=== PATIENT | female | born 1970 | race Caucasian/White ===

== ENCOUNTER 2016-03-18 08:31 | Emergency (ER) | payer BC ==
[~2016-03-18] VITALS: Wt 64.5 kg
[~2016-03-18 08:31] MED LIST: FURO40TA4 PO; HYDR-3671 PO; HYDR-842 PO; INSU200I4 SQ; LORA0.5T PO; LOSA50TA2 PO; METO-448 PO; METO10TA96 PO; NIFE60TA11 PO; NOVO3I SC; ONDA4TAB14 PO; SVL400T PO; TOBR5DRO14 BOTH EYES
[2016-03-18] MEDS ORDERED: HYDROmorphONE 1 MG/ML SYG IV STA (08:49)
[2016-03-18] MEDS ORDERED: ONDANSETRON 4 MG INJ IV STA (08:49)
[2016-03-18] MEDS ORDERED: morphine 4 MG/ML VIAL IV STA (09:20)
[2016-03-18 09:22] LABS: BASOPHILS % 0.4 % (0.0-2.0); EOSINOPHILS # 0.1 10^3/ul (0.0-0.5); EOSINOPHILS % 1.5 % (0.0-7.0); HEMATOCRIT 36.2 % (37.0-47.0); HEMOGLOBIN 12.4 g/dl (12.0-16.0); LYMPHOCYTES # 1.2 10^3/ul (0.8-2.9); LYMPHOCYTES % 27.5 % (15.0-51.0); MEAN CORPUSCULAR HEMOGLOBIN 28.7 pg (29.0-33.0); MEAN CORPUSCULAR HGB CONC 34.3 g/dl (32.0-37.0); MEAN CORPUSCULAR VOLUME 83.6 fl (82.0-101.0); MEAN PLATELET VOLUME 6.8 fl (7.4-10.4); MONOCYTE # 0.4 10^3/ul (0.3-0.9); MONOCYTES % 8.2 % (0.0-11.0); NEUTROPHIL # 2.8 10^3/ul (1.6-7.5); NEUTROPHILS % 62.4 % (39.0-77.0); PLATELET COUNT 205 10^3/UL (140-440); RED BLOOD COUNT 4.33 10^6/ul (4.20-5.40); RED CELL DISTRIBUTION WIDTH 16.8 % (11.5-14.5); UNCORRECTED WBC 4.5 10^3/ul (4.8-10.8); WHITE BLOOD COUNT 4.5 10^3/ul (4.8-10.8)
[2016-03-18 09:28] LABS: ALBUMIN 3.9 g/dl (3.3-4.9); CHLORIDE 99 mmol/L (97-110); POTASSIUM 4.1 mmol/L (3.5-5.1); SODIUM 140 mmol/L (135-144)
[2016-03-18 09:30] LABS: ANION GAP 18 (8-16); ASPARTATE AMINO TRANSFERASE 26 IU/L (15-46); BILIRUBIN,INDIRECT 0.2 mg/dl (0-1.1); BILIRUBIN,TOTAL 0.2 mg/dl (0.2-1.3); CARBON DIOXIDE 27 mmol/L (21-31); CREATININE 2.44 mg/dl (0.44-1.00)
[2016-03-18 09:31] LABS: ALANINE AMINOTRANSFERASE 21 IU/L (13-69); ALBUMIN/GLOBULIN RATIO 0.92; ALKALINE PHOSPHATASE 142 IU/L (42-121); BLOOD UREA NITROGEN 29 mg/dl (7-20); CALCIUM 9.6 mg/dl (8.4-10.2); GLUCOSE 266 mg/dl (70-220); TOTAL PROTEIN 8.1 g/dl (6.1-8.1)
[2016-03-18 09:32] LABS: CONDITION 1; LH ANALYZER COMMENTS 1
[2016-03-18] MEDS ORDERED: OXYC-279 PO (09:41)
[2016-03-18] MEDS ORDERED: POLY17PO6 PO (09:41)
[2016-03-18 09:43] LABS: TROPONIN-I < 0.012 ng/ml (0.00-0.12)
--- NOTE | 2016-03-18 09:51 | ERD ---
ER Documentation Chief Complaint Date/Time DATE: 03/18/16 TIME: 09:48 Chief Complaint back pain, bodyaches, n/v. on dialysis. HPI 45-year-old woman complains of back pain similar to previous episodes. She has a history of chronic pain syndrome and usually requires morphine for pain control. She does have a history of end-stage kidney disease on hemodialysis dependent MWF, last dialysis was yesterday. Patient denies fevers or chills, no dysuria, no chest pain or shortness of breath. ROS All systems reviewed and are negative except as per history of present illness. Medications Home Meds Active Scripts Oxycodone HCl/Acetaminophen (Percocet 5-325 mg Tablet) 1 Each Tablet, 1 EACH PO TID for PAIN, #9 TAB Prov:PAUL CLARK MD 03/18/16 Polyethylene Glycol* (Miralax*) 17 Gm Powd.pack, 2 TSP PO DAILY for CONSTIPATION , #1 BOTTLE Prov:PAUL CLARK MD 03/18/16 Hydralazine Hcl* (Hydralazine Hcl*) 25 Mg Tab, 25 MG PO Q8 for 30 Days, TAB Prov:YAA KIRK MD 01/29/16 Losartan Potassium* (Cozaar*) 50 Mg Tablet, 50 MG PO DAILY for 30 Days, TAB Prov:YAA KIRK MD 01/29/16 Hydroxyzine Hcl* (Atarax*) 25 Mg Tab, 25 MG PO Q6H Y for ITCHING, #40 TAB Prov:YAA KIRK MD 01/29/16 Lorazepam* (Lorazepam*) 0.5 Mg Tablet, 0.5 MG PO Q6 Y for anxiety, nausea/ vomiting, #40 TAB Prov:YAA KIRK MD 01/29/16 Metoclopramide Hcl* (Metoclopramide Hcl*) 10 Mg Tablet, 10 MG PO Q6H Y for NAUSEA AND OR VOMITING, #60 TAB Prov:YAA KIRK MD 01/29/16 Ondansetron (Ondansetron Odt) 4 Mg Tab.rapdis, 4 MG PO Q6H Y for NAUSEA AND/OR VOMITING, #30 TAB Prov:ANTHONY CASTILLO MD 01/01/16 Nifedipine (Nifedical Xl) 60 Mg Tab.er.24, 60 MG PO DAILY for 30 Days, TAB Prov:BUDDY BALLESTEROSNELL 12/29/15 Sevelamer HCl (Renagel) 400 Mg Tab, 400 MG PO WITH MEALS for 30 Days, TAB Prov:REGALEJANDRORBUDDYVERONICA 12/29/15 Furosemide* (Furosemide*) 40 Mg Tablet, 40 MG PO BID DIURETICS for 30 Days, TAB Prov:CED DON NP 12/10/15 Reported Medications Insulin Degludec (Tresiba Flextouch U-200) 200 Unit/1 Ml Insuln.pen, 4 UNIT SQ QHS 01/01/16 Insulin Aspart* (Novolog Insulin Pen*) 100 Unit/Ml Soln, 2 UNIT SC WITH MEALS, EA 01/01/16 Tobramycin-Dexamethasone (Tobramycin-Dexamethasone Ophth) 0.3%-0.1% - 5 Ml Drops.susp, 1 DROP BOTH EYES Q4, #1 EA 01/01/16 Metoprolol Tartrate* (Lopressor*) 25 Mg Tab, 25 MG PO BID, #60 TAB 01/01/16 Allergies Allergies: Coded Allergies: acetaminophen (Verified Allergy, Severe, UNABLE TO BREATH, 01/01/16) hydrocodone (Verified Allergy, Severe, UNABLE TO BREATH, 01/01/16) Penicillins (Verified Allergy, Unknown, 01/01/16) egg yolk (Verified Allergy, Unknown, 01/01/16) hydromorphone (Verified Allergy, Unknown, 12/25/15) ibuprofen (Verified Allergy, Unknown, 01/19/16) tramadol (Verified Allergy, Unknown, 12/25/15) PMhx/Soc Chronic pain syndrome, end-stage kidney disease hemodialysis dependent MWF, right pleural effusion, hypertension, diabetes mellitus, diastolic congestive heart failure History of Surgery: Yes (RIGHT ANKLE SURG) Anesthesia Reaction: No Hx Neurological Disorder: No Hx Respiratory Disorders: No Hx Cardiac Disorders: Yes (CAD, HTN) Hx Psychiatric Problems: No Hx Miscellaneous Medical Probl: Yes (DMII, CKD-on dialysis permacath R Subclavian) Hx Alcohol Use: No Hx Substance Use: No Hx Tobacco Use: No Smoking Status: Never smoker FmHx Family History: No diabetes Physical Exam Vitals Vital Signs Date Time Temp Pulse Resp B/P Pulse Ox O2 Delivery O2 Flow Rate FiO2 03/18/16 10:27 98.9 75 18 189/95 100 Room Air 03/18/16 08:35 98.4 84 20 219/93 98 Physical Exam GENERAL: Well-developed, well-nourished, well-hydrated, in no apparent distress , looks nontoxic in appearance HEENT: Moist mucous membranes, pink conjunctiva, no cervical spine tenderness or step-off deformities, no goiter, no jaundice or icterus, extraocular movements intact without pain. No submandibular induration, and no pharyngeal erythema NEURO: Alert and oriented 3, cranial nerves II through XII intact bilaterally, pupils equal round reactive to light, no focal deficits or facial asymmetry, sensation intact distally Strength 5/5 in upper and lower extremities bilaterally CARDIAC: Regular rate and rhythm, no murmurs rubs or gallops LUNGS: Clear bilaterally no wheezing crackles or stridor ABDOMEN: Soft nontender, no guarding, no rigidity, no rebound, no psoas sign no obturator sign. Normoactive bowel sounds SKIN: Warm and dry to touch, no abrasions, contusions, or hematomas, no lacerations, no ecchymosis, no target lesions, and without ulcers EXTREMITIES: No clubbing cyanosis or edema, calves are bilaterally symmetrical, no Homans sign, no popliteal cord sign. Distal pulses equal and bilateral PSYCH: Normal affect without agitation or irritability Result Diagram: 03/18/1690703/18/1608 Results 24 hrs Laboratory Tests Test 03/18/16 09:08 Alanine Aminotransferase (ALT/SGPT) 21IU/L Albumin 3.9g/dl Albumin/Globulin Ratio 0.92 Alkaline Phosphatase 142IU/L Anion Gap 18 Aspartate Amino Transf (AST/SGOT) 26IU/L Basophils # 0.010^3/ul Basophils % 0.4% Blood Morphology Comment Blood Urea Nitrogen 29mg/dl Calcium Level 9.6mg/dl Carbon Dioxide Level 27mmol/L Chloride Level 99mmol/L Creatinine 2.44mg/dl Direct Bilirubin 0.00mg/dl Eosinophils # 0.110^3/ul Eosinophils % 1.5% Globulin 4.20g/dl Glucose Level 266mg/dl Hematocrit 36.2% Hemoglobin 12.4g/dl Indirect Bilirubin 0.2mg/dl Lipase 84U/L Lymphocytes # 1.210^3/ul Lymphocytes % 27.5% Mean Corpuscular Hemoglobin 28.7pg Mean Corpuscular Hemoglobin Concent 34.3g/dl Mean Corpuscular Volume 83.6fl Mean Platelet Volume 6.8fl Monocytes # 0.410^3/ul Monocytes % 8.2% Neutrophils # 2.810^3/ul Neutrophils % 62.4% Nucleated Red Blood Cells # 0.010^3/ul Nucleated Red Blood Cells % 0.0/100WBC Platelet Count 25944^3/UL Potassium Level 4.1mmol/L Red Blood Count 4.3310^6/ul Red Cell Distribution Width 16.8% Sodium Level 140mmol/L Total Bilirubin 0.2mg/dl Total Protein 8.1g/dl Troponin I < 0.012ng/ml White Blood Count 4.510^3/ul Current Medications Medications (Trade) Dose Ordered Sig/Jacques Route PRN Reason Start Time Stop Time Status Last Admin Dose Admin Hydromorphone HCl (Dilaudid) 1 mg ONCE STAT IV 03/18/16 08:49 03/18/16 09:21 DC Ondansetron HCl (Zofran Inj) 4 mg ONCE STAT IV 03/18/16 08:49 03/18/16 08:51 DC 03/18/16 09:24 Morphine Sulfate (morphine) 4 mg ONCE STAT IV 03/18/16 09:20 03/18/16 09:22 DC 03/18/16 09:24 Procedures/MDM IV line was established patient was placed on vehicle monitor technician rhythm strip revealed a sinus rhythm at about 80 bpm with upright P and T waves. Patient was afebrile. EKG performed, read by me: 83 bpm, normal sinus rhythm, normal axis, no acute ST segment changes, narrow QRS complex, with good R-wave progression in precordial leads. I administered morphine 4 mg IV and Zofran 4 mg IV with excellent response. CBC and electrolytes were normal, liver function tests were normal, troponin was negative. Differential diagnoses considered, included but not limited to acute coronary syndrome, pulmonary embolism, aortic dissection, abdominal aortic aneurysm, sepsis, stroke, meningitis, encephalitis, pneumonia, appendicitis, cholecystitis , bowel obstruction, pyelonephritis, nephrolithiasis, cystitis, as well as metabolic, hematologic, and electrolyte abnormalities. As well as abscess, cellulitis, fractures, and dislocations. Patient feels much better at this time, and vital signs are normal, symptoms have improved. I did give strict instructions to return to the ED if symptoms continue or worsen, patient will otherwise follow-up with primary care physician. Patient understood instructions and agreed to plan. Departure Diagnosis: Primary Impression: Back pain Back pain location: low back pain Chronicity: acute Back pain laterality: bilateral Sciatica presence: without sciatica Qualified Code: M54.5 - Acute bilateral low back pain without sciatica Additional Impressions: Constipation Constipation type: slow transit constipation Qualified Code: K59.01 - Slow transit constipation End stage kidney disease Condition: Good Patient Instructions: Back Pain (Acute Or Chronic), Constipation (Adult) Referrals: CECILIA PAULINO (PCP) PAUL CLARK MD Mar 18, 2016 09:51
[2016-03-18 10:27] VITALS: BP 189/95; PULSE 75; RESP 18; TEMP 98.9
== END 2016-03-18 10:30 | disposition home or self-care (01) ==
LOC: E/R 08:31
DX: M54.5 Low back pain (principal); K59.01 Slow transit constipation; I12.0 Hypertensive chronic kidney disease with stage 5 chronic kidney disease or end stage renal disease; N18.6 End stage renal disease; E11.9 Type 2 diabetes mellitus without complications; I50.9 Heart failure, unspecified; I25.10 Atherosclerotic heart disease of native coronary artery without angina pectoris; Z99.2 Dependence on renal dialysis; Z79.4 Long term (current) use of insulin
CPT/HCPCS: 36415; 80053; 83690; 84484; 85025; 93005; 96374; 96375; 99284; J2270; J2405; J1170

== ENCOUNTER 2016-03-21 08:48 | Inpatient (IN) | payer BC ==
[~2016-03-21] VITALS: Ht 165.1 cm; Wt 63.5 kg
[~2016-03-21 08:48] MED LIST changes: +OXYC-279 PO; +POLY17PO6 PO
[2016-03-21] MEDS: SOD CHLORIDE 0.9% 1,000 ML IV STA ×2 (09:09→10:07)
[2016-03-21] MEDS ORDERED: FAMOTIDINE 20 MG INJ INJ STA (09:09)
[2016-03-21] MEDS ORDERED: ONDANSETRON 4 MG INJ IV STA ×2 (09:09→10:43)
[2016-03-21 09:37] LABS: BASOPHILS % 0.2 % (0.0-2.0); EOSINOPHILS % 0.4 % (0.0-7.0); HEMATOCRIT 36.6 % (37.0-47.0); HEMOGLOBIN 12.4 g/dl (12.0-16.0); LYMPHOCYTES # 0.8 10^3/ul (0.8-2.9); LYMPHOCYTES % 13.2 % (15.0-51.0); MEAN CORPUSCULAR HEMOGLOBIN 28.7 pg (29.0-33.0); MEAN CORPUSCULAR HGB CONC 33.9 g/dl (32.0-37.0); MEAN CORPUSCULAR VOLUME 84.7 fl (82.0-101.0); MEAN PLATELET VOLUME 7.1 fl (7.4-10.4); MONOCYTE # 0.3 10^3/ul (0.3-0.9); MONOCYTES % 4.3 % (0.0-11.0); NEUTROPHIL # 5.2 10^3/ul (1.6-7.5); NEUTROPHILS % 81.9 % (39.0-77.0); PLATELET COUNT 200 10^3/UL (140-440); RED BLOOD COUNT 4.32 10^6/ul (4.20-5.40); RED CELL DISTRIBUTION WIDTH 16.6 % (11.5-14.5); UNCORRECTED WBC 6.3 10^3/ul (4.8-10.8); WHITE BLOOD COUNT 6.3 10^3/ul (4.8-10.8)
[2016-03-21 09:42] LABS: CONDITION 1; LH ANALYZER COMMENTS 1
[2016-03-21 09:47] LABS: CHLORIDE 95 mmol/L (97-110); SODIUM 135 mmol/L (135-144)
[2016-03-21 09:48] LABS: POTASSIUM 4.8 mmol/L (3.5-5.1)
[2016-03-21 09:49] LABS: INR 0.81; PARTIAL THROMBOPLASTIN TIME 27.2 Sec (25.0-35.0); PROTIME 11.2 Sec (12.2-14.2); PT RATIO 0.9
[2016-03-21 09:50] LABS: ALANINE AMINOTRANSFERASE 21 IU/L (13-69); ALBUMIN/GLOBULIN RATIO 0.93; ALKALINE PHOSPHATASE 140 IU/L (42-121); ANION GAP 18 (8-16); ASPARTATE AMINO TRANSFERASE 25 IU/L (15-46); BILIRUBIN,INDIRECT 0.1 mg/dl (0-1.1); BILIRUBIN,TOTAL 0.1 mg/dl (0.2-1.3); BLOOD UREA NITROGEN 49 mg/dl (7-20); CARBON DIOXIDE 27 mmol/L (21-31); GLUCOSE 318 mg/dl (70-220); TOTAL PROTEIN 8.3 g/dl (6.1-8.1)
[2016-03-21 09:51] LABS: CALCIUM 9.9 mg/dl (8.4-10.2)
[2016-03-21 10:07] LABS: TROPONIN-I < 0.012 ng/ml (0.00-0.12)
--- NOTE | 2016-03-21 10:41 | RADRPT ---
PROCEDURE: CT Abdomen and Pelvis without contrast. CLINICAL INDICATION: Possible upper GI bleed. Abdominal pain with nausea and vomiting TECHNIQUE: Axial imaging was obtained through the abdomen pelvis without contrast administration usi ng a multi-slice CT scanner. Standard CT scan of the abdomen pelvis without contrast protocols were performed. The total exam CTDI equals 7.43 mGy and the total exam DLP equals 445.57 mGy-cm. COMPARISON: CT scan of the pelvis 02/20/2016. FINDINGS: CT abdomen: The patient is status post previous cholecystectomy. No evidence of biliary ductal dilation. There are bilateral nonobstructing renal calculi. No hydronephrosis bilaterally. No evidence of intra r enal masses bilaterally. There is mild circumferential urinary bladder wall thickening and rule out cystitis. Urinary bladder is otherwise unremarkable. There has been interval development of mild ascites extending from the inferior aspects of the liver and spleen involving the mid and lower abdo men and pelvis. There is no localized fluid collections to suggest abscess. Negative for intra-abd ominal free air. The liver spleen pancreas and adrenal glands are normal in size configuration with out focal lesions. There is a small to moderate size hiatal hernia. Gastric wall thickening may re late to lack of optimal distension of gastritis cannot be excluded. The small and large bowel appea r unremarkable. There is no change in the moderate periaortic lymphadenopathy is seen at the level of the renal vascular pedicles and extending caudally along the level of the kidneys. No other evid ence of abdominopelvic lymphadenopathy. The lung bases are unremarkable. There is atherosclerotic vascular disease of the abdominal aorta and its branches but no evidence of aneurysm or periaortic f luid collections. There are no acute osseous findings. IMPRESSION: 1. Mild abdominal and pelvic ascites but no localized fluid collection to suggest abscess. Negativ e for intra-abdominal free air. 2. No change in the bilateral nonobstructing renal calculi and moderate periaortic lymphadenopathy. 3. Small to moderate hiatal hernia. RPTAT:AAJJ Physician Pearl Date Time Electronically viewed and signed by Physician Pearl on 03/21/2016 10:41 BM/
[2016-03-21] MEDS ORDERED: morphine 4 MG/ML VIAL IV STA ×2 (10:53→12:49)
[2016-03-21] MEDS ORDERED: METOCLOPRAMIDE 10 MG INJ IV ONE (11:00)
[2016-03-21] MEDS ORDERED: LABETALOL HCL 20MG INJ IV ONE (11:00)
[2016-03-21] MEDS ORDERED: NEPH PO (13:31)
[2016-03-21 14:00] VITALS: TEMP 98.1
[2016-03-21] MEDS ORDERED: ONDA4TAB11 PO (14:10)
[2016-03-21] MEDS ORDERED: LORAZEPAM 2 MG INJ ONE (14:16)
[2016-03-21] MEDS ORDERED: ONDANSETRON 4 MG INJ IV PRN (15:00)
[2016-03-21] MEDS ORDERED: ACETAMINOPHEN 325 MG TAB PO PRN (15:00)
[2016-03-21] MEDS ORDERED: LORAZEPAM 2 MG INJ IV ONE (15:30)
--- NOTE | 2016-03-21 15:40 | ERA ---
ER Documentation Chief Complaint Date/Time DATE: 03/21/16 TIME: 15:28 Chief Complaint abd pain w n/v since last night, states vomiting blood, brown emesis in bag HPI This 45-year-old female presents with nausea vomiting that began last night. Stated one episode of vomiting had brown vomitus she worries for blood. Denies fevers and chills, denies chest pain. Does have sharp upper abdominal pain epigastric area. She is a Tuesday dialysis patient who had dialysis on Tuesday. Family is at bedside to. She has had constipation now for 10 days with very limited bowel movements. No diarrhea. ROS All systems reviewed and are negative except as per history of present illness. Medications Home Meds Active Scripts Ondansetron (Zofran Odt) 4 Mg Tab.rapdis, 4 MG PO Q6, #10 Prov:ALEXANDRAROSMERY 03/21/16 Oxycodone HCl/Acetaminophen (Percocet 5-325 mg Tablet) 1 Each Tablet, 1 EACH PO TID for PAIN, #9 TAB Prov:PAUL CLARK MD 03/18/16 Polyethylene Glycol* (Miralax*) 17 Gm Powd.pack, 2 TSP PO DAILY for CONSTIPATION , #1 BOTTLE Prov:PAUL CLARK MD 03/18/16 Hydralazine Hcl* (Hydralazine Hcl*) 25 Mg Tab, 25 MG PO Q8 for 30 Days, TAB Prov:YAA KIRK MD 01/29/16 Losartan Potassium* (Cozaar*) 50 Mg Tablet, 50 MG PO DAILY for 30 Days, TAB Prov:YAA KIRK MD 01/29/16 Hydroxyzine Hcl* (Atarax*) 25 Mg Tab, 25 MG PO Q6H Y for ITCHING, #40 TAB Prov:YAA KIRK MD 01/29/16 Lorazepam* (Lorazepam*) 0.5 Mg Tablet, 0.5 MG PO Q6 Y for anxiety, nausea/ vomiting, #40 TAB Prov:YAA KIRK MD 01/29/16 Metoclopramide Hcl* (Metoclopramide Hcl*) 10 Mg Tablet, 10 MG PO Q6H Y for NAUSEA AND OR VOMITING, #60 TAB Prov:YAA KIRK MD 01/29/16 Ondansetron (Ondansetron Odt) 4 Mg Tab.rapdis, 4 MG PO Q6H Y for NAUSEA AND/OR VOMITING, #30 TAB Prov:ANTHONY CASTILLO MD 01/01/16 Nifedipine (Nifedical Xl) 60 Mg Tab.er.24, 60 MG PO DAILY for 30 Days, TAB Prov:VERONICA BALLESTEROS 12/29/15 Sevelamer HCl (Renagel) 400 Mg Tab, 400 MG PO WITH MEALS for 30 Days, TAB Prov:VERONICA BALLESTEROS 12/29/15 Furosemide* (Furosemide*) 40 Mg Tablet, 40 MG PO BID DIURETICS for 30 Days, TAB Prov:CED DON NP 12/10/15 Reported Medications Multivit/Ca Carb/B Cmplx/Fa* (Annie-Laura*) 1 Tab Tab, 1 TAB PO DAILY, TAB 03/21/16 Insulin Degludec (Tresiba Flextouch U-200) 200 Unit/1 Ml Insuln.pen, 4 UNIT SQ QHS 01/01/16 Insulin Aspart* (Novolog Insulin Pen*) 100 Unit/Ml Soln, 2 UNIT SC WITH MEALS, EA 01/01/16 Metoprolol Tartrate* (Lopressor*) 25 Mg Tab, 25 MG PO BID, #60 TAB 01/01/16 Discontinued Reported Medications Tobramycin-Dexamethasone (Tobramycin-Dexamethasone Ophth) 0.3%-0.1% - 5 Ml Drops.susp, 1 DROP BOTH EYES Q4, #1 EA 01/01/16 Allergies Allergies: Coded Allergies: acetaminophen (Verified Allergy, Severe, UNABLE TO BREATH, 01/01/16) hydrocodone (Verified Allergy, Severe, UNABLE TO BREATH, 01/01/16) Penicillins (Verified Allergy, Unknown, 01/01/16) egg yolk (Verified Allergy, Unknown, 01/01/16) hydromorphone (Verified Allergy, Unknown, 12/25/15) ibuprofen (Verified Allergy, Unknown, 01/19/16) tramadol (Verified Allergy, Unknown, 12/25/15) PMhx/Soc History of Surgery: Yes (RIGHT ANKLE SX, RT EYE SX FOR CATARACT & GLAUCOMA, DIALYSIS CATH PLACEMENT) Anesthesia Reaction: No Hx Neurological Disorder: No Hx Respiratory Disorders: No Hx Cardiac Disorders: Yes (HTN) Hx Psychiatric Problems: No Hx Miscellaneous Medical Probl: Yes (DMII, CKD-on dialysis permacath R Subclavian) Hx Alcohol Use: No Hx Substance Use: No Hx Tobacco Use: No Smoking Status: Never smoker Physical Exam Vitals Vital Signs Date Time Temp Pulse Resp B/P Pulse Ox O2 Delivery O2 Flow Rate FiO2 03/21/16 14:00 98.1 86 14 158/87 100 Room Air 03/21/16 12:30 10 167/86 100 Room Air 03/21/16 10:36 9 12 225/103 100 Room Air 03/21/16 08:50 97.9 82 20 179/84 99 Physical Exam Const: [] Mild distress, appears and comfortable Head: Atraumatic Eyes: Normal Conjunctiva ENT: Normal External Ears, Nose and Mouth. Neck: Full range of motion..~ No meningismus. Resp: Clear to auscultation bilaterally Cardio: Regular rate and rhythm, no murmurs Abd: Soft, mild to moderate upper abdominal tenderness and left mid abdominal tenderness without guarding or rebound, non distended. Normal bowel sounds Skin: No petechiae or rashes Back: No midline or flank tenderness Ext: No cyanosis, or edema Neur: Awake and alert and oriented 3, no focal deficits Psych: Normal Mood and Affect Result Diagram: 03/21/16 0930 03/21/16 0930 Results 24 hrs Laboratory Tests Test 03/21/16 09:30 Activated Partial Thromboplast Time 27.2Sec Alanine Aminotransferase (ALT/SGPT) 21IU/L Albumin 4.0g/dl Albumin/Globulin Ratio 0.93 Alkaline Phosphatase 140IU/L Anion Gap 18 Aspartate Amino Transf (AST/SGOT) 25IU/L Basophils # 0.010^3/ul Basophils % 0.2% Blood Morphology Comment Blood Urea Nitrogen 49mg/dl Calcium Level 9.9mg/dl Carbon Dioxide Level 27mmol/L Chloride Level 95mmol/L Creatinine 4.00mg/dl Direct Bilirubin 0.00mg/dl Eosinophils # 0.010^3/ul Eosinophils % 0.4% Globulin 4.30g/dl Glucose Level 318mg/dl Hematocrit 36.6% Hemoglobin 12.4g/dl INR International Normalized Ratio 0.81 Indirect Bilirubin 0.1mg/dl Lymphocytes # 0.810^3/ul Lymphocytes % 13.2% Mean Corpuscular Hemoglobin 28.7pg Mean Corpuscular Hemoglobin Concent 33.9g/dl Mean Corpuscular Volume 84.7fl Mean Platelet Volume 7.1fl Monocytes # 0.310^3/ul Monocytes % 4.3% Neutrophils # 5.210^3/ul Neutrophils % 81.9% Nucleated Red Blood Cells # 0.010^3/ul Nucleated Red Blood Cells % 0.0/100WBC Platelet Count 08973^3/UL Potassium Level 4.8mmol/L Prothrombin Time 11.2Sec Prothrombin Time Ratio 0.9 Red Blood Count 4.3210^6/ul Red Cell Distribution Width 16.6% Sodium Level 135mmol/L Total Bilirubin 0.1mg/dl Total Protein 8.3g/dl Troponin I < 0.012ng/ml White Blood Count 6.310^3/ul Current Medications Medications (Trade) Dose Ordered Sig/Jacques Route PRN Reason Start Time Stop Time Status Last Admin Dose Admin Sodium Chloride (NS) 1,000 ml @ 1,000 mls/hr Q1H STAT IV 03/21/16 09:09 03/21/16 10:08 DC Famotidine (Pepcid Iv) 20 mg ONCE STAT INJ 03/21/16 09:09 03/21/16 09:12 DC 03/21/16 10:07 Ondansetron HCl (Zofran Inj) 4 mg ONCE STAT IV 03/21/16 09:09 03/21/16 09:12 DC 03/21/16 10:06 Labetalol HCl (Labetalol) 20 mg ONCE ONCE IV 03/21/16 11:00 03/21/16 11:01 DC 03/21/16 11:30 Metoclopramide HCl (Reglan) 10 mg ONCE ONCE IV 03/21/16 11:00 03/21/16 11:01 DC 03/21/16 10:49 Ondansetron HCl (Zofran Inj) 4 mg ONCE STAT IV 03/21/16 10:43 03/21/16 10:45 DC 03/21/16 10:49 Morphine Sulfate (morphine) 4 mg ONCE STAT IV 03/21/16 10:53 03/21/16 10:55 DC 03/21/16 11:00 Morphine Sulfate (morphine) 4 mg ONCE STAT IV 03/21/16 12:49 03/21/16 12:54 DC 03/21/16 13:19 Lorazepam (Ativan) 2 mg STK-MED ONCE .ROUTE 03/21/16 14:16 03/21/16 14:17 DC Ondansetron HCl (Zofran Inj) 4 mg BRIDGE ORDER PRN IV NAUSEA AND/OR VOMITING 03/21/16 15:00 03/22/16 14:59 Acetaminophen (Tylenol Tab) 650 mg ER BRIDGE PRN PO MILD PAIN/FEVER 03/21/16 15:00 03/22/16 14:59 Procedures/MDM 35-year-old female with nausea vomiting since last night with epigastric pain and hypertensive emergency. Intractable vomiting in the emergency room. She was given a liter of normal saline as well as Zofran initially. She came to vomit was given 4 more milligrams of Zofran IV and 10 mg of Reglan. Following was temporarily controlled pain was controlled with 4 mg of morphine. She was given labetalol for high blood pressure. This worked very well after which she did not have any malignant hypertension. She stated that she still felt bad and then she did vomit again of bilious blood. Giving one of Ativan which made her more comfortable. I doubt acute coronary syndrome as the patient has a nonischemic EKG and no chest pain or shortness of breath. I doubt acute surgical emergency as patient had no significant abnormalities on CAT scan. No signs of sepsis or acute systemic infection. Normal white blood cell count normal vital signs except for the high blood pressure. Spoke with Dr. Graff is intermittent the patient to medical surgical floor for intractable nausea vomiting. She'll likely need dialysis tomorrow. EKG interpretation: Sinus rhythm rate of 86, normal axis, no ST-T wave changes concerning for acute ischemia, nonspecific T-wave abnormality, QT of 461 athletic monitor interpretation: Normal sinus rhythm without arrhythmia CT abdomen and pelvis interpretation: Mild ascites, no obstruction, no free air , no abnormal fat stranding, no fractures Critical care time 34 minutes: This includes the treatment of a hypertensive emergency no vomiting. Show that she had blood pressure, use of Bactrim as active medication labetalol, multiple visits the patient's bedside to reassess status, chart review, discussion with patient and family. Does not include any billable procedures. Departure Diagnosis: Primary Impression: Intractable nausea and vomiting Additional Impressions: Acute abdominal pain Hypertensive emergency Hyperglycemia Ascites Patient Instructions: Abdominal Pain, Gastritis (Adult) Additional Instructions: Call your primary care doctor TOMORROW for an appointment during the next 1-2 days.See the doctor sooner or return here if your condition worsens before your appointment time. ROSMERY MORRIS DO Mar 21, 2016 15:39
[2016-03-21] MEDS ORDERED: SOD CHLORIDE 0.9% 1,000 ML IV SCH (15:43)
[2016-03-21] MEDS ORDERED: ZOLPIDEM 5 MG TAB PO PRN (16:00)
[2016-03-21] MEDS ORDERED: hydrALAzine 20 MG INJ IV PRN (16:00)
[2016-03-21] MEDS ORDERED: BISACODYL (EC) 5 MG TAB PO PRN (16:00)
[2016-03-21] MEDS ORDERED: NACL 0.9% 3 ML SYG IV SCH (16:00)
[2016-03-21] MEDS ORDERED: METOCLOPRAMIDE 10 MG INJ IV PRN (16:00)
[2016-03-21] MEDS ORDERED: NA PHOSPHATE/BIPHOS 133 ML ENEMA PR PRN (16:00)
[2016-03-21] MEDS ORDERED: MAGNESIUM HYDROXIDE 30ML CUP PO PRN (16:00)
[2016-03-21] MEDS ORDERED: LORAZEPAM 2 MG INJ IV PRN (16:30)
[2016-03-21 17:31] VITALS: Ht 165.1 cm; Wt 63.5 kg
[2016-03-21] MEDS: PANTOPRAZOLE 40 MG INJ IV SCH (18:17)
[2016-03-21] MEDS: METOCLOPRAMIDE 10 MG INJ IV SCH ×2 (18:17→23:30)
[2016-03-21] MEDS ORDERED: GLUCOSE GEL 15 GRAM TUBE PO PRN ×2 (18:30)
[2016-03-21] MEDS ORDERED: DEXTROSE 50% 50 ML SYRINGE IV PRN ×2 (18:30)
[2016-03-21] MEDS ORDERED: GLUCOSE GEL 15 GRAM TUBE BUCCAL PRN (18:30)
[2016-03-21] MEDS ORDERED: GLUCAGON 1 MG INJ IM PRN (18:30)
--- NOTE | 2016-03-21 19:34 | HP ---
DATE OF ADMISSION: 03/21/2016 REASON FOR ADMISSION: Abdominal pain with nausea and vomiting, started on 03/20. CONSULTATIONS: Dr. Milka Neves, Nephrology. HISTORY OF PRESENT ILLNESS: This is a 45-year-old female with multiple comorbidities and history of frequent hospitalizations with past medical history of recurrent right-sided pleural effusion, essential hypertension, end-stage renal disease, recently started on hemodialysis, type 2 diabetes mellitus, anemia of chronic disease and diastolic heart failure, who came to the emergency room complaining of abdominal pain with associated nausea and vomiting that started on the night of 03/21/2016. The patient verbalized that she had multiple episodes of bloody, bilious vomiting with associated sharp abdominal pain. The patient also verbalized that she has not had any bowel movements for the past 10 days. The patient regularly gets hemodialysis, and her last hemodialysis was on 03/19/2016. The patient denied any fevers or chills. She denied any dyspnea, chest pain, or headache. The patient verbalized that she has been compliant with her home medications. In the emergency room, the patient underwent a CT scan of the abdomen and pelvis that showed mild abdominal and pelvic ascites, but no localized fluid collection to suggest any abscesses. The CT was negative for any intraabdominal free air. The CT showed no change in the bilateral nonobstructing renal calculi and moderate periaortic lymphadenopathy as well as small to moderate hiatal hernia. The patient had no leukocytosis. The patient' s blood glucose was also found to be 315. The patient's alkaline phosphatase was 140. In the emergency room, the patient was treated with IV prokinetics and IV fluids with analgesics. PAST MEDICAL HISTORY: Recurrent right pleural effusion, essential hypertension , end-stage renal disease on hemodialysis, diabetes mellitus, anemia of chronic disease, diastolic heart failure. PAST SURGICAL HISTORY: Cholecystectomy, right foot surgery, multiple right thoracentesis. HOME MEDICATIONS: 1. Hydralazine 25 mg p.o. q.8h. 2. Losartan 50 mg p.o. daily. 3. Lopressor 25 mg p.o. b.i.d. 4. Nifedipine 60 mg p.o. daily. 5. Atarax 25 mg p.o. q.6 h. p.r.n. itching. 7. Lorazepam 0.5 mg p.o. q.6 h. p.r.n. anxiety, nausea, vomiting. 8. Percocet 5/325 one tablet p.o. t.i.d. p.r.n. pain. 9. Lasix 40 mg p.o. b.i.d. 10. Renagel 400 mg with meals. 11. Reglan 10 mg p.o. q.6h. p.r.n. nausea and/or vomiting. 12. Zofran 4 mg p.o. q.6 h. p.r.n. nausea, vomiting. 13. MiraLax 2 teaspoons p.o. daily. 14. Insulin NovoLog 2 units subcutaneously with meals. 15. Long acting insulin 4 units subcutaneously at bedtime. 16. Annie-Laura 1 tablet p.o. daily. ALLERGIES: TO PENICILLIN, ACETAMINOPHEN, EEG YOLK, HYDROCODONE, HYDROMORPHONE, IBUPROFEN, AND TRAMADOL. SOCIAL HISTORY: The patient lives at home with her family. Denies any recent history of tobacco, alcohol, or illicit drug use. REVIEW OF SYSTEMS: A 12-point review of systems and remainder review of systems are negative other than what is mentioned in history of present illness. PHYSICAL EXAMINATION: VITAL SIGNS: Temperature 98.1, pulse rate 86, respiratory rate 14, blood pressure 158/87, oxygen saturation 100% on room air. GENERAL: This is a 75-year-old female lying in bed, slightly somnolent , in no apparent distress. HEENT: Head normocephalic and atraumatic. Eyes: Anicteric sclerae. Conjunctivae clear. ENT: Nasal septum is midline. Oral mucosa is dry. NECK: Supple. JVD noticed on 45 degree angles. Right IJ dialysis access. RESPIRATORY: Bilaterally diminished breath sounds. No adventitious breath sounds heard. No use of accessory muscles of respiration. CARDIAC: Regular rate and rhythm. S1, S2 heard. ABDOMEN: Slightly distended. Diffuse tenderness. Bowel sounds hypoactive in all 4 quadrants. GENITOURINARY: Deferred. EXTREMITIES: No cyanosis, no clubbing. Bilateral lower extremity 2+ pitting edema. Peripheral pulses palpable. NEUROLOGIC: The patient is awake, alert and oriented. Cranial nerves are grossly intact. LABORATORY AND DIAGNOSTIC DATA: WBC 6.3, hemoglobin 12.7, hematocrit 36.6, platelet count 200. Sodium 137, potassium 4.8, chloride 97, carbon dioxide 27, anion gap 18, BUN 49, creatinine 4, blood glucose 318, calcium 9.9, AST 27, ALT 21, alkaline phosphatase 140, troponin-I less than 0.012. Total protein 8.3, albumin 4.0. PT 11.2, INR 0.818, PTT 27.2. CT scan of the abdomen and pelvis: Mild abdominal and pelvic ascites, but no localized fluid collection to suggest abscess. Negative for intraabdominal free air. No change in the bilateral nonobstructing renal calculi, and moderate periaortic lymphadenopathy. Small to moderate hiatal hernia. IMPRESSION: This is a 45-year-old female with multiple comorbidities who came to the Emergency Room with chief complaint of abdominal pain with associated nausea and vomiting, who will be admitted here for further treatment and evaluation. ASSESSMENT AND PLAN: 1. Abdominal pain. Etiology unclear. The patient's CT scan of the abdomen and pelvis negative for any acute findings. The patient has prior history of severe diabetic gastroparesis. The patient will be started on prokinetics. The patient will be provided with adequate pain control. 2. Reported hematemesis. The patient's hemoglobin and hematocrit remains stable. The patient will be started on proton pump inhibitors. The patient's persistent nausea and vomiting could be most probably secondary to underlying diabetic gastroparesis. This will be treated with prokinetics. 3. Accelerated hypertension. The patient's home antihypertensives will be resumed. The patient will also be started on p.r.n. antihypertensives for any systolic blood pressure readings greater than 160 mmHg. 4. End-stage renal disease, on hemodialysis. The patient's yield engineer will be informed about the patient's admission. The patient has no evidence of any fluid overload that requires emergent hemodialysis. 5. Type 2 diabetes mellitus. The patient will be started on sliding scale insulin along with basal insulin and premeal insulin. Hemoglobin A1c will be obtained to evaluate the blood glucose control over the past few months. 6. Constipation. This could be most probably secondary to decreased gastric motility from diabetic gastroparesis. The patient will be stated on routine stool softeners and PRN laxatives. She will be maintained on prokinetics. Plan. The patient will be admitted to inpatient medical/surgical floor. The patient will be started on a clear liquid diet, and the diet will be advanced as tolerated. The patient will be started on DVT prophylaxis and gastrointestinal prophylaxis. THE PATIENT WILL REMAIN A FULL CODE. Activities will be as tolerated. The patient's yield engineer was already informed about the patient's admission. The rest of the patient's management will be based on the clinical course, the results of the diagnostic studies, and inputs from consultants. Based on the patient's clinical presentation, she most probably requires at least a 2 midnights' stay for further management and evaluation of her clinical presentation. The case and management of this patient was fully discussed with Dr. Vu. Approximately 50 minutes was spent on the history and physical on this patient. CED VU MD, AM/DARRIAN Conf#: [id number] DID#: [id number] MTDD
[2016-03-21] MEDS: SEVELAMER 400 MG TAB PO SCH (19:44)
[2016-03-21] MEDS: INSULIN ASPART [NOVOLOG] 3 ML PEN SC SCH ×3 (19:47→20:10)
[2016-03-21] MEDS: DOCUSATE SODIUM 100 MG CAP PO SCH (20:07)
[2016-03-21] MEDS: POLYETHYLENE GLYCOL 17 GM PACKET PO SCH (20:08)
[2016-03-21] MEDS: METOPROLOL 25 MG TAB PO SCH (20:08)
[2016-03-21 20:27] VITALS: BP 130/69; RESP 18
[2016-03-21] MEDS ORDERED: INSULIN GLARGINE [LANtus] 3 ML PEN SC SCH (21:00)
[2016-03-21] MEDS ORDERED: FAMOTIDINE 20 MG INJ IV SCH (21:00)
[2016-03-21] MEDS: morphine 2 MG INJ IV PRN (21:54)
[2016-03-21] MEDS: ONDANSETRON 4 MG INJ IV PRN (21:55)
[2016-03-21 22:38] VITALS: BP 121/67; PULSE 68
[2016-03-22] VITALS (8 sets, daily range): BP systolic 83–148; BP diastolic 48–77; PULSE 76–84; RESP 16–20
[2016-03-22 05:11] LABS: HEMATOCRIT 34.2 % (37.0-47.0); HEMOGLOBIN 11.7 g/dl (12.0-16.0); MEAN CORPUSCULAR HEMOGLOBIN 29.2 pg (29.0-33.0); MEAN CORPUSCULAR HGB CONC 34.2 g/dl (32.0-37.0); MEAN CORPUSCULAR VOLUME 85.4 fl (82.0-101.0); MEAN PLATELET VOLUME 7.6 fl (7.4-10.4); PLATELET COUNT 186 10^3/UL (140-440); RED BLOOD COUNT 4.01 10^6/ul (4.20-5.40); RED CELL DISTRIBUTION WIDTH 16.3 % (11.5-14.5); UNCORRECTED WBC 9.9 10^3/ul (4.8-10.8); WHITE BLOOD COUNT 9.9 10^3/ul (4.8-10.8)
[2016-03-22] MEDS: PANTOPRAZOLE 40 MG INJ IV SCH ×2 (05:24→17:09)
[2016-03-22] MEDS: METOCLOPRAMIDE 10 MG INJ IV SCH ×3 (05:24→17:09)
[2016-03-22 05:30] LABS: CONDITION 1; LH ANALYZER COMMENTS 1; SUSPECT 1
[2016-03-22 05:35] LABS: ALBUMIN 3.6 g/dl (3.3-4.9)
[2016-03-22 05:36] LABS: POTASSIUM 4.9 mmol/L (3.5-5.1)
[2016-03-22 05:38] LABS: ALBUMIN/GLOBULIN RATIO 0.94; BILIRUBIN,INDIRECT 0.1 mg/dl (0-1.1); BILIRUBIN,TOTAL 0.1 mg/dl (0.2-1.3); CREATININE 4.73 mg/dl (0.44-1.00); TOTAL PROTEIN 7.4 g/dl (6.1-8.1)
[2016-03-22 05:39] LABS: CALCIUM 9.5 mg/dl (8.4-10.2)
[2016-03-22 07:14] LABS: CHOL/HDL RATIO 3.5 RATIO; MAGNESIUM 2.5 mg/dl (1.7-2.5); PHOSPHORUS 6.6 mg/dl (2.5-4.9)
[2016-03-22 07:27] LABS: TROPONIN-I 0.03 ng/ml (0.00-0.12)
[2016-03-22 07:45] LABS: THYROID STIMULATING HORMONE 2.77 MIU/L (0.465-4.680)
[2016-03-22] MEDS: INSULIN ASPART [NOVOLOG] 3 ML PEN SC SCH ×7 (08:17→20:32)
[2016-03-22] MEDS: morphine 2 MG INJ IV PRN ×3 (08:19→18:58)
[2016-03-22] MEDS: POLYETHYLENE GLYCOL 17 GM PACKET PO SCH ×2 (08:20→20:29)
[2016-03-22] MEDS: DOCUSATE SODIUM 100 MG CAP PO SCH ×2 (08:20→20:28)
[2016-03-22] MEDS: SEVELAMER 400 MG TAB PO SCH ×3 (08:20→16:56)
[2016-03-22] MEDS: MULTIVIT/CA CARB/B CMPLX/FA TAB PO SCH (08:20)
[2016-03-22] MEDS: METOPROLOL 25 MG TAB PO SCH ×2 (09:00→20:28)
[2016-03-22] MEDS: NIFEdipine (XL) 60 MG TAB PO SCH (09:00)
[2016-03-22] MEDS: LOSARTAN 50 MG TAB PO SCH (09:00)
[2016-03-22 09:13] LABS: BASOPHIL # 0.1 10^3/ul (0.0-0.1); EOSINOPHILS # 0.1 10^3/ul (0.0-0.5); LYMPHOCYTES # 2.1 10^3/ul (0.8-2.9); MONOCYTE # 0.3 10^3/ul (0.3-0.9); NEUTROPHIL # 7.3 10^3/ul (1.6-7.5)
[2016-03-22] MEDS ORDERED: ALBUMIN HUMAN 25% 100 ML IV PRN (10:30)
--- NOTE | 2016-03-22 10:40 | CONS ---
Date/Time of Note Date/Time of Note DATE: 03/22/16 TIME: 10:37 Assessment/Plan Assessment/Plan Chief Complaint/Hosp Course - ESRD on hemodialysis - Diabetes - Hx of Nephrotic Syndrome - Anemia - Hypertension - Abdomen pain / Gastroparesis On bedside dialysis Will need Albumin for BP support to achieve a good UF Follow up with H/H Monitor electrolytes THANK YOU Rufina ONEAL Problems: Consultation Date/Type/Reason Admit Date/Time Mar 21, 2016 at 14:46 Date of Consultation: Mar 22, 2016 Type of Consultation: NEPHROLOGY Reason for Consultation ESRD on dialysis Constitutional: improved, no complaints Eyes: no complaints ENT: no complaints Respiratory: no complaints Cardiovascular: no complaints Gastrointestinal: no complaints Genitourinary: no complaints Musculoskeletal: no complaints Skin: no complaints Past Medical History ESRD on dialysis Hx of Nephrotic syndrome DM HTN Anemia Past Surgical History Tunneled catheter placement Past Surgical Hx: cholecystectomy, other Social History Alcohol Use: none Smoking Status: Former smoker Drug Use: none Exam/Review of Systems Vital Signs Vitals Vital Signs Date Time Temp Pulse Resp B/P Pulse Ox O2 Delivery O2 Flow Rate FiO2 03/22/16 07:39 98.4 80 16 148/77 100 03/21/16 16:00 Room Air Intake and Output 03/21/16 03/21/16 03/22/16 15:00 23:00 07:00 Intake Total 842 ml Output Total 1500 ml Balance -658 ml Exam Sleepy ( Just got pain Meds ) Constitutional: alert Psych: no complaints Head: normocephalic Respiratory: crackles/rales Cardiovascular: nl pulses, regular rate and rhythm, systolic murmur Gastrointestinal: soft Results Result Diagram: 03/22/160 03/22/16 0440 Results 24 hrs Laboratory Tests Test 03/21/16 15:45 03/21/16 17:21 03/21/16 19:46 03/22/16 01:45 Lactic Acid Level 1.7 Bedside Glucose 283 H 257 H 193 Test 03/22/16 04:40 03/22/16 07:53 Alanine Aminotransferase (ALT/SGPT) 21 Albumin 3.6 Albumin/Globulin Ratio 0.94 Alkaline Phosphatase 124 H Anion Gap 17 H Aspartate Amino Transf (AST/SGOT) 28 Basophils # 0.1 Basophils % 1.0 Blood Morphology Comment Blood Urea Nitrogen 57 H Calcium Level 9.5 Carbon Dioxide Level 28 Chloride Level 96 L Cholesterol Level 203 H Cholesterol/HDL Ratio 3.5 Creatinine 4.73 H Differential Comment MANUAL DIFF Direct Bilirubin 0.00 Eosinophils # 0.1 Eosinophils % 1.0 Free Thyroxine 1.60 Globulin 3.80 H Glucose Level 229 H HDL Cholesterol 58 Hematocrit 34.2 L Hemoglobin 11.7 L Hemoglobin A1c 7.3 H Indirect Bilirubin 0.1 LDL Cholesterol, Calculated 115 Lymphocytes # 2.1 Lymphocytes % 21.0 Magnesium Level 2.5 Mean Corpuscular Hemoglobin 29.2 Mean Corpuscular Hemoglobin Concent 34.2 Mean Corpuscular Volume 85.4 Mean Platelet Volume 7.6 Monocytes # 0.3 Monocytes % 3.0 Neutrophils # 7.3 Neutrophils % 74.0 Nucleated Red Blood Cells # Nucleated Red Blood Cells % Phosphorus Level 6.6 H Platelet Count 186 Potassium Level 4.9 Red Blood Count 4.01 L Red Cell Distribution Width 16.3 H Sodium Level 136 Thyroid Stimulating Hormone (TSH) 2.770 Total Bilirubin 0.1 L Total Protein 7.4 Triglycerides Level 148 Troponin I 0.030 White Blood Count 9.9 # Bedside Glucose 238 H Medications Medications Current Medications Sodium Chloride (NS) 1,000 ml @ 40 mls/hr Q24H IV Last administered on 18:13; Admin Dose 40 MLS/HR; Start 03/21/16 at 15:43 Ondansetron HCl (Zofran Inj) 4 mg Q6H PRN IV NAUSEA AND/OR VOMITING Last administered on 03/21/16 21:55; Admin Dose 4 MG; Start 03/21/16 at 16:00 Morphine Sulfate (morphine) 2 mg Q4H PRN IV SEVERE PAIN LEVEL 7-10 Last administered on 03/22/16 08:19; Admin Dose 2 MG; Start 03/21/16 at 16:00 Magnesium Hydroxide (Milk Of Mag) 30 ml DAILY PRN PO CONSTIPATION; Start at 16:00 Bisacodyl (Dulcolax) 5 mg DAILY PRN PO CONSTIPATION; Start 03/21/16 at 16:00 Zolpidem Tartrate (Ambien) 5 mg QHS PRN PO SLEEP; Start 03/21/16 at 16:00 Hydralazine HCl (Apresoline) 10 mg Q6H PRN IV SBP greater than 160; Start 03/21 at 16:00 Hydralazine HCl (Apresoline) 25 mg Q8 PO Last administered on 03/22/16 05:27; Admin Dose 25 MG; Start 03/21/16 at 22:00 Losartan Potassium (Cozaar) 50 mg DAILY PO ; Start 03/22/16 at 09:00 Metoprolol Tartrate (Lopressor) 25 mg BID PO Last administered on 03/21/16 20: 08; Admin Dose 25 MG; Start 03/21/16 at 21:00 Multivit/Ca Carb/ B Cmplx/FA/Prenat (Annie-Laura) 1 tab DAILY PO Last administered on 03/22/16 08:20; Admin Dose 1 TAB; Start 03/22/16 at 09:00 Nifedipine (Procardia Xl) 60 mg DAILY PO ; Start 03/22/16 at 09:00 Metoclopramide HCl (Reglan) 10 mg Q6 IV Last administered on 03/22/16 05:24; Admin Dose 10 MG; Start 03/21/16 at 18:00 Polyethylene Glycol (Miralax) 17 gm BID PO Last administered on 03/22/16 08:20 ; Admin Dose 17 GM; Start 03/21/16 at 21:00 Docusate Sodium (Colace) 200 mg BID PO Last administered on 03/22/16 08:20; Admin Dose 200 MG; Start 03/21/16 at 21:00 Sodium Biphosphate/ Sodium Phosphate (Fleet Enema) 133 ml DAILY PRN [place] CONSTIPATION; Start 03/21/16 at 16:00 Insulin Glargine (Lantus) 12 unit HS SC Last administered on 03/21/16 20:09; Admin Dose 12 UNIT; Start 03/21/16 at 21:00 Pantoprazole (Protonix Iv) 40 mg BID@06,18 IV Last administered on 03/22/16 05 :24; Admin Dose 40 MG; Start 03/21/16 at 18:00 Lorazepam (Ativan) 1 mg Q6H PRN IV aNXIETY; Start 03/21/16 at 16:30 Miscellaneous Information 1 ea NOTE XX ; Start 03/21/16 at 18:30 Glucose (Glutose) 15 gm Q15M PRN PO DECREASED GLUCOSE; Start 03/21/16 at 18:30 Glucose (Glutose) 22.5 gm Q15M PRN PO DECREASED GLUCOSE; Start 03/21/16 at 18: 30 Dextrose (D50w Syringe) 25 ml Q15M PRN IV DECREASED GLUCOSE; Start 03/21/16 at 18:30 Dextrose (D50w Syringe) 50 ml Q15M PRN IV DECREASED GLUCOSE; Start 03/21/16 at 18:30 Glucagon (Glucagen) 1 mg Q15M PRN IM DECREASED GLUCOSE; Start 03/21/16 at 18:30 Glucose (Glutose) 15 gm Q15M PRN BUCCAL DECREASED GLUCOSE; Start 03/21/16 at 18 :30 SAVANNA SCHWARTZ MD Mar 22, 2016 10:40
[2016-03-22] MEDS: ONDANSETRON 4 MG INJ IV PRN (10:43)
--- NOTE | 2016-03-22 12:56 | PN ---
Date/Time of Note Date/Time of Note DATE: 03/22/16 TIME: 12:53 Assessment/Plan VTE Prophylaxis VTE Prophylaxis Intervention: LMWH Lines/Catheters IV Catheter Type (from Nrs): PERMACATH Urinary Cath still in place: No Assessment/Plan Chief Complaint/Hosp Course A/P: 1. Abd pain/n/v. Consider recurrent gastroparesis vs gastritis. No evidence of DKA. Stable, check lipase. 2. Chronic diabetes/metabolic syndrome 3. ESRD 4. Chronic nephrotic syndrome 5. Constipation 6. Nephrolithiasis, likely asymptomatic 7. Hiatal hernia likely asymptomatic 8. Hypertension/accelerated hypertension 9. Past tobacco use 10. Anemia, asymptomatic/stable 11. Possible history of CHF diastolic dysfunction 12. Pleural effusion Problems: Subjective 24 Hr Interval Summary Free Text/Dictation Hospitalist coverage: Events noted. Lethargic during dialysis. Blood pressure okay. No hypoglycemia. Exam/Review of Systems Vital Signs Vitals Vital Signs Date Time Temp Pulse Resp B/P Pulse Ox O2 Delivery O2 Flow Rate FiO2 03/22/16 11:25 84 03/22/16 11:25 18 03/22/16 07:39 98.4 148/77 100 03/21/16 16:00 Room Air Intake and Output 03/21/16 03/21/16 03/22/16 14:59 22:59 06:59 Intake Total 842 ml Output Total 1500 ml Balance -658 ml Exam Constitutional: alert, oriented Respiratory: clear to auscultation Cardiovascular: regular rate and rhythm Gastrointestinal: non-tender, soft Extremities: other (no edema) Neurological: ASSEMBLER SANDAL PARTS II-XII intact (nonfocal) Results Result Diagram: 03/22/1643903/22/16 0440 Results 24 hrs Laboratory Tests Test 03/21/16 15:45 03/21/16 17:21 03/21/16 19:46 03/22/16 01:45 Lactic Acid Level 1.7 Bedside Glucose 283 H 257 H 193 Test 03/22/16 04:40 03/22/16 07:53 03/22/16 11:32 Alanine Aminotransferase (ALT/SGPT) 21 Albumin 3.6 Albumin/Globulin Ratio 0.94 Alkaline Phosphatase 124 H Anion Gap 17 H Aspartate Amino Transf (AST/SGOT) 28 Basophils # 0.1 Basophils % 1.0 Blood Morphology Comment Blood Urea Nitrogen 57 H Calcium Level 9.5 Carbon Dioxide Level 28 Chloride Level 96 L Cholesterol Level 203 H Cholesterol/HDL Ratio 3.5 Creatinine 4.73 H Differential Comment MANUAL DIFF Direct Bilirubin 0.00 Eosinophils # 0.1 Eosinophils % 1.0 Free Thyroxine 1.60 Globulin 3.80 H Glucose Level 229 H HDL Cholesterol 58 Hematocrit 34.2 L Hemoglobin 11.7 L Hemoglobin A1c 7.3 H Indirect Bilirubin 0.1 LDL Cholesterol, Calculated 115 Lymphocytes # 2.1 Lymphocytes % 21.0 Magnesium Level 2.5 Mean Corpuscular Hemoglobin 29.2 Mean Corpuscular Hemoglobin Concent 34.2 Mean Corpuscular Volume 85.4 Mean Platelet Volume 7.6 Monocytes # 0.3 Monocytes % 3.0 Neutrophils # 7.3 Neutrophils % 74.0 Nucleated Red Blood Cells # Nucleated Red Blood Cells % Phosphorus Level 6.6 H Platelet Count 186 Potassium Level 4.9 Red Blood Count 4.01 L Red Cell Distribution Width 16.3 H Sodium Level 136 Thyroid Stimulating Hormone (TSH) 2.770 Total Bilirubin 0.1 L Total Protein 7.4 Triglycerides Level 148 Troponin I 0.030 White Blood Count 9.9 # Bedside Glucose 238 H 115 Medications Medications Current Medications Sodium Chloride (NS) 1,000 ml @ 40 mls/hr Q24H IV Last administered on 18:13; Admin Dose 40 MLS/HR; Start 03/21/16 at 15:43 Ondansetron HCl (Zofran Inj) 4 mg Q6H PRN IV NAUSEA AND/OR VOMITING Last administered on 03/22/16 10:43; Admin Dose 4 MG; Start 03/21/16 at 16:00 Morphine Sulfate (morphine) 2 mg Q4H PRN IV SEVERE PAIN LEVEL 7-10 Last administered on 03/22/16 12:15; Admin Dose 2 MG; Start 03/21/16 at 16:00 Magnesium Hydroxide (Milk Of Mag) 30 ml DAILY PRN PO CONSTIPATION; Start at 16:00 Bisacodyl (Dulcolax) 5 mg DAILY PRN PO CONSTIPATION; Start 03/21/16 at 16:00 Zolpidem Tartrate (Ambien) 5 mg QHS PRN PO SLEEP; Start 03/21/16 at 16:00 Hydralazine HCl (Apresoline) 10 mg Q6H PRN IV SBP greater than 160; Start 03/21 at 16:00 Hydralazine HCl (Apresoline) 25 mg Q8 PO Last administered on 03/22/16 05:27; Admin Dose 25 MG; Start 03/21/16 at 22:00 Losartan Potassium (Cozaar) 50 mg DAILY PO ; Start 03/22/16 at 09:00 Metoprolol Tartrate (Lopressor) 25 mg BID PO Last administered on 03/21/16 20: 08; Admin Dose 25 MG; Start 03/21/16 at 21:00 Multivit/Ca Carb/ B Cmplx/FA/Prenat (Annie-Laura) 1 tab DAILY PO Last administered on 03/22/16 08:20; Admin Dose 1 TAB; Start 03/22/16 at 09:00 Nifedipine (Procardia Xl) 60 mg DAILY PO ; Start 03/22/16 at 09:00 Metoclopramide HCl (Reglan) 10 mg Q6 IV Last administered on 03/22/16 12:06; Admin Dose 10 MG; Start 03/21/16 at 18:00 Polyethylene Glycol (Miralax) 17 gm BID PO Last administered on 03/22/16 08:20 ; Admin Dose 17 GM; Start 03/21/16 at 21:00 Docusate Sodium (Colace) 200 mg BID PO Last administered on 03/22/16 08:20; Admin Dose 200 MG; Start 03/21/16 at 21:00 Sodium Biphosphate/ Sodium Phosphate (Fleet Enema) 133 ml DAILY PRN [place] CONSTIPATION; Start 03/21/16 at 16:00 Insulin Glargine (Lantus) 12 unit HS SC Last administered on 03/21/16 20:09; Admin Dose 12 UNIT; Start 03/21/16 at 21:00 Pantoprazole (Protonix Iv) 40 mg BID@06,18 IV Last administered on 03/22/16 05 :24; Admin Dose 40 MG; Start 03/21/16 at 18:00 Lorazepam (Ativan) 1 mg Q6H PRN IV aNXIETY; Start 03/21/16 at 16:30 Miscellaneous Information 1 ea NOTE XX ; Start 03/21/16 at 18:30 Glucose (Glutose) 15 gm Q15M PRN PO DECREASED GLUCOSE; Start 03/21/16 at 18:30 Glucose (Glutose) 22.5 gm Q15M PRN PO DECREASED GLUCOSE; Start 03/21/16 at 18: 30 Dextrose (D50w Syringe) 25 ml Q15M PRN IV DECREASED GLUCOSE; Start 03/21/16 at 18:30 Dextrose (D50w Syringe) 50 ml Q15M PRN IV DECREASED GLUCOSE; Start 03/21/16 at 18:30 Glucagon (Glucagen) 1 mg Q15M PRN IM DECREASED GLUCOSE; Start 03/21/16 at 18:30 Glucose (Glutose) 15 gm Q15M PRN BUCCAL DECREASED GLUCOSE; Start 03/21/16 at 18 :30 ANAIS NORMAN MD Mar 22, 2016 12:56
[2016-03-22] MEDS ORDERED: BISACODYL 10 MG SUPP PR PRN (14:00)
[2016-03-22] MEDS ORDERED: MINERAL OIL 133 ML ENEMA PR PRN (14:00)
[2016-03-22] MEDS: BISACODYL (EC) 5 MG TAB PO SCH (14:45)
[2016-03-22] MEDS: LACTULOSE 30ML CUP PO SCH ×2 (14:46→20:35)
--- NOTE | 2016-03-22 14:58 | RADRPT ---
PROCEDURE: XR Chest. CLINICAL INDICATION: Shortness of breath. TECHNIQUE: Single frontal view. COMPARISON: 01/28/2016. FINDINGS: There is a right internal jugular vein temporary dialysis catheter with the tip in the upper right a trium. The lungs are clear. The heart size is normal. There is a small right pleural effusion, smaller than seen previously. There is no pneumothorax. IMPRESSION: 1. Right IJ temporary dialysis catheter tip in the upper right atrium. 2. Small right pleural effusion, smaller than seen previously. 3. Otherwise normal chest radiograph. RPTAT: QQ .José Miguel Mcclure MD, MD Date Time Electronically viewed and signed by .José Miguel Mcclure MD, MD on 03/22/2016 14:58 .R/
[2016-03-22] MEDS: INSULIN GLARGINE [LANtus] 3 ML PEN SC SCH (20:30)
[2016-03-23] VITALS (12 sets, daily range): BP systolic 96–154; BP diastolic 45–80; PULSE 72–85; RESP 18–19
[2016-03-23] MEDS: METOCLOPRAMIDE 10 MG INJ IV SCH ×2 (00:30→05:39)
[2016-03-23] MEDS: PANTOPRAZOLE 40 MG INJ IV SCH ×2 (05:39→18:33)
[2016-03-23 06:15] LABS: ALBUMIN 3.5 g/dl (3.3-4.9)
[2016-03-23 06:16] LABS: POTASSIUM 4.5 mmol/L (3.5-5.1)
[2016-03-23 06:18] LABS: ALBUMIN/GLOBULIN RATIO 1.02; BILIRUBIN,INDIRECT 0.3 mg/dl (0-1.1); BILIRUBIN,TOTAL 0.3 mg/dl (0.2-1.3); CREATININE 5.1 mg/dl (0.44-1.00); TOTAL PROTEIN 6.9 g/dl (6.1-8.1)
[2016-03-23 06:19] LABS: MAGNESIUM 2.4 mg/dl (1.7-2.5); PHOSPHORUS 6.1 mg/dl (2.5-4.9)
[2016-03-23 07:15] LABS: BASOPHILS % 0.1 % (0.0-2.0); EOSINOPHILS # 0.1 10^3/ul (0.0-0.5); HEMATOCRIT 31.8 % (37.0-47.0); LYMPHOCYTES # 0.8 10^3/ul (0.8-2.9); LYMPHOCYTES % 16.3 % (15.0-51.0); MEAN CORPUSCULAR HEMOGLOBIN 29.6 pg (29.0-33.0); MEAN CORPUSCULAR HGB CONC 34.7 g/dl (32.0-37.0); MEAN CORPUSCULAR VOLUME 85.5 fl (82.0-101.0); MEAN PLATELET VOLUME 7.6 fl (7.4-10.4); MONOCYTE # 0.6 10^3/ul (0.3-0.9); MONOCYTES % 11.2 % (0.0-11.0); NEUTROPHIL # 3.7 10^3/ul (1.6-7.5); NEUTROPHILS % 71.4 % (39.0-77.0); PLATELET COUNT 168 10^3/UL (140-440); RED BLOOD COUNT 3.72 10^6/ul (4.20-5.40); RED CELL DISTRIBUTION WIDTH 16.4 % (11.5-14.5); UNCORRECTED WBC 5.1 10^3/ul (4.8-10.8); WHITE BLOOD COUNT 5.1 10^3/ul (4.8-10.8)
[2016-03-23 07:27] LABS: CONDITION 1; LH ANALYZER COMMENTS 1
[2016-03-23 07:38] LABS: FOLATE > 20.0 ng/ml (2.8-20.0)
[2016-03-23] MEDS: SEVELAMER 400 MG TAB PO SCH ×3 (08:48→18:32)
[2016-03-23] MEDS: INSULIN ASPART [NOVOLOG] 3 ML PEN SC SCH ×7 (08:50→21:00)
[2016-03-23] MEDS: DOCUSATE SODIUM 100 MG CAP PO SCH ×2 (08:51→21:43)
[2016-03-23] MEDS: BISACODYL (EC) 5 MG TAB PO SCH (08:52)
[2016-03-23] MEDS: LACTULOSE 30ML CUP PO SCH ×2 (08:52→21:42)
[2016-03-23] MEDS: POLYETHYLENE GLYCOL 17 GM PACKET PO SCH ×2 (08:52→21:43)
[2016-03-23] MEDS: MULTIVIT/CA CARB/B CMPLX/FA TAB PO SCH (08:52)
[2016-03-23] MEDS: NIFEdipine (XL) 60 MG TAB PO SCH (08:53)
[2016-03-23] MEDS: LOSARTAN 50 MG TAB PO SCH (08:53)
[2016-03-23] MEDS: METOPROLOL 25 MG TAB PO SCH ×2 (08:53→21:45)
--- NOTE | 2016-03-23 11:35 | PN ---
Date/Time of Note Date/Time of Note DATE: 03/23/16 TIME: 11:32 Assessment/Plan VTE Prophylaxis VTE Prophylaxis Intervention: heparin, LMWH Lines/Catheters IV Catheter Type (from Nrs): PERMACATH Urinary Cath still in place: No Assessment/Plan Chief Complaint/Hosp Course A/P: 1. Abd pain/n/v. Consider recurrent gastroparesis vs gastritis. No evidence of DKA. Stable, advance diet, anticipate discharge Wed. 2. Chr diabetes/metabolic syndrome 3. ESRD; continue HD 4. Chronic nephrotic syndrome 5. Constipation 6. Nephrolithiasis, likely asymptomatic 7. Hiatal hernia likely asymptomatic 8. Hypertension/accelerated hypertension 9. Past tobacco use 10. Anemia, asymptomatic/stable 11. Possible history of CHF diastolic dysfunction 12. Pleural effusion 13. Constipation 14. Failure to thrive; needs increased ambulation vs placement/[id number]. Problems: Subjective 24 Hr Interval Summary Free Text/Dictation Hospitalist coverage: No events. Lethargy, abdominal/epigastric discomfort. No active vomiting. Labs ok. Bowel movement? Exam/Review of Systems Vital Signs Vitals Vital Signs Date Time Temp Pulse Resp B/P Pulse Ox O2 Delivery O2 Flow Rate FiO2 03/23/16 07:28 98.4 92 18 133/60 97 03/21/16 16:00 Room Air Intake and Output 03/22/16 03/22/16 03/23/16 15:00 23:00 07:00 Intake Total 400 ml 250 ml 520 ml Output Total 400 ml 800 ml 1300 ml Balance 0 ml -550 ml -780 ml Exam Constitutional: alert Respiratory: clear to auscultation Cardiovascular: regular rate and rhythm Gastrointestinal: non-tender (ND, no r/r/g), soft Results Result Diagram: 03/23/16 0515 03/23/16 0515 Results 24 hrs Laboratory Tests Test 03/22/16 16:48 03/22/16 18:55 03/22/16 20:27 03/23/16 02:13 Bedside Glucose 103 194 178 Urine Test NEGATIVE Test 03/23/16 05:15 03/23/16 08:26 Alanine Aminotransferase (ALT/SGPT) 22 Albumin 3.5 Albumin/Globulin Ratio 1.02 Alkaline Phosphatase 100 Anion Gap 18 H Aspartate Amino Transf (AST/SGOT) 26 Basophils # 0.0 Basophils % 0.1 Blood Morphology Comment Blood Urea Nitrogen 54 H Calcium Level 9.0 Carbon Dioxide Level 28 Chloride Level 97 Creatinine 5.10 H Direct Bilirubin 0.00 Eosinophils # 0.1 Eosinophils % 1.0 Folate > 20.0 H Globulin 3.40 H Glucose Level 184 Hematocrit 31.8 L Hemoglobin 11.0 L Indirect Bilirubin 0.3 Lymphocytes # 0.8 Lymphocytes % 16.3 Magnesium Level 2.4 Mean Corpuscular Hemoglobin 29.6 Mean Corpuscular Hemoglobin Concent 34.7 Mean Corpuscular Volume 85.5 Mean Platelet Volume 7.6 Monocytes # 0.6 Monocytes % 11.2 H Neutrophils # 3.7 Neutrophils % 71.4 Nucleated Red Blood Cells # 0.0 Nucleated Red Blood Cells % 0.0 Phosphorus Level 6.1 H Platelet Count 168 Potassium Level 4.5 Red Blood Count 3.72 L Red Cell Distribution Width 16.4 H Sodium Level 138 Total Bilirubin 0.3 Total Protein 6.9 Vitamin B12 Level 660 White Blood Count 5.1 # Bedside Glucose 211 Medications Medications Current Medications Ondansetron HCl (Zofran Inj) 4 mg Q6H PRN IV NAUSEA AND/OR VOMITING Last administered on 03/22/16 10:43; Admin Dose 4 MG; Start 03/21/16 at 16:00 Morphine Sulfate (morphine) 2 mg Q4H PRN IV SEVERE PAIN LEVEL 7-10 Last administered on 03/22/16 18:58; Admin Dose 2 MG; Start 03/21/16 at 16:00 Hydralazine HCl (Apresoline) 10 mg Q6H PRN IV SBP greater than 160; Start 03/21 at 16:00 Hydralazine HCl (Apresoline) 25 mg Q8 PO Last administered on 03/23/16 05:49; Admin Dose 25 MG; Start 03/21/16 at 22:00 Losartan Potassium (Cozaar) 50 mg DAILY PO Last administered on 03/23/16 08:53 ; Admin Dose 50 MG; Start 03/22/16 at 09:00 Metoprolol Tartrate (Lopressor) 25 mg BID PO Last administered on 03/23/16 08: 53; Admin Dose 25 MG; Start 03/21/16 at 21:00 Multivit/Ca Carb/ B Cmplx/FA/Prenat (Annie-Laura) 1 tab DAILY PO Last administered on 03/23/16 08:52; Admin Dose 1 TAB; Start 03/22/16 at 09:00 Nifedipine (Procardia Xl) 60 mg DAILY PO Last administered on 03/23/16 08:53; Admin Dose 60 MG; Start 03/22/16 at 09:00 Metoclopramide HCl (Reglan) 10 mg Q6 IV Last administered on 03/23/16 05:39; Admin Dose 10 MG; Start 03/21/16 at 18:00 Polyethylene Glycol (Miralax) 17 gm BID PO Last administered on 03/23/16 08:52 ; Admin Dose 17 GM; Start 03/21/16 at 21:00 Docusate Sodium (Colace) 200 mg BID PO Last administered on 03/23/16 08:51; Admin Dose 200 MG; Start 03/21/16 at 21:00 Sodium Biphosphate/ Sodium Phosphate (Fleet Enema) 133 ml DAILY PRN [place] CONSTIPATION Last administered on 03/23/16 06:32; Admin Dose 133 ML; Start at 16:00 Pantoprazole (Protonix Iv) 40 mg BID@06,18 IV Last administered on 03/23/16 05 :39; Admin Dose 40 MG; Start 03/21/16 at 18:00 Lorazepam (Ativan) 1 mg Q6H PRN IV aNXIETY; Start 03/21/16 at 16:30 Miscellaneous Information 1 ea NOTE XX ; Start 03/21/16 at 18:30 Glucose (Glutose) 15 gm Q15M PRN PO DECREASED GLUCOSE; Start 03/21/16 at 18:30 Glucose (Glutose) 22.5 gm Q15M PRN PO DECREASED GLUCOSE; Start 03/21/16 at 18: 30 Dextrose (D50w Syringe) 25 ml Q15M PRN IV DECREASED GLUCOSE; Start 03/21/16 at 18:30 Dextrose (D50w Syringe) 50 ml Q15M PRN IV DECREASED GLUCOSE; Start 03/21/16 at 18:30 Glucagon (Glucagen) 1 mg Q15M PRN IM DECREASED GLUCOSE; Start 03/21/16 at 18:30 Glucose (Glutose) 15 gm Q15M PRN BUCCAL DECREASED GLUCOSE; Start 03/21/16 at 18 :30 Insulin Glargine (Lantus) 15 unit HS SC Last administered on 03/22/16 20:30; Admin Dose 15 UNIT; Start 03/22/16 at 21:00 Lactulose (Enulose) 30 gm BID PO Last administered on 03/23/16 08:52; Admin Dose 30 GM; Start 03/22/16 at 14:00 Bisacodyl (Dulcolax) 10 mg DAILY PO Last administered on 03/23/16 08:52; Admin Dose 10 MG; Start 03/22/16 at 14:00 Bisacodyl (Dulcolax Supp) 10 mg DAILY PRN [place] CONSTIPATION; Start 03/22/16 at 14 :00 Mineral Oil (Fleet Mineral Oil Enema) 133 ml DAILY PRN [place] CONSTIPATION; Start 03/22/16 at 14:00 ANAIS NORMAN MD Mar 23, 2016 11:35
[2016-03-23] MEDS ORDERED: HEPARIN 1000 UNITS/ML 10 ML INJ CATHETER ONE (12:30)
[2016-03-23] MEDS: morphine 2 MG INJ IV PRN (13:08)
[2016-03-23] MEDS: METOCLOPRAMIDE 10 MG TAB PO SCH ×2 (13:26→21:44)
[2016-03-23] MEDS: ONDANSETRON 4 MG INJ IV PRN (15:06)
[2016-03-23] MEDS ORDERED: KETOROLAC 30 MG INJ IV STA (16:00)
--- NOTE | 2016-03-23 16:27 | RADRPT ---
PROCEDURE: XR Abdomen. CLINICAL INDICATION: Abdomen pain. TECHNIQUE: AP supine abdomen x-ray. COMPARISON: Abdomen radiograph dated 11/15/2014. CT scan of the abdomen and pelvis dated 7 FINDINGS: There are multiple dilated loops of gas containing small bowel consistent with small bowel obstructi on, worse than 03/21/2016. Only minimal gas is present in the colon. Surgical clips are present in the right upper quadrant of the abdomen from previous cholecystectomy. There are no abnormal calcifications overlying the urinary tracts. The osseus structures are unremarkable. IMPRESSION: 1. Small bowel obstruction, worse than 03/21/2016. 2. Previous cholecystectomy. 3. Otherwise unremarkable study. RPTAT: QQ .José Miguel Mcclure MD, MD Date Time Electronically viewed and signed by .José Miguel Mcclure MD, MD on 03/23/2016 16:27 .R/
[2016-03-23] MEDS ORDERED: BISACODYL (EC) 5 MG TAB PO ONE ×2 (16:30→22:00)
[2016-03-23] MEDS ORDERED: KETOROLAC 15 MG INJ IV PRN (16:30)
--- NOTE | 2016-03-23 16:40 | CONS ---
Date/Time of Note Date/Time of Note DATE: 03/23/16 TIME: 16:30 Assessment/Plan Assessment/Plan Additional Assessment/Plan Abdominal pain/nausea/vomiting * Stat KUB in process * Order lipase and bilirubin to rule out biliary obstruction * Prep for EGD and colonoscopy. Evaluate for PUD and IBD * Evaluate for SBP, consider ultrasound * Monitor labs * N.p.o. * IVF hydration * Pain management Further recommendations depend on clinical course Patient seen in collaboration with Dr. Lujan Consultation Date/Type/Reason Admit Date/Time Mar 21, 2016 at 14:46 Type of Consultation: Gastroenterology Reason for Consultation Intractable abdominal pain Hx of Present Illness 45-year-old female with complaints of intense abdominal pain, nausea, and nonbloody bilious vomiting for several days. At bedside patient is writhing in pain and unable to provide concise history. She is reporting intense diffuse abdominal pain and several episodes of vomiting today. Patient denies previous EGD or colonoscopy. Patient reports cholecystectomy, end-stage renal disease on hemodialysis, and diabetes. Stat KUB ordered and in process. CT on March 21 notes: 1. Mild abdominal and pelvic ascites but no localized fluid collection to suggest abscess. Negative for intra-abdominal free air. 2. No change in the bilateral nonobstructing renal calculi and moderate periaortic lymphadenopathy. 3. Small to moderate hiatal hernia. Will prep patient for EGD and colonoscopy tomorrow with Dr. Lujan unless otherwise indicated by further imaging and lab test results. Patient advised of risks/benefits/ alternatives of procedure and she is agreeable to proceed. Constitutional: improved, no complaints Eyes: no complaints ENT: no complaints Respiratory: no complaints Cardiovascular: no complaints Gastrointestinal: no complaints Genitourinary: no complaints Musculoskeletal: no complaints Skin: no complaints Psychological: no complaints Past Medical History Medical History: diabetes, renal disease (On hemodialysis) Past Surgical History Past Surgical Hx: cholecystectomy, other Social History Alcohol Use: none Smoking Status: Former smoker Drug Use: none Exam/Review of Systems Vital Signs Vitals Vital Signs Date Time Temp Pulse Resp B/P Pulse Ox O2 Delivery O2 Flow Rate FiO2 03/23/16 13:38 85 126/60 03/23/16 13:27 14 03/23/16 07:28 98.4 97 03/21/16 16:00 Room Air Intake and Output 03/22/16 03/22/1617 15:00 23:00 07:00 Intake Total 400 ml 250 ml 520 ml Output Total 400 ml 800 ml 1300 ml Balance 0 ml -550 ml -780 ml Exam Constitutional: alert, distress, oriented Psych: other (Tearful) Head: atraumatic, normocephalic Eyes: EOMI, nl conjunctiva, nl lids, nl sclera ENMT: nl external ears & nose, nl lips & teeth, nl nasal mucosa & septum Respiratory: normal air movement Cardiovascular: regular rate and rhythm Gastrointestinal: soft, tender (Diffuse tenderness) Neurological: PILLOWCASE SEWER II-XII intact Results Result Diagram: 03/23/16 0515 03/23/16 0515 Results 24 hrs Laboratory Tests Test 03/22/16 16:48 03/22/16 18:55 03/22/16 20:27 03/23/16 02:13 Bedside Glucose 103 194 178 Urine Test NEGATIVE Test 03/23/16 05:15 03/23/16 08:26 03/23/16 13:14 Alanine Aminotransferase (ALT/SGPT) 22 Albumin 3.5 Albumin/Globulin Ratio 1.02 Alkaline Phosphatase 100 Anion Gap 18 H Aspartate Amino Transf (AST/SGOT) 26 Basophils # 0.0 Basophils % 0.1 Blood Morphology Comment Blood Urea Nitrogen 54 H Calcium Level 9.0 Carbon Dioxide Level 28 Chloride Level 97 Creatinine 5.10 H Direct Bilirubin 0.00 Eosinophils # 0.1 Eosinophils % 1.0 Folate > 20.0 H Globulin 3.40 H Glucose Level 184 Hematocrit 31.8 L Hemoglobin 11.0 L Indirect Bilirubin 0.3 Lymphocytes # 0.8 Lymphocytes % 16.3 Magnesium Level 2.4 Mean Corpuscular Hemoglobin 29.6 Mean Corpuscular Hemoglobin Concent 34.7 Mean Corpuscular Volume 85.5 Mean Platelet Volume 7.6 Monocytes # 0.6 Monocytes % 11.2 H Neutrophils # 3.7 Neutrophils % 71.4 Nucleated Red Blood Cells # 0.0 Nucleated Red Blood Cells % 0.0 Phosphorus Level 6.1 H Platelet Count 168 Potassium Level 4.5 Rapid Plasma Reagin NONREACTIVE Red Blood Count 3.72 L Red Cell Distribution Width 16.4 H Sodium Level 138 Total Bilirubin 0.3 Total Protein 6.9 Vitamin B12 Level 660 White Blood Count 5.1 # Bedside Glucose 211 116 Medications Medications Current Medications Ondansetron HCl (Zofran Inj) 4 mg Q6H PRN IV NAUSEA AND/OR VOMITING Last administered on 03/23/16 15:06; Admin Dose 4 MG; Start 03/21/16 at 16:00 Morphine Sulfate (morphine) 2 mg Q4H PRN IV SEVERE PAIN LEVEL 7-10 Last administered on 03/23/16 13:08; Admin Dose 2 MG; Start 03/21/16 at 16:00 Hydralazine HCl (Apresoline) 10 mg Q6H PRN IV SBP greater than 160; Start 03/21 at 16:00 Hydralazine HCl (Apresoline) 25 mg Q8 PO Last administered on 03/23/16 13:37; Admin Dose 25 MG; Start 03/21/16 at 22:00 Losartan Potassium (Cozaar) 50 mg DAILY PO Last administered on 03/23/16 08:53 ; Admin Dose 50 MG; Start 03/22/16 at 09:00 Metoprolol Tartrate (Lopressor) 25 mg BID PO Last administered on 03/23/16 08: 53; Admin Dose 25 MG; Start 03/21/16 at 21:00 Multivit/Ca Carb/ B Cmplx/FA/Prenat (Annie-Laura) 1 tab DAILY PO Last administered on 03/23/16 08:52; Admin Dose 1 TAB; Start 03/22/16 at 09:00 Nifedipine (Procardia Xl) 60 mg DAILY PO Last administered on 03/23/16 08:53; Admin Dose 60 MG; Start 03/22/16 at 09:00 Polyethylene Glycol (Miralax) 17 gm BID PO Last administered on 03/23/16 08:52 ; Admin Dose 17 GM; Start 03/21/16 at 21:00 Docusate Sodium (Colace) 200 mg BID PO Last administered on 03/23/16 08:51; Admin Dose 200 MG; Start 03/21/16 at 21:00 Sodium Biphosphate/ Sodium Phosphate (Fleet Enema) 133 ml DAILY PRN [place] CONSTIPATION Last administered on 03/23/16 06:32; Admin Dose 133 ML; Start at 16:00 Pantoprazole (Protonix Iv) 40 mg BID@,18 IV Last administered on 03/23/16 05 :39; Admin Dose 40 MG; Start 03/21/16 at 18:00; Stop 03/23/16 at 23:00 Lorazepam (Ativan) 1 mg Q6H PRN IV aNXIETY; Start 03/21/16 at 16:30 Miscellaneous Information 1 ea NOTE XX ; Start 03/21/16 at 18:30 Glucose (Glutose) 15 gm Q15M PRN PO DECREASED GLUCOSE; Start 03/21/16 at 18:30 Glucose (Glutose) 22.5 gm Q15M PRN PO DECREASED GLUCOSE; Start 03/21/16 at 18: 30 Dextrose (D50w Syringe) 25 ml Q15M PRN IV DECREASED GLUCOSE; Start 03/21/16 at 18:30 Dextrose (D50w Syringe) 50 ml Q15M PRN IV DECREASED GLUCOSE; Start 03/21/16 at 18:30 Glucagon (Glucagen) 1 mg Q15M PRN IM DECREASED GLUCOSE; Start 03/21/16 at 18:30 Glucose (Glutose) 15 gm Q15M PRN BUCCAL DECREASED GLUCOSE; Start 03/21/16 at 18 :30 Insulin Glargine (Lantus) 15 unit HS SC Last administered on 03/22/16 20:30; Admin Dose 15 UNIT; Start 03/22/16 at 21:00 Lactulose (Enulose) 30 gm BID PO Last administered on 03/23/16 08:52; Admin Dose 30 GM; Start 03/22/16 at 14:00 Bisacodyl (Dulcolax) 10 mg DAILY PO Last administered on 03/23/16 08:52; Admin Dose 10 MG; Start 03/22/16 at 14:00 Bisacodyl (Dulcolax Supp) 10 mg DAILY PRN [place] CONSTIPATION Last administered on 03/23/16 13:25; Admin Dose 10 MG; Start 03/22/16 at 14:00 Mineral Oil (Fleet Mineral Oil Enema) 133 ml DAILY PRN [place] CONSTIPATION; Start 03/22/16 at 14:00 Pantoprazole (Protonix Tab) 40 mg DAILY@06 PO ; Start 03/24/16 at 06:00 Metoclopramide HCl (Reglan) 10 mg TID PO Last administered on 03/23/16 13:26; Admin Dose 10 MG; Start 03/23/16 at 13:00 Enoxaparin Sodium (Lovenox) 30 mg DAILY SC ; Start 03/24/16 at 09:00 Ketorolac Tromethamine (Toradol) 15 mg Q8H PRN IV PAIN; Start 03/23/16 at 16:30 ; Stop 03/26/16 at 16:29 Bisacodyl (Dulcolax) 10 mg ONCE ONCE PO ; Start 03/23/16 at 16:30; Stop at 16:31 Magnesium Citrate (Citroma) 300 ml ONCE ONCE PO ; Start 03/23/16 at 18:00; Stop 03/23/16 at 18:01 Polyethylene Glycol (Miralax) 119 gm ONCE ONCE PO ; Start 03/23/16 at 20:00; Stop 03/23/16 at 20:01 GUY SMITH Mar 23, 2016 16:39
[2016-03-23] MEDS ORDERED: MAGNESIUM CITRATE 300 ML BTL PO ONE (18:00)
[2016-03-23] MEDS ORDERED: POLYETHYLENE GLYCOL 3350 119 GM POWDER PO ONE ×2 (20:00→22:00)
[2016-03-23] MEDS: INSULIN GLARGINE [LANtus] 3 ML PEN SC SCH (21:48)
[2016-03-24] MEDS: PANTOPRAZOLE (EC) 40 MG TAB PO SCH (06:02)
[2016-03-24 06:11] LABS: INR 1.04; PROTIME 13.6 Sec (12.2-14.2); PT RATIO 1.1
[2016-03-24 06:12] LABS: PARTIAL THROMBOPLASTIN TIME 30.3 Sec (25.0-35.0)
[2016-03-24 06:43] LABS: BASOPHILS % 0.2 % (0.0-2.0); EOSINOPHILS # 0.1 10^3/ul (0.0-0.5); EOSINOPHILS % 1.7 % (0.0-7.0); HEMATOCRIT 29.8 % (37.0-47.0); HEMOGLOBIN 10.2 g/dl (12.0-16.0); LYMPHOCYTES # 1.1 10^3/ul (0.8-2.9); LYMPHOCYTES % 20.9 % (15.0-51.0); MEAN CORPUSCULAR HEMOGLOBIN 29.2 pg (29.0-33.0); MEAN CORPUSCULAR HGB CONC 34.2 g/dl (32.0-37.0); MEAN CORPUSCULAR VOLUME 85.5 fl (82.0-101.0); MEAN PLATELET VOLUME 7.5 fl (7.4-10.4); MONOCYTE # 0.6 10^3/ul (0.3-0.9); MONOCYTES % 12.5 % (0.0-11.0); NEUTROPHIL # 3.3 10^3/ul (1.6-7.5); NEUTROPHILS % 64.7 % (39.0-77.0); PLATELET COUNT 180 10^3/UL (140-440); RED BLOOD COUNT 3.49 10^6/ul (4.20-5.40); RED CELL DISTRIBUTION WIDTH 16.3 % (11.5-14.5); UNCORRECTED WBC 5.1 10^3/ul (4.8-10.8); WHITE BLOOD COUNT 5.1 10^3/ul (4.8-10.8)
[2016-03-24 06:44] LABS: CONDITION 1; LH ANALYZER COMMENTS 1
[2016-03-24] MEDS: INSULIN ASPART [NOVOLOG] 3 ML PEN SC SCH ×7 (07:35→20:30)
[2016-03-24] MEDS: SEVELAMER 400 MG TAB PO SCH ×3 (07:35→16:30)
[2016-03-24] MEDS: DOCUSATE SODIUM 100 MG CAP PO SCH ×2 (07:40→20:18)
[2016-03-24] MEDS: MULTIVIT/CA CARB/B CMPLX/FA TAB PO SCH (07:41)
[2016-03-24] MEDS: LACTULOSE 30ML CUP PO SCH ×2 (07:41→20:18)
[2016-03-24] MEDS: ENOXAPARIN 30 MG/0.3 ML SYG SC SCH (07:41)
[2016-03-24] MEDS: NIFEdipine (XL) 60 MG TAB PO SCH (07:41)
[2016-03-24] MEDS: METOCLOPRAMIDE 10 MG TAB PO SCH ×3 (07:41→20:18)
[2016-03-24] MEDS: POLYETHYLENE GLYCOL 17 GM PACKET PO SCH ×2 (07:41→20:18)
[2016-03-24] MEDS: METOPROLOL 25 MG TAB PO SCH ×2 (07:42→20:18)
[2016-03-24] MEDS: BISACODYL (EC) 5 MG TAB PO SCH (07:42)
[2016-03-24] MEDS: LOSARTAN 50 MG TAB PO SCH (07:42)
[2016-03-24 08:24] VITALS: BP 112/58; RESP 18
--- NOTE | 2016-03-24 11:05 | RADRPT ---
PROCEDURE: XR Abdomen. CLINICAL INDICATION: Abdomen pain. Evaluate for small bowel obstruction. TECHNIQUE: AP supine abdomen x-ray. COMPARISON: Abdomen radiograph dated 03/23/2016, 11/15/2014. CT scan of the abdomen and pelvis date d 03/21/2016. FINDINGS: Interval decrease in number of the dilated gas containing small bowel loops concerning for small bow el obstruction compared to prior radiograph 03/23/2016. Small foci of gas is noted in the colon. Surgical clips projects over the right upper abdomen likely consistent with prior cholecystectomy. Bilateral nonobstructing renal calculi are better seen on prior CT. Right paraspinal muscle vascula r calcifications are noted. No acute osseous abnormality is noted. IMPRESSION: 1. Interval decrease in number of the dilated gas containing small bowel loops concerning for small bowel obstruction compared to prior radiograph 03/23/2016. 2. Prior cholecystectomy. 3. Bilateral small nonobstructing renal calculi are better seen on prior CT. RPTAT: UU .Aby Malone MD, Date Time Electronically viewed and signed by .Aby Malone MD, on 03/24/2016 11:05 .N/
[2016-03-24] MEDS: DEXTROSE 5%-0.9% NACL 1,000 ML IV SCH (13:03)
--- NOTE | 2016-03-24 15:39 | PN ---
Date/Time of Note Date/Time of Note DATE: 03/24/16 TIME: 15:36 Assessment/Plan VTE Prophylaxis VTE Prophylaxis Intervention: LMWH Lines/Catheters IV [facility]ter [facility]from [facility] Urinary Cath still in place: No Assessment/Plan Chief Complaint/Hosp Course Assessment and plan 1. Abdominal pain. Patient with abdominal radiograph suggested of SBO. Process Plant Operator is following. We'll get surgical consultation follow. 2. Diabetes type 2. Continue insulin regimen. Will adjust as needed 3. ESRD . Yarn Finisher following. Continue on dialysis per nephrology 4. History of chronic nephrotic syndrome secondary to #2. Continue with nephrology recommendations. 5. Reported hematemesis. H&H went stable. Continue on PPI. Follow-up with computer network engineer recommendations 6. Accelerated hypertension. Continue antihypertensives. We'll adjust as needed 7. Constipation. Patient noted with history of gastroparesis. Now with abdominal radiograph suggestive of SBO. Surgeon to follow. Disposition and plan: npo for now. We'll get surgical consult. Follow-up with gastroenterology recommendations. Discussed plan of care with Dr. Garcia Problems: Subjective 24 Hr Interval Summary Free Text/Dictation Still reports having abdominal pain and difficulty with eating Exam/Review of Systems Vital Signs Vitals Vital Signs Date Time Temp Pulse Resp B/P Pulse Ox O2 Delivery O2 Flow Rate FiO2 03/24/16 08:24 98.6 77 18 112/58 98 03/21/16 16:00 Room Air Intake and Output 03/23/16 03/23/16 03/24/16 15:00 23:00 07:00 Intake Total 500 ml 600 ml Output Total 1500 ml 1400 ml Balance -1000 ml -800 ml Exam General: Minimal distress due to abdominal pain Eyes: pupils equal round, Anicteric sclera Neck: Supple nontender, no JVD Cardiac: S1, S2 auscultated, regular rhythm and rate Pulmonary: No coarse rhonchi or breathing auscultated GI: And abdominal pain noted on palpation of abdomen Extremities: No edema bilateral lower extremities Skin: Clean dry and intact Neurologic: Alert to person place and time and situation Results Result Diagram: 03/24/16 0515 03/23/16 0515 Results 24 hrs Laboratory Tests Test 03/23/16 17:20 03/23/16 21:39 03/24/16 05:15 03/24/16 07:32 Bedside Glucose 174 123 85 Activated Partial Thromboplast Time 30.3 Basophils # 0.0 Basophils % 0.2 Blood Morphology Comment Eosinophils # 0.1 Eosinophils % 1.7 Hematocrit 29.8 L Hemoglobin 10.2 L INR International Normalized Ratio 1.04 Lymphocytes # 1.1 Lymphocytes % 20.9 Mean Corpuscular Hemoglobin 29.2 Mean Corpuscular Hemoglobin Concent 34.2 Mean Corpuscular Volume 85.5 Mean Platelet Volume 7.5 Monocytes # 0.6 Monocytes % 12.5 H Neutrophils # 3.3 Neutrophils % 64.7 Nucleated Red Blood Cells # 0.0 Nucleated Red Blood Cells % 0.0 Platelet Count 180 Prothrombin Time 13.6 # Prothrombin Time Ratio 1.1 Red Blood Count 3.49 L Red Cell Distribution Width 16.3 H Serum HCG, Qualitative NEGATIVE White Blood Count 5.1 Test 03/24/16 11:31 Bedside Glucose 73 Medications Medications Current Medications Ondansetron HCl (Zofran Inj) 4 mg Q6H PRN IV NAUSEA AND/OR VOMITING Last administered on 03/23/16 15:06; Admin Dose 4 MG; Start 03/21/16 at 16:00 Morphine Sulfate (morphine) 2 mg Q4H PRN IV SEVERE PAIN LEVEL 7-10 Last administered on 03/23/16 13:08; Admin Dose 2 MG; Start 03/21/16 at 16:00 Hydralazine HCl (Apresoline) 10 mg Q6H PRN IV SBP greater than 160; Start 03/21 at 16:00 Hydralazine HCl (Apresoline) 25 mg Q8 PO Last administered on 03/24/16 06:02; Admin Dose 25 MG; Start 03/21/16 at 22:00 Losartan Potassium (Cozaar) 50 mg DAILY PO Last administered on 03/23/16 08:53 ; Admin Dose 50 MG; Start 03/22/16 at 09:00 Metoprolol Tartrate (Lopressor) 25 mg BID PO Last administered on 03/23/16 21: 45; Admin Dose 25 MG; Start 03/21/16 at 21:00 Multivit/Ca Carb/ B Cmplx/FA/Prenat (Annie-Laura) 1 tab DAILY PO Last administered on 03/23/16 08:52; Admin Dose 1 TAB; Start 03/22/16 at 09:00 Nifedipine (Procardia Xl) 60 mg DAILY PO Last administered on 03/23/16 08:53; Admin Dose 60 MG; Start 03/22/16 at 09:00 Polyethylene Glycol (Miralax) 17 gm BID PO Last administered on 03/23/16 21:43 ; Admin Dose 17 GM; Start 03/21/16 at 21:00 Docusate Sodium (Colace) 200 mg BID PO Last administered on 03/23/16 21:43; Admin Dose 200 MG; Start 03/21/16 at 21:00 Sodium Biphosphate/ Sodium Phosphate (Fleet Enema) 133 ml DAILY PRN [place] CONSTIPATION Last administered on 03/23/16 06:32; Admin Dose 133 ML; Start at 16:00 Lorazepam (Ativan) 1 mg Q6H PRN IV aNXIETY; Start 03/21/16 at 16:30 Miscellaneous Information 1 ea NOTE XX ; Start 03/21/16 at 18:30 Glucose (Glutose) 15 gm Q15M PRN PO DECREASED GLUCOSE; Start 03/21/16 at 18:30 Glucose (Glutose) 22.5 gm Q15M PRN PO DECREASED GLUCOSE; Start 03/21/16 at 18: 30 Dextrose (D50w Syringe) 25 ml Q15M PRN IV DECREASED GLUCOSE; Start 03/21/16 at 18:30 Dextrose (D50w Syringe) 50 ml Q15M PRN IV DECREASED GLUCOSE; Start 03/21/16 at 18:30 Glucagon (Glucagen) 1 mg Q15M PRN IM DECREASED GLUCOSE; Start 03/21/16 at 18:30 Glucose (Glutose) 15 gm Q15M PRN BUCCAL DECREASED GLUCOSE; Start 03/21/16 at 18 :30 Insulin Glargine (Lantus) 15 unit HS SC Last administered on 03/23/16 21:48; Admin Dose 15 UNIT; Start 03/22/16 at 21:00 Lactulose (Enulose) 30 gm BID PO Last administered on 03/23/16 21:42; Admin Dose 30 GM; Start 03/22/16 at 14:00 Bisacodyl (Dulcolax) 10 mg DAILY PO Last administered on 03/23/16 08:52; Admin Dose 10 MG; Start 03/22/16 at 14:00 Bisacodyl (Dulcolax Supp) 10 mg DAILY PRN [place] CONSTIPATION Last administered on 03/23/16 13:25; Admin Dose 10 MG; Start 03/22/16 at 14:00 Mineral Oil (Fleet Mineral Oil Enema) 133 ml DAILY PRN [place] CONSTIPATION; Start 03/22/16 at 14:00 Pantoprazole (Protonix Tab) 40 mg DAILY@06 PO Last administered on 03/24/16 06 :02; Admin Dose 40 MG; Start 03/24/16 at 06:00 Metoclopramide HCl (Reglan) 10 mg TID PO Last administered on 03/23/16 21:44; Admin Dose 10 MG; Start 03/23/16 at 13:00 Enoxaparin Sodium (Lovenox) 30 mg DAILY SC ; Start 03/24/16 at 09:00 Ketorolac Tromethamine 15 mg 15 mg Q8H PRN IV PAIN; Start 03/23/16 at 16:30; Stop 03/26/16 at 16:29 Dextrose/Sodium Chloride (D5-NS) 1,000 ml @ 40 mls/hr Q24H IV Last administered on 03/24/16 13:03; Admin Dose 40 MLS/HR; Start 03/24/16 at 13:00 VERONICA BALLESTEROS Mar 24, 2016 15:39
[2016-03-24] MEDS ORDERED: DIATR MEGLU/DIATRIZOATE SODIUM 120 ML BTL ONE (17:21)
--- NOTE | 2016-03-24 18:23 | CONS ---
Date/Time of Note Date/Time of Note DATE: 03/24/16 TIME: 18:15 Assessment/Plan Assessment/Plan Additional Assessment/Plan Abdominal pain/nausea/vomiting * SBFT in process * Order lipase and bilirubin to rule out biliary obstruction.Lipase in process. Bilirubin WNL * Postpone EGD and colonoscopy till SBO resolved. Evaluate for PUD and IBD * Consider evaluation for SBP, consider ultrasound * Monitor labs * N.p.o. * IVF hydration * Pain management Further recommendations depend on clinical course Patient seen in collaboration with Dr. Lujan Consultation Date/Type/Reason Admit Date/Time Mar 21, 2016 at 14:46 Initial Consult Date 03/22/16 Type of Consultation: Gastroenterology 24 HR Interval Summary Free Text/Dictation SBFT in process Reports less abdominal pain NPO Exam/Review of Systems Vital Signs Vitals Vital Signs Date Time Temp Pulse Resp B/P Pulse Ox O2 Delivery O2 Flow Rate FiO2 03/24/16 08:24 98.6 77 18 112/58 98 03/21/16 16:00 Room Air Intake and Output 03/23/16 03/23/16 03/24/16 15:00 23:00 07:00 Intake Total 500 ml 600 ml Output Total 1500 ml 1400 ml Balance -1000 ml -800 ml Exam Constitutional: alert, oriented Psych: nl mood/affect Eyes: EOMI, nl conjunctiva, nl lids ENMT: mucosa pink and moist, nl external ears & nose, nl lips & teeth, nl nasal mucosa & septum Respiratory: normal air movement Cardiovascular: regular rate and rhythm Gastrointestinal: other (epigastric), soft Neurological: NIGHT ASSISTANT II-XII intact Results Result Diagram: 03/24/1615 03/23/16 0515 Results 24 hrs Laboratory Tests Test 03/23/16 21:39 03/24/16 05:15 03/24/16 07:32 03/24/16 11:31 Bedside Glucose 123 85 73 Activated Partial Thromboplast Time 30.3 Basophils # 0.0 Basophils % 0.2 Blood Morphology Comment Eosinophils # 0.1 Eosinophils % 1.7 Hematocrit 29.8 L Hemoglobin 10.2 L INR International Normalized Ratio 1.04 Lymphocytes # 1.1 Lymphocytes % 20.9 Mean Corpuscular Hemoglobin 29.2 Mean Corpuscular Hemoglobin Concent 34.2 Mean Corpuscular Volume 85.5 Mean Platelet Volume 7.5 Monocytes # 0.6 Monocytes % 12.5 H Neutrophils # 3.3 Neutrophils % 64.7 Nucleated Red Blood Cells # 0.0 Nucleated Red Blood Cells % 0.0 Platelet Count 180 Prothrombin Time 13.6 # Prothrombin Time Ratio 1.1 Red Blood Count 3.49 L Red Cell Distribution Width 16.3 H Serum HCG, Qualitative NEGATIVE White Blood Count 5.1 Test 03/24/16 16:26 Bedside Glucose 71 Medications Medications Current Medications Ondansetron HCl (Zofran Inj) 4 mg Q6H PRN IV NAUSEA AND/OR VOMITING Last administered on 03/23/16 15:06; Admin Dose 4 MG; Start 03/21/16 at 16:00 Morphine Sulfate (morphine) 2 mg Q4H PRN IV SEVERE PAIN LEVEL 7-10 Last administered on 03/23/16 13:08; Admin Dose 2 MG; Start 03/21/16 at 16:00 Hydralazine HCl (Apresoline) 10 mg Q6H PRN IV SBP greater than 160; Start 03/21 at 16:00 Hydralazine HCl (Apresoline) 25 mg Q8 PO Last administered on 03/24/16 06:02; Admin Dose 25 MG; Start 03/21/16 at 22:00 Losartan Potassium (Cozaar) 50 mg DAILY PO Last administered on 03/23/16 08:53 ; Admin Dose 50 MG; Start 03/22/16 at 09:00 Metoprolol Tartrate (Lopressor) 25 mg BID PO Last administered on 03/23/16 21: 45; Admin Dose 25 MG; Start 03/21/16 at 21:00 Multivit/Ca Carb/ B Cmplx/FA/Prenat (Annie-Laura) 1 tab DAILY PO Last administered on 03/23/16 08:52; Admin Dose 1 TAB; Start 03/22/16 at 09:00 Nifedipine (Procardia Xl) 60 mg DAILY PO Last administered on 03/23/16 08:53; Admin Dose 60 MG; Start 03/22/16 at 09:00 Polyethylene Glycol (Miralax) 17 gm BID PO Last administered on 03/23/16 21:43 ; Admin Dose 17 GM; Start 03/21/16 at 21:00 Docusate Sodium (Colace) 200 mg BID PO Last administered on 03/23/16 21:43; Admin Dose 200 MG; Start 03/21/16 at 21:00 Sodium Biphosphate/ Sodium Phosphate (Fleet Enema) 133 ml DAILY PRN [place] CONSTIPATION Last administered on 03/23/16 06:32; Admin Dose 133 ML; Start at 16:00 Lorazepam (Ativan) 1 mg Q6H PRN IV aNXIETY; Start 03/21/16 at 16:30 Miscellaneous Information 1 ea NOTE XX ; Start 03/21/16 at 18:30 Glucose (Glutose) 15 gm Q15M PRN PO DECREASED GLUCOSE; Start 03/21/16 at 18:30 Glucose (Glutose) 22.5 gm Q15M PRN PO DECREASED GLUCOSE; Start 03/21/16 at 18: 30 Dextrose (D50w Syringe) 25 ml Q15M PRN IV DECREASED GLUCOSE; Start 03/21/16 at 18:30 Dextrose (D50w Syringe) 50 ml Q15M PRN IV DECREASED GLUCOSE; Start 03/21/16 at 18:30 Glucagon (Glucagen) 1 mg Q15M PRN IM DECREASED GLUCOSE; Start 03/21/16 at 18:30 Glucose (Glutose) 15 gm Q15M PRN BUCCAL DECREASED GLUCOSE; Start 03/21/16 at 18 :30 Insulin Glargine (Lantus) 15 unit HS SC Last administered on 03/23/16 21:48; Admin Dose 15 UNIT; Start 03/22/16 at 21:00 Lactulose (Enulose) 30 gm BID PO Last administered on 03/23/16 21:42; Admin Dose 30 GM; Start 03/22/16 at 14:00 Bisacodyl (Dulcolax) 10 mg DAILY PO Last administered on 03/23/16 08:52; Admin Dose 10 MG; Start 03/22/16 at 14:00 Bisacodyl (Dulcolax Supp) 10 mg DAILY PRN [place] CONSTIPATION Last administered on 03/23/16 13:25; Admin Dose 10 MG; Start 03/22/16 at 14:00 Mineral Oil (Fleet Mineral Oil Enema) 133 ml DAILY PRN [place] CONSTIPATION; Start 03/22/16 at 14:00 Pantoprazole (Protonix Tab) 40 mg DAILY@06 PO Last administered on 03/24/16 06 :02; Admin Dose 40 MG; Start 03/24/16 at 06:00 Metoclopramide HCl (Reglan) 10 mg TID PO Last administered on 03/23/16 21:44; Admin Dose 10 MG; Start 03/23/16 at 13:00 Enoxaparin Sodium (Lovenox) 30 mg DAILY SC ; Start 03/24/16 at 09:00 Ketorolac Tromethamine 15 mg 15 mg Q8H PRN IV PAIN; Start 03/23/16 at 16:30; Stop 03/26/16 at 16:29 Dextrose/Sodium Chloride (D5-NS) 1,000 ml @ 40 mls/hr Q24H IV Last administered on 03/24/16 13:03; Admin Dose 40 MLS/HR; Start 03/24/16 at 13:00 GUY SMITH Mar 24, 2016 18:22
[2016-03-24 19:55] VITALS: BP 174/85; RESP 16
--- NOTE | 2016-03-24 19:59 | RADRPT ---
PROCEDURE: Small bowel series CLINICAL INDICATION: Bowel obstruction. TECHNIQUE: Chemical Treatment Plant Technician images of the abdomen were obtained. 240 ml of Gastrografin was ingested by the patient and a small bowel series was performed . Multiple fluoroscopic images were obtained through the abdomen and pelvis. COMPARISON: CT of the abdomen/pelvis from March 21, 2016. FINDINGS: The stomach is in normal position with no evidence of gastric outlet obstruction. There are mildly distended loops of small bowel within the mid abdomen. There is a normal appearance of the mucosa of the small bowel. There is a normal transit time to the colon at approximately 4 hours. The termina l ileum is within normal limits. There are surgical clips within the right upper quadrant suggesting prior cholecystectomy. IMPRESSION: Multiple dilated loops of bowel within the mid abdomen on the ornamental plaster sticker images. The small bowel loops f illed with contrast do not appear dilated and contrast reaches the colon by 4 hours. Findings are suggestive of mild partial small bowel obstruction. RPTAT: PP .Jarad Bernard MD, MD Date Time Electronically viewed and signed by .Jarad Bernard MD, on 03/24/2016 19:59 .F/
--- NOTE | 2016-03-24 20:17 | CONS ---
[facility] INITIAL INPATIENT CONSULTATION NOTE PLACE OF SERVICE: [facility], second floor, [facility] DATE OF CONSULTATION: 03/24/2016 ASSESSMENT AND PLAN: A very pleasant but unfortunate 45-year-old lady with multiple medical issues including hypertension, reported diagnosis of right- sided heart failure issues with renal insufficiency and recent start of hemodialysis, as well as diabetes and anemia of chronic disease, presenting with abdominal pain with nausea and vomiting. Fortunately, I do not see any indication for surgical diagnoses or need for surgical intervention. This is likely a multifactorial presentation with gastroparesis as well as possible interposed renal insufficiency in addition to the possibility of viral gastroenteritis. The patient is clinically stable from a surgical standpoint and does not need any urgent or emergent operative interventions. She can probably benefit from gastroenterology consultation and an upper endoscopy at a minimum to evaluate for ulcer disease and evaluated why the patient had blood in her emesis. Also, continued aggressive medical management is indicated. I explained all this to the patient in detail and answered her questions to the best of my ability. The patient appeared to understand and agreed with the plan. With above assessment I have recommended the followin. Consider gastroenterology consultation for upper endoscopy and other interventions. 2. Aggressive medical management of symptoms. 3. I will continue to follow the patient along with you while she is in house and until there is no further need for surgical care. Thank you again for allowing us to participate in the care of this very pleasant young lady and I am certain her wonderful family. If there are any questions, please feel free to call me at [phone]. TOTAL VISIT TIME: 45 minutes of which more than half was spent in [id number] discussion with the patient as well as coordination of care between multiple physicians and providers. DATE OF ADMISSION: 03/21/2016 HISTORY OF PRESENT ILLNESS: The patient is a very pleasant but unfortunate 45- year-old lady with multiple previous and present comorbidities including essential hypertension, end-stage renal disease, recently started on hemodialysis, type 2 diabetes, anemia of chronic disease and listed diastolic heart failure (the patient was not aware of this diagnosis), admitted to the hospital through the emergency department on 03/20/2016 with abdominal pain and significant nausea and vomiting with associated blood in the emesis. The patient had a CT scan at that time after fairly normal appearing laboratory values that demonstrated nonspecific findings including mild abdominal and pelvic ascites but no localized fluid collection to suggest an abscess. There was no free intraabdominal air and no other major findings. There was a small to moderate hiatal hernia. Over the course of the next 4 days, she had a few other abdominal x-rays, one of which yesterday demonstrated dilated loops of small bowel, possibly indicating a small-bowel obstruction. Interestingly, the KUB from today showed interval decrease in number of dilated loops of bowel. I was kindly asked to consult to evaluate from a surgical standpoint whether there is any need for an operative intervention. I met the patient today. She reported feeling fairly well today. She had a small bout of vomiting earlier, but did not have significant abdominal pain. She does report having flatus and multiple bowel movements. PAST MEDICAL HISTORY: 1. Recurrent right-sided pleural effusion. 2. Essential hypertension. 3. End-stage renal disease. 4. Recently started on hemodialysis. 5. Type 2 diabetes mellitus. 6. Anemia of chronic disease. 7. Diastolic heart failure. PAST SURGICAL HISTORY: 1. Cholecystectomy. 2. Right foot surgery. 3. Multiple right thoracentesis. ALLERGIES: 1. PENICILLIN. 2. ACETAMINOPHEN. 3. EGG YOLK. 4. HYDROCODONE. 5. HYDROMORPHONE. 6. IBUPROFEN. 7. TRAMADOL. MEDICATIONS: A long list of home medications were carefully reviewed and noted in the chart. SOCIAL HISTORY: The patient lives with her family at home. No significant tobacco, alcohol or intravenous drug use. FAMILY HISTORY: No major medical, surgical or oncologic problems reported by the patient or noted in her chart. REVIEW OF SYSTEMS: Other than the above-mentioned, there are no other pertinent positives or pertinent negatives in a complete 14-point review of systems. PHYSICAL EXAMINATION: GENERAL: The patient appears to be a very pleasant young lady of descent, appearing stated age, lying in bed comfortably and in no acute distress. VITAL SIGNS: Afebrile. Her blood pressure is 112/58. Pulse 77, respiratory rate 18, pulse oximetry 98% on room air. BMI 23.3. HEENT: Normocephalic and atraumatic. Extraocular muscles and hearing are grossly intact bilaterally and symmetrically. Sclerae are nonicteric. Oral cavity is clear; oral mucosa appear to be pink and moist. Dentition: fair. NECK: Supple. There is no lymphadenopathy or JVD. There is no submental, submandibular or supraclavicular lymphadenopathy. CHEST: Rises symmetrically with each breath; patient is breathing comfortably. There are no audible wheezes, rales or rhonchi on the gross exam. HEART: Pulse is regular and palpable on the right wrist. Capillary refill is normal. Carotid pulses are palpable bilaterally and symmetrically in the neck. EXTREMITIES: Lower extremities contain no pitting edema around the ankles bilaterally and symmetrically. ABDOMEN: Soft, nontender and nondistended. There are no peritoneal signs or guarding. There is no organomegaly, caput medusae, engorged subcutaneous veins , or evidence of ascites. SKIN: Appears to be pink and feels warm to touch. NEUROLOGIC: Awake, alert, and follows commands appropriately. LABORATORY DATA: White blood cell count 5.1, platelets 180. Electrolytes were fairly normal, but creatinine was 5.1. Liver function and injury parameters were normal. Albumin 3.5. TSH was 2.7 and thought to be normal. Urinalysis was negative for . INR 1.04, RPR was nonreactive. IMAGING: The pertinent findings on the images were reviewed above. Dictated By: ALICIA BRO/DARRIAN Conf#: [id number] DID#: [id number] RODRIGO
[2016-03-24] MEDS: INSULIN GLARGINE [LANtus] 3 ML PEN SC SCH (20:29)
[2016-03-24 21:00] VITALS: BP 154/70
[2016-03-24 22:34] VITALS: BP 142/70
[2016-03-25] VITALS (9 sets, daily range): BP systolic 133–215; BP diastolic 65–100; PULSE 81–89; RESP 19–20
[2016-03-25] MEDS: morphine 2 MG INJ IV PRN ×3 (03:25→18:24)
[2016-03-25] MEDS: ONDANSETRON 4 MG INJ IV PRN (03:25)
[2016-03-25] MEDS: PANTOPRAZOLE (EC) 40 MG TAB PO SCH (04:51)
[2016-03-25 06:03] LABS: BASOPHILS % 0.4 % (0.0-2.0); EOSINOPHILS # 0.1 10^3/ul (0.0-0.5); EOSINOPHILS % 3.1 % (0.0-7.0); HEMATOCRIT 31.5 % (37.0-47.0); HEMOGLOBIN 10.6 g/dl (12.0-16.0); LYMPHOCYTES # 0.8 10^3/ul (0.8-2.9); LYMPHOCYTES % 20.1 % (15.0-51.0); MEAN CORPUSCULAR HEMOGLOBIN 29.2 pg (29.0-33.0); MEAN CORPUSCULAR HGB CONC 33.9 g/dl (32.0-37.0); MEAN CORPUSCULAR VOLUME 86.3 fl (82.0-101.0); MEAN PLATELET VOLUME 7.5 fl (7.4-10.4); MONOCYTE # 0.4 10^3/ul (0.3-0.9); MONOCYTES % 10.1 % (0.0-11.0); NEUTROPHIL # 2.7 10^3/ul (1.6-7.5); NEUTROPHILS % 66.3 % (39.0-77.0); PLATELET COUNT 192 10^3/UL (140-440); RED BLOOD COUNT 3.65 10^6/ul (4.20-5.40); RED CELL DISTRIBUTION WIDTH 15.8 % (11.5-14.5); UNCORRECTED WBC 4.1 10^3/ul (4.8-10.8); WHITE BLOOD COUNT 4.1 10^3/ul (4.8-10.8)
[2016-03-25 06:14] LABS: CONDITION 1; LH ANALYZER COMMENTS 1
[2016-03-25 06:24] LABS: POTASSIUM 3.3 mmol/L (3.5-5.1)
[2016-03-25 06:26] LABS: CREATININE 5.86 mg/dl (0.44-1.00)
[2016-03-25 06:27] LABS: CALCIUM 8.7 mg/dl (8.4-10.2)
[2016-03-25] MEDS: INSULIN ASPART [NOVOLOG] 3 ML PEN SC SCH ×7 (07:35→21:00)
[2016-03-25] MEDS: SEVELAMER 400 MG TAB PO SCH ×3 (07:35→17:26)
[2016-03-25] MEDS: DOCUSATE SODIUM 100 MG CAP PO SCH ×2 (08:19→21:39)
[2016-03-25] MEDS: METOPROLOL 25 MG TAB PO SCH ×2 (08:20→21:44)
[2016-03-25] MEDS: NIFEdipine (XL) 60 MG TAB PO SCH (08:20)
[2016-03-25] MEDS: BISACODYL (EC) 5 MG TAB PO SCH (08:20)
[2016-03-25] MEDS: LOSARTAN 50 MG TAB PO SCH (08:20)
[2016-03-25] MEDS: LACTULOSE 30ML CUP PO SCH ×2 (08:20→21:43)
[2016-03-25] MEDS: POLYETHYLENE GLYCOL 17 GM PACKET PO SCH ×2 (08:21→21:44)
[2016-03-25] MEDS: MULTIVIT/CA CARB/B CMPLX/FA TAB PO SCH (08:21)
[2016-03-25] MEDS: ENOXAPARIN 30 MG/0.3 ML SYG SC SCH (08:21)
[2016-03-25] MEDS: METOCLOPRAMIDE 10 MG TAB PO SCH ×3 (08:21→21:41)
[2016-03-25] MEDS: DEXTROSE 5%-0.9% NACL 1,000 ML IV SCH (12:14)
--- NOTE | 2016-03-25 14:06 | PN ---
Date/Time of Note Date/Time of Note DATE: 03/25/16 TIME: 13:58 Assessment/Plan VTE Prophylaxis VTE Prophylaxis Intervention: LMWH Lines/Catheters IV Catheter Type (from [facility]): Peripheral IV Urinary Cath still in place: No Assessment/Plan Chief Complaint/Hosp Course Assessment and plan 1. Abdominal pain. Patient with abdominal radiograph suggested of SBO. Personal Care Service Provider is following. Patient still able to have bowel movements. Surgeon following. No plan for intervention at this time 2. Diabetes type 2. Continue insulin regimen. Will adjust as needed 3. ESRD . Tank Tender following. Continue on dialysis per nephrology 4. History of chronic nephrotic syndrome secondary to #2. Continue with nephrology recommendations. 5. Reported hematemesis. H&H went stable. Continue on PPI. Follow-up with farmworker machine recommendations 6. Accelerated hypertension. Continue antihypertensives. We'll adjust as needed 7. Constipation. Patient noted with history of gastroparesis. Now with abdominal radiograph suggestive of SBO. Surgeon to follow. Disposition and plan: Advance diet per GI recommendations. Follow-up if need for further EGD. Discharge him medically stable and cleared by consultants Discussed plan of care with Dr. Garcia Problems: Subjective 24 Hr Interval Summary Free Text/Dictation Less reported pain on abdomen at this time Exam/Review of Systems Vital Signs Vitals Vital Signs Date Time Temp Pulse Resp B/P Pulse Ox O2 Delivery O2 Flow Rate FiO2 03/25/16 10:45 82 03/25/16 08:15 97.9 20 215/100 100 03/21/16 16:00 Room Air Intake and Output 03/24/16 03/24/16 03/25/16 15:00 23:00 07:00 Intake Total 500 ml 160 ml 480 ml Output Total 900 ml Balance -400 ml 160 ml 480 ml Exam General: Minimal distress due to abdominal pain Eyes: pupils equal round, Anicteric sclera Neck: Supple nontender, no JVD Cardiac: S1, S2 auscultated, regular rhythm and rate Pulmonary: No coarse rhonchi or breathing auscultated GI: And abdominal pain noted on palpation of abdomen Extremities: No edema bilateral lower extremities Skin: Clean dry and intact Neurologic: Alert to person place and time and situation Results Result Diagram: 03/25/16 0505 03/25/16 0505 Results 24 hrs Laboratory Tests Test 03/24/16 16:26 03/24/16 20:26 03/25/16 05:05 03/25/16 05:38 Bedside Glucose 71 76 93 Anion Gap 21 H Basophils # 0.0 Basophils % 0.4 Blood Morphology Comment Blood Urea Nitrogen 47 H Calcium Level 8.7 Carbon Dioxide Level 27 Chloride Level 102 Creatinine 5.86 H Eosinophils # 0.1 Eosinophils % 3.1 Glucose Level 87 # Hematocrit 31.5 L Hemoglobin 10.6 L Lymphocytes # 0.8 Lymphocytes % 20.1 Mean Corpuscular Hemoglobin 29.2 Mean Corpuscular Hemoglobin Concent 33.9 Mean Corpuscular Volume 86.3 Mean Platelet Volume 7.5 Monocytes # 0.4 Monocytes % 10.1 Neutrophils # 2.7 Neutrophils % 66.3 Nucleated Red Blood Cells # 0.0 Nucleated Red Blood Cells % 0.0 Platelet Count 192 Potassium Level 3.3 L Red Blood Count 3.65 L Red Cell Distribution Width 15.8 H Sodium Level 147 H White Blood Count 4.1 L Test 03/25/16 07:17 03/25/16 11:25 Bedside Glucose 90 142 Medications Medications Current Medications Ondansetron HCl (Zofran Inj) 4 mg Q6H PRN IV NAUSEA AND/OR VOMITING Last administered on 03/25/16 03:25; Admin Dose 4 MG; Start 03/21/16 at 16:00 Morphine Sulfate (morphine) 2 mg Q4H PRN IV SEVERE PAIN LEVEL 7-10 Last administered on 03/25/16 12:13; Admin Dose 2 MG; Start 03/21/16 at 16:00 Hydralazine HCl (Apresoline) 10 mg Q6H PRN IV SBP greater than 160 Last administered on 03/25/16 08:22; Admin Dose 10 MG; Start 03/21/16 at 16:00 Hydralazine HCl (Apresoline) 25 mg Q8 PO Last administered on 03/24/16 06:02; Admin Dose 25 MG; Start 03/21/16 at 22:00 Losartan Potassium (Cozaar) 50 mg DAILY PO Last administered on 03/23/16 08:53 ; Admin Dose 50 MG; Start 03/22/16 at 09:00 Metoprolol Tartrate (Lopressor) 25 mg BID PO Last administered on 03/23/16 21: 45; Admin Dose 25 MG; Start 03/21/16 at 21:00 Multivit/Ca Carb/ B Cmplx/FA/Prenat (Annie-Laura) 1 tab DAILY PO Last administered on 03/23/16 08:52; Admin Dose 1 TAB; Start 03/22/16 at 09:00 Nifedipine (Procardia Xl) 60 mg DAILY PO Last administered on 03/23/16 08:53; Admin Dose 60 MG; Start 03/22/16 at 09:00 Polyethylene Glycol (Miralax) 17 gm BID PO Last administered on 03/23/16 21:43 ; Admin Dose 17 GM; Start 03/21/16 at 21:00 Docusate Sodium (Colace) 200 mg BID PO Last administered on 03/23/16 21:43; Admin Dose 200 MG; Start 03/21/16 at 21:00 Sodium Biphosphate/ Sodium Phosphate (Fleet Enema) 133 ml DAILY PRN [place] CONSTIPATION Last administered on 03/23/16 06:32; Admin Dose 133 ML; Start at 16:00 Lorazepam (Ativan) 1 mg Q6H PRN IV aNXIETY; Start 03/21/16 at 16:30 Miscellaneous Information 1 ea NOTE XX ; Start 03/21/16 at 18:30 Glucose (Glutose) 15 gm Q15M PRN PO DECREASED GLUCOSE; Start 03/21/16 at 18:30 Glucose (Glutose) 22.5 gm Q15M PRN PO DECREASED GLUCOSE; Start 03/21/16 at 18: 30 Dextrose (D50w Syringe) 25 ml Q15M PRN IV DECREASED GLUCOSE; Start 03/21/16 at 18:30 Dextrose (D50w Syringe) 50 ml Q15M PRN IV DECREASED GLUCOSE; Start 03/21/16 at 18:30 Glucagon (Glucagen) 1 mg Q15M PRN IM DECREASED GLUCOSE; Start 03/21/16 at 18:30 Glucose (Glutose) 15 gm Q15M PRN BUCCAL DECREASED GLUCOSE; Start 03/21/16 at 18 :30 Insulin Glargine (Lantus) 15 unit HS SC Last administered on 03/23/16 21:48; Admin Dose 15 UNIT; Start 03/22/16 at 21:00 Lactulose (Enulose) 30 gm BID PO Last administered on 03/23/16 21:42; Admin Dose 30 GM; Start 03/22/16 at 14:00 Bisacodyl (Dulcolax) 10 mg DAILY PO Last administered on 03/23/16 08:52; Admin Dose 10 MG; Start 03/22/16 at 14:00 Bisacodyl (Dulcolax Supp) 10 mg DAILY PRN [place] CONSTIPATION Last administered on 03/23/16 13:25; Admin Dose 10 MG; Start 03/22/16 at 14:00 Mineral Oil (Fleet Mineral Oil Enema) 133 ml DAILY PRN [place] CONSTIPATION; Start 03/22/16 at 14:00 Pantoprazole (Protonix Tab) 40 mg DAILY@06 PO Last administered on 03/24/16 06 :02; Admin Dose 40 MG; Start 03/24/16 at 06:00 Metoclopramide HCl (Reglan) 10 mg TID PO Last administered on 03/23/16 21:44; Admin Dose 10 MG; Start 03/23/16 at 13:00 Enoxaparin Sodium (Lovenox) 30 mg DAILY SC ; Start 03/24/16 at 09:00 Ketorolac Tromethamine 15 mg 15 mg Q8H PRN IV PAIN; Start 03/23/16 at 16:30; Stop 03/26/16 at 16:29 Dextrose/Sodium Chloride (D5-NS) 1,000 ml @ 40 mls/hr Q24H IV Last administered on 03/25/16 12:14; Admin Dose 40 MLS/HR; Start 03/24/16 at 13:00 VERONICA BALLESTEROS Mar 25, 2016 14:05
--- NOTE | 2016-03-25 15:22 | CONS ---
Date/Time of Note Date/Time of Note DATE: 03/25/16 TIME: 15:20 Assessment/Plan Assessment/Plan Additional Assessment/Plan Abdominal pain/nausea/vomiting, improving * KUB * Interval decrease in number of the dilated gas containing small bowel loops concerning for small bowel obstruction compared to prior radiograph 03/23/2016. * Prior cholecystectomy * SBFT 03-24-16 * Multiple dilated loops of bowel within the mid abdomen on the mortgage broker images. The small bowel loops filled with contrast do not appear dilated and contrast reaches the colon by 4 hours. * Findings are suggestive of mild partial small bowel obstruction. * EGD tomorrow with Dr. Lujan * Monitor labs * N.p.o. * IVF hydration * Pain management Further recommendations depend on clinical course Patient seen in collaboration with Dr. Lujan Consultation Date/Type/Reason Admit Date/Time Mar 21, 2016 at 14:46 Initial Consult Date 03/22/16 Type of Consultation: Gastroenterology 24 HR Interval Summary Free Text/Dictation Reports less abdominal pain Denies nausea and vomiting Repeat abdominal x-ray March 24 notes decreased dilated loops of small bowel Okay for full liquids Clears prior to EGD tomorrow with Dr. Lujan Exam/Review of Systems Vital Signs Vitals Vital Signs Date Time Temp Pulse Resp B/P Pulse Ox O2 Delivery O2 Flow Rate FiO2 03/25/16 10:45 82 03/25/16 08:15 97.9 20 215/100 100 03/21/16 16:00 Room Air Intake and Output 03/24/16 03/24/16 03/25/16 15:00 23:00 07:00 Intake Total 500 ml 160 ml 480 ml Output Total 900 ml Balance -400 ml 160 ml 480 ml Exam Constitutional: alert, oriented Psych: nl mood/affect Eyes: EOMI, nl conjunctiva, nl lids ENMT: mucosa pink and moist, nl external ears & nose, nl lips & teeth, nl nasal mucosa & septum Respiratory: normal air movement Cardiovascular: regular rate and rhythm Gastrointestinal: other (epigastric), soft Neurological: GETTERING FILAMENT MACHINE OPERATOR II-XII intact Results Result Diagram: 03/25/16 0505 03/25/16 0505 Results 24 hrs Laboratory Tests Test 03/24/16 16:26 03/24/16 20:26 03/25/16 05:05 03/25/16 05:38 Bedside Glucose 71 76 93 Anion Gap 21 H Basophils # 0.0 Basophils % 0.4 Blood Morphology Comment Blood Urea Nitrogen 47 H Calcium Level 8.7 Carbon Dioxide Level 27 Chloride Level 102 Creatinine 5.86 H Eosinophils # 0.1 Eosinophils % 3.1 Glucose Level 87 # Hematocrit 31.5 L Hemoglobin 10.6 L Lymphocytes # 0.8 Lymphocytes % 20.1 Mean Corpuscular Hemoglobin 29.2 Mean Corpuscular Hemoglobin Concent 33.9 Mean Corpuscular Volume 86.3 Mean Platelet Volume 7.5 Monocytes # 0.4 Monocytes % 10.1 Neutrophils # 2.7 Neutrophils % 66.3 Nucleated Red Blood Cells # 0.0 Nucleated Red Blood Cells % 0.0 Platelet Count 192 Potassium Level 3.3 L Red Blood Count 3.65 L Red Cell Distribution Width 15.8 H Sodium Level 147 H White Blood Count 4.1 L Test 03/25/16 07:17 03/25/16 11:25 Bedside Glucose 90 142 Medications Medications Current Medications Ondansetron HCl (Zofran Inj) 4 mg Q6H PRN IV NAUSEA AND/OR VOMITING Last administered on 03/25/16 03:25; Admin Dose 4 MG; Start 03/21/16 at 16:00 Morphine Sulfate (morphine) 2 mg Q4H PRN IV SEVERE PAIN LEVEL 7-10 Last administered on 03/25/16 12:13; Admin Dose 2 MG; Start 03/21/16 at 16:00 Hydralazine HCl (Apresoline) 10 mg Q6H PRN IV SBP greater than 160 Last administered on 03/25/16 08:22; Admin Dose 10 MG; Start 03/21/16 at 16:00 Hydralazine HCl (Apresoline) 25 mg Q8 PO Last administered on 03/24/16 06:02; Admin Dose 25 MG; Start 03/21/16 at 22:00 Losartan Potassium (Cozaar) 50 mg DAILY PO Last administered on 03/23/16 08:53 ; Admin Dose 50 MG; Start 03/22/16 at 09:00 Metoprolol Tartrate (Lopressor) 25 mg BID PO Last administered on 03/23/16 21: 45; Admin Dose 25 MG; Start 03/21/16 at 21:00 Multivit/Ca Carb/ B Cmplx/FA/Prenat (Annie-Laura) 1 tab DAILY PO Last administered on 03/23/16 08:52; Admin Dose 1 TAB; Start 03/22/16 at 09:00 Nifedipine (Procardia Xl) 60 mg DAILY PO Last administered on 03/23/16 08:53; Admin Dose 60 MG; Start 03/22/16 at 09:00 Polyethylene Glycol (Miralax) 17 gm BID PO Last administered on 03/23/16 21:43 ; Admin Dose 17 GM; Start 03/21/16 at 21:00 Docusate Sodium (Colace) 200 mg BID PO Last administered on 03/23/16 21:43; Admin Dose 200 MG; Start 03/21/16 at 21:00 Sodium Biphosphate/ Sodium Phosphate (Fleet Enema) 133 ml DAILY PRN [place] CONSTIPATION Last administered on 03/23/16 06:32; Admin Dose 133 ML; Start at 16:00 Lorazepam (Ativan) 1 mg Q6H PRN IV aNXIETY; Start 03/21/16 at 16:30 Miscellaneous Information 1 ea NOTE XX ; Start 03/21/16 at 18:30 Glucose (Glutose) 15 gm Q15M PRN PO DECREASED GLUCOSE; Start 03/21/16 at 18:30 Glucose (Glutose) 22.5 gm Q15M PRN PO DECREASED GLUCOSE; Start 03/21/16 at 18: 30 Dextrose (D50w Syringe) 25 ml Q15M PRN IV DECREASED GLUCOSE; Start 03/21/16 at 18:30 Dextrose (D50w Syringe) 50 ml Q15M PRN IV DECREASED GLUCOSE; Start 03/21/16 at 18:30 Glucagon (Glucagen) 1 mg Q15M PRN IM DECREASED GLUCOSE; Start 03/21/16 at 18:30 Glucose (Glutose) 15 gm Q15M PRN BUCCAL DECREASED GLUCOSE; Start 03/21/16 at 18 :30 Insulin Glargine (Lantus) 15 unit HS SC Last administered on 03/23/16 21:48; Admin Dose 15 UNIT; Start 03/22/16 at 21:00 Lactulose (Enulose) 30 gm BID PO Last administered on 03/23/16 21:42; Admin Dose 30 GM; Start 03/22/16 at 14:00 Bisacodyl (Dulcolax) 10 mg DAILY PO Last administered on 03/23/16 08:52; Admin Dose 10 MG; Start 03/22/16 at 14:00 Bisacodyl (Dulcolax Supp) 10 mg DAILY PRN GA CONSTIPATION Last administered on 03/23/16 13:25; Admin Dose 10 MG; Start 03/22/16 at 14:00 Mineral Oil (Fleet Mineral Oil Enema) 133 ml DAILY PRN GA CONSTIPATION; Start 03/22/16 at 14:00 Pantoprazole (Protonix Tab) 40 mg DAILY@06 PO Last administered on 03/24/16 06 :02; Admin Dose 40 MG; Start 03/24/16 at 06:00 Metoclopramide HCl (Reglan) 10 mg TID PO Last administered on 03/23/16 21:44; Admin Dose 10 MG; Start 03/23/16 at 13:00 Enoxaparin Sodium (Lovenox) 30 mg DAILY SC ; Start 03/24/16 at 09:00 Ketorolac Tromethamine 15 mg 15 mg Q8H PRN IV PAIN; Start 03/23/16 at 16:30; Stop 03/26/16 at 16:29 Dextrose/Sodium Chloride (D5-NS) 1,000 ml @ 40 mls/hr Q24H IV Last administered on 03/25/16 12:14; Admin Dose 40 MLS/HR; Start 03/24/16 at 13:00 GUY SMITH Mar 25, 2016 15:22
--- NOTE | 2016-03-25 15:24 | PN ---
Date/Time of Note Date/Time of Note DATE: 03/25/16 TIME: 15:24 Assessment/Plan Lines/Catheters IV Catheter Type (from [facility]): Peripheral IV [place] in Place (from [facility]): No Assessment/Plan Assessment/Plan [facility] In[facility] Progress Note Date of Service: 03/25/2016 Today's Assessment & Plan: Overall stable and doing well. Can likely start on a diet. No indication for acute surgical intervention. With above assessment, I've recommended the following for today: 1. Continue current management 2. Consider starting a liquid diet 3. Consider involvement of gastrology 4. We'll follow patient from periphery. Please call if any questions. Thank you again for your great care of this very pleasant lady and her wonderful family. If there are any questions, please feel free to call me at [phone]. TOTAL VISIT TIME: 20 minutes of which more than half was spent in [id number] discussion with the patient as well as coordination of care between multiple physicians and providers. Disclaimer: Inadvertent spelling and grammatical errors are likely due to EHR/ dictation software use and do not reflect on the quality of delivered patient care. Also, please note that the electronic time recorded on this node does not necessarily reflect the actual time of the visit. Updated Clinical Summary: Very pleasant but unfortunate 45-year-old lady with multiple medical issues including hypertension, reported diagnosis of right-sided heart failure issues with renal insufficiency and recent start of hemodialysis, as well as diabetes and anemia of chronic disease, presenting with abdominal pain with nausea and vomiting.. Past and present comorbidity list: 1. Recurrent right-sided pleural effusion. 2. Essential hypertension. 3. End-stage renal disease. 4. Recently started on hemodialysis. 5. Type 2 diabetes mellitus. 6. Anemia of chronic disease. 7. Diastolic heart failure. 8. Cholecystectomy. 9. Right foot surgery. 10. Multiple right thoracentesis. Subjective: No major events or complaints; no major abd pain and under control with medications; no n/v/d; no sob or cp; + flatus; + BM and normal; + activity; wondering when she can eat. Objective: Vitals: See below I's & O's: See below Exam: GENERAL: On exam, the patient was lying in bed and appeared to be comfortable and in no acute distress. ABDOMEN: Soft, nontender and nondistended. There are no peritoneal signs or guarding. SKIN: Skin appears to be pink and feels warm to touch. NEUROLOGIC: Patient is awake, alert, and follows commands appropriately. Labs: See below Exam/Review of Systems Vital Signs Vitals Vital Signs Date Time Temp Pulse Resp B/P Pulse Ox O2 Delivery O2 Flow Rate FiO2 03/25/16 10:45 82 03/25/16 08:15 97.9 20 215/100 100 03/21/16 16:00 Room Air Intake and Output 03/24/16 03/24/16 03/25/16 15:00 23:00 07:00 Intake Total 500 ml 160 ml 480 ml Output Total 900 ml Balance -400 ml 160 ml 480 ml Results Result Diagram: 03/25/16 0505 03/25/16 0505 ALICIA SPEARS M.D. Mar 25, 2016 15:24
--- NOTE | 2016-03-25 17:06 | RADRPT ---
PROCEDURE: XR Abdomen. CLINICAL INDICATION: Abdomen pain. TECHNIQUE: AP supine abdomen x-ray. COMPARISON: Small bowel follow-through dated 03/24/2016. FINDINGS: There is gas containing mildly dilated loops of small bowel in the upper and mid abdomen. Previousl y noted contrast is largely cleared and is within the colon and rectosigmoid. Surgical clips are present in the right upper quadrant of the abdomen. There are no abnormal calcifications overlying the urinary tracts. The osseus structures are unremarkable. IMPRESSION: 1. Mild a dilated loops of small bowel containing gas in the upper and mid abdomen. 2. No evidence of obstruction. RPTAT: QQ .José Miguel Mcclure MD, MD Date Time Electronically viewed and signed by .José Miguel Mcclure MD, MD on 03/25/2016 17:06 .R/
[2016-03-25] MEDS: INSULIN GLARGINE [LANtus] 3 ML PEN SC SCH (21:33)
[2016-03-26] VITALS (9 sets, daily range): BP systolic 139–218; BP diastolic 65–97; PULSE 70–74; RESP 12–19
[2016-03-26] MEDS: PANTOPRAZOLE (EC) 40 MG TAB PO SCH ×2 (05:51→20:15)
[2016-03-26 06:12] LABS: INR 0.98
[2016-03-26 06:13] LABS: PARTIAL THROMBOPLASTIN TIME 30.7 Sec (25.0-35.0)
[2016-03-26 06:15] LABS: POTASSIUM 3.1 mmol/L (3.5-5.1)
[2016-03-26 06:17] LABS: CREATININE 4.19 mg/dl (0.44-1.00)
[2016-03-26 06:18] LABS: CALCIUM 8.4 mg/dl (8.4-10.2)
[2016-03-26 06:25] LABS: BASOPHILS % 0.5 % (0.0-2.0); EOSINOPHILS # 0.2 10^3/ul (0.0-0.5); EOSINOPHILS % 4.5 % (0.0-7.0); HEMATOCRIT 30.1 % (37.0-47.0); HEMOGLOBIN 10.3 g/dl (12.0-16.0); LYMPHOCYTES # 1.4 10^3/ul (0.8-2.9); LYMPHOCYTES % 29.8 % (15.0-51.0); MEAN CORPUSCULAR HEMOGLOBIN 29.3 pg (29.0-33.0); MEAN CORPUSCULAR HGB CONC 34.2 g/dl (32.0-37.0); MEAN CORPUSCULAR VOLUME 85.7 fl (82.0-101.0); MEAN PLATELET VOLUME 7.2 fl (7.4-10.4); MONOCYTE # 0.6 10^3/ul (0.3-0.9); MONOCYTES % 11.7 % (0.0-11.0); NEUTROPHIL # 2.5 10^3/ul (1.6-7.5); NEUTROPHILS % 53.5 % (39.0-77.0); PLATELET COUNT 201 10^3/UL (140-440); RED BLOOD COUNT 3.51 10^6/ul (4.20-5.40); RED CELL DISTRIBUTION WIDTH 15.7 % (11.5-14.5); UNCORRECTED WBC 4.7 10^3/ul (4.8-10.8); WHITE BLOOD COUNT 4.7 10^3/ul (4.8-10.8)
[2016-03-26 06:50] LABS: CONDITION 1; LH ANALYZER COMMENTS 1
[2016-03-26] MEDS: INSULIN ASPART [NOVOLOG] 3 ML PEN SC SCH ×7 (08:00→20:01)
[2016-03-26] MEDS: SEVELAMER 400 MG TAB PO SCH ×3 (08:18→15:41)
[2016-03-26] MEDS: DOCUSATE SODIUM 100 MG CAP PO SCH ×2 (08:19→20:02)
[2016-03-26] MEDS: METOCLOPRAMIDE 10 MG TAB PO SCH ×3 (08:19→20:18)
[2016-03-26] MEDS: LACTULOSE 30ML CUP PO SCH ×2 (08:19→20:01)
[2016-03-26] MEDS: ENOXAPARIN 30 MG/0.3 ML SYG SC SCH (08:21)
[2016-03-26] MEDS: LOSARTAN 50 MG TAB PO SCH (08:22)
[2016-03-26] MEDS: NIFEdipine (XL) 60 MG TAB PO SCH (08:23)
[2016-03-26] MEDS: POLYETHYLENE GLYCOL 17 GM PACKET PO SCH ×2 (08:23→20:20)
[2016-03-26] MEDS: MULTIVIT/CA CARB/B CMPLX/FA TAB PO SCH (08:23)
[2016-03-26] MEDS: METOPROLOL 25 MG TAB PO SCH ×2 (08:23→20:05)
[2016-03-26] MEDS: BISACODYL (EC) 5 MG TAB PO SCH (08:23)
[2016-03-26] MEDS: morphine 2 MG INJ IV PRN (10:55)
[2016-03-26] MEDS: DEXTROSE 5%-0.9% NACL 1,000 ML IV SCH (13:33)
--- NOTE | 2016-03-26 14:11 | PN ---
Date/Time of Note Date/Time of Note DATE: 03/26/16 TIME: 14:09 Assessment/Plan VTE Prophylaxis VTE Prophylaxis Intervention: LMWH Lines/Catheters IV [facility]from [facility] Peripheral IV Urinary Cath still in place: No Assessment/Plan Chief Complaint/Hosp Course Assessment and plan 1. Abdominal pain. Patient with initial abdominal radiograph suggested of SBO. Research Center Director and surgeon following. repeat kub 03/25/16 showed no obstruction. Will monitor for now. Plan for EGD 2. Diabetes type 2. Continue insulin regimen. Will adjust as needed 3. ESRD . Sonar Subsystem Equipment Operator following. Continue on dialysis per nephrology 4. History of chronic nephrotic syndrome secondary to #2. Continue with nephrology recommendations. 5. Reported hematemesis. H&H went stable. Continue on PPI. Follow-up with golf club facer recommendations 6. Accelerated hypertension. Continue antihypertensives. We'll adjust as needed 7. Constipation. Patient noted with history of gastroparesis. Now with abdominal radiograph suggestive of SBO. Surgeon to follow. Disposition and plan: Plan for EGD. will follow up Discussed plan of care with Dr. Garcia Problems: Subjective 24 Hr Interval Summary Free Text/Dictation no s/s of distress noted at this time. denies abdominal pain Exam/Review of Systems Vital Signs Vitals Vital Signs Date Time Temp Pulse Resp B/P Pulse Ox O2 Delivery O2 Flow Rate FiO2 03/25/16 20:28 97.6 81 19 133/68 99 03/25/16 20:00 Room Air Intake and Output 03/25/16 03/25/16 03/26/16 15:00 23:00 07:00 Intake Total 700 ml 800 ml 980 ml Output Total 2000 ml Balance -1300 ml 800 ml 980 ml Exam General: comfortable. no ss of distress Eyes: pupils equal round, Anicteric sclera Neck: Supple nontender, no JVD Cardiac: S1, S2 auscultated, regular rhythm and rate Pulmonary: No coarse rhonchi or breathing auscultated GI: And abdominal pain noted on palpation of abdomen Extremities: No edema bilateral lower extremities Skin: Clean dry and intact Neurologic: Alert to person place and time and situation Results Result Diagram: 03/26/16 0530 03/26/16 0530 Results 24 hrs Laboratory Tests Test 03/25/16 16:26 03/25/16 21:26 03/26/16 05:30 03/26/16 07:50 Bedside Glucose 238 H 116 120 Activated Partial Thromboplast Time 30.7 Anion Gap 14 # Basophils # 0.0 Basophils % 0.5 Blood Morphology Comment Blood Urea Nitrogen 22 #H Calcium Level 8.4 Carbon Dioxide Level 28 Chloride Level 99 Creatinine 4.19 #H Eosinophils # 0.2 Eosinophils % 4.5 Glucose Level 113 Hematocrit 30.1 L Hemoglobin 10.3 L INR International Normalized Ratio 0.98 Lymphocytes # 1.4 Lymphocytes % 29.8 Mean Corpuscular Hemoglobin 29.3 Mean Corpuscular Hemoglobin Concent 34.2 Mean Corpuscular Volume 85.7 Mean Platelet Volume 7.2 L Monocytes # 0.6 Monocytes % 11.7 H Neutrophils # 2.5 Neutrophils % 53.5 Nucleated Red Blood Cells # 0.0 Nucleated Red Blood Cells % 0.0 Platelet Count 201 Potassium Level 3.1 L Prothrombin Time 13.0 Prothrombin Time Ratio 1.0 Red Blood Count 3.51 L Red Cell Distribution Width 15.7 H Sodium Level 138 White Blood Count 4.7 L Test 03/26/16 11:00 Bedside Glucose 225 H Medications Medications Current Medications Ondansetron HCl (Zofran Inj) 4 mg Q6H PRN IV NAUSEA AND/OR VOMITING Last administered on 03/25/16 03:25; Admin Dose 4 MG; Start 03/21/16 at 16:00 Morphine Sulfate (morphine) 2 mg Q4H PRN IV SEVERE PAIN LEVEL 7-10 Last administered on 03/26/16 10:55; Admin Dose 2 MG; Start 03/21/16 at 16:00 Hydralazine HCl (Apresoline) 10 mg Q6H PRN IV SBP greater than 160 Last administered on 03/25/16 08:22; Admin Dose 10 MG; Start 03/21/16 at 16:00 Hydralazine HCl (Apresoline) 25 mg Q8 PO Last administered on 03/26/16 05:51; Admin Dose 25 MG; Start 03/21/16 at 22:00 Losartan Potassium (Cozaar) 50 mg DAILY PO Last administered on 03/23/16 08:53 ; Admin Dose 50 MG; Start 03/22/16 at 09:00 Metoprolol Tartrate (Lopressor) 25 mg BID PO Last administered on 03/25/16 21: 44; Admin Dose 25 MG; Start 03/21/16 at 21:00 Multivit/Ca Carb/ B Cmplx/FA/Prenat (Annie-Laura) 1 tab DAILY PO Last administered on 03/26/16 08:23; Admin Dose 1 TAB; Start 03/22/16 at 09:00 Nifedipine (Procardia Xl) 60 mg DAILY PO Last administered on 03/23/16 08:53; Admin Dose 60 MG; Start 03/22/16 at 09:00 Polyethylene Glycol (Miralax) 17 gm BID PO Last administered on 03/25/16 21:44 ; Admin Dose 17 GM; Start 03/21/16 at 21:00 Docusate Sodium (Colace) 200 mg BID PO Last administered on 03/26/16 08:19; Admin Dose 200 MG; Start 03/21/16 at 21:00 Sodium Biphosphate/ Sodium Phosphate (Fleet Enema) 133 ml DAILY PRN [place] CONSTIPATION Last administered on 03/23/16 06:32; Admin Dose 133 ML; Start at 16:00 Lorazepam (Ativan) 1 mg Q6H PRN IV aNXIETY; Start 03/21/16 at 16:30 Miscellaneous Information 1 ea NOTE XX ; Start 03/21/16 at 18:30 Glucose (Glutose) 15 gm Q15M PRN PO DECREASED GLUCOSE; Start 03/21/16 at 18:30 Glucose (Glutose) 22.5 gm Q15M PRN PO DECREASED GLUCOSE; Start 03/21/16 at 18: 30 Dextrose (D50w Syringe) 25 ml Q15M PRN IV DECREASED GLUCOSE; Start 03/21/16 at 18:30 Dextrose (D50w Syringe) 50 ml Q15M PRN IV DECREASED GLUCOSE; Start 03/21/16 at 18:30 Glucagon (Glucagen) 1 mg Q15M PRN IM DECREASED GLUCOSE; Start 03/21/16 at 18:30 Glucose (Glutose) 15 gm Q15M PRN BUCCAL DECREASED GLUCOSE; Start 03/21/16 at 18 :30 Insulin Glargine (Lantus) 15 unit HS SC Last administered on 03/25/16 21:33; Admin Dose 15 UNIT; Start 03/22/16 at 21:00 Lactulose (Enulose) 30 gm BID PO Last administered on 03/26/16 08:19; Admin Dose 30 GM; Start 03/22/16 at 14:00 Bisacodyl (Dulcolax) 10 mg DAILY PO Last administered on 03/23/16 08:52; Admin Dose 10 MG; Start 03/22/16 at 14:00 Bisacodyl (Dulcolax Supp) 10 mg DAILY PRN NE CONSTIPATION Last administered on 03/23/16 13:25; Admin Dose 10 MG; Start 03/22/16 at 14:00 Mineral Oil (Fleet Mineral Oil Enema) 133 ml DAILY PRN NE CONSTIPATION; Start 03/22/16 at 14:00 Pantoprazole (Protonix Tab) 40 mg DAILY@06 PO Last administered on 03/26/16 05 :51; Admin Dose 40 MG; Start 03/24/16 at 06:00 Metoclopramide HCl (Reglan) 10 mg TID PO Last administered on 03/26/16 08:19; Admin Dose 10 MG; Start 03/23/16 at 13:00 Enoxaparin Sodium (Lovenox) 30 mg DAILY SC Last administered on 03/26/16 08:21 ; Admin Dose 30 MG; Start 03/24/16 at 09:00 Ketorolac Tromethamine 15 mg 15 mg Q8H PRN IV PAIN; Start 03/23/16 at 16:30; Stop 03/26/16 at 16:29 Dextrose/Sodium Chloride (D5-NS) 1,000 ml @ 40 mls/hr Q24H IV Last administered on 03/26/16 13:33; Admin Dose 40 MLS/HR; Start 03/24/16 at 13:00 VERONICA BALLESTEROS Mar 26, 2016 14:11
[2016-03-26] MEDS ORDERED: PROPOFOL 20 ML ONE (17:22)
[2016-03-26] MEDS ORDERED: FENTAnyl 50 MCG/ML VIAL ONE (17:23)
[2016-03-26] MEDS ORDERED: MIDAZOLAM 1 MG/ML 2 ML INJ ONE (17:23)
--- NOTE | 2016-03-26 18:44 | GILP ---
DATE OF PROCEDURE: 03/26/2016 PROCEDURE: Esophagogastroduodenoscopy with biopsies. BRIEF HISTORY AND INDICATIONS: The patient is being evaluated for persistent abdominal pain. PREMEDICATION: Monitored anesthesia care by anesthesiologist. SURGEON: Angelika Lujan MD. INSTRUMENT USED: Olympus panendoscope. TECHNIQUE: After informed consent, with the patient/relatives understanding the procedure, its indic ations, potential risks and complications, including but not limited to: allergic reaction, bleeding , perforation or infection, and after all pertinent questions were answered to the patient's satisfa ction, the patient/relatives signed witnessed informed consent. Following this, premedication was a dministered slowly IV push under careful cardiovascular and respiratory monitoring with pulse oximet ry, automatic blood pressure and wire drawer. Once the sedative effect was achieved the patient was place in the left lateral decubitus, the panen doscope was introduced and advanced under visual control. Careful examination of the upper gastrointestinal tract, both on insertion as well as withdrawal of the instrument disclosed the following findings: ESOPHAGUS: The distal esophagus shows mild erythema and edema of the mucosa. STOMACH: Upon entrance to the stomach, it was insufflated, the gastric segura distended normally. T here was significant erythema, edema and erosion of the mucosa throughout the stomach. Biopsies wer e obtained to rule out H. pylori infection. PYLORUS: The pylorus appears patent and within normal limits, with no evidence of gastric outlet ob struction. DUODENUM: The duodenal mucosa was carefully examined in the duodenal bulb as well as the second por tion of the duodenum and appears unremarkable with no evidence of duodenitis, ulcer or neoplasm. The instrument was then withdrawn, the patient tolerated the procedure well and was transfer out of the endoscopy suite awake, and in good condition to continue recovery under observation IMPRESSION: 1. Mild distal esophagitis. 2. Severe gastritis with erosions. PLAN: The patient will be treated with PPIs plus Carafate. Further recommendation will depend on t he patient's clinical course. Dictated By: ANGELIKA LUJAN MS/DARRIAN Conf#: [id number] DID#: [id number]
[2016-03-26] MEDS: INSULIN GLARGINE [LANtus] 3 ML PEN SC SCH (20:06)
[2016-03-26] MEDS: POTASSIUM CHLORIDE 250 ML IVPB SCH (20:11)
[2016-03-26] MEDS: SUCRALFATE (100 MG/ML) 10ML CUP PO SCH (20:18)
[2016-03-27] VITALS (9 sets, daily range): BP systolic 95–179; BP diastolic 42–83; PULSE 76–85; RESP 18
[2016-03-27] MEDS: POTASSIUM CHLORIDE 250 ML IVPB SCH (03:06)
[2016-03-27 05:39] LABS: BASOPHILS % 0.4 % (0.0-2.0); EOSINOPHILS # 0.1 10^3/ul (0.0-0.5); EOSINOPHILS % 2.3 % (0.0-7.0); HEMATOCRIT 31.5 % (37.0-47.0); HEMOGLOBIN 10.7 g/dl (12.0-16.0); LYMPHOCYTES # 1.2 10^3/ul (0.8-2.9); LYMPHOCYTES % 22.1 % (15.0-51.0); MEAN CORPUSCULAR HEMOGLOBIN 29.2 pg (29.0-33.0); MEAN CORPUSCULAR HGB CONC 33.9 g/dl (32.0-37.0); MEAN PLATELET VOLUME 7.2 fl (7.4-10.4); MONOCYTE # 0.4 10^3/ul (0.3-0.9); MONOCYTES % 8.2 % (0.0-11.0); NEUTROPHIL # 3.5 10^3/ul (1.6-7.5); PLATELET COUNT 214 10^3/UL (140-440); RED BLOOD COUNT 3.66 10^6/ul (4.20-5.40); RED CELL DISTRIBUTION WIDTH 15.3 % (11.5-14.5); UNCORRECTED WBC 5.3 10^3/ul (4.8-10.8); WHITE BLOOD COUNT 5.3 10^3/ul (4.8-10.8)
[2016-03-27] MEDS: PANTOPRAZOLE (EC) 40 MG TAB PO SCH (06:02)
[2016-03-27 06:10] LABS: CONDITION 1; LH ANALYZER COMMENTS 1
[2016-03-27 06:15] LABS: POTASSIUM 4.2 mmol/L (3.5-5.1)
[2016-03-27 06:17] LABS: CREATININE 4.73 mg/dl (0.44-1.00)
[2016-03-27 06:18] LABS: CALCIUM 8.4 mg/dl (8.4-10.2)
[2016-03-27] MEDS: INSULIN ASPART [NOVOLOG] 3 ML PEN SC SCH ×4 (08:00→11:49)
[2016-03-27] MEDS: ENOXAPARIN 30 MG/0.3 ML SYG SC SCH (08:18)
[2016-03-27] MEDS: LOSARTAN 50 MG TAB PO SCH (08:20)
[2016-03-27] MEDS: SUCRALFATE (100 MG/ML) 10ML CUP PO SCH ×2 (08:20→11:52)
[2016-03-27] MEDS: METOCLOPRAMIDE 10 MG TAB PO SCH ×2 (08:21→11:51)
[2016-03-27] MEDS: DOCUSATE SODIUM 100 MG CAP PO SCH (08:21)
[2016-03-27] MEDS: MULTIVIT/CA CARB/B CMPLX/FA TAB PO SCH (08:21)
[2016-03-27] MEDS: SEVELAMER 400 MG TAB PO SCH ×2 (08:21→11:51)
[2016-03-27] MEDS: BISACODYL (EC) 5 MG TAB PO SCH (08:26)
[2016-03-27] MEDS: NIFEdipine (XL) 60 MG TAB PO SCH ×2 (08:27→12:00)
[2016-03-27] MEDS: POLYETHYLENE GLYCOL 17 GM PACKET PO SCH (08:27)
[2016-03-27] MEDS: METOPROLOL 25 MG TAB PO SCH ×2 (08:27→12:00)
[2016-03-27] MEDS: LACTULOSE 30ML CUP PO SCH (08:27)
--- NOTE | 2016-03-27 10:13 | CONS ---
Date/Time of Note Date/Time of Note DATE: 03/27/16 TIME: 09:57 Assessment/Plan Assessment/Plan Additional Assessment/Plan Abdominal pain/nausea/vomiting, improving * KUB * Interval decrease in number of the dilated gas containing small bowel loops concerning for small bowel obstruction compared to prior radiograph 03/23/2016. * Prior cholecystectomy * SBFT 03-24-16 * Multiple dilated loops of bowel within the mid abdomen on the organizational effectiveness director images. The small bowel loops filled with contrast do not appear dilated and contrast reaches the colon by 4 hours. * Findings are suggestive of mild partial small bowel obstruction. * EGD 03-26-16: * 1. Mild distal esophagitis. * 2. Severe gastritis with erosions. * Continue to treat with PPI and Carafate * Monitor labs * IVF hydration * Pain management Further recommendations depend on clinical course Patient seen in collaboration with Dr. Lujan Consultation Date/Type/Reason Admit Date/Time Mar 21, 2016 at 14:46 Initial Consult Date 03/22/16 Type of Consultation: Gastroenterology 24 HR Interval Summary Free Text/Dictation Tolerating diet Advised patient of endoscopy results Exam/Review of Systems Vital Signs Vitals Vital Signs Date Time Temp Pulse Resp B/P Pulse Ox O2 Delivery O2 Flow Rate FiO2 03/27/16 08:05 97.6 78 18 179/83 97 03/26/16 18:10 Room Air Nasal Cannula 03/26/16 18:03 8.0 Intake and Output 03/26/16 03/26/16 03/27/16 15:00 23:00 07:00 Intake Total 100 ml 620 ml Balance 100 ml 620 ml Exam Constitutional: alert, oriented Psych: nl mood/affect Eyes: EOMI, nl conjunctiva, nl lids ENMT: mucosa pink and moist, nl external ears & nose, nl lips & teeth, nl nasal mucosa & septum Respiratory: normal air movement Cardiovascular: regular rate and rhythm Gastrointestinal: soft Neurological: MILKING WORKER II-XII intact Results Result Diagram: 03/27/163 03/27/16 0443 Results 24 hrs Laboratory Tests Test 03/26/16 11:00 03/26/16 14:58 03/26/16 15:16 03/26/16 15:32 Bedside Glucose 225 H 53 L 190 155 Test 03/26/16 20:00 03/27/16 04:43 03/27/16 07:21 Bedside Glucose 118 107 Anion Gap 15 Basophils # 0.0 Basophils % 0.4 Blood Morphology Comment Blood Urea Nitrogen 26 H Calcium Level 8.4 Carbon Dioxide Level 25 Chloride Level 102 Creatinine 4.73 H Eosinophils # 0.1 Eosinophils % 2.3 Glucose Level 111 Hematocrit 31.5 L Hemoglobin 10.7 L Lymphocytes # 1.2 Lymphocytes % 22.1 Mean Corpuscular Hemoglobin 29.2 Mean Corpuscular Hemoglobin Concent 33.9 Mean Corpuscular Volume 86.0 Mean Platelet Volume 7.2 L Monocytes # 0.4 Monocytes % 8.2 Neutrophils # 3.5 Neutrophils % 67.0 Nucleated Red Blood Cells # 0.0 Nucleated Red Blood Cells % 0.0 Platelet Count 214 Potassium Level 4.2 Red Blood Count 3.66 L Red Cell Distribution Width 15.3 H Sodium Level 138 White Blood Count 5.3 Medications Medications Current Medications Ondansetron HCl (Zofran Inj) 4 mg Q6H PRN IV NAUSEA AND/OR VOMITING Last administered on 03/25/16 03:25; Admin Dose 4 MG; Start 03/21/16 at 16:00 Morphine Sulfate (morphine) 2 mg Q4H PRN IV SEVERE PAIN LEVEL 7-10 Last administered on 03/26/16 10:55; Admin Dose 2 MG; Start 03/21/16 at 16:00 Hydralazine HCl (Apresoline) 10 mg Q6H PRN IV SBP greater than 160 Last administered on 03/25/16 08:22; Admin Dose 10 MG; Start 03/21/16 at 16:00 Hydralazine HCl (Apresoline) 25 mg Q8 PO Last administered on 03/27/16 06:01; Admin Dose 25 MG; Start 03/21/16 at 22:00 Losartan Potassium (Cozaar) 50 mg DAILY PO Last administered on 03/27/16 08:20 ; Admin Dose 50 MG; Start 03/22/16 at 09:00 Metoprolol Tartrate (Lopressor) 25 mg BID PO Last administered on 03/26/16 20: 05; Admin Dose 25 MG; Start 03/21/16 at 21:00 Multivit/Ca Carb/ B Cmplx/FA/Prenat (Annie-Laura) 1 tab DAILY PO Last administered on 03/27/16 08:21; Admin Dose 1 TAB; Start 03/22/16 at 09:00 Nifedipine (Procardia Xl) 60 mg DAILY PO Last administered on 03/23/16 08:53; Admin Dose 60 MG; Start 03/22/16 at 09:00 Polyethylene Glycol (Miralax) 17 gm BID PO Last administered on 03/25/16 21:44 ; Admin Dose 17 GM; Start 03/21/16 at 21:00 Docusate Sodium (Colace) 200 mg BID PO Last administered on 03/27/16 08:21; Admin Dose 200 MG; Start 03/21/16 at 21:00 Sodium Biphosphate/ Sodium Phosphate (Fleet Enema) 133 ml DAILY PRN [place] CONSTIPATION Last administered on 03/23/16 06:32; Admin Dose 133 ML; Start at 16:00 Lorazepam (Ativan) 1 mg Q6H PRN IV aNXIETY; Start 03/21/16 at 16:30 Miscellaneous Information 1 ea NOTE XX ; Start 03/21/16 at 18:30 Glucose (Glutose) 15 gm Q15M PRN PO DECREASED GLUCOSE; Start 03/21/16 at 18:30 Glucose (Glutose) 22.5 gm Q15M PRN PO DECREASED GLUCOSE; Start 03/21/16 at 18: 30 Dextrose (D50w Syringe) 25 ml Q15M PRN IV DECREASED GLUCOSE Last administered on 03/26/16 15:08; Admin Dose 25 ML; Start 03/21/16 at 18:30 Dextrose (D50w Syringe) 50 ml Q15M PRN IV DECREASED GLUCOSE; Start 03/21/16 at 18:30 Glucagon (Glucagen) 1 mg Q15M PRN IM DECREASED GLUCOSE; Start 03/21/16 at 18:30 Glucose (Glutose) 15 gm Q15M PRN BUCCAL DECREASED GLUCOSE; Start 03/21/16 at 18 :30 Insulin Glargine (Lantus) 15 unit HS SC Last administered on 03/26/16 20:06; Admin Dose 15 UNIT; Start 03/22/16 at 21:00 Lactulose (Enulose) 30 gm BID PO Last administered on 03/26/16 20:01; Admin Dose 30 GM; Start 03/22/16 at 14:00 Bisacodyl (Dulcolax) 10 mg DAILY PO Last administered on 03/23/16 08:52; Admin Dose 10 MG; Start 03/22/16 at 14:00 Bisacodyl (Dulcolax Supp) 10 mg DAILY PRN NV CONSTIPATION Last administered on 03/23/16 13:25; Admin Dose 10 MG; Start 03/22/16 at 14:00 Mineral Oil (Fleet Mineral Oil Enema) 133 ml DAILY PRN NV CONSTIPATION; Start 03/22/16 at 14:00 Metoclopramide HCl (Reglan) 10 mg TID PO Last administered on 03/27/16 08:21; Admin Dose 10 MG; Start 03/23/16 at 13:00 Enoxaparin Sodium 30 mg 30 mg DAILY SC Last administered on 03/27/16 08:18; Admin Dose 30 MG; Start 03/24/16 at 09:00 Dextrose/Sodium Chloride (D5-NS) 1,000 ml @ 40 mls/hr Q24H IV Last administered on 03/26/16 13:33; Admin Dose 40 MLS/HR; Start 03/24/16 at 13:00 Pantoprazole (Protonix Tab) 40 mg BID@06,18 PO Last administered on 03/27/16 06:02; Admin Dose 40 MG; Start 03/26/16 at 18:30 Sucralfate (Carafate Susp) 1 gm QID PO Last administered on 03/27/16 08:20; Admin Dose 1 GM; Start 03/26/16 at 21:00 GUY SMITH Mar 27, 2016 10:12
[2016-03-27] MEDS ORDERED: HEPARIN 1000 UNITS/ML 10 ML INJ CATHETER ONE (11:30)
[2016-03-27] MEDS: DEXTROSE 5%-0.9% NACL 1,000 ML IV SCH (11:52)
[2016-03-27] MEDS ORDERED: NOVO3I SC (12:29)
[2016-03-27] MEDS ORDERED: LANT3I SC (12:29)
[2016-03-27] MEDS ORDERED: POLY17PO6 PO (12:29)
[2016-03-27] MEDS ORDERED: METO10TA96 PO (12:29)
[2016-03-27] MEDS ORDERED: PANT40TA4 PO (12:29)
[2016-03-27] MEDS ORDERED: LACT20SO12 PO (12:29)
[2016-03-27] MEDS ORDERED: CARAS PO (12:29)
--- NOTE | 2016-03-27 13:54 | PDOCDIS ---
Discharge Instructions DIAGNOSIS Discharge Diagnosis: 1. Abdominal pain with severe gastritis with erosions 2. ESRD CONDITION Patient Condition: Stable HOME CARE INSTRUCTIONS: Special Diet: carbohydrate controlled ACTIVITY: Activity Restrictions: Slowly Increase Activity Rest between Activity FOLLOW UP/APPOINTMENTS Appointments 1. Follow-up with her primary care provider within a week 2. Follow-up with your dialysis and inferior regular scheduled dialysis VERONICA BALLESTEROS Mar 27, 2016 13:54
== END 2016-03-27 16:33 | disposition home health service (06) | DRG 391 ==
LOC: E/R 08:48 → PP2 14:46
PROVIDERS: ADMIT Family Medicine; ATTEND Family Medicine
PROC: 0DB68ZX Excision of Stomach, Via Natural or Artificial Opening Endoscopic, Diagnostic (ICD-10-PCS; principal; 2016-03-26 19:30)
DX: K20.9 Esophagitis, unspecified (principal); N18.6 End stage renal disease; I50.32 Chronic diastolic (congestive) heart failure; I12.0 Hypertensive chronic kidney disease with stage 5 chronic kidney disease or end stage renal disease; I10 Essential (primary) hypertension; E11.9 Type 2 diabetes mellitus without complications; D64.9 Anemia, unspecified; K29.70 Gastritis, unspecified, without bleeding; Z99.2 Dependence on renal dialysis; K59.00 Constipation, unspecified
CPT/HCPCS: 36415; 71010; 74000; 74010; 74176; 74250; 80048; 80053; 80061; 82247; 82248; 82607; 82746; 82962; 83036; 83605; 83690; 83735; 84100; 84439; 84443; 84484; 84703; 85025; 85610; 85730; 86592; 86850; 86900; 86901; 88305; 88312; 90935; 93005; 96374; 96375; 96376; 97162; C9113; J0360; J1644; J1650; J1815; J1885; J2060; J2250; J2270; J2405; J2765; J3010; J3480; J7030; J7042

== ENCOUNTER 2016-06-21 12:44 | Emergency (ER) | payer BC ==
[~2016-06-21] VITALS: Ht 152.4 cm; Wt 73.0 kg
[~2016-06-21 12:44] MED LIST changes: +CARAS PO; -FURO40TA4 PO; -INSU200I4 SQ; +LACT20SO12 PO; +LANT3I SC; +NEPH PO; +ONDA4TAB11 PO; +PANT40TA4 PO; -TOBR5DRO14 BOTH EYES
[2016-06-21 12:48] VITALS: Ht 152.4 cm; Wt 73.0 kg
[2016-06-21] MEDS ORDERED: SOD CHLORIDE 0.9% 1,000 ML IV STA (15:44)
[2016-06-21 16:26] LABS: ADD SCAN DIFF NO
[2016-06-21] MEDS ORDERED: morphine 4 MG/ML VIAL IV STA (16:27)
[2016-06-21] MEDS ORDERED: ONDANSETRON 4 MG INJ IV STA (16:27)
[2016-06-21 16:31] LABS: ADD UMIC YES; URINE BILIRUBIN (Dip) NEGATIVE (NEGATIVE); URINE BLOOD (Dip) 1+ (NEGATIVE); URINE COLOR LT. YELLOW (YELLOW); URINE GLUCOSE (Dip) >=1000 % (NEGATIVE); URINE KETONES (Dip) NEGATIVE (NEGATIVE); URINE LEUKOCYTE ESTERASE (Dip) NEGATIVE (NEGATIVE); URINE NITRITE (Dip) NEGATIVE (NEGATIVE); URINE TOTAL PROTEIN (Dip) 4+ (NEGATIVE); URINE UROBILINOGEN (Dip) 0.2 E.U./dL (0.1-1.0)
[2016-06-21 16:32] LABS: BASOPHILS % 0.2 % (0.0-2.0); EOSINOPHILS # 0.1 10^3/ul (0.0-0.5); EOSINOPHILS % 1.3 % (0.0-7.0); HEMATOCRIT 34.2 % (37.0-47.0); HEMOGLOBIN 11.4 g/dl (12.0-16.0); LYMPHOCYTES # 1.2 10^3/ul (0.8-2.9); LYMPHOCYTES % 21.6 % (15.0-51.0); MEAN CORPUSCULAR HGB CONC 33.3 g/dl (32.0-37.0); MEAN CORPUSCULAR VOLUME 92.9 fl (82.0-101.0); MEAN PLATELET VOLUME 9.6 fl (7.4-10.4); MONOCYTE # 0.4 10^3/ul (0.3-0.9); MONOCYTES % 6.7 % (0.0-11.0); NEUTROPHIL # 3.7 10^3/ul (1.6-7.5); NEUTROPHILS % 69.8 % (39.0-77.0); PLATELET COUNT 171 10^3/UL (140-415); RED BLOOD COUNT 3.68 10^6/ul (4.20-5.40); RED CELL DISTRIBUTION WIDTH 12.3 % (11.5-14.5); WHITE BLOOD COUNT 5.4 10^3/ul (4.8-10.8)
[2016-06-21 16:41] LABS: POTASSIUM 4.7 mmol/L (3.5-5.1)
[2016-06-21 16:43] LABS: BILIRUBIN,INDIRECT 0.3 mg/dl (0-1.1); BILIRUBIN,TOTAL 0.3 mg/dl (0.2-1.3); CREATININE 3.64 mg/dl (0.44-1.00)
[2016-06-21 16:44] LABS: CALCIUM 9.1 mg/dl (8.4-10.2)
[2016-06-21] MEDS ORDERED: LANT3I SC (16:51)
[2016-06-21] MEDS ORDERED: INSU100I17 SQ (16:52)
[2016-06-21 17:11] LABS: BACTERIA,URINE FEW; TRANSITIONAL EPI CELLS,URINE FEW
[2016-06-21] MEDS ORDERED: CEFTRIAXONE 1 GM/50 ML (PMX) 50 ML IVPB ONE (17:30)
--- NOTE | 2016-06-21 17:34 | ERD ---
ER Documentation Chief Complaint Date/Time DATE: 06/21/16 TIME: 17:32 Chief Complaint RIGHT SHOULDER PAIN(PERMA CATH)RIGHT ARM PAIN, DUE FOR DIALISIS TODAY HPI This is a 45-year-old female presents to the emergency room for evaluation of back pain, and generalized weakness. This patient states that she has had multiple infections in her kidney. She is on dialysis and states that she gets dialysis Tuesday, Tuesday, Tuesday however she did not go to dialysis today because she is having pain in her back. She also has some discomfort over her dialysis catheter site. She denies any drainage from the site. ROS All systems reviewed and are negative except as per history of present illness. Medications Home Meds Active Scripts Lactulose* (Cephulac*) 20 Gm/30 Ml Soln, 30 GM PO BID for 30 Days Prov:VERONICA BALLESTEROS 03/27/16 Oxycodone HCl/Acetaminophen (Percocet 5-325 mg Tablet) 1 Each Tablet, 1 EACH PO TID for PAIN, #9 TAB Prov:PAUL CLARK MD 03/18/16 Polyethylene Glycol* (Miralax*) 17 Gm Powd.pack, 2 TSP PO DAILY for CONSTIPATION , #1 BOTTLE Prov:PAUL CLARK MD 03/18/16 Hydralazine Hcl* (Hydralazine Hcl*) 25 Mg Tab, 25 MG PO Q8 for 30 Days, TAB Prov:YAA KIRK MD 01/29/16 Losartan Potassium* (Cozaar*) 50 Mg Tablet, 50 MG PO DAILY for 30 Days, TAB Prov:YAA KIRK MD 01/29/16 Hydroxyzine Hcl* (Atarax*) 25 Mg Tab, 25 MG PO Q6H Y for ITCHING, #40 TAB Prov:YAA KIRK MD 01/29/16 Reported Medications Insulin Glulisine (Apidra Solostar) 100 Unit/1 Ml Insuln.pen, 4 UNIT SQ BEFORE MEALS, #1 TUB 06/21/16 Insulin Glargine* (Lantus*) 100 Unit/Ml Soln, 10 UNIT SC QHS, #1 VIAL 06/21/16 Metoprolol Tartrate* (Lopressor*) 25 Mg Tab, 25 MG PO BID, #60 TAB 01/01/16 Discontinued Reported Medications Multivit/Ca Carb/B Cmplx/Fa* (Annie-Laura*) 1 Tab Tab, 1 TAB PO DAILY, TAB 03/21/16 Discontinued Scripts Polyethylene Glycol* (Miralax*) 17 Gm Powd.pack, 17 GM PO BID for 30 Days Prov:VERONICA BALLESTEROS 03/27/16 Sucralfate* (Carafate*) 1 Gm/10 Ml Susp, 1 GM PO QID for 30 Days Prov:VERONICA BALLESTEROS 03/27/16 Pantoprazole* (Pantoprazole*) 40 Mg Tablet.dr, 40 MG PO BID@06,18 for 30 Days Prov:VERONICA BALLESTEROS 03/27/16 Metoclopramide Hcl* (Metoclopramide Hcl*) 10 Mg Tablet, 10 MG PO TID for 30 Days , TAB Prov:VERONICA BALLESTEROS 03/27/16 Insulin Aspart* (Novolog Insulin Pen*) 100 Unit/Ml Soln, 4 UNIT SC WITH MEALS for 30 Days Prov:VERONICA BALLESTEROS 03/27/16 Insulin Glargine* (Lantus*) 100 Unit/Ml Soln, 15 UNIT SC HS for 30 Days Prov:VERONICA BALLESTEROS 03/27/16 Ondansetron (Zofran Odt) 4 Mg Tab.rapdis, 4 MG PO Q6, #10 Prov:ROSMERY MORRIS DO 03/21/16 Lorazepam* (Lorazepam*) 0.5 Mg Tablet, 0.5 MG PO Q6 Y for anxiety, nausea/ vomiting, #40 TAB Prov:YAA KIRK MD 01/29/16 Ondansetron (Ondansetron Odt) 4 Mg Tab.rapdis, 4 MG PO Q6H Y for NAUSEA AND/OR VOMITING, #30 TAB Prov:ANTHONY CASTILLO MD 01/01/16 Nifedipine (Nifedical Xl) 60 Mg Tab.er.24, 60 MG PO DAILY for 30 Days, TAB Prov:VERONICA BALLESTEROS 12/29/15 Sevelamer HCl (Renagel) 400 Mg Tab, 400 MG PO WITH MEALS for 30 Days, TAB Prov:VERONICA BALLESTEROS 12/29/15 Allergies Allergies: Coded Allergies: acetaminophen (Verified Allergy, Severe, UNABLE TO BREATH, 06/21/16) hydrocodone (Verified Allergy, Severe, UNABLE TO BREATH, 06/21/16) Penicillins (Verified Allergy, Unknown, 06/21/16) egg yolk (Verified Allergy, Unknown, 06/21/16) hydromorphone (Verified Allergy, Unknown, 06/21/16) ibuprofen (Verified Allergy, Unknown, 06/21/16) tramadol (Verified Allergy, Unknown, 06/21/16) PMhx/Soc History of Surgery: Yes (eyes, R foot, Kidneys, PORT-A-CATH) Anesthesia Reaction: No Hx Neurological Disorder: No Hx Respiratory Disorders: No Hx Cardiac Disorders: Yes ([place], [place] (2016)) Hx Psychiatric Problems: No Hx Miscellaneous Medical Probl: No Hx Alcohol Use: No Hx Substance Use: No Hx Tobacco Use: No (Quit 20 years ago) Smoking Status: Never smoker Physical Exam Vitals Vital Signs Date Time Temp Pulse Resp B/P Pulse Ox O2 Delivery O2 Flow Rate FiO2 06/21/16 12:48 98.1 70 20 226/97 99 Physical Exam Const: No acute distress Head: Atraumatic Eyes: Normal Conjunctiva ENT: Normal External Ears, Nose and Mouth. Neck: Full range of motion..~ No meningismus. Resp: Clear to auscultation bilaterally Cardio: Regular rate and rhythm, no murmurs Abd: Soft, non tender, non distended. Normal bowel sounds Skin: Permacath in right subclavian vein, clean, no drainage, no bleeding no petechiae or rashes Back: Bilateral CVAT Ext: No cyanosis, or edema Neur: Awake and alert Psych: Normal Mood and Affect Result Diagram: 06/21/16 1600 06/21/16 1600 Results 24 hrs Laboratory Tests Test 06/21/16 15:50 06/21/16 16:00 Urine Color LT. YELLOW Urine Clarity CLEAR Urine pH 7.0 Urine Specific [place] 1.015 Urine Ketones NEGATIVE Urine Nitrite NEGATIVE Urine Bilirubin NEGATIVE Urine Urobilinogen 0.2 E.U./dL Urine Leukocyte Esterase NEGATIVE Urine Microscopic RBC 10-25/HPF Urine Microscopic WBC 5-10/HPF Urine Epithelial Cells FEW Urine Transitional Epithelial Cells FEW Urine Bacteria FEW Urine Hemoglobin 1+ Urine Glucose >=1000% Urine Total Protein 4+ White Blood Count 5.410^3/ul Red Blood Count 3.6810^6/ul Hemoglobin 11.4g/dl Hematocrit 34.2% Mean Corpuscular Volume 92.9fl Mean Corpuscular Hemoglobin 31.0pg Mean Corpuscular Hemoglobin Concent 33.3g/dl Red Cell Distribution Width 12.3% Platelet Count 72135^3/UL Mean Platelet Volume 9.6fl Neutrophils % 69.8% Lymphocytes % 21.6% Monocytes % 6.7% Eosinophils % 1.3% Basophils % 0.2% Nucleated Red Blood Cells % 0.0/100WBC Neutrophils # 3.710^3/ul Lymphocytes # 1.210^3/ul Monocytes # 0.410^3/ul Eosinophils # 0.110^3/ul Basophils # 0.010^3/ul Nucleated Red Blood Cells # 0.010^3/ul Sodium Level 136mmol/L Potassium Level 4.7mmol/L Chloride Level 99mmol/L Carbon Dioxide Level 24mmol/L Anion Gap 18 Blood Urea Nitrogen 51mg/dl Creatinine 3.64mg/dl Glucose Level 283mg/dl Calcium Level 9.1mg/dl Total Bilirubin 0.3mg/dl Direct Bilirubin 0.00mg/dl Indirect Bilirubin 0.3mg/dl Aspartate Amino Transf (AST/SGOT) 34IU/L Alanine Aminotransferase (ALT/SGPT) 30IU/L Alkaline Phosphatase 182IU/L Total Protein 8.0g/dl Albumin 4.0g/dl Globulin 4.00g/dl Albumin/Globulin Ratio 1.00 Lipase 107U/L Current Medications Medications (Trade) Dose Ordered Sig/Jacques Route PRN Reason Start Time Stop Time Status Last Admin Dose Admin Sodium Chloride (NS) 1,000 ml @ 1,000 mls/hr Q1H STAT IV 06/21/16 15:44 06/21/16 16:43 DC Morphine Sulfate (morphine) 4 mg ONCE STAT IV 06/21/16 16:27 06/21/16 16:28 DC 06/21/16 16:45 Ondansetron HCl 4 mg 4 mg ONCE STAT IV 06/21/16 16:27 06/21/16 16:28 DC 06/21/16 16:44 Ceftriaxone Sodium (Rocephin) 50 ml @ 100 mls/hr ONCE ONCE IVPB 06/21/16 17:30 06/21/16 17:59 UNV Procedures/MDM This 45 old female presents to the emergency room for evaluation of back pain. She has been admitted multiple times in the past for pyelonephritis. I did obtain lab work and urinalysis. Patient's urine does have some white blood cells. No leukocytosis. The patient does have bilateral CVAT. She was given Rocephin in the emergency room will be discharged home with a prescription for ciprofloxacin. Departure Diagnosis: Primary Impression: Acute cystitis Additional Impressions: Back pain DM (diabetes mellitus), type 1 with renal complications Normocytic anemia Condition: Stable JAVAD SHEPHERD DO Jun 21, 2016 17:34
[2016-06-21] MEDS ORDERED: CIPR500T4 PO (17:35)
[2016-06-21 17:56] VITALS: BP 181/83; PULSE 72; RESP 16; TEMP 99.1
== END 2016-06-21 17:56 | disposition home or self-care (01) ==
LOC: E/R 12:44
DX: N30.00 Acute cystitis without hematuria (principal); M54.9 Dorsalgia, unspecified; E10.9 Type 1 diabetes mellitus without complications; D64.9 Anemia, unspecified; I10 Essential (primary) hypertension; Z79.4 Long term (current) use of insulin; Z87.891 Personal history of nicotine dependence
CPT/HCPCS: 36415; 80053; 81001; 83690; 85025; 93005; 96374; 96375; 99284; J0696; J2270; J2405; J7030; 81003

== ENCOUNTER 2016-06-25 08:12 | Inpatient (IN) | payer BC ==
[~2016-06-25] VITALS: Ht 167.6 cm; Wt 70.6 kg
[2016-06-25] VITALS (18 sets, daily range): BP systolic 112–204; BP diastolic 66–104; PULSE 68–80; RESP 18; Ht 167.6 cm; Wt 70.6 kg
[~2016-06-25 08:12] MED LIST changes: -CARAS PO; +CIPR500T4 PO; +INSU100I17 SQ; -LORA0.5T PO; -METO10TA96 PO; -NEPH PO; -NIFE60TA11 PO; -NOVO3I SC; -ONDA4TAB11 PO; -ONDA4TAB14 PO; -PANT40TA4 PO; -SVL400T PO
[2016-06-25] MEDS ORDERED: NITROGLYCERIN 2% 1 GM OINT PKT TD STA (08:17)
[2016-06-25] MEDS ORDERED: ASPIRIN 81 MG TAB PO STA (08:17)
[2016-06-25] MEDS ORDERED: ONDANSETRON 4 MG INJ IV STA (08:17)
[2016-06-25] MEDS ORDERED: morphine 4 MG/ML VIAL IV STA (08:17)
[2016-06-25] MEDS ORDERED: NITROGLYCERIN (SL) 0.4 MG TAB SL PRN ×2 (08:30→11:30)
--- NOTE | 2016-06-25 08:46 | RADRPT ---
PROCEDURE: XR Chest. CLINICAL INDICATION: shortness of breath TECHNIQUE: Single portable view of the chest was obtained COMPARISON: 03/22/2016 FINDINGS: There is mild cardiomegaly. There is mild pulmonary vascular congestion. There are bilateral perihilar and lower lobe infiltrat es, right greater than left. There is a moderate right pleural effusion.. There is no pneumothorax. There is a right-sided central venous catheter in place. The bones and soft tissues are unremarkable. RPTAT: AA IMPRESSION: Mild cardiomegaly with pulmonary vascular congestion. Moderate right pleural effusion. .Jose Rafael Williamson MD, MD Date Time Electronically viewed and signed by .Jose Rafael Williamson MD, on 06/25/2016 08:45 .S/
[2016-06-25 09:04] LABS: ADD SCAN DIFF NO
[2016-06-25 09:09] LABS: BASOPHILS % 0.2 % (0.0-2.0); EOSINOPHILS % 0.7 % (0.0-7.0); HEMATOCRIT 31.6 % (37.0-47.0); HEMOGLOBIN 10.4 g/dl (12.0-16.0); LYMPHOCYTES # 0.8 10^3/ul (0.8-2.9); LYMPHOCYTES % 19.4 % (15.0-51.0); MEAN CORPUSCULAR HEMOGLOBIN 30.5 pg (29.0-33.0); MEAN CORPUSCULAR HGB CONC 32.9 g/dl (32.0-37.0); MEAN CORPUSCULAR VOLUME 92.7 fl (82.0-101.0); MEAN PLATELET VOLUME 9.9 fl (7.4-10.4); MONOCYTE # 0.3 10^3/ul (0.3-0.9); MONOCYTES % 7.7 % (0.0-11.0); NEUTROPHIL # 3.1 10^3/ul (1.6-7.5); NEUTROPHILS % 71.3 % (39.0-77.0); PLATELET COUNT 130 10^3/UL (140-415); RED BLOOD COUNT 3.41 10^6/ul (4.20-5.40); RED CELL DISTRIBUTION WIDTH 12.4 % (11.5-14.5); WHITE BLOOD COUNT 4.3 10^3/ul (4.8-10.8)
[2016-06-25 09:16] LABS: INR 0.86; PROTIME 11.7 Sec (12.2-14.2); PT RATIO 0.9
[2016-06-25 09:17] LABS: ALBUMIN 3.7 g/dl (3.3-4.9); PARTIAL THROMBOPLASTIN TIME 26.1 Sec (25.0-35.0)
[2016-06-25 09:18] LABS: POTASSIUM 4.9 mmol/L (3.5-5.1)
[2016-06-25 09:20] LABS: BILIRUBIN,INDIRECT 0.3 mg/dl (0-1.1); BILIRUBIN,TOTAL 0.3 mg/dl (0.2-1.3); CREATININE 3.82 mg/dl (0.44-1.00)
[2016-06-25 09:21] LABS: ALBUMIN/GLOBULIN RATIO 1.02; CALCIUM 9.2 mg/dl (8.4-10.2); TOTAL PROTEIN 7.3 g/dl (6.1-8.1)
[2016-06-25 09:32] LABS: TROPONIN-I 0.028 ng/ml (0.00-0.12)
[2016-06-25 10:05] LABS: CK-MB 2.98 ng/ml (0.0-2.4); TROPONIN-I 0.014 ng/ml (0.00-0.12)
--- NOTE | 2016-06-25 10:24 | ERA ---
ER Documentation Chief Complaint Date/Time DATE: 06/25/16 TIME: 10:23 Chief Complaint bilat flank pain and chest wall pain x 0100 HPI Patient is a 45-year-old female with coronary disease, hypertension, diabetes, and dialysis who presents with chest pain and vomiting. The symptoms started at 130 and has been constant since. The patient denies fevers. She has had no treatment as of yet. She was brought in by ambulance. She had dialysis on Tuesday but missed her dialysis on Tuesday and missed her dialysis today. She does not know the name of her primary doctor or her renal doctor. ROS All systems reviewed and are negative except as per history of present illness. Medications Home Meds Active Scripts Ciprofloxacin Hcl* (Ciprofloxacin Hcl*) 500 Mg Tablet, 500 MG PO BID for 10 Days , TAB Prov:JAVAD SHEPHERD DO 06/21/16 Lactulose* (Cephulac*) 20 Gm/30 Ml Soln, 30 GM PO BID for 30 Days Prov:VERONICA BALLESTEROS 03/27/16 Oxycodone HCl/Acetaminophen (Percocet 5-325 mg Tablet) 1 Each Tablet, 1 EACH PO TID for PAIN, #9 TAB Prov:PAUL CLARK MD 03/18/16 Polyethylene Glycol* (Miralax*) 17 Gm Powd.pack, 2 TSP PO DAILY for CONSTIPATION , #1 BOTTLE Prov:PAUL CLARK MD 03/18/16 Hydralazine Hcl* (Hydralazine Hcl*) 25 Mg Tab, 25 MG PO Q8 for 30 Days, TAB Prov:YAA KIRK MD 01/29/16 Losartan Potassium* (Cozaar*) 50 Mg Tablet, 50 MG PO DAILY for 30 Days, TAB Prov:YAA KIRK MD 01/29/16 Hydroxyzine Hcl* (Atarax*) 25 Mg Tab, 25 MG PO Q6H Y for ITCHING, #40 TAB Prov:YAA KIRK MD 01/29/16 Reported Medications Insulin Glulisine (Apidra Solostar) 100 Unit/1 Ml Insuln.pen, 4 UNIT SQ BEFORE MEALS, #1 TUB 06/21/16 Insulin Glargine* (Lantus*) 100 Unit/Ml Soln, 10 UNIT SC QHS, #1 VIAL 06/21/16 Metoprolol Tartrate* (Lopressor*) 25 Mg Tab, 25 MG PO BID, #60 TAB 01/01/16 Discontinued Reported Medications Multivit/Ca Carb/B Cmplx/Fa* (Annie-Laura*) 1 Tab Tab, 1 TAB PO DAILY, TAB 03/21/16 Discontinued Scripts Polyethylene Glycol* (Miralax*) 17 Gm Powd.pack, 17 GM PO BID for 30 Days Prov:VERONICA BALLESTEROS 03/27/16 Sucralfate* (Carafate*) 1 Gm/10 Ml Susp, 1 GM PO QID for 30 Days Prov:VERONICA BALLESTEROS 03/27/16 Pantoprazole* (Pantoprazole*) 40 Mg Tablet.dr, 40 MG PO BID@06,18 for 30 Days Prov:VERONICA BALLESTEROS 03/27/16 Metoclopramide Hcl* (Metoclopramide Hcl*) 10 Mg Tablet, 10 MG PO TID for 30 Days , TAB Prov:VERONICA BALLESTEROS 03/27/16 Insulin Aspart* (Novolog Insulin Pen*) 100 Unit/Ml Soln, 4 UNIT SC WITH MEALS for 30 Days Prov:VERONICA BALLESTEROS 03/27/16 Insulin Glargine* (Lantus*) 100 Unit/Ml Soln, 15 UNIT SC HS for 30 Days Prov:VERONICA BALLESTEROS 03/27/16 Ondansetron (Zofran Odt) 4 Mg Tab.rapdis, 4 MG PO Q6, #10 Prov:ROSMERY MORRIS DO 03/21/16 Lorazepam* (Lorazepam*) 0.5 Mg Tablet, 0.5 MG PO Q6 Y for anxiety, nausea/ vomiting, #40 TAB Prov:YAA KIRK MD 01/29/16 Ondansetron (Ondansetron Odt) 4 Mg Tab.rapdis, 4 MG PO Q6H Y for NAUSEA AND/OR VOMITING, #30 TAB Prov:ANTHONY CASTILLO MD 01/01/16 Nifedipine (Nifedical Xl) 60 Mg Tab.er.24, 60 MG PO DAILY for 30 Days, TAB Prov:VERONICA BALLESTEROS 12/29/15 Sevelamer HCl (Renagel) 400 Mg Tab, 400 MG PO WITH MEALS for 30 Days, TAB Prov:VERONICA BALLESTEROS 12/29/15 Allergies Allergies: Coded Allergies: acetaminophen (Verified Allergy, Severe, UNABLE TO BREATH, 06/25/16) hydrocodone (Verified Allergy, Severe, UNABLE TO BREATH, 06/25/16) Penicillins (Verified Allergy, Unknown, 06/25/16) egg yolk (Verified Allergy, Unknown, 06/25/16) hydromorphone (Verified Allergy, Unknown, 06/25/16) ibuprofen (Verified Allergy, Unknown, 06/25/16) tramadol (Verified Allergy, Unknown, 06/25/16) PMhx/Soc History of Surgery: Yes (eyes, R foot, Kidneys, PORT-A-CATH) Anesthesia Reaction: No Hx Neurological Disorder: No Hx Respiratory Disorders: No Hx Cardiac Disorders: Yes (HTN, [place] (2016)) Hx Psychiatric Problems: No Hx Miscellaneous Medical Probl: No Hx Alcohol Use: No Hx Substance Use: No Hx Tobacco Use: No (Quit 20 years ago) Smoking Status: Never smoker FmHx Family History: No coronary disease Physical Exam Vitals Vital Signs Date Time Temp Pulse Resp B/P Pulse Ox O2 Delivery O2 Flow Rate FiO2 06/25/16 08:45 Nasal Cannula 2 06/25/16 08:27 98.7 90 22 167/120 94 Physical Exam Const: Moderate distress Head: Atraumatic Eyes: Normal Conjunctiva ENT: Normal External Ears, Nose and Mouth. Neck: Full range of motion..~ No meningismus. Resp: Clear to auscultation bilaterally Cardio: Regular rate and rhythm, no murmurs Abd: Soft, non tender, non distended. Normal bowel sounds Skin: No petechiae or rashes Back: No midline or flank tenderness Ext: No cyanosis, or edema Neur: Awake and alert Psych: Normal Mood and Affect Result Diagram: 06/25/16 0850 06/25/16 0850 Results 24 hrs Laboratory Tests Test 06/25/16 08:50 White Blood Count 4.310^3/ul Red Blood Count 3.4110^6/ul Hemoglobin 10.4g/dl Hematocrit 31.6% Mean Corpuscular Volume 92.7fl Mean Corpuscular Hemoglobin 30.5pg Mean Corpuscular Hemoglobin Concent 32.9g/dl Red Cell Distribution Width 12.4% Platelet Count 36360^3/UL Mean Platelet Volume 9.9fl Neutrophils % 71.3% Lymphocytes % 19.4% Monocytes % 7.7% Eosinophils % 0.7% Basophils % 0.2% Nucleated Red Blood Cells % 0.0/100WBC Neutrophils # 3.110^3/ul Lymphocytes # 0.810^3/ul Monocytes # 0.310^3/ul Eosinophils # 0.010^3/ul Basophils # 0.010^3/ul Nucleated Red Blood Cells # 0.010^3/ul Prothrombin Time 11.7Sec Prothrombin Time Ratio 0.9 INR International Normalized Ratio 0.86 Activated Partial Thromboplast Time 26.1Sec Sodium Level 135mmol/L Potassium Level 4.9mmol/L Chloride Level 101mmol/L Carbon Dioxide Level 21mmol/L Anion Gap 18 Blood Urea Nitrogen 49mg/dl Creatinine 3.82mg/dl Glucose Level 313mg/dl Calcium Level 9.2mg/dl Total Bilirubin 0.3mg/dl Direct Bilirubin 0.00mg/dl Indirect Bilirubin 0.3mg/dl Aspartate Amino Transf (AST/SGOT) 27IU/L Alanine Aminotransferase (ALT/SGPT) 21IU/L Alkaline Phosphatase 160IU/L Creatine Kinase 170IU/L Creatine Kinase Index 1.8 Creatinine Kinase MB (Mass) 2.98ng/ml Troponin I 0.014ng/ml Total Protein 7.3g/dl Albumin 3.7g/dl Globulin 3.60g/dl Albumin/Globulin Ratio 1.02 Lipase 125U/L Current Medications Medications (Trade) Dose Ordered Sig/Jacques Route PRN Reason Start Time Stop Time Status Last Admin Dose Admin Aspirin (Aspirin) 162 mg ONCE STAT PO 06/25/16 08:17 06/25/16 08:18 DC 06/25/16 08:46 Nitroglycerin (Nitroglycerin 2% Oint) 1 inch ONCE STAT TD 06/25/16 08:17 06/25/16 08:18 DC 06/25/16 08:47 Nitroglycerin (Nitroglycerin (Sl Tab) 0.4 Mg) 1 tab Q5M UP TO 3 DOSES PRN SL CHEST PAIN 06/25/16 08:30 Morphine Sulfate (morphine) 4 mg ONCE STAT IV 06/25/16 08:17 06/25/16 08:18 DC 06/25/16 08:46 Ondansetron HCl (Zofran Inj) 4 mg ONCE STAT IV 06/25/16 08:17 06/25/16 08:18 DC 06/25/16 08:51 Ondansetron HCl (Zofran Inj) 4 mg ER BRIDGE PRN IV NAUSEA AND/OR VOMITING 06/25/16 10:30 06/26/16 10:29 Procedures/MDM EKG #1 read by me: Rate/Rhythm: Regular rate and rhythm at a rate of 91 Intervals: Normal Impression: No evidence of ischemia or arrhythmia EKG #2 read by me: Rate/Rhythm: Regular rate and rhythm at a rate of 71 Intervals: Normal Impression: No evidence of ischemia or arrhythmia Chest x-ray shows pleural effusion per radiology. Patient is a 45-year-old female with multiple cardiac risk factors who presents with chest pain and vomiting. She has missed dialysis but her potassium is 4.9. The patient will need admission for cardiac workup. Her initial troponin is within normal limits. 2 EKGs did not show ST elevations or depressions. The patient will be admitted to Dr. Vu from the panel team to a telemetry bed. She was given aspirin nitroglycerin. She has anemia but does not require transfusion. Departure Diagnosis: Primary Impression: Chest pain Qualified Code: R07.9 - Chest pain, unspecified type Additional Impression: Vomiting Qualified Code: R11.2 - Non-intractable vomiting with nausea, unspecified vomiting type Condition: ANTHONY Frias MD Jun 25, 2016 10:24
[2016-06-25] MEDS ORDERED: ONDANSETRON 4 MG INJ IV PRN (10:30)
[2016-06-25] MEDS ORDERED: ALBUTEROL/IPRATROPIUM (NEB) 3 ML AMP HHN PRN (11:30)
[2016-06-25] MEDS ORDERED: NACL 0.9% 3 ML SYG IV SCH (11:30)
[2016-06-25] MEDS ORDERED: DOCUSATE SODIUM 100 MG CAP PO PRN (11:30)
[2016-06-25] MEDS ORDERED: HYDROCODONE/APAP (5/325) TAB PO PRN (11:30)
[2016-06-25] MEDS ORDERED: NA PHOSPHATE/BIPHOS 133 ML ENEMA PR PRN (11:30)
[2016-06-25] MEDS ORDERED: hydrOXYzine HCL 25 MG TAB PO PRN (11:30)
[2016-06-25] MEDS ORDERED: ACETAMINOPHEN 325 MG TAB PO PRN (11:30)
[2016-06-25] MEDS ORDERED: MAGNESIUM HYDROXIDE 30ML CUP PO PRN (11:30)
[2016-06-25] MEDS ORDERED: LORAZEPAM 2 MG INJ IV PRN (11:30)
--- NOTE | 2016-06-25 11:53 | HP ---
DATE OF ADMISSION: 06/25/2016 CHIEF COMPLAINT: Chest pain and flank pain. HISTORY OF PRESENT ILLNESS: A 45-year-old female who is a frequent flyer, past medical history of p rior UTIs, history of opiate overdose, prior upper GI bleeding, urethral stone, gastritis, back pain , CHF, cardiomyopathy, kidney stones, hypertension, pyelonephritis, chronic kidney disease stage IV on dialysis, type 2 diabetes, diabetic nephropathy and neuropathy, degenerative joint disease of her ankle and foot, anemia of chronic disease, prior hyperglycemia, who comes in again with complaints of back pain and chest pain symptoms. She developed some mild nausea and vomiting symptoms as well. Apparently, she had been to the ER about 3 days ago, was evaluated and sent home. She had dialysi s 2 days ago, but missed her 2 prior dialysis Tuesday and today as well. When she came in, she was f ound with elevated creatinine levels again, but again she does have chronic kidney disease stage IV and is on dialysis. I have contacted her server cashier is going to come see her later today as well. When the patient came in, she was also found with hypertensive urgency findings. PAST MEDICAL HISTORY: As stated above. ALLERGIES: 1. PENICILLIN. 2. ACETAMINOPHEN. 3. EGG YOLK. 4. HYDROCODONE. 5. HYDROMORPHONE. 6. IBUPROFEN. 7. TRAMADOL. MEDICATIONS AT HOME: Include the followin. Cipro 500 mg b.i.d. 2. Hydralazine 25 mg q.8h. 3. Cozaar 50 mg daily. 4. Lopressor 25 mg b.i.d. 5. Atarax 25 mg q.6h. p.r.n. 6. Percocet 5/325 t.i.d. 7. Lactulose 30 grams b.i.d. 8. MiraLax 2 tablespoons daily. 9. Lantus 10 units at bedtime. 10. Apidra SoloStar insulin 4 units before meals. PAST SURGICAL HISTORY: Multiple right thoracocenteses in the past, right foot surgery in the past, cholecystectomy. SOCIAL HISTORY: Lives at home with family. No history of any smoking, drinking, or IV drug abuse. FAMILY HISTORY: Noncontributory. PHYSICAL EXAMINATION: VITAL SIGNS: Today, temperature max 98.7, pulse 90, respirations 22, blood pressure 167/120, satura ting at 94% on 2 liters nasal cannula. GENERAL: The patient is lying in bed, answering questions appropriately, lethargic but alert. HEENT: Pupils equal, round, react to light. Extraocular muscles intact. NECK: Supple, no thyromegaly. LUNGS: Clear to auscultation bilaterally. CARDIOVASCULAR: S1, S2 heard. No rubs or gallops. ABDOMEN: Soft, nontender, nondistended. Normal bowel sounds. No rebound or guarding. MUSCULOSKELETAL: No lower extremity edema bilaterally. NEUROLOGIC: No focal deficits. LABORATORIES: WBC 4.3, hemoglobin 10.4, hematocrit 31.6, platelets 130. Sodium 135, potassium 4.9, chloride 101, CO2 of 21, BUN 49, creatinine 3.82, glucose 313. IMAGING: Chest x-ray shows mild cardiomegaly with pulmonary vascular congestion, moderate right ple ural effusion. ASSESSMENT AND PLAN: A 45-year-old female with chest pain symptoms along with abdominal pain, nause a and vomiting, who missed dialysis recently. 1. Chest pain. Admit her to telemetry floor, rule out for acute coronary syndrome. Trend her trop onins. Her first 2 have been negative thus far. Continue aspirin, morphine, p.r.n. oxygen and nitr ates as well. She is on beta bety as well. Consider checking TSH, A1c, lipid panel. 2. History of type 2 diabetes. Continue Lantus and short-acting insulin and also sliding scale ins ulin as well. 3. End-stage renal disease on dialysis. Again, we will get a renal consult. She will probably abel efit from inpatient dialysis as well. 4. History of congestive heart failure and cardiomyopathy. Continue current cardiac medications. 5. Hypertensive urgency. Again, hydralazine p.r.n. 6. Anemia of chronic disease. Hemoglobin is stable. Continue to monitor for now. 7. Gastrointestinal prophylaxis, H2 bety. 8. Deep venous thrombosis prophylaxis, Heparin subcutaneous. Dictated By: MARIELY HENDERSON Conf#: [id number] DID#: [id number]
--- NOTE | 2016-06-25 12:07 | CONS ---
Date/Time of Note Date/Time of Note DATE: 06/25/16 TIME: 12:05 Assessment/Plan Assessment/Plan Chief Complaint/Hosp Course - ESRD - CAD/CHF - ANEMIA - DM - Hx of Protinuria - Arthritis PLAN: She missed her Dialysis treatment today Will arrange for HD today Has been in & Out of ER with generalized pain, will monitor Follow up with Labs Check her Phos THANK YOU vBryce MUCH Problems: Consultation Date/Type/Reason Admit Date/Time Date of Consultation: Jun 25, 2016 Type of Consultation: NEPHROLGY Reason for Consultation - ESRD on Hemodialysis Constitutional: poor po Eyes: no complaints ENT: no complaints Respiratory: shortness of breath Cardiovascular: no complaints Gastrointestinal: nausea Genitourinary: no complaints Musculoskeletal: back pain, bone/joint pain, neck pain Skin: no complaints Past Medical History ESRD ANEMIA Hx of Protienuria DM HTN Past Surgical History Tunneled dialysis catheter Past Surgical Hx: cholecystectomy, other Social History Alcohol Use: none Smoking Status: Never smoker Drug Use: none Exam/Review of Systems Vital Signs Vitals Vital Signs Date Time Temp Pulse Resp B/P Pulse Ox O2 Delivery O2 Flow Rate FiO2 06/25/16 08:45 Nasal Cannula 2 06/25/16 08:27 98.7 90 22 167/120 94 Exam Constitutional: alert Psych: no complaints Head: normocephalic Eyes: nl conjunctiva Neck: jvd, supple Respiratory: crackles/rales Cardiovascular: regular rate and rhythm, systolic murmur Results Result Diagram: 06/25/16 0850 06/25/16 0850 Results 24 hrs Laboratory Tests Test 06/25/16 08:50 White Blood Count 4.3 #L Red Blood Count 3.41 L Hemoglobin 10.4 L Hematocrit 31.6 L Mean Corpuscular Volume 92.7 Mean Corpuscular Hemoglobin 30.5 Mean Corpuscular Hemoglobin Concent 32.9 Red Cell Distribution Width 12.4 Platelet Count 130 #L Mean Platelet Volume 9.9 Neutrophils % 71.3 Lymphocytes % 19.4 Monocytes % 7.7 Eosinophils % 0.7 Basophils % 0.2 Nucleated Red Blood Cells % 0.0 Neutrophils # 3.1 Lymphocytes # 0.8 Monocytes # 0.3 Eosinophils # 0.0 Basophils # 0.0 Nucleated Red Blood Cells # 0.0 Prothrombin Time 11.7 L Prothrombin Time Ratio 0.9 INR International Normalized Ratio 0.86 Activated Partial Thromboplast Time 26.1 Sodium Level 135 Potassium Level 4.9 Chloride Level 101 Carbon Dioxide Level 21 Anion Gap 18 H Blood Urea Nitrogen 49 H Creatinine 3.82 H Glucose Level 313 H Calcium Level 9.2 Total Bilirubin 0.3 Direct Bilirubin 0.00 Indirect Bilirubin 0.3 Aspartate Amino Transf (AST/SGOT) 27 Alanine Aminotransferase (ALT/SGPT) 21 Alkaline Phosphatase 160 H Creatine Kinase 170 Creatine Kinase Index 1.8 Creatinine Kinase MB (Mass) 2.98 H Troponin I 0.014 Total Protein 7.3 Albumin 3.7 Globulin 3.60 H Albumin/Globulin Ratio 1.02 Lipase 125 Medications Medications Current Medications Ondansetron HCl (Zofran Inj) 4 mg Q6H PRN IV NAUSEA AND/OR VOMITING; Start at 11:30 Acetaminophen (Tylenol Tab) 650 mg Q6H PRN PO PAIN LEVEL 1-3 OR FEVER; Start at 11:30 Acetaminophen/ Hydrocodone Bitart ([place] (5/325)) 1 tab Q6H PRN PO MODERATE PAIN LEVEL 4-6; Start 06/25/16 at 11:30; Status UNV Morphine Sulfate (morphine) 2 mg Q4H PRN IV SEVERE PAIN LEVEL 7-10; Start 06/25 at 11:30; Status UNV Docusate Sodium (Colace) 100 mg Q12H PRN PO CONSTIPATION; Start 06/25/16 at 11: 30; Status UNV Magnesium Hydroxide (Milk Of Mag) 30 ml DAILY PRN PO CONSTIPATION; Start at 11:30; Status UNV Sodium Biphosphate/ Sodium Phosphate (Fleet Enema) 133 ml DAILY PRN [place] CONSTIPATION; Start 06/25/16 at 11:30 Heparin Sodium (Porcine) (Heparin (5000 Units/0.5 ml)) 5,000 unit Q12 SC ; Start 06/25/16 at 21:00; Status UNV Lorazepam (Ativan) 0.5 mg Q6H PRN IV ANXIETY; Start 06/25/16 at 11:30 Hydralazine HCl (Apresoline) 10 mg Q6H PRN IV ELEVATED BLOOD PRESSURE; Start at 11:30 Nitroglycerin (Nitroglycerin (Sl Tab) 0.4 Mg) 1 tab Q5M PRN SL ANGINA; Start at 11:30 Hydralazine HCl (Apresoline) 25 mg Q8 PO ; Start 06/25/16 at 14:00; Status UNV Hydroxyzine HCl (Atarax) 25 mg Q6H PRN PO ITCHING; Start 06/25/16 at 11:30; Status UNV Insulin Glargine (Lantus) 10 unit QHS SC ; Start 06/25/16 at 21:00; Status UNV Lactulose (Enulose) 30 gm BID PO ; Start 06/25/16 at 21:00 Losartan Potassium (Cozaar) 50 mg DAILY PO ; Start 06/26/16 at 09:00; Status UNV Metoprolol Tartrate (Lopressor) 25 mg BID PO ; Start 06/25/16 at 21:00; Status UNV Aspirin (Halfprin) 162 mg DAILY PO ; Start 06/26/16 at 09:00; Status UNV SAVANNA SCHWARTZ MD Jun 25, 2016 12:07
[2016-06-25] MEDS ORDERED: GLUCOSE GEL 15 GRAM TUBE PO PRN ×2 (13:00)
[2016-06-25] MEDS ORDERED: DEXTROSE 50% 50 ML SYRINGE IV PRN ×2 (13:00)
[2016-06-25] MEDS ORDERED: GLUCAGON 1 MG INJ IM PRN (13:00)
[2016-06-25] MEDS ORDERED: GLUCOSE GEL 15 GRAM TUBE BUCCAL PRN (13:00)
[2016-06-25 14:00] LABS: CK-MB 2.99 ng/ml (0.0-2.4); TROPONIN-I 0.039 ng/ml (0.00-0.12)
[2016-06-25] MEDS: hydrALAzine 20 MG INJ IV PRN (18:18)
[2016-06-25] MEDS: morphine 2 MG INJ IV PRN (18:18)
[2016-06-25] MEDS: INSULIN ASPART [NOVOLOG] 3 ML PEN SC SCH ×3 (18:29→20:19)
[2016-06-25 19:00] LABS: ADD UMIC YES; URINE BILIRUBIN (Dip) NEGATIVE (NEGATIVE); URINE BLOOD (Dip) 1+ (NEGATIVE); URINE COLOR LT. YELLOW (YELLOW); URINE GLUCOSE (Dip) >=1000 % (NEGATIVE); URINE KETONES (Dip) NEGATIVE (NEGATIVE); URINE LEUKOCYTE ESTERASE (Dip) NEGATIVE (NEGATIVE); URINE NITRITE (Dip) NEGATIVE (NEGATIVE); URINE TOTAL PROTEIN (Dip) 4+ (NEGATIVE); URINE UROBILINOGEN (Dip) 0.2 E.U./dL (0.1-1.0)
[2016-06-25 19:17] LABS: BACTERIA,URINE FEW; SQUAMOUS EPITHELIAL CELL,UR FEW
[2016-06-25 20:05] LABS: CK-MB 3.01 ng/ml (0.0-2.4)
[2016-06-25 20:09] LABS: TROPONIN-I 0.039 ng/ml (0.00-0.12)
[2016-06-25] MEDS: INSULIN GLARGINE [LANtus] 3 ML PEN SC SCH (20:19)
[2016-06-25] MEDS: HEPARIN 5,000 UNIT/0.5 ML VIAL SC SCH (20:33)
[2016-06-25] MEDS: LACTULOSE 30ML CUP PO SCH (20:47)
[2016-06-25] MEDS: METOPROLOL 25 MG TAB PO SCH (20:47)
[2016-06-25] MEDS: ONDANSETRON 4 MG INJ IV PRN (22:03)
[2016-06-26] VITALS (15 sets, daily range): BP systolic 110–182; BP diastolic 53–98; PULSE 80–90; RESP 18
[2016-06-26] MEDS: morphine 2 MG INJ IV PRN ×2 (05:57→18:06)
[2016-06-26 07:03] LABS: ADD SCAN DIFF NO
[2016-06-26 07:05] LABS: CK-MB 1.94 ng/ml (0.0-2.4)
[2016-06-26 07:07] LABS: CHOL/HDL RATIO 2.5 RATIO
[2016-06-26 07:08] LABS: TROPONIN-I 0.045 ng/ml (0.00-0.12)
[2016-06-26 07:13] LABS: BASOPHILS % 0.5 % (0.0-2.0); EOSINOPHILS # 0.1 10^3/ul (0.0-0.5); EOSINOPHILS % 1.6 % (0.0-7.0); HEMATOCRIT 31.4 % (37.0-47.0); HEMOGLOBIN 10.1 g/dl (12.0-16.0); LYMPHOCYTES # 1.1 10^3/ul (0.8-2.9); LYMPHOCYTES % 24.5 % (15.0-51.0); MEAN CORPUSCULAR HGB CONC 32.2 g/dl (32.0-37.0); MEAN CORPUSCULAR VOLUME 93.2 fl (82.0-101.0); MONOCYTE # 0.3 10^3/ul (0.3-0.9); MONOCYTES % 7.7 % (0.0-11.0); NEUTROPHIL # 2.9 10^3/ul (1.6-7.5); NEUTROPHILS % 65.5 % (39.0-77.0); PLATELET COUNT 166 10^3/UL (140-415); RED BLOOD COUNT 3.37 10^6/ul (4.20-5.40); RED CELL DISTRIBUTION WIDTH 12.6 % (11.5-14.5); WHITE BLOOD COUNT 4.4 10^3/ul (4.8-10.8)
[2016-06-26 07:30] LABS: CALCIUM 8.8 mg/dl (8.4-10.2); CREATININE 3.01 mg/dl (0.44-1.00); PHOSPHORUS 4.4 mg/dl (2.5-4.9); POTASSIUM 4.5 mmol/L (3.5-5.1)
[2016-06-26 07:39] LABS: THYROID STIMULATING HORMONE 2.75 MIU/L (0.465-4.680)
[2016-06-26] MEDS: ONDANSETRON 4 MG INJ IV PRN ×2 (07:39→20:21)
[2016-06-26] MEDS: INSULIN ASPART [NOVOLOG] 3 ML PEN SC SCH ×7 (07:55→20:34)
[2016-06-26] MEDS: ASPIRIN (EC) 81 MG TAB PO SCH (08:29)
[2016-06-26] MEDS: LACTULOSE 30ML CUP PO SCH ×2 (08:29→20:34)
[2016-06-26] MEDS: METOPROLOL 25 MG TAB PO SCH ×2 (08:30→20:20)
[2016-06-26] MEDS: HEPARIN 5,000 UNIT/0.5 ML VIAL SC SCH ×2 (08:54→20:29)
[2016-06-26] MEDS ORDERED: LOSARTAN 50 MG TAB PO SCH (09:00)
[2016-06-26] MEDS: hydrALAzine 20 MG INJ IV PRN ×2 (12:09→20:21)
--- NOTE | 2016-06-26 12:22 | CONS ---
DATE OF ADMISSION: 06/25/2016 DATE OF CONSULTATION: 06/26/2016 VASCULAR SURGERY CONSULTATION Dear Doctors: Mrs. Malik is a 45-year-old female known to our vascular surgery service for evaluation of fistula creation as she has chronic kidney disease IV to V impending dialysis. At the moment, the patient does have a right chest wall catheter in which she undergoes hemodialysis and she was scheduled for a fistula creation this upcoming week. The patient unfortunately was admitted to the hospital for e valuation of abdominal pain. The patient also had hypertensive urgency in which patient received he modialysis in the emergency room. At the moment, the patient denies shortness of breath, chest pain , nausea, vomiting, fever or chills. She mentions that her abdominal pain has improved. REVIEW OF SYSTEMS: A 12-point review performed and negative except what was mentioned in the HPI. PAST MEDICAL HISTORY: Entails recurrent UTIs, history of opiate overdose, upper GI bleeding, urethr al stones, gastritis, chronic back pain, congestive heart failure unspecified the type, cardiomyopat hy, nephrolithiasis, hypertension, history of pyelonephritis, chronic kidney disease stage IV to V, on dialysis, type 2 diabetes, peripheral neuropathy, diabetic nephropathy, diabetic retinopathy, deg enerative joint disease and anemia of chronic disease. PAST SURGICAL HISTORY: Entails right chest wall catheter placement, multiple thoracenteses, previou s right foot surgery and cholecystectomy. SOCIAL HISTORY: Denies tobacco, alcohol or illicit drug use. FAMILY HISTORY: Positive for hypertension, diabetes. PHYSICAL EXAMINATION: GENERAL: Alert and oriented x3, no apparent distress. HEENT: Normocephalic, atraumatic. Mucosa moist. Vision limited. NECK: Supple. No carotid bruit. PULMONARY: Clear to auscultation bilaterally. No crackles. CARDIOVASCULAR: S1, S2 present. No murmurs. ABDOMEN: Soft, nontender, nondistended. Bowel sounds positive. EXTREMITIES: Lower extremities, palpable femoral pulses, palpable pedal pulses. Motor, sensory int act. Capillary refill 2 to 3 seconds. Upper extremities, palpable brachial pulses. Motor, sensory intact. Capillary refill 2 to 3 second s. ASSESSMENT AND PLAN: Chronic kidney disease stage IV to V, impending end-stage renal disease: It s eems that the patient has been admitted for abdominal pain in which she has been evaluated and impro ving with her symptoms. The patient was scheduled for fistula creation this upcoming week and shilpi ruth had asked if this can be done while she is in the hospital. From my standpoint, once the patient has been cleared from her medical evaluation, we can schedule the patient for fistula creation. We will reevaluate her vein mapping and plan to create a left upper extremity fistula. Optimize vascular status (BP meds, diet, nutrition, exercise, sugar control, antiplatelets). Discussed findings, plan and management with the patient, she understands. Thank you for allowing us to partake in the care of your patient. Please call with questions. Dictated By: YOCASTA PATEL/DARRIAN Conf#: [id number] DID#: [id number]
[2016-06-26] MEDS ORDERED: PANTOPRAZOLE (EC) 40 MG TAB PO ONE (13:00)
[2016-06-26] MEDS ORDERED: NA PHOSPHATE/BIPHOS 133 ML ENEMA PR ONE (13:00)
[2016-06-26] MEDS ORDERED: LACTULOSE 30ML CUP PO ONE (13:00)
--- NOTE | 2016-06-26 13:08 | PN ---
Date/Time of Note Date/Time of Note DATE: 06/26/16 TIME: 13:04 Assessment/Plan VTE Prophylaxis VTE Prophylaxis Intervention: LMWH Lines/Catheters IV [facility] perma-cath Assessment/Plan Problems: (1) Essential hypertension Status: Chronic Comment: Continue her medications but adjust upward on them dosages to get better control. (2) Hypertensive emergency without congestive heart failure Status: Acute Comment: No evidence of any advanced endorgan damage beyond what she had previously pre-existing which was a renal failure. We will get her stabilized that she can have her shunt put in by vascular surgery team during this admission (3) Onychomycosis due to dermatophyte Status: Chronic Comment: Pulse therapy (4) Charcot ankle Status: Chronic Comment: She will be seen by the snowblower mechanic that she knows and is operated on her before Dr. Telles (5) DM (diabetes mellitus), type 1 with renal complications Status: Chronic Comment: Sugar control is adequate. Qualifiers: Chronic kidney disease stage: on chronic dialysis Subjective 24 Hr Interval Summary Constitutional: no complaints Respiratory: no complaints Cardiovascular: no complaints Gastrointestinal: pain Genitourinary: no complaints Neurologic: no complaints Exam/Review of Systems Vital Signs Vitals Vital Signs Date Time Temp Pulse Resp B/P Pulse Ox O2 Delivery O2 Flow Rate FiO2 06/26/16 12:03 83 06/26/16 11:38 98.4 18 175/82 92 06/25/16 18:10 Room Air 06/25/16 08:45 2 Intake and Output 06/25/16 06/25/16 06/26/16 15:00 23:00 07:00 Intake Total 600 ml 120 ml Output Total 3300 ml 250 ml Balance -2700 ml -130 ml Exam Constitutional: alert, oriented Neck: non-tender, supple Respiratory: clear to auscultation, normal air movement Cardiovascular: nl pulses, regular rate and rhythm Gastrointestinal: nl liver, spleen, non-tender, soft Results Result Diagram: 06/26/16 0054 06/26/16 0054 Results 24 hrs Laboratory Tests Test 06/25/16 13:20 06/25/16 18:25 06/25/16 19:15 06/25/16 20:18 Creatine Kinase 122 103 Creatine Kinase Index 2.5 2.9 Creatinine Kinase MB (Mass) 2.99 H 3.01 H Troponin I 0.039 0.039 Free Thyroxine 1.55 Bedside Glucose 187 125 Test 06/26/16 00:54 06/26/16 02:52 06/26/16 05:43 06/26/16 08:33 White Blood Count 4.4 L Red Blood Count 3.37 L Hemoglobin 10.1 L Hematocrit 31.4 L Mean Corpuscular Volume 93.2 Mean Corpuscular Hemoglobin 30.0 Mean Corpuscular Hemoglobin Concent 32.2 Red Cell Distribution Width 12.6 Platelet Count 166 # Mean Platelet Volume 10.0 Neutrophils % 65.5 Lymphocytes % 24.5 Monocytes % 7.7 Eosinophils % 1.6 Basophils % 0.5 Nucleated Red Blood Cells % 0.0 Neutrophils # 2.9 Lymphocytes # 1.1 Monocytes # 0.3 Eosinophils # 0.1 Basophils # 0.0 Nucleated Red Blood Cells # 0.0 Sodium Level 133 L Potassium Level 4.5 Chloride Level 99 Carbon Dioxide Level 29 Anion Gap 10 # Blood Urea Nitrogen 28 #H Creatinine 3.01 H Glucose Level 134 # Calcium Level 8.8 Phosphorus Level 4.4 Magnesium Level 2.0 Bedside Glucose 127 131 Hemoglobin A1c 8.7 H Creatine Kinase 72 Creatine Kinase Index 2.7 Creatinine Kinase MB (Mass) 1.94 Troponin I 0.045 Triglycerides Level 95 Cholesterol Level 207 H LDL Cholesterol, Calculated 107 HDL Cholesterol 81 Cholesterol/HDL Ratio 2.5 Thyroid Stimulating Hormone (TSH) 2.750 Test 06/26/16 11:59 Bedside Glucose 192 Medications Medications Current Medications Ondansetron HCl (Zofran Inj) 4 mg Q6H PRN IV NAUSEA AND/OR VOMITING Last administered on 06/26/16 07:39; Admin Dose 4 MG; Start 06/25/16 at 11:30 Acetaminophen (Tylenol Tab) 650 mg Q6H PRN PO PAIN LEVEL 1-3 OR FEVER; Start at 11:30 Morphine Sulfate (morphine) 2 mg Q4H PRN IV SEVERE PAIN LEVEL 7-10 Last administered on 06/26/16 05:57; Admin Dose 2 MG; Start 06/25/16 at 11:30 Docusate Sodium (Colace) 100 mg Q12H PRN PO CONSTIPATION; Start 06/25/16 at 11: 30 Magnesium Hydroxide (Milk Of Mag) 30 ml DAILY PRN PO CONSTIPATION; Start at 11:30 Sodium Biphosphate/ Sodium Phosphate (Fleet Enema) 133 ml DAILY PRN [place] CONSTIPATION; Start 06/25/16 at 11:30 Heparin Sodium (Porcine) (Heparin (5000 Units/0.5 ml)) 5,000 unit Q12 SC Last administered on 06/26/16 08:54; Admin Dose 5,000 UNIT; Start 06/25/16 at 21:00 Lorazepam (Ativan) 0.5 mg Q6H PRN IV ANXIETY; Start 06/25/16 at 11:30 Hydralazine HCl (Apresoline) 10 mg Q6H PRN IV ELEVATED BLOOD PRESSURE Last administered on 06/26/16 12:09; Admin Dose 10 MG; Start 06/25/16 at 11:30 Nitroglycerin (Nitroglycerin (Sl Tab) 0.4 Mg) 1 tab Q5M PRN SL ANGINA; Start at 11:30 Hydralazine HCl (Apresoline) 25 mg Q8 PO ; Start 06/25/16 at 22:00 Hydroxyzine HCl (Atarax) 25 mg Q6H PRN PO ITCHING; Start 06/25/16 at 11:30 Insulin Glargine (Lantus) 10 unit QHS SC Last administered on 06/25/16 20:19; Admin Dose 10 UNIT; Start 06/25/16 at 21:00 Lactulose (Enulose) 30 gm BID PO Last administered on 06/26/16 08:29; Admin Dose 30 GM; Start 06/25/16 at 21:00 Losartan Potassium (Cozaar) 50 mg DAILY PO Last administered on 06/26/16 08:29 ; Admin Dose 50 MG; Start 06/26/16 at 09:00 Metoprolol Tartrate (Lopressor) 25 mg BID PO Last administered on 06/26/16 08: 30; Admin Dose 25 MG; Start 06/25/16 at 21:00 Aspirin (Halfprin) 162 mg DAILY PO Last administered on 06/26/16 08:29; Admin Dose 162 MG; Start 06/26/16 at 09:00 Miscellaneous Information 1 ea NOTE XX ; Start 06/25/16 at 13:00 Glucose (Glutose) 15 gm Q15M PRN PO DECREASED GLUCOSE; Start 06/25/16 at 13:00 Glucose (Glutose) 22.5 gm Q15M PRN PO DECREASED GLUCOSE; Start 06/25/16 at 13: 00 Dextrose (D50w Syringe) 25 ml Q15M PRN IV DECREASED GLUCOSE; Start 06/25/16 at 13:00 Dextrose (D50w Syringe) 50 ml Q15M PRN IV DECREASED GLUCOSE; Start 06/25/16 at 13:00 Glucagon (Glucagen) 1 mg Q15M PRN IM DECREASED GLUCOSE; Start 06/25/16 at 13:00 Glucose (Glutose) 15 gm Q15M PRN BUCCAL DECREASED GLUCOSE; Start 06/25/16 at 13 :00 ROSMERY AUGUSTIN MD Jun 26, 2016 13:08
[2016-06-26] MEDS: BRIMONIDINE 0.1% 5 ML OPH BOTH EYES SCH ×2 (13:10→20:20)
[2016-06-26] MEDS: TERBINAFINE 250 MG TAB PO SCH ×2 (14:45→20:20)
[2016-06-26] MEDS: LOSARTAN 50 MG TAB PO SCH (20:21)
[2016-06-26] MEDS: INSULIN GLARGINE [LANtus] 3 ML PEN SC SCH (20:32)
[2016-06-27] VITALS (12 sets, daily range): BP systolic 116–162; BP diastolic 57–75; PULSE 64–72; RESP 18
[2016-06-27] MEDS: morphine 2 MG INJ IV PRN ×2 (03:16→15:57)
[2016-06-27] MEDS: PANTOPRAZOLE (EC) 40 MG TAB PO SCH (06:40)
[2016-06-27] MEDS: ONDANSETRON 4 MG INJ IV PRN ×2 (06:40→21:20)
[2016-06-27] MEDS: BRIMONIDINE 0.1% 5 ML OPH BOTH EYES SCH ×3 (06:41→21:18)
[2016-06-27] MEDS: INSULIN ASPART [NOVOLOG] 3 ML PEN SC SCH ×7 (07:55→21:29)
--- NOTE | 2016-06-27 08:55 | RADRPT ---
PROCEDURE: Bilateral upper extremity arterial ultrasound CLINICAL INDICATION: End-stage renal disease, upper extremity pain. TECHNIQUE: Color images with Doppler of the arteries of the left upper extremity were obtained. COMPARISON: None available FINDINGS: Antegrade flow is seen in the visualized arteries of the bilateral upper extremities. Triphasic wave forms are seen throughout. Velocities: Right: Subclavian artery 150 cm/s.. Axillary artery 142 cm/s. Brachial artery 130 cm/s. Left: Subclavian artery 134 cm/s.. Axillary artery 221 cm/s. Brachial artery 143 cm/s. IMPRESSION: Patent bilateral subclavian, axillary and brachial arteries. Elevated velocity in the left axillary artery, possibly indicating stenosis. If further characteriz ation is needed CTA can be considered. RPTAT: AA .Richardson Jarquin MD, Date Time Electronically viewed and signed by .Richardson Jarquin MD, on 06/27/2016 08:54 .P/
[2016-06-27] MEDS: ASPIRIN (EC) 81 MG TAB PO SCH (09:47)
[2016-06-27] MEDS: LACTULOSE 30ML CUP PO SCH ×2 (09:47→21:18)
[2016-06-27] MEDS: LOSARTAN 50 MG TAB PO SCH ×2 (09:48→21:19)
[2016-06-27] MEDS: METOPROLOL 25 MG TAB PO SCH ×2 (09:48→21:19)
[2016-06-27] MEDS: HEPARIN 5,000 UNIT/0.5 ML VIAL SC SCH ×2 (09:52→21:21)
[2016-06-27] MEDS: TERBINAFINE 250 MG TAB PO SCH ×2 (09:53→21:20)
[2016-06-27 11:29] LABS: ADD SCAN DIFF NO
[2016-06-27 11:31] LABS: BASOPHILS % 0.2 % (0.0-2.0); EOSINOPHILS # 0.1 10^3/ul (0.0-0.5); EOSINOPHILS % 1.6 % (0.0-7.0); HEMATOCRIT 31.1 % (37.0-47.0); LYMPHOCYTES # 1.2 10^3/ul (0.8-2.9); LYMPHOCYTES % 27.3 % (15.0-51.0); MEAN CORPUSCULAR HEMOGLOBIN 30.5 pg (29.0-33.0); MEAN CORPUSCULAR HGB CONC 32.2 g/dl (32.0-37.0); MEAN CORPUSCULAR VOLUME 94.8 fl (82.0-101.0); MEAN PLATELET VOLUME 9.8 fl (7.4-10.4); MONOCYTE # 0.4 10^3/ul (0.3-0.9); MONOCYTES % 8.2 % (0.0-11.0); NEUTROPHIL # 2.8 10^3/ul (1.6-7.5); NEUTROPHILS % 62.5 % (39.0-77.0); PLATELET COUNT 185 10^3/UL (140-415); RED BLOOD COUNT 3.28 10^6/ul (4.20-5.40); RED CELL DISTRIBUTION WIDTH 12.5 % (11.5-14.5); WHITE BLOOD COUNT 4.4 10^3/ul (4.8-10.8)
[2016-06-27 11:49] LABS: POTASSIUM 4.1 mmol/L (3.5-5.1)
[2016-06-27 11:52] LABS: CREATININE 4.68 mg/dl (0.44-1.00)
[2016-06-27 11:53] LABS: CALCIUM 8.5 mg/dl (8.4-10.2)
--- NOTE | 2016-06-27 11:58 | RADRPT ---
PROCEDURE: Bilateral upper extremity venous ultrasound CLINICAL INDICATION: swelling TECHNIQUE: Santamaria scale and color Doppler flow images of the veins of bilateral upper extremities we re obtained. COMPARISON: none available FINDINGS: Compressibility is identified in the upper extremity veins. Diameters: Right: Upper cephalic vein: 0.3 cm. Mid cephalic vein: 0.3 cm. Distal cephalic vein: 0.2 cm. Upper forearm cephalic vein: Not visualized. Mid forearm cephalic vein: 0.1 cm. Lower forearm cephalic vein: 0.1 cm. Upper basilic vein: 0.6 cm. Mid basilic vein: 0.5 cm. Lower basilic vein: 0.4 cm. Upper forearm basilic vein: 0.2 cm. Mid forearm basilic vein: 0.1 cm. Lower forearm basilic vein: 0.2 cm. Left: Upper cephalic vein: 0.3 cm. Mid cephalic vein: 0.4 cm. Distal cephalic vein: 0.3 cm. Upper forearm cephalic vein: 0.2 cm. Mid forearm cephalic vein: 0.2 cm. Lower forearm cephalic vein: 0.2 cm. Upper basilic vein: 0.6 cm. Mid basilic vein: 0.4 cm. Lower basilic vein: 0.4 cm. Upper forearm basilic vein: 0.2 cm. Mid forearm basilic vein: 0.2 cm. Lower forearm basilic vein: 0.2 cm. IMPRESSION: Right upper forearm cephalic vein not visualized. Finding may reflect chronic occlusion. The remaining visualized upper extremity veins demonstrate normal compressibility. Diameters as given. RPTAT: AA .Richardson Jarquin MD, Date Time Electronically viewed and signed by .Richardson Jarquin MD, MD on 06/27/2016 11:58 .P/
--- NOTE | 2016-06-27 12:20 | PN ---
Date/Time of Note Date/Time of Note DATE: 06/27/16 TIME: 12:18 Assessment/Plan VTE Prophylaxis VTE Prophylaxis Intervention: other Lines/Catheters IV Catheter Type (from Nrs): permacath Assessment/Plan Problems: (1) End stage renal disease on dialysis due to type 1 diabetes mellitus Status: Chronic Comment: She is stable from this. She is waiting for the dialysis construction. From medical standpoint she is medically cleared to proceed with dialysis construction. Dr. Neves is the treatment plant operator managing dialysis see his notes (2) Charcot ankle Status: Chronic Comment: D.P.M. called on consult (3) Onychomycosis due to dermatophyte Status: Chronic Comment: On appropriate pulse therapy (4) Hypertensive emergency without congestive heart failure Status: Acute Comment: Blood pressure much better controlled using a more standardized regimen (5) DM (diabetes mellitus), type 1 with renal complications Status: Chronic Comment: Adequate control Qualifiers: Chronic kidney disease stage: on chronic dialysis Subjective 24 Hr Interval Summary Free Text/Dictation Patient reports she is feeling much better than yesterday. Constitutional: no complaints Respiratory: no complaints Cardiovascular: no complaints Gastrointestinal: no complaints (Abdominal complaints have resolved) Musculoskeletal: no complaints Neurologic: no complaints Exam/Review of Systems Vital Signs Vitals Vital Signs Date Time Temp Pulse Resp B/P Pulse Ox O2 Delivery O2 Flow Rate FiO2 06/27/16 12:08 67 06/27/16 11:35 98.4 18 117/57 92 06/25/16 18:10 Room Air 06/25/16 08:45 2 Intake and Output 06/26/16 06/26/16 06/27/16 15:00 23:00 07:00 Intake Total 750 ml 250 ml Output Total 250 ml Balance 750 ml 0 ml Exam Constitutional: alert, oriented Neck: non-tender, supple Respiratory: clear to auscultation, normal air movement Cardiovascular: nl pulses, regular rate and rhythm Gastrointestinal: nl liver, spleen, non-tender, soft Results Result Diagram: 06/27/16 1056 06/27/16 1056 Results 24 hrs Laboratory Tests Test 06/26/16 17:39 06/26/16 20:27 06/27/16 08:00 06/27/16 10:56 Bedside Glucose 150 109 74 White Blood Count 4.4 L Red Blood Count 3.28 L Hemoglobin 10.0 L Hematocrit 31.1 L Mean Corpuscular Volume 94.8 Mean Corpuscular Hemoglobin 30.5 Mean Corpuscular Hemoglobin Concent 32.2 Red Cell Distribution Width 12.5 Platelet Count 185 Mean Platelet Volume 9.8 Neutrophils % 62.5 Lymphocytes % 27.3 Monocytes % 8.2 Eosinophils % 1.6 Basophils % 0.2 Nucleated Red Blood Cells % 0.0 Neutrophils # 2.8 Lymphocytes # 1.2 Monocytes # 0.4 Eosinophils # 0.1 Basophils # 0.0 Nucleated Red Blood Cells # 0.0 Sodium Level 133 L Potassium Level 4.1 Chloride Level 91 L Carbon Dioxide Level 31 Anion Gap 15 Blood Urea Nitrogen 39 #H Creatinine 4.68 #H Glucose Level 200 Calcium Level 8.5 Test 06/27/16 12:06 Bedside Glucose 225 H Medications Medications Current Medications Ondansetron HCl (Zofran Inj) 4 mg Q6H PRN IV NAUSEA AND/OR VOMITING Last administered on 06/27/16 06:40; Admin Dose 4 MG; Start 06/25/16 at 11:30 Acetaminophen (Tylenol Tab) 650 mg Q6H PRN PO PAIN LEVEL 1-3 OR FEVER; Start at 11:30 Morphine Sulfate (morphine) 2 mg Q4H PRN IV SEVERE PAIN LEVEL 7-10 Last administered on 06/27/16 03:16; Admin Dose 2 MG; Start 06/25/16 at 11:30 Docusate Sodium (Colace) 100 mg Q12H PRN PO CONSTIPATION; Start 06/25/16 at 11: 30 Magnesium Hydroxide (Milk Of Mag) 30 ml DAILY PRN PO CONSTIPATION; Start at 11:30 Sodium Biphosphate/ Sodium Phosphate (Fleet Enema) 133 ml DAILY PRN [place] CONSTIPATION; Start 06/25/16 at 11:30 Heparin Sodium (Porcine) (Heparin (5000 Units/0.5 ml)) 5,000 unit Q12 SC Last administered on 06/27/16 09:52; Admin Dose 5,000 UNIT; Start 06/25/16 at 21:00 Lorazepam (Ativan) 0.5 mg Q6H PRN IV ANXIETY; Start 06/25/16 at 11:30 Hydralazine HCl (Apresoline) 10 mg Q6H PRN IV ELEVATED BLOOD PRESSURE Last administered on 06/26/16 20:21; Admin Dose 10 MG; Start 06/25/16 at 11:30 Nitroglycerin (Nitroglycerin (Sl Tab) 0.4 Mg) 1 tab Q5M PRN SL ANGINA; Start at 11:30 Hydroxyzine HCl (Atarax) 25 mg Q6H PRN PO ITCHING; Start 06/25/16 at 11:30 Insulin Glargine (Lantus) 10 unit QHS SC Last administered on 06/26/16 20:32; Admin Dose 10 UNIT; Start 06/25/16 at 21:00 Lactulose (Enulose) 30 gm BID PO Last administered on 06/27/16 09:47; Admin Dose 30 GM; Start 06/25/16 at 21:00 Metoprolol Tartrate (Lopressor) 25 mg BID PO Last administered on 06/27/16 09: 48; Admin Dose 25 MG; Start 06/25/16 at 21:00 Aspirin (Halfprin) 162 mg DAILY PO Last administered on 06/27/16 09:47; Admin Dose 162 MG; Start 06/26/16 at 09:00 Miscellaneous Information 1 ea NOTE XX ; Start 06/25/16 at 13:00 Glucose (Glutose) 15 gm Q15M PRN PO DECREASED GLUCOSE; Start 06/25/16 at 13:00 Glucose (Glutose) 22.5 gm Q15M PRN PO DECREASED GLUCOSE; Start 06/25/16 at 13: 00 Dextrose (D50w Syringe) 25 ml Q15M PRN IV DECREASED GLUCOSE; Start 06/25/16 at 13:00 Dextrose (D50w Syringe) 50 ml Q15M PRN IV DECREASED GLUCOSE; Start 06/25/16 at 13:00 Glucagon (Glucagen) 1 mg Q15M PRN IM DECREASED GLUCOSE; Start 06/25/16 at 13:00 Glucose (Glutose) 15 gm Q15M PRN BUCCAL DECREASED GLUCOSE; Start 06/25/16 at 13 :00 Hydralazine HCl (Apresoline) 50 mg Q12 PO Last administered on 06/27/16 09:49 ; Admin Dose 50 MG; Start 06/26/16 at 21:00 Losartan Potassium (Cozaar) 50 mg BID PO Last administered on 06/27/16 09:48; Admin Dose 50 MG; Start 06/26/16 at 21:00 Brimonidine Tartrate (Alphagan P 0.1%) 1 drop Q8 BOTH EYES Last administered on 06/27/16 06:41; Admin Dose 1 DROP; Start 06/26/16 at 14:00 Pantoprazole (Protonix Tab) 40 mg DAILY@06 PO Last administered on 06/27/16 06 :40; Admin Dose 40 MG; Start 06/27/16 at 06:00 Terbinafine HCl (Lamisil) 250 mg BID PO Last administered on 06/27/16 09:53; Admin Dose 250 MG; Start 06/26/16 at 13:30; Stop 07/03/16 at 13:29 ROSMERY AUGUSTIN MD Jun 27, 2016 12:20
--- NOTE | 2016-06-27 15:24 | CONS ---
Date/Time of Note Date/Time of Note DATE: 06/27/16 TIME: 15:22 Assessment/Plan Assessment/Plan Additional Assessment/Plan 1. CAD - no chest apin now, r/o Mi - doubt ischemia 2. Pre-op ok to proceed with surgery - negative stress tet 2015 3. HTN - well maintained now 4. CHF - acute on chronicm, remove fluid with HD 5. DM - con;t o keep euglycemic Consultation Date/Type/Reason Admit Date/Time Jun 25, 2016 at 10:13 Initial Consult Date 06/25/16 Type of Consultation: NEPHROLGY 24 HR Interval Summary Free Text/Dictation NO acute events - BP stable on tele ROS: No fever, no chills, no nausea, no vomiting, no diarrhea/constipation No recent weight changes No chest pain, no PND, no orthopnea No dizziness, blurred vision No thirst, no heat or cold intolerance Exam/Review of Systems Vital Signs Vitals Vital Signs Date Time Temp Pulse Resp B/P Pulse Ox O2 Delivery O2 Flow Rate FiO2 06/27/16 12:08 67 06/27/16 11:35 98.4 18 117/57 92 06/25/16 18:10 Room Air 06/25/16 08:45 2 Intake and Output 06/26/16 06/26/16 06/27/16 15:00 23:00 07:00 Intake Total 750 ml 250 ml Output Total 250 ml Balance 750 ml 0 ml Exam General: WN/WD/NAD, AOx 3 HEENT: Unicetric/atraumatic/EOMI (follow commands) NECK: JVD elevated, no thyromegaly Lymph: no lymphadenopathy HEART: regular with no S3, II/ systolic murmur at apex LUNGS: Coarse sounds ABD: soft, NT, ND, +BS : Intact Neuro: non focal SKIN: chronic changes EXT: trace edema Results Result Diagram: 06/27/16 1056 06/27/16 1056 Results 24 hrs Laboratory Tests Test 06/26/16 17:39 06/26/16 20:27 06/27/16 08:00 06/27/16 10:56 Bedside Glucose 150 109 74 White Blood Count 4.4 L Red Blood Count 3.28 L Hemoglobin 10.0 L Hematocrit 31.1 L Mean Corpuscular Volume 94.8 Mean Corpuscular Hemoglobin 30.5 Mean Corpuscular Hemoglobin Concent 32.2 Red Cell Distribution Width 12.5 Platelet Count 185 Mean Platelet Volume 9.8 Neutrophils % 62.5 Lymphocytes % 27.3 Monocytes % 8.2 Eosinophils % 1.6 Basophils % 0.2 Nucleated Red Blood Cells % 0.0 Neutrophils # 2.8 Lymphocytes # 1.2 Monocytes # 0.4 Eosinophils # 0.1 Basophils # 0.0 Nucleated Red Blood Cells # 0.0 Sodium Level 133 L Potassium Level 4.1 Chloride Level 91 L Carbon Dioxide Level 31 Anion Gap 15 Blood Urea Nitrogen 39 #H Creatinine 4.68 #H Glucose Level 200 Calcium Level 8.5 Test 06/27/16 12:06 Bedside Glucose 225 H Medications Medications Current Medications Ondansetron HCl (Zofran Inj) 4 mg Q6H PRN IV NAUSEA AND/OR VOMITING Last administered on 06/27/16 06:40; Admin Dose 4 MG; Start 06/25/16 at 11:30 Acetaminophen (Tylenol Tab) 650 mg Q6H PRN PO PAIN LEVEL 1-3 OR FEVER; Start at 11:30 Morphine Sulfate (morphine) 2 mg Q4H PRN IV SEVERE PAIN LEVEL 7-10 Last administered on 06/27/16 03:16; Admin Dose 2 MG; Start 06/25/16 at 11:30 Docusate Sodium (Colace) 100 mg Q12H PRN PO CONSTIPATION; Start 06/25/16 at 11: 30 Magnesium Hydroxide (Milk Of Mag) 30 ml DAILY PRN PO CONSTIPATION; Start at 11:30 Sodium Biphosphate/ Sodium Phosphate (Fleet Enema) 133 ml DAILY PRN [place] CONSTIPATION; Start 06/25/16 at 11:30 Heparin Sodium (Porcine) (Heparin (5000 Units/0.5 ml)) 5,000 unit Q12 SC Last administered on 06/27/16 09:52; Admin Dose 5,000 UNIT; Start 06/25/16 at 21:00 Lorazepam (Ativan) 0.5 mg Q6H PRN IV ANXIETY; Start 06/25/16 at 11:30 Hydralazine HCl (Apresoline) 10 mg Q6H PRN IV ELEVATED BLOOD PRESSURE Last administered on 06/26/16 20:21; Admin Dose 10 MG; Start 06/25/16 at 11:30 Nitroglycerin (Nitroglycerin (Sl Tab) 0.4 Mg) 1 tab Q5M PRN SL ANGINA; Start at 11:30 Hydroxyzine HCl (Atarax) 25 mg Q6H PRN PO ITCHING; Start 06/25/16 at 11:30 Lactulose (Enulose) 30 gm BID PO Last administered on 06/27/16 09:47; Admin Dose 30 GM; Start 06/25/16 at 21:00 Metoprolol Tartrate (Lopressor) 25 mg BID PO Last administered on 06/27/16 09: 48; Admin Dose 25 MG; Start 06/25/16 at 21:00 Aspirin (Halfprin) 162 mg DAILY PO Last administered on 06/27/16 09:47; Admin Dose 162 MG; Start 06/26/16 at 09:00 Miscellaneous Information 1 ea NOTE XX ; Start 06/25/16 at 13:00 Glucose (Glutose) 15 gm Q15M PRN PO DECREASED GLUCOSE; Start 06/25/16 at 13:00 Glucose (Glutose) 22.5 gm Q15M PRN PO DECREASED GLUCOSE; Start 06/25/16 at 13: 00 Dextrose (D50w Syringe) 25 ml Q15M PRN IV DECREASED GLUCOSE; Start 06/25/16 at 13:00 Dextrose (D50w Syringe) 50 ml Q15M PRN IV DECREASED GLUCOSE; Start 06/25/16 at 13:00 Glucagon (Glucagen) 1 mg Q15M PRN IM DECREASED GLUCOSE; Start 06/25/16 at 13:00 Glucose (Glutose) 15 gm Q15M PRN BUCCAL DECREASED GLUCOSE; Start 06/25/16 at 13 :00 Hydralazine HCl (Apresoline) 50 mg Q12 PO Last administered on 06/27/16 09:49 ; Admin Dose 50 MG; Start 06/26/16 at 21:00 Losartan Potassium (Cozaar) 50 mg BID PO Last administered on 06/27/16 09:48; Admin Dose 50 MG; Start 06/26/16 at 21:00 Brimonidine Tartrate (Alphagan P 0.1%) 1 drop Q8 BOTH EYES Last administered on 06/27/16 14:04; Admin Dose 1 DROP; Start 06/26/16 at 14:00 Pantoprazole (Protonix Tab) 40 mg DAILY@06 PO Last administered on 06/27/16 06 :40; Admin Dose 40 MG; Start 06/27/16 at 06:00 Terbinafine HCl (Lamisil) 250 mg BID PO Last administered on 06/27/16 09:53; Admin Dose 250 MG; Start 06/26/16 at 13:30; Stop 07/03/16 at 13:29 Insulin Glargine (Lantus) 12 unit QHS SC ; Start 06/27/16 at 21:00 TRISTON PORTILLO MD Jun 27, 2016 15:24
[2016-06-27] MEDS: CEFTRIAXONE 1 GM/50 ML (PMX) 50 ML IVPB SCH (21:18)
[2016-06-27] MEDS: INSULIN GLARGINE [LANtus] 3 ML PEN SC SCH (21:37)
[2016-06-28] VITALS (28 sets, daily range): BP systolic 115–176; BP diastolic 55–89; PULSE 60–69; RESP 11–22
[2016-06-28] MEDS: PANTOPRAZOLE (EC) 40 MG TAB PO SCH (06:19)
[2016-06-28] MEDS: BRIMONIDINE 0.1% 5 ML OPH BOTH EYES SCH ×3 (06:19→21:04)
--- NOTE | 2016-06-28 07:25 | CONS ---
DATE OF ADMISSION: 06/25/2016 DATE OF CONSULTATION: 06/26/2016 TYPE OF CONSULTATION. Cardiology REFERRING PHYSICIAN: Dr. Garcia. REASON FOR EVALUATION: Preoperative assessment. HISTORY OF PRESENT ILLNESS: Ms. Malik is a 45-year-old woman with hypertension, dyslipidemia, his tory of GI bleeding, history of urethral stones, history of type 2 diabetes and diabetic nephropathy , history of degenerative joint disease, who is brought to the hospital now for evaluation of a fist flor creation for chronic kidney disease. I have been asked to see the patient in preoperative asses sment. The patient appears to be fairly hemodynamically stable. There are no signs of chest pain. The patient had a stress test in 07/2015, which was negative. I think it is essentially fairly juana sonable for the patient to proceed with surgery without any further risk stratification. We will co dre to follow the patient preoperative. PAST MEDICAL HISTORY: 1. Hypertension. 2. Dyslipidemia. 3. History of diabetes. 4. History of gastrointestinal bleeding. 5. History of end-stage renal disease, on hemodialysis. 6. Cardiomyopathy. ALLERGIES: NO KNOWN DRUG ALLERGIES. SOCIAL HISTORY: The patient does not smoke, does not drink, does not use any drugs. FAMILY HISTORY: Negative for sudden cardiac or premature coronary artery disease. ALLERGIES: THE PATIENT IS ALLERGIC TO: 1. PENICILLIN. 2. ACETAMINOPHEN. 3. HYDROCODONE. 4. HYDROMORPHONE. 5. IBUPROFEN. 6. TORADOL. MEDICATIONS: 1. Pantoprazole 40 mg. 2. . 3. Losartan . 4. . 5. Aspirin mg once a day. 6. Lactulose. 7. Insulin sliding scale. 8. Metoprolol tartrate 25 mg p.o. b.i.d. REVIEW OF SYSTEMS: CONSTITUTIONAL: No fevers or chills, no recent weight changes. HEENT: No change in vision or hearing. CARDIAC: No chest pain reported now. RESPIRATORY: No shortness of breath. GASTROINTESTINAL: No nausea, vomiting, diarrhea, constipation. GENITOURINARY: No dysuria, hematuria. The patient is on hemodialysis. NEUROLOGIC: No focal neurologic deficits. HEMATOLOGIC: History of chronic anemia. PHYSICAL EXAMINATION: VITAL SIGNS: Temperature is 98.7, heart rate 82, blood pressure 182/81. GENERAL: She is a thin woman in no acute distress, alert and oriented x3, she is somewhat aware of her condition. HEAD: Normocephalic, atraumatic. Eyes anicteric. NECK: Supple. JVD 6 to 7 cm. There is no lymphadenopathy or thyromegaly. HEART: Regular with soft holosystolic murmur at the apex. PMI is minimally nondisplaced. There is no S3. LUNGS: Coarse at bases. ABDOMEN: Distended, bowel sounds are present. There is no hepatosplenomegaly. GENITOURINARY: Grossly intact. EXTREMITIES: Show no clubbing, cyanosis. Trace edema. LABORATORY DATA: White blood cell count 4.4, hemoglobin 10.1, platelets 166. INR is 0.86. Creatin ine is 3.1. ASSESSMENT AND PLAN: 1. Preoperative assessment. The patient is here for preoperative evaluation for fistula creation. She had a negative stress test last year. There is no evidence of hemodynamic instability or ischem ia now. Okay to proceed with surgery without any further risk stratification. 2. Hypertension. Blood pressure is on the high side. We will and the patient will have sarah tional hemodialysis. We will continue to optimize blood pressure medicines in conjunction with robby smith team. 3. Diabetes. Continue diabetic optimization and care. 4. Abnormal electrocardiogram. The patient had some nonspecific ST-T changes with borderline incom plete right bundle branch block pattern. Continue to monitor. 5. Cardiomyopathy. The patient has history of cardiomyopathy. Last stress test had a normal eject ion fraction. I doubt significant cardiac dysfunction at this point. 6. History of gastrointestinal bleeding, no bleeding now. Continue to follow. 7. History of kidney stones. Primary team follows. I would like to thank Dr. Garcia for referring this patient for my evaluation. Dictated By: TRISTON PORTILLO MD ML/NTS Conf#: [id number] DID#: [id number]
[2016-06-28] MEDS: INSULIN ASPART [NOVOLOG] 3 ML PEN SC SCH ×6 (07:55→21:00)
[2016-06-28] MEDS ORDERED: THROMBIN 5000 UNIT VIAL ONE (08:19)
[2016-06-28] MEDS ORDERED: HEPARIN 1000 UNITS/ML 10 ML INJ ONE ×2 (08:19→11:07)
[2016-06-28] MEDS ORDERED: GELATIN SIZE 100 SPONGE ONE (08:19)
[2016-06-28] MEDS ORDERED: LIDOCAINE 1% (STERILE-PAK) 30 ML INJ ONE (08:19)
[2016-06-28] MEDS ORDERED: POLYMYXIN/BACITRACIN 1L IRRIG ONE (08:59)
[2016-06-28] MEDS: LOSARTAN 50 MG TAB PO SCH ×2 (09:00→20:39)
[2016-06-28] MEDS: HEPARIN 5,000 UNIT/0.5 ML VIAL SC SCH ×2 (09:00→21:02)
[2016-06-28] MEDS: TERBINAFINE 250 MG TAB PO SCH ×2 (09:00→20:39)
[2016-06-28] MEDS: LACTULOSE 30ML CUP PO SCH ×2 (09:00→20:58)
[2016-06-28] MEDS: ASPIRIN (EC) 81 MG TAB PO SCH (09:00)
[2016-06-28] MEDS: METOPROLOL 25 MG TAB PO SCH ×2 (09:00→20:39)
[2016-06-28] MEDS ORDERED: MIDAZOLAM 1 MG/ML 2 ML INJ ONE (09:28)
[2016-06-28] MEDS ORDERED: PHENYLephrine (100 MCG/ML) 5ML SYG ONE (09:28)
[2016-06-28] MEDS ORDERED: LIDOCAINE 2% (SDV) 5 ML INJ ONE (09:28)
[2016-06-28] MEDS ORDERED: FENTAnyl 50 MCG/ML VIAL ONE (09:28)
[2016-06-28] MEDS ORDERED: SUCCINYLCHOLINE CHLORIDE 100 MG/5 ML SYG IV ONE (09:28)
[2016-06-28] MEDS ORDERED: PROPOFOL 0 ML ONE (09:28)
[2016-06-28] MEDS ORDERED: DIPHENHYDRAMINE 50 MG INJ IV PRN (09:30)
[2016-06-28] MEDS ORDERED: hydrALAzine 20 MG INJ IV PRN (09:30)
[2016-06-28] MEDS ORDERED: PROCHLORPERAZINE 10 MG INJ IV PRN (09:30)
[2016-06-28] MEDS ORDERED: LABETALOL HCL 20MG INJ IV PRN (09:30)
[2016-06-28] MEDS ORDERED: INSULIN ASPART [NOVOLOG] 3 ML PEN SC ONE (09:30)
[2016-06-28] MEDS ORDERED: FENTAnyl 50 MCG/ML VIAL IV PRN (09:30)
[2016-06-28] MEDS ORDERED: MEPERIDINE 25 MG INJ IV PRN (09:30)
[2016-06-28] MEDS ORDERED: ONDANSETRON 4 MG INJ IV PRN (09:30)
[2016-06-28 09:40] LABS: ADD SCAN DIFF NO
[2016-06-28 09:42] LABS: BASOPHILS % 0.2 % (0.0-2.0); EOSINOPHILS # 0.1 10^3/ul (0.0-0.5); EOSINOPHILS % 1.8 % (0.0-7.0); LYMPHOCYTES % 21.9 % (15.0-51.0); MEAN CORPUSCULAR HEMOGLOBIN 30.6 pg (29.0-33.0); MEAN CORPUSCULAR HGB CONC 32.4 g/dl (32.0-37.0); MEAN CORPUSCULAR VOLUME 94.4 fl (82.0-101.0); MEAN PLATELET VOLUME 9.6 fl (7.4-10.4); MONOCYTE # 0.4 10^3/ul (0.3-0.9); MONOCYTES % 8.5 % (0.0-11.0); NEUTROPHILS % 67.4 % (39.0-77.0); PLATELET COUNT 171 10^3/UL (140-415); RED CELL DISTRIBUTION WIDTH 12.4 % (11.5-14.5); WHITE BLOOD COUNT 4.5 10^3/ul (4.8-10.8)
[2016-06-28 09:55] LABS: POTASSIUM 3.9 mmol/L (3.5-5.1)
--- NOTE | 2016-06-28 09:56 | RADRPT ---
PROCEDURE: Bilateral feet series CLINICAL INDICATION: Pain TECHNIQUE: AP, lateral and oblique images were obtained of both feet. COMPARISON: FINDINGS: There is fixation screw and staple involving the right talus and navicular bones. No evidence of ac molly fractures or dislocations bilaterally. Bony mineralization is within normal limits without foca l bony blastic or lytic lesions. No evidence of erosions. There is atherosclerotic vascular diseas e involving both feet. The soft tissues are otherwise unremarkable. IMPRESSION: 1. Fixation of the right talar navicular bones. 2. No acute fractures dislocations or erosions. RPTAT:AAJJ Physician Pearl Date Time Electronically viewed and signed by Physician Pearl on 06/28/2016 09:56 /
[2016-06-28 09:58] LABS: CREATININE 2.6 mg/dl (0.44-1.00)
[2016-06-28 09:59] LABS: CALCIUM 8.5 mg/dl (8.4-10.2)
[2016-06-28] MEDS ORDERED: LIDOCAINE 1% (MDV) 20 ML INJ ONE (10:05)
[2016-06-28] MEDS ORDERED: ROPIVACAINE 0.5 % 30 ML VIAL ONE (10:05)
--- NOTE | 2016-06-28 10:17 | CONS ---
Date/Time of Note Date/Time of Note DATE: 06/28/16 TIME: 10:15 Assessment/Plan Assessment/Plan Chief Complaint/Hosp Course - ESRD - CAD/CHF/ANGINA - ANEMIA - DM - Hx of PROTEINURIA - ARTHRITIS PLAN: Will continue with her Dialysis as planned D/C MOM D/C Fleet Enema Follow up with Labs Follow up with Hema THANK YOU vBryce ONEAL Problems: Consultation Date/Type/Reason Admit Date/Time Jun 25, 2016 at 10:13 Initial Consult Date 06/25/16 Type of Consultation: NEPHROLOGY Reason for Consultation - ESRD on Hemodialysis 24 HR Interval Summary Constitutional: improved Exam/Review of Systems Vital Signs Vitals Vital Signs Date Time Temp Pulse Resp B/P Pulse Ox O2 Delivery O2 Flow Rate FiO2 06/28/16 08:26 69 18 06/28/16 07:29 98.3 136/61 100 06/25/16 18:10 Room Air 06/25/16 08:45 2 Intake and Output 06/27/16 06/27/16 06/28/16 15:00 23:00 07:00 Intake Total 170 ml Balance 170 ml Exam Constitutional: alert, oriented Psych: no complaints Head: normocephalic Respiratory: crackles/rales Cardiovascular: edema, systolic murmur Gastrointestinal: soft Results Result Diagram: 06/27/16 1056 06/28/16 0920 Results 24 hrs Laboratory Tests Test 06/27/16 10:56 06/27/16 12:06 06/27/16 17:42 06/27/16 21:13 White Blood Count 4.4 L Red Blood Count 3.28 L Hemoglobin 10.0 L Hematocrit 31.1 L Mean Corpuscular Volume 94.8 Mean Corpuscular Hemoglobin 30.5 Mean Corpuscular Hemoglobin Concent 32.2 Red Cell Distribution Width 12.5 Platelet Count 185 Mean Platelet Volume 9.8 Neutrophils % 62.5 Lymphocytes % 27.3 Monocytes % 8.2 Eosinophils % 1.6 Basophils % 0.2 Nucleated Red Blood Cells % 0.0 Neutrophils # 2.8 Lymphocytes # 1.2 Monocytes # 0.4 Eosinophils # 0.1 Basophils # 0.0 Nucleated Red Blood Cells # 0.0 Sodium Level 133 L Potassium Level 4.1 Chloride Level 91 L Carbon Dioxide Level 31 Anion Gap 15 Blood Urea Nitrogen 39 #H Creatinine 4.68 #H Glucose Level 200 Calcium Level 8.5 Bedside Glucose 225 H 127 208 Test 06/28/16 08:23 06/28/16 09:20 Bedside Glucose 138 Sodium Level 141 Potassium Level 3.9 Chloride Level 98 Carbon Dioxide Level 33 H Anion Gap 14 Blood Urea Nitrogen 18 # Creatinine 2.60 #H Glucose Level 143 # Calcium Level 8.5 Serum HCG, Qualitative NEGATIVE Medications Medications Current Medications Ondansetron HCl (Zofran Inj) 4 mg Q6H PRN IV NAUSEA AND/OR VOMITING Last administered on 06/27/16 21:20; Admin Dose 4 MG; Start 06/25/16 at 11:30 Acetaminophen (Tylenol Tab) 650 mg Q6H PRN PO PAIN LEVEL 1-3 OR FEVER; Start at 11:30 Morphine Sulfate (morphine) 2 mg Q4H PRN IV SEVERE PAIN LEVEL 7-10 Last administered on 06/27/16 15:57; Admin Dose 2 MG; Start 06/25/16 at 11:30 Docusate Sodium (Colace) 100 mg Q12H PRN PO CONSTIPATION; Start 06/25/16 at 11: 30 Magnesium Hydroxide (Milk Of Mag) 30 ml DAILY PRN PO CONSTIPATION; Start at 11:30 Sodium Biphosphate/ Sodium Phosphate (Fleet Enema) 133 ml DAILY PRN [place] CONSTIPATION; Start 06/25/16 at 11:30 Heparin Sodium (Porcine) (Heparin (5000 Units/0.5 ml)) 5,000 unit Q12 SC Last administered on 06/27/16 21:21; Admin Dose 5,000 UNIT; Start 06/25/16 at 21:00 Lorazepam (Ativan) 0.5 mg Q6H PRN IV ANXIETY; Start 06/25/16 at 11:30 Hydralazine HCl (Apresoline) 10 mg Q6H PRN IV ELEVATED BLOOD PRESSURE Last administered on 06/26/16 20:21; Admin Dose 10 MG; Start 06/25/16 at 11:30 Nitroglycerin (Nitroglycerin (Sl Tab) 0.4 Mg) 1 tab Q5M PRN SL ANGINA; Start at 11:30 Hydroxyzine HCl (Atarax) 25 mg Q6H PRN PO ITCHING; Start 06/25/16 at 11:30 Lactulose (Enulose) 30 gm BID PO Last administered on 06/27/16 21:18; Admin Dose 30 GM; Start 06/25/16 at 21:00 Metoprolol Tartrate (Lopressor) 25 mg BID PO Last administered on 06/27/16 21: 19; Admin Dose 25 MG; Start 06/25/16 at 21:00 Aspirin (Halfprin) 162 mg DAILY PO Last administered on 06/27/16 09:47; Admin Dose 162 MG; Start 06/26/16 at 09:00 Miscellaneous Information 1 ea NOTE XX ; Start 06/25/16 at 13:00 Glucose (Glutose) 15 gm Q15M PRN PO DECREASED GLUCOSE; Start 06/25/16 at 13:00 Glucose (Glutose) 22.5 gm Q15M PRN PO DECREASED GLUCOSE; Start 06/25/16 at 13: 00 Dextrose (D50w Syringe) 25 ml Q15M PRN IV DECREASED GLUCOSE; Start 06/25/16 at 13:00 Dextrose (D50w Syringe) 50 ml Q15M PRN IV DECREASED GLUCOSE; Start 06/25/16 at 13:00 Glucagon (Glucagen) 1 mg Q15M PRN IM DECREASED GLUCOSE; Start 06/25/16 at 13:00 Glucose (Glutose) 15 gm Q15M PRN BUCCAL DECREASED GLUCOSE; Start 06/25/16 at 13 :00 Hydralazine HCl (Apresoline) 50 mg Q12 PO Last administered on 06/27/16 21:20 ; Admin Dose 50 MG; Start 06/26/16 at 21:00 Losartan Potassium (Cozaar) 50 mg BID PO Last administered on 06/27/16 21:19; Admin Dose 50 MG; Start 06/26/16 at 21:00 Brimonidine Tartrate (Alphagan P 0.1%) 1 drop Q8 BOTH EYES Last administered on 06/28/16 06:19; Admin Dose 1 DROP; Start 06/26/16 at 14:00 Pantoprazole (Protonix Tab) 40 mg DAILY@06 PO Last administered on 06/28/16 06 :19; Admin Dose 40 MG; Start 06/27/16 at 06:00 Terbinafine HCl (Lamisil) 250 mg BID PO Last administered on 06/27/16 21:20; Admin Dose 250 MG; Start 4/22/17 at 13:30; Stop 07/03/16 at 13:29 Insulin Glargine 12 unit 12 unit QHS SC Last administered on 06/27/16 21:37; Admin Dose 12 UNIT; Start 06/27/16 at 21:00 Ceftriaxone Sodium (Rocephin) 50 ml @ 100 mls/hr Q24H IVPB Last administered on 06/27/16 21:18; Admin Dose 100 MLS/HR; Start 06/27/16 at 20:00 SAVANNA SCHWARTZ MD Jun 28, 2016 10:17
--- NOTE | 2016-06-28 10:21 | CONS ---
DATE OF ADMISSION: 06/25/2016 DATE OF CONSULTATION: 06/28/2016 HISTORY: This is a patient with multiple medical problems who is a diabetic and has a Charcot foot deformity bilaterally. The patient has had continual pain, most especially over the right mid foot region over the last year. The area has become progressively more painful. The patient also relates that she is having pain in the mid foot region of the left foot. She has degenerative joint disease of the foot and ankle, onychomycosis from dermatophytes bilaterally and also a Charcot foot deformity that is periodically active as opposed to quiescent. Pulses are +2/4 for dorsalis pedis and posterior tibial bilaterally. Subpapillary venous plexus filling time approximately 7 seconds bilaterally. There did not appear to be any ulcerations anywhere bilaterally on the feet and ankle regions. NEUROLOGIC: The patient has neuropathic changes noted and confirmed with 5.07 monofilament to the metatarsophalangeal joint regions bilaterally. DERMATOLOGIC: There are no signs of clinical infection noted. However, there is friable and dystrophic toenails 1 through 5 and 6 through 10 bilaterally. MUSCULOSKELETAL: The mid foot region demonstrates clinically Charcot foot deformity most especially on the right foot. The left foot has pain to palpation around both the mid foot and the forefoot region. Range of motion is painful most especially on the right side. ASSESSMENT: 1. Charcot foot deformities bilaterally. 2. Degenerative joint disease in the foot and ankle bilaterally. 3. Diabetes mellitus type 1 with renal changes. PLAN: We are ordering radiographs 3 views bilaterally today. We will follow up with this patient on Tuesday. After discharge we will followup with her in the wound care center. Dictated By: SAMINA FLORES/DARRIAN Conf#: [id number] DID#: [id number]
[2016-06-28] MEDS ORDERED: METOPROLOL 5 MG INJ ONE (10:32)
[2016-06-28] MEDS ORDERED: ONDANSETRON 4 MG INJ ONE (11:15)
[2016-06-28] MEDS ORDERED: METOCLOPRAMIDE 10 MG INJ ONE (11:15)
--- NOTE | 2016-06-28 11:21 | PN ---
DATE: 06/28/2016 TIME OF EVALUATION: 9:30 a.m. SUBJECTIVE DATA: Denies any chest pain at this time. The patient is going for surgery for placement of AV fistula. OBJECTIVE DATA: VITAL SIGNS: Temperature 98.3, pulse is 69, respiratory rate 18, blood pressure 136/51, oxygen saturation 100% on room air. GENERAL: This is well-built, well-nourished female lying in bed in no apparent distress. HEENT: Head normocephalic and atraumatic. Eyes: Anicteric sclerae. Conjunctivae clear. ENT: Nasal septum is midline. Oral mucosa is dry. NECK: Supple. No JVD noticed. RESPIRATORY: Bilaterally diminished breath sounds. A few fine rales heard, especially on the right side. CARDIAC: Regular rate and rhythm. S1 and S2 heard. ABDOMEN: Soft, nontender and nondistended. Bowel sounds positive in all 4 quadrants. GENITOURINARY: Deferred. EXTREMITIES: No cyanosis, no clubbing, no edema. Peripheral pulses are palpable. Right foot arthropathy. NEUROLOGIC: The patient is awake, alert and oriented. Cranial nerves are grossly intact. LABORATORY AND DIAGNOSTIC DATA: WBC 4.5, hemoglobin 11.0, hematocrit 34.0, platelet count 171. Sodium 141, potassium 3.9, chloride 90, carbon dioxide 33, anion gap 14, BUN 18, creatinine 2.60, glucose 143, calcium 8.5. ASSESSMENT AND PLAN: 1. Chest pain. Acute coronary syndrome ruled out. Chest pain could be most probably musculoskeletal or pleuritic in origin. Cardiology following. 2. End-stage renal disease on hemodialysis. Hemodialysis as per nephrology. The patient is scheduled to get an AV fistula. 3. Type 1 diabetes mellitus. Continue sliding scale insulin. Hemoglobin A1c 8.7. Blood sugars well controlled. 4. Essential hypertension. Continue on antihypertensives including p.r.n. antihypertensives for any elevated blood pressure readings. 5. Right-sided pleural effusion. The patient has a history of chronic right side pleural effusion. The patient is not in any acute respiratory distress. Hemodialysis as per nephrology. 6. Dyslipidemia. Suboptimal total cholesterol. Advise low cholesterol diet. 7. Diastolic heart failure. Latest 2-D echocardiogram showing diastolic heart failure. No evidence of any congestive heart failure exacerbation. Continue beta blockers and ARBs. 8. Fluid, electrolytes and nutrition. Carbohydrate controlled, low cholesterol diet. 9. DVT prophylaxis. Subcutaneous heparin. 10. Gastrointestinal prophylaxis. Proton pump inhibitors. PLAN: 1. Continue to follow consultants' recommendations. 2. Await AV fistula placement. The case was discussed with Dr. Wong. CED WONG MD, AM/DARRIAN Conf#: [id number] DID#: [id number] MTDD
[2016-06-28] MEDS ORDERED: hydrALAzine 20 MG INJ ONE (11:25)
--- NOTE | 2016-06-28 12:03 | CONS ---
Date/Time of Note Date/Time of Note DATE: 06/28/16 TIME: 11:59 Assessment/Plan Assessment/Plan Chief Complaint/Hosp Course IMP: 1.Pre-op-for AVF creation today. Noderate risk no contraindication by DR mercer note 2.HTN 3.ESRD on HD 4.HL 5.Diastolic dysfunction 6.DM Recc: -Tele -serial ecg's -Continue losartan/asa/BB -Continue abx's and f/u cx data -check post-op ecg today Problems: Consultation Date/Type/Reason Admit Date/Time Jun 25, 2016 at 10:13 Initial Consult Date 06/25/16 Type of Consultation: Cardiology Reason for Consultation Pre-op Referring Provider: YOCASTA CREWS MD Exam/Review of Systems Vital Signs Vitals Vital Signs Date Time Temp Pulse Resp B/P Pulse Ox O2 Delivery O2 Flow Rate FiO2 06/28/16 08:26 69 18 06/28/16 07:29 98.3 136/61 100 06/25/16 18:10 Room Air 06/25/16 08:45 2 Intake and Output 06/27/16 06/27/16 06/28/16 15:00 23:00 07:00 Intake Total 170 ml Balance 170 ml Exam Review of Systems: CONSTITUTIONAL: No fevers, chills. PULMONARY: No sob CARDIOVASCULAR: No chest pain/palpitations GASTROINTESTINAL: No nausea/vomiting. GENITOURINARY: No hematuria/dysuria. MUSCULOSKELETAL: No myagias/arthalgias. PSYCHIATRIC: The patient denies depression. NEUROLOGIC: No weakness Constitutional: alert Psych: no complaints Head: normocephalic ENMT: mucosa pink and moist Neck: jvd (9 cm water), supple Respiratory: diminished breath sounds (at bases/B) Cardiovascular: regular rate and rhythm Gastrointestinal: non-tender, soft Musculoskeletal: muscle tone (normal) Extremities: edema (none) Neurological: other (No focal deficits) Results Result Diagram: 06/28/16 0920 06/28/16 0920 Results 24 hrs Laboratory Tests Test 06/27/16 12:06 06/27/16 17:42 06/27/16 21:13 06/28/16 08:23 Bedside Glucose 225 H 127 208 138 Test 06/28/16 09:20 White Blood Count 4.5 L Red Blood Count 3.60 L Hemoglobin 11.0 L Hematocrit 34.0 L Mean Corpuscular Volume 94.4 Mean Corpuscular Hemoglobin 30.6 Mean Corpuscular Hemoglobin Concent 32.4 Red Cell Distribution Width 12.4 Platelet Count 171 Mean Platelet Volume 9.6 Neutrophils % 67.4 Lymphocytes % 21.9 Monocytes % 8.5 Eosinophils % 1.8 Basophils % 0.2 Nucleated Red Blood Cells % 0.0 Neutrophils # 3.0 Lymphocytes # 1.0 Monocytes # 0.4 Eosinophils # 0.1 Basophils # 0.0 Nucleated Red Blood Cells # 0.0 Sodium Level 141 Potassium Level 3.9 Chloride Level 98 Carbon Dioxide Level 33 H Anion Gap 14 Blood Urea Nitrogen 18 # Creatinine 2.60 #H Glucose Level 143 # Calcium Level 8.5 Serum HCG, Qualitative NEGATIVE Medications Medications Current Medications Ondansetron HCl (Zofran Inj) 4 mg Q6H PRN IV NAUSEA AND/OR VOMITING Last administered on 06/27/16 21:20; Admin Dose 4 MG; Start 06/25/16 at 11:30 Acetaminophen (Tylenol Tab) 650 mg Q6H PRN PO PAIN LEVEL 1-3 OR FEVER; Start at 11:30 Morphine Sulfate (morphine) 2 mg Q4H PRN IV SEVERE PAIN LEVEL 7-10 Last administered on 06/27/16 15:57; Admin Dose 2 MG; Start 06/25/16 at 11:30 Docusate Sodium (Colace) 100 mg Q12H PRN PO CONSTIPATION; Start 06/25/16 at 11: 30 Heparin Sodium (Porcine) (Heparin (5000 Units/0.5 ml)) 5,000 unit Q12 SC Last administered on 06/27/16 21:21; Admin Dose 5,000 UNIT; Start 06/25/16 at 21:00 Lorazepam (Ativan) 0.5 mg Q6H PRN IV ANXIETY; Start 06/25/16 at 11:30 Hydralazine HCl (Apresoline) 10 mg Q6H PRN IV ELEVATED BLOOD PRESSURE Last administered on 06/26/16 20:21; Admin Dose 10 MG; Start 06/25/16 at 11:30 Nitroglycerin (Nitroglycerin (Sl Tab) 0.4 Mg) 1 tab Q5M PRN SL ANGINA; Start at 11:30 Hydroxyzine HCl (Atarax) 25 mg Q6H PRN PO ITCHING; Start 06/25/16 at 11:30 Lactulose (Enulose) 30 gm BID PO Last administered on 06/27/16 21:18; Admin Dose 30 GM; Start 06/25/16 at 21:00 Metoprolol Tartrate (Lopressor) 25 mg BID PO Last administered on 06/27/16 21: 19; Admin Dose 25 MG; Start 06/25/16 at 21:00 Aspirin (Halfprin) 162 mg DAILY PO Last administered on 06/27/16 09:47; Admin Dose 162 MG; Start 06/26/16 at 09:00 Miscellaneous Information 1 ea NOTE XX ; Start 06/25/16 at 13:00 Glucose (Glutose) 15 gm Q15M PRN PO DECREASED GLUCOSE; Start 06/25/16 at 13:00 Glucose (Glutose) 22.5 gm Q15M PRN PO DECREASED GLUCOSE; Start 06/25/16 at 13: 00 Dextrose (D50w Syringe) 25 ml Q15M PRN IV DECREASED GLUCOSE; Start 06/25/16 at 13:00 Dextrose (D50w Syringe) 50 ml Q15M PRN IV DECREASED GLUCOSE; Start 06/25/16 at 13:00 Glucagon (Glucagen) 1 mg Q15M PRN IM DECREASED GLUCOSE; Start 06/25/16 at 13:00 Glucose (Glutose) 15 gm Q15M PRN BUCCAL DECREASED GLUCOSE; Start 06/25/16 at 13 :00 Hydralazine HCl (Apresoline) 50 mg Q12 PO Last administered on 06/27/16 21:20 ; Admin Dose 50 MG; Start 06/26/16 at 21:00 Losartan Potassium (Cozaar) 50 mg BID PO Last administered on 06/27/16 21:19; Admin Dose 50 MG; Start 06/26/16 at 21:00 Brimonidine Tartrate (Alphagan P 0.1%) 1 drop Q8 BOTH EYES Last administered on 06/28/16 06:19; Admin Dose 1 DROP; Start 06/26/16 at 14:00 Pantoprazole (Protonix Tab) 40 mg DAILY@06 PO Last administered on 06/28/16 06 :19; Admin Dose 40 MG; Start 06/27/16 at 06:00 Terbinafine HCl (Lamisil) 250 mg BID PO Last administered on 06/27/16 21:20; Admin Dose 250 MG; Start 06/26/16 at 13:30; Stop 07/03/16 at 13:29 Insulin Glargine 12 unit 12 unit QHS SC Last administered on 06/27/16 21:37; Admin Dose 12 UNIT; Start 06/27/16 at 21:00 Ceftriaxone Sodium (Rocephin) 50 ml @ 100 mls/hr Q24H IVPB Last administered on 06/27/16 21:18; Admin Dose 100 MLS/HR; Start 06/27/16 at 20:00 ROBERT MCNAIR Jun 28, 2016 12:03
--- NOTE | 2016-06-28 15:43 | OPR ---
DATE OF OPERATION: 06/28/2016 SURGEON: Yocasta Crespo MD PREOPERATIVE DIAGNOSIS: Chronic kidney disease stage V, progressed to end-stage renal disease. POSTOPERATIVE DIAGNOSIS: Chronic kidney disease stage V, progressed to end-stage renal disease. PROCEDURE: Creation of a left brachiocephalic arteriovenous fistula. ANESTHESIA: Regional block and local. COMPLICATIONS: None. ESTIMATED BLOOD LOSS: Minimal. TRANSFUSIONS: None. SPECIMEN: None. INDICATIONS AND PROCEDURE: This is a 45-year-old female with diabetes who has had impending end-sta ge renal disease. Risk and benefits of the procedure were discussed with the patient and not limite d to , CA, pneumonia, stroke, infection, thrombosis of fistula, nerve injury, limb loss, revisi on of AV fistula, steal syndrome and she has elected to undergo surgical intervention. DESCRIPTION OF PROCEDURE: The patient was placed in supine position on the operating room table. A vel were placed at 80 degrees. The normal bony prominences were padded. Anesthesia team had placed appropriate IV lines and regional block was performed. Timeout was performed and the appropriate s ite was marked and confirmed. The patient's left upper extremity was prepped and draped in the usua l standard sterile fashion. Preoperative antibiotics were administered prior to skin incision. A 6 cm transverse skin incision was then performed below the antecubital fossa. The cephalic vein was identified and dissected for a segment of nearly 5 cm. Dissection was then carried as distally as p ossible through that incision. The antecubital fossa the antecubital vein was in the junction of wh ere both the cephalic and basilic vein where they joined each other and careful dissection was perfo rmed as to not to compromise the basilic vein for eventual fistula creations in the near future. At tention was then directed towards the brachial artery. The tendinous aponeurosis of the biceps musc le was then incised. Location of the brachial artery was then identified by palpation. The soft ti ssue over the brachial artery was then incised and the brachial artery was then confirmed. The paulino ent was given 2500 units of heparin intravenously. The cephalic vein was then ligated at its most d istal end. Further Yasargil clamps were then placed over the antecubital vein where the cephalic ve in and basilic vein shared common center point. At this point, this area was using an 11 blade and the tail end of the antecubital vein was closed with 6-0 Prolene suture as to preserve the integrity of the basilic vein in its continuity with the lower arm. Once this was performed the ce phalic vein was then gently curved and allowed to lie over the arteriotomy. The end of the vein was then spatulated to match the site of the arteriotomy and dilated appropriately with heparinized oscar ine solution. As the muscle was then performed using a running 6-0 Prolene suture. At the completion of the sutur e line, the brachial artery was forward flushed and then allowed to backbleed. The cephalic vein wa s also allowed to backbleed. That anastomosis was then irrigated with heparinized saline solution. A suture was then tied and the suture line was evaluated for hemostasis, which was adequate. There was evidence of excellent thrill in the cephalic vein, there was a strong palpable pulse in the bra chial artery and a strong radial artery and ulnar arteries at the wrist. There was no evidence of a ny kinks and subcutaneous tissue was then closed with 3-0 Vicryl running suture. Skin was closed wi th skin carlitos. There was evidence of excellent thrill in the cephalic vein after the wound closur e. The patient tolerated procedure well and was taken to the postanesthesia care unit in stable con dition. All instruments, sponges, needles catheters were correct x2. Dictated By: YOCASTA PATEL/DARRIAN Conf#: [id number] DID#: [id number]
[2016-06-28] MEDS: morphine 2 MG INJ IV PRN ×2 (17:44→21:50)
[2016-06-28] MEDS: CEFTRIAXONE 1 GM/50 ML (PMX) 50 ML IVPB SCH (20:40)
[2016-06-28] MEDS: INSULIN GLARGINE [LANtus] 3 ML PEN SC SCH (20:57)
[2016-06-29] VITALS (12 sets, daily range): BP systolic 116–157; BP diastolic 57–84; PULSE 66–73; RESP 18–20
[2016-06-29] MEDS: morphine 2 MG INJ IV PRN ×4 (01:18→21:21)
[2016-06-29] MEDS: PANTOPRAZOLE (EC) 40 MG TAB PO SCH (05:04)
[2016-06-29] MEDS: BRIMONIDINE 0.1% 5 ML OPH BOTH EYES SCH ×3 (05:04→21:42)
[2016-06-29] MEDS: INSULIN ASPART [NOVOLOG] 3 ML PEN SC SCH ×7 (07:55→21:27)
[2016-06-29] MEDS: METOPROLOL 25 MG TAB PO SCH ×2 (08:38→21:33)
[2016-06-29] MEDS: TERBINAFINE 250 MG TAB PO SCH ×2 (08:38→21:32)
[2016-06-29] MEDS: LOSARTAN 50 MG TAB PO SCH ×2 (08:39→21:33)
[2016-06-29] MEDS: HEPARIN 5,000 UNIT/0.5 ML VIAL SC SCH ×2 (08:45→21:30)
[2016-06-29] MEDS: LACTULOSE 30ML CUP PO SCH ×2 (08:48→21:32)
[2016-06-29] MEDS: ASPIRIN (EC) 81 MG TAB PO SCH (08:48)
--- NOTE | 2016-06-29 10:32 | PN ---
Date/Time of Note Date/Time of Note DATE: 06/29/16 TIME: 10:27 Assessment/Plan Lines/Catheters IV [facility] Permacath Assessment/Plan Chief Complaint/Hosp Course -Chronic kidney disease stage IV to V, impending end-stage renal disease: S/P Brachiocephalic Fistula creation -Optimize vascular status (BP meds, diet, nutrition, exercise, sugar control, antiplatelets). -Clear from vascular standpoint. Can remove dressing tomorrow -Discussed findings, plan and management with the patient, she understands. -Thank you for allowing us to partake in the care of your patient. Please call with questions. Problems: Subjective 24 Hr Interval Summary no new vascular events overnight Exam/Review of Systems Vital Signs Vitals Vital Signs Date Time Temp Pulse Resp B/P Pulse Ox O2 Delivery O2 Flow Rate FiO2 06/29/16 08:11 71 06/29/16 07:26 99.2 18 147/67 95 06/28/16 20:00 Nasal Cannula 2.0 Intake and Output 06/28/16 06/28/16 06/29/16 15:00 23:00 07:00 Intake Total 550 ml 120 ml Output Total 1320 ml Balance -770 ml 120 ml Exam Free Text/Dictation GENERAL: Alert and oriented x3, PULMONARY: Clear to auscultation bilaterally. CARDIOVASCULAR: S1, S2 present. ABDOMEN: Soft, nontender, nondistended. Bowel sounds positive. EXTREMITIES: Left Upper extremity: palpable brachial pulses. Motor, sensory intact. Capillary refill 2 to 3 seconds. fistula with bruit and thrill Results Result Diagram: 06/28/16 0920 06/28/16 0920 YOCASTA CREWS MD Jun 29, 2016 10:32
[2016-06-29 10:38] LABS: ADD SCAN DIFF NO
[2016-06-29 10:49] LABS: CALCIUM 8.5 mg/dl (8.4-10.2); CREATININE 3.59 mg/dl (0.44-1.00); POTASSIUM 4.7 mmol/L (3.5-5.1)
[2016-06-29 11:09] LABS: BASOPHILS % 0.2 % (0.0-2.0); EOSINOPHILS # 0.1 10^3/ul (0.0-0.5); EOSINOPHILS % 1.5 % (0.0-7.0); HEMOGLOBIN 9.1 g/dl (12.0-16.0); LYMPHOCYTES % 16.5 % (15.0-51.0); MEAN CORPUSCULAR HEMOGLOBIN 30.4 pg (29.0-33.0); MEAN CORPUSCULAR HGB CONC 31.4 g/dl (32.0-37.0); MEAN PLATELET VOLUME 9.7 fl (7.4-10.4); MONOCYTE # 0.5 10^3/ul (0.3-0.9); NEUTROPHIL # 4.3 10^3/ul (1.6-7.5); NEUTROPHILS % 72.5 % (39.0-77.0); PLATELET COUNT 161 10^3/UL (140-415); RED BLOOD COUNT 2.99 10^6/ul (4.20-5.40); RED CELL DISTRIBUTION WIDTH 12.5 % (11.5-14.5)
--- NOTE | 2016-06-29 12:56 | CONS ---
Date/Time of Note Date/Time of Note DATE: 06/29/16 TIME: 12:54 Assessment/Plan Assessment/Plan Additional Assessment/Plan 1.Pre-op-for AVF creation today. Noderate risk no contraindication by DR mercer note - stable, con't vasc care 2.HTN- well Rx, adjust rx as needed 3.ESRD on HD - stable fluid status - will adjust Rx as needed 4.HL 5.Diastolic dysfunction- acute on chronic, remove fluid with HD 6.DM - con't to keep euvolemic Consultation Date/Type/Reason Admit Date/Time Jun 25, 2016 at 10:13 Initial Consult Date 06/25/16 Type of Consultation: Cardiology Referring Provider: YOCASTA CREWS MD 24 HR Interval Summary Free Text/Dictation No acute change - vascular team follows ROS: No fever, no chills, no nausea, no vomiting, no diarrhea/constipation No recent weight changes No chest pain, no PND, no orthopnea No dizziness, blurred vision No thirst, no heat or cold intolerance Exam/Review of Systems Vital Signs Vitals Vital Signs Date Time Temp Pulse Resp B/P Pulse Ox O2 Delivery O2 Flow Rate FiO2 06/29/16 12:30 67 06/29/16 11:05 98.5 18 116/57 93 06/28/16 20:00 Nasal Cannula 2.0 Intake and Output 06/28/16 06/28/16 06/29/16 15:00 23:00 07:00 Intake Total 550 ml 120 ml Output Total 1320 ml Balance -770 ml 120 ml Exam General: WN/WD/NAD, AOx 3 HEENT: Unicetric/atraumatic/EOMI ( follow commands) NECK: JVD elevated, no thyromegaly Lymph: no lymphadenopathy HEART: regular with no S3, II/ systolic murmur at apex LUNGS: Coarse sounds ABD: soft, NT, ND, +BS : Intact Neuro: non focal SKIN: chronic changes EXT: trace edema Results Result Diagram: 06/29/16 0720 06/29/16 0720 Results 24 hrs Laboratory Tests Test 06/28/16 17:05 06/28/16 20:42 06/29/16 02:23 06/29/16 07:20 Bedside Glucose 200 123 98 White Blood Count 6.0 # Red Blood Count 2.99 L Hemoglobin 9.1 L Hematocrit 29.0 L Mean Corpuscular Volume 97.0 Mean Corpuscular Hemoglobin 30.4 Mean Corpuscular Hemoglobin Concent 31.4 L Red Cell Distribution Width 12.5 Platelet Count 161 Mean Platelet Volume 9.7 Neutrophils % 72.5 Lymphocytes % 16.5 Monocytes % 9.0 Eosinophils % 1.5 Basophils % 0.2 Nucleated Red Blood Cells % 0.0 Neutrophils # 4.3 Lymphocytes # 1.0 Monocytes # 0.5 Eosinophils # 0.1 Basophils # 0.0 Nucleated Red Blood Cells # 0.0 Sodium Level 133 L Potassium Level 4.7 Chloride Level 99 Carbon Dioxide Level 31 Anion Gap 8 Blood Urea Nitrogen 24 H Creatinine 3.59 H Glucose Level 90 # Calcium Level 8.5 Phosphorus Level 5.0 H Magnesium Level 2.0 Test 06/29/16 07:52 06/29/16 12:05 Bedside Glucose 113 159 Medications Medications Current Medications Ondansetron HCl (Zofran Inj) 4 mg Q6H PRN IV NAUSEA AND/OR VOMITING Last administered on 06/27/16 21:20; Admin Dose 4 MG; Start 06/25/16 at 11:30 Acetaminophen (Tylenol Tab) 650 mg Q6H PRN PO PAIN LEVEL 1-3 OR FEVER; Start at 11:30 Morphine Sulfate (morphine) 2 mg Q4H PRN IV SEVERE PAIN LEVEL 7-10 Last administered on 06/29/16 08:59; Admin Dose 2 MG; Start 06/25/16 at 11:30 Docusate Sodium (Colace) 100 mg Q12H PRN PO CONSTIPATION; Start 06/25/16 at 11: 30 Heparin Sodium (Porcine) (Heparin (5000 Units/0.5 ml)) 5,000 unit Q12 SC Last administered on 06/29/16 08:45; Admin Dose 5,000 UNIT; Start 06/25/16 at 21:00 Lorazepam (Ativan) 0.5 mg Q6H PRN IV ANXIETY; Start 06/25/16 at 11:30 Hydralazine HCl (Apresoline) 10 mg Q6H PRN IV ELEVATED BLOOD PRESSURE Last administered on 06/26/16 20:21; Admin Dose 10 MG; Start 06/25/16 at 11:30 Nitroglycerin (Nitroglycerin (Sl Tab) 0.4 Mg) 1 tab Q5M PRN SL ANGINA; Start at 11:30 Hydroxyzine HCl (Atarax) 25 mg Q6H PRN PO ITCHING; Start 06/25/16 at 11:30 Lactulose (Enulose) 30 gm BID PO Last administered on 06/29/16 08:48; Admin Dose 30 GM; Start 06/25/16 at 21:00 Metoprolol Tartrate (Lopressor) 25 mg BID PO Last administered on 06/29/16 08: 38; Admin Dose 25 MG; Start 06/25/16 at 21:00 Aspirin (Halfprin) 162 mg DAILY PO Last administered on 06/29/16 08:48; Admin Dose 162 MG; Start 06/26/16 at 09:00 Miscellaneous Information 1 ea NOTE XX ; Start 06/25/16 at 13:00 Glucose (Glutose) 15 gm Q15M PRN PO DECREASED GLUCOSE; Start 06/25/16 at 13:00 Glucose (Glutose) 22.5 gm Q15M PRN PO DECREASED GLUCOSE; Start 06/25/16 at 13: 00 Dextrose (D50w Syringe) 25 ml Q15M PRN IV DECREASED GLUCOSE; Start 06/25/16 at 13:00 Dextrose (D50w Syringe) 50 ml Q15M PRN IV DECREASED GLUCOSE; Start 06/25/16 at 13:00 Glucagon (Glucagen) 1 mg Q15M PRN IM DECREASED GLUCOSE; Start 06/25/16 at 13:00 Glucose (Glutose) 15 gm Q15M PRN BUCCAL DECREASED GLUCOSE; Start 06/25/16 at 13 :00 Hydralazine HCl (Apresoline) 50 mg Q12 PO Last administered on 06/29/16 08:40 ; Admin Dose 50 MG; Start 06/26/16 at 21:00 Losartan Potassium (Cozaar) 50 mg BID PO Last administered on 06/29/16 08:39; Admin Dose 50 MG; Start 06/26/16 at 21:00 Brimonidine Tartrate (Alphagan P 0.1%) 1 drop Q8 BOTH EYES Last administered on 06/29/16 05:04; Admin Dose 1 DROP; Start 06/26/16 at 14:00 Pantoprazole (Protonix Tab) 40 mg DAILY@06 PO Last administered on 06/29/16 05 :04; Admin Dose 40 MG; Start 06/27/16 at 06:00 Terbinafine HCl (Lamisil) 250 mg BID PO Last administered on 06/29/16 08:38; Admin Dose 250 MG; Start 06/26/16 at 13:30; Stop 07/03/16 at 13:29 Insulin Glargine 12 unit 12 unit QHS SC Last administered on 06/28/16 20:57; Admin Dose 12 UNIT; Start 06/27/16 at 21:00 Ceftriaxone Sodium (Rocephin) 50 ml @ 100 mls/hr Q24H IVPB Last administered on 06/28/16 20:40; Admin Dose 100 MLS/HR; Start 06/27/16 at 20:00 TRISTON MERCER MD Jun 29, 2016 12:56
--- NOTE | 2016-06-29 13:17 | OPPN ---
Date/Time of Note Date/Time of Note DATE: 06/29/16 TIME: 13:14 Anesthesia Follow up Anesthesia Follow up Last documented vital signs Vital Signs Date Time Temp Pulse Resp B/P Pulse Ox O2 Delivery O2 Flow Rate FiO2 06/29/16 12:30 67 06/29/16 11:05 98.5 18 116/57 93 06/28/16 20:00 Nasal Cannula 2.0 Respiratory function: WNL Cardiovascular function: WNL Comments 45 yo F ESRD on HD with R CW permacath POD 1 s/p LUE AVF under L supraclavicular brachial plexus nerve block with MAC. Pt is VSS, A&Ox3, tolerating po, in NAD, sitting up in bed, maintaining SpO2 without supplemental O2, able to move LUE, motor and sensation intact, CR <3, + thrill. No complications from anesthesia. PATRIZIA BERRY MD Jun 29, 2016 13:17
[2016-06-29] MEDS: ONDANSETRON 4 MG INJ IV PRN (16:43)
--- NOTE | 2016-06-29 17:54 | PN ---
Date/Time of Note Date/Time of Note DATE: 06/29/16 TIME: 17:50 Assessment/Plan Lines/Catheters IV Catheter Type (from Nrsg): Permacath Assessment/Plan Chief Complaint/Hosp Course Assessment and plan 1. Chest pain. ACS ruled out. Continue optimization with cardiovascular medications 2. End-stage renal disease. Continue on dialysis per family day care provider from recommendations. Monitor renal panel. Status post AV fistula placement. Continue to monitor 3. Type 1 diabetes. A1c at 8.7. Continue insulin regimen. Adjust as needed 4. Essential hypertension. Antihypertensive medications to be resumed. 5. Right-sided pleural effusion. Patient does have history of chronic right sided pleural effusion. No respiratory distress at this time. Continue on dialysis 6. Dyslipidemia. On the for low-cholesterol diet 7. Diastolic heart failure. Continue optimization with ARB and beta-bety 8. Charcot foot. Podiatry following. Follow up with recommendations for further intervention 9. Deconditioning. Physical therapy to follow. Disposition and plan: Patient reports inability to walk at this time. Awaiting physical therapy evaluation. Podiatry to follow. DC planning Discussed plan of care with Dr. Garcia Problems: Subjective 24 Hr Interval Summary Free Text/Dictation Reports right foot pain and inability to ambulate. Exam/Review of Systems Vital Signs Vitals Vital Signs Date Time Temp Pulse Resp B/P Pulse Ox O2 Delivery O2 Flow Rate FiO2 06/29/16 16:03 67 06/29/16 15:18 97.8 18 122/68 97 06/29/16 08:00 Nasal Cannula 2.0 Intake and Output 06/28/16 06/28/16 06/29/16 15:00 23:00 07:00 Intake Total 550 ml 120 ml Output Total 1320 ml Balance -770 ml 120 ml Exam General: Reports right foot pain and inability to walk. Eyes: Equal round Neck: Supple nontender, no JVD Cardiac: Remains in regular rate Pulmonary: No wheezing rhonchi GI: Soft nontender Extremities: Noted with Charcot foot on the right Skin: CDI Neurologic: AL O 4 Results Result Diagram: 06/29/16 0720 06/29/16 0720 Results 24 hrs Laboratory Tests Test 06/28/16 20:42 06/29/16 02:23 06/29/16 07:20 06/29/16 07:52 Bedside Glucose 123 98 113 White Blood Count 6.0 # Red Blood Count 2.99 L Hemoglobin 9.1 L Hematocrit 29.0 L Mean Corpuscular Volume 97.0 Mean Corpuscular Hemoglobin 30.4 Mean Corpuscular Hemoglobin Concent 31.4 L Red Cell Distribution Width 12.5 Platelet Count 161 Mean Platelet Volume 9.7 Neutrophils % 72.5 Lymphocytes % 16.5 Monocytes % 9.0 Eosinophils % 1.5 Basophils % 0.2 Nucleated Red Blood Cells % 0.0 Neutrophils # 4.3 Lymphocytes # 1.0 Monocytes # 0.5 Eosinophils # 0.1 Basophils # 0.0 Nucleated Red Blood Cells # 0.0 Sodium Level 133 L Potassium Level 4.7 Chloride Level 99 Carbon Dioxide Level 31 Anion Gap 8 Blood Urea Nitrogen 24 H Creatinine 3.59 H Glucose Level 90 # Calcium Level 8.5 Phosphorus Level 5.0 H Magnesium Level 2.0 Test 06/29/16 12:05 06/29/16 17:35 Bedside Glucose 159 196 Medications Medications Current Medications Ondansetron HCl (Zofran Inj) 4 mg Q6H PRN IV NAUSEA AND/OR VOMITING Last administered on 06/29/16 16:43; Admin Dose 4 MG; Start 06/25/16 at 11:30 Acetaminophen (Tylenol Tab) 650 mg Q6H PRN PO PAIN LEVEL 1-3 OR FEVER; Start at 11:30 Morphine Sulfate (morphine) 2 mg Q4H PRN IV SEVERE PAIN LEVEL 7-10 Last administered on 06/29/16 16:42; Admin Dose 2 MG; Start 06/25/16 at 11:30 Docusate Sodium (Colace) 100 mg Q12H PRN PO CONSTIPATION; Start 06/25/16 at 11: 30 Heparin Sodium (Porcine) (Heparin (5000 Units/0.5 ml)) 5,000 unit Q12 SC Last administered on 06/29/16 08:45; Admin Dose 5,000 UNIT; Start 06/25/16 at 21:00 Lorazepam (Ativan) 0.5 mg Q6H PRN IV ANXIETY; Start 06/25/16 at 11:30 Hydralazine HCl (Apresoline) 10 mg Q6H PRN IV ELEVATED BLOOD PRESSURE Last administered on 06/26/16 20:21; Admin Dose 10 MG; Start 06/25/16 at 11:30 Nitroglycerin (Nitroglycerin (Sl Tab) 0.4 Mg) 1 tab Q5M PRN SL ANGINA; Start at 11:30 Hydroxyzine HCl (Atarax) 25 mg Q6H PRN PO ITCHING; Start 06/25/16 at 11:30 Lactulose (Enulose) 30 gm BID PO Last administered on 06/29/16 08:48; Admin Dose 30 GM; Start 06/25/16 at 21:00 Metoprolol Tartrate (Lopressor) 25 mg BID PO Last administered on 06/29/16 08: 38; Admin Dose 25 MG; Start 06/25/16 at 21:00 Aspirin (Halfprin) 162 mg DAILY PO Last administered on 06/29/16 08:48; Admin Dose 162 MG; Start 06/26/16 at 09:00 Miscellaneous Information 1 ea NOTE XX ; Start 06/25/16 at 13:00 Glucose (Glutose) 15 gm Q15M PRN PO DECREASED GLUCOSE; Start 06/25/16 at 13:00 Glucose (Glutose) 22.5 gm Q15M PRN PO DECREASED GLUCOSE; Start 06/25/16 at 13: 00 Dextrose (D50w Syringe) 25 ml Q15M PRN IV DECREASED GLUCOSE; Start 06/25/16 at 13:00 Dextrose (D50w Syringe) 50 ml Q15M PRN IV DECREASED GLUCOSE; Start 06/25/16 at 13:00 Glucagon (Glucagen) 1 mg Q15M PRN IM DECREASED GLUCOSE; Start 06/25/16 at 13:00 Glucose (Glutose) 15 gm Q15M PRN BUCCAL DECREASED GLUCOSE; Start 06/25/16 at 13 :00 Hydralazine HCl (Apresoline) 50 mg Q12 PO Last administered on 06/29/16 08:40 ; Admin Dose 50 MG; Start 06/26/16 at 21:00 Losartan Potassium (Cozaar) 50 mg BID PO Last administered on 06/29/16 08:39; Admin Dose 50 MG; Start 06/26/16 at 21:00 Brimonidine Tartrate (Alphagan P 0.1%) 1 drop Q8 BOTH EYES Last administered on 06/29/16 13:19; Admin Dose 1 DROP; Start 06/26/16 at 14:00 Pantoprazole (Protonix Tab) 40 mg DAILY@06 PO Last administered on 06/29/16 05 :04; Admin Dose 40 MG; Start 06/27/16 at 06:00 Terbinafine HCl (Lamisil) 250 mg BID PO Last administered on 06/29/16 08:38; Admin Dose 250 MG; Start 06/26/16 at 13:30; Stop 07/03/16 at 13:29 Insulin Glargine 12 unit 12 unit QHS SC Last administered on 06/28/16 20:57; Admin Dose 12 UNIT; Start 06/27/16 at 21:00 Ceftriaxone Sodium (Rocephin) 50 ml @ 100 mls/hr Q24H IVPB Last administered on 06/28/16 20:40; Admin Dose 100 MLS/HR; Start 06/27/16 at 20:00 VERONICA BALLESTEROS Jun 29, 2016 17:54
[2016-06-29] MEDS: INSULIN GLARGINE [LANtus] 3 ML PEN SC SCH (21:27)
[2016-06-29] MEDS: CEFTRIAXONE 1 GM/50 ML (PMX) 50 ML IVPB SCH (21:32)
[2016-06-30] VITALS (19 sets, daily range): BP systolic 110–172; BP diastolic 60–77; PULSE 60–74; RESP 16–18
[2016-06-30] MEDS: PANTOPRAZOLE (EC) 40 MG TAB PO SCH (05:52)
[2016-06-30] MEDS: BRIMONIDINE 0.1% 5 ML OPH BOTH EYES SCH ×2 (05:53→14:42)
[2016-06-30] MEDS: INSULIN ASPART [NOVOLOG] 3 ML PEN SC SCH ×6 (07:55→19:09)
[2016-06-30] MEDS: morphine 2 MG INJ IV PRN ×3 (08:08→18:59)
[2016-06-30] MEDS: ASPIRIN (EC) 81 MG TAB PO SCH (08:12)
[2016-06-30] MEDS: TERBINAFINE 250 MG TAB PO SCH (08:12)
[2016-06-30] MEDS: LOSARTAN 50 MG TAB PO SCH (08:12)
[2016-06-30] MEDS: METOPROLOL 25 MG TAB PO SCH (08:14)
[2016-06-30] MEDS: LACTULOSE 30ML CUP PO SCH (08:15)
[2016-06-30] MEDS: HEPARIN 5,000 UNIT/0.5 ML VIAL SC SCH (08:20)
[2016-06-30 10:16] LABS: ADD SCAN DIFF NO
[2016-06-30 10:21] LABS: BASOPHILS % 0.2 % (0.0-2.0); EOSINOPHILS # 0.1 10^3/ul (0.0-0.5); EOSINOPHILS % 1.6 % (0.0-7.0); HEMATOCRIT 26.9 % (37.0-47.0); HEMOGLOBIN 8.3 g/dl (12.0-16.0); LYMPHOCYTES # 1.3 10^3/ul (0.8-2.9); LYMPHOCYTES % 19.6 % (15.0-51.0); MEAN CORPUSCULAR HGB CONC 30.9 g/dl (32.0-37.0); MEAN CORPUSCULAR VOLUME 97.1 fl (82.0-101.0); MEAN PLATELET VOLUME 9.8 fl (7.4-10.4); MONOCYTE # 0.5 10^3/ul (0.3-0.9); MONOCYTES % 8.2 % (0.0-11.0); NEUTROPHIL # 4.5 10^3/ul (1.6-7.5); NEUTROPHILS % 70.2 % (39.0-77.0); PLATELET COUNT 147 10^3/UL (140-415); RED BLOOD COUNT 2.77 10^6/ul (4.20-5.40); RED CELL DISTRIBUTION WIDTH 12.6 % (11.5-14.5); WHITE BLOOD COUNT 6.4 10^3/ul (4.8-10.8)
[2016-06-30 10:56] LABS: POTASSIUM 4.7 mmol/L (3.5-5.1)
[2016-06-30 11:07] LABS: CALCIUM 8.3 mg/dl (8.4-10.2); CREATININE 5.45 mg/dl (0.44-1.00)
[2016-06-30] MEDS ORDERED: BRIM15DR2 BOTH EYES (11:56)
[2016-06-30] MEDS ORDERED: HYDR-3671 PO (11:56)
[2016-06-30] MEDS ORDERED: ASPI-664 PO (11:56)
[2016-06-30] MEDS ORDERED: NOVO3I SC (11:56)
[2016-06-30] MEDS ORDERED: LANT3I SC (11:56)
[2016-06-30] MEDS ORDERED: TERB250T9 PO (11:56)
[2016-06-30] MEDS ORDERED: LOSA50TA2 PO (11:56)
[2016-06-30] MEDS ORDERED: METO-448 PO (11:56)
[2016-06-30] MEDS ORDERED: HYDR-842 PO (11:56)
[2016-06-30] MEDS ORDERED: Lactulose PO (11:56)
--- NOTE | 2016-06-30 14:35 | CONS ---
Date/Time of Note Date/Time of Note DATE: 06/30/16 TIME: 14:32 Assessment/Plan Assessment/Plan Chief Complaint/Hosp Course IMP: 1.Pre-op-Now post-op s/p AVF creation 2.HTN 3.ESRD on HD 4.HL 5.Diastolic dysfunction 6.DM Recc: -Tele -serial ecg's -Continue losartan/asa/BB/hydralazine and follow BP closely -Follow volume status closely -Continue abx's and f/u cx data Problems: Consultation Date/Type/Reason Admit Date/Time Jun 25, 2016 at 10:13 Initial Consult Date 06/25/16 Type of Consultation: Cardiology Reason for Consultation Pre-op Referring Provider: YOCASTA CREWS MD Exam/Review of Systems Vital Signs Vitals Vital Signs Date Time Temp Pulse Resp B/P Pulse Ox O2 Delivery O2 Flow Rate FiO2 06/30/16 12:04 61 06/30/16 11:48 98.0 18 140/60 100 06/30/16 08:15 Nasal Cannula 2.0 Intake and Output 06/29/16 06/29/16 06/30/16 15:00 23:00 07:00 Intake Total 550 ml 250 ml Output Total 350 ml Balance 200 ml 250 ml Exam Review of Systems: CONSTITUTIONAL: No fevers, chills. PULMONARY: No sob CARDIOVASCULAR: No chest pain/palpitations GASTROINTESTINAL: No nausea/vomiting. GENITOURINARY: No hematuria/dysuria. MUSCULOSKELETAL: c/o back pain. PSYCHIATRIC: The patient denies depression. NEUROLOGIC: No weakness Constitutional: alert Psych: no complaints Head: normocephalic ENMT: mucosa pink and moist Neck: jvd, supple Respiratory: diminished breath sounds (at bases/B) Cardiovascular: regular rate and rhythm Gastrointestinal: non-tender, soft Musculoskeletal: muscle tone (normal) Extremities: edema (none) Results Result Diagram: 06/30/16 0952 06/30/16 0952 Results 24 hrs Laboratory Tests Test 06/29/16 17:35 06/29/16 21:23 06/30/16 07:48 06/30/16 09:52 Bedside Glucose 196 228 H 98 White Blood Count 6.4 Red Blood Count 2.77 L Hemoglobin 8.3 L Hematocrit 26.9 L Mean Corpuscular Volume 97.1 Mean Corpuscular Hemoglobin 30.0 Mean Corpuscular Hemoglobin Concent 30.9 L Red Cell Distribution Width 12.6 Platelet Count 147 Mean Platelet Volume 9.8 Neutrophils % 70.2 Lymphocytes % 19.6 Monocytes % 8.2 Eosinophils % 1.6 Basophils % 0.2 Nucleated Red Blood Cells % 0.0 Neutrophils # 4.5 Lymphocytes # 1.3 Monocytes # 0.5 Eosinophils # 0.1 Basophils # 0.0 Nucleated Red Blood Cells # 0.0 Sodium Level 133 L Potassium Level 4.7 Chloride Level 96 L Carbon Dioxide Level 29 Anion Gap 13 Blood Urea Nitrogen 34 H Creatinine 5.45 H Glucose Level 108 Calcium Level 8.3 L Test 06/30/16 12:40 Bedside Glucose 79 Medications Medications Current Medications Ondansetron HCl (Zofran Inj) 4 mg Q6H PRN IV NAUSEA AND/OR VOMITING Last administered on 06/29/16 16:43; Admin Dose 4 MG; Start 06/25/16 at 11:30 Acetaminophen (Tylenol Tab) 650 mg Q6H PRN PO PAIN LEVEL 1-3 OR FEVER; Start at 11:30 Morphine Sulfate (morphine) 2 mg Q4H PRN IV SEVERE PAIN LEVEL 7-10 Last administered on 06/30/16 08:08; Admin Dose 2 MG; Start 06/25/16 at 11:30 Docusate Sodium (Colace) 100 mg Q12H PRN PO CONSTIPATION; Start 06/25/16 at 11: 30 Heparin Sodium (Porcine) (Heparin (5000 Units/0.5 ml)) 5,000 unit Q12 SC Last administered on 06/30/16 08:20; Admin Dose 5,000 UNIT; Start 06/25/16 at 21:00 Lorazepam (Ativan) 0.5 mg Q6H PRN IV ANXIETY; Start 06/25/16 at 11:30 Hydralazine HCl (Apresoline) 10 mg Q6H PRN IV ELEVATED BLOOD PRESSURE Last administered on 06/26/16 20:21; Admin Dose 10 MG; Start 06/25/16 at 11:30 Nitroglycerin (Nitroglycerin (Sl Tab) 0.4 Mg) 1 tab Q5M PRN SL ANGINA; Start at 11:30 Hydroxyzine HCl (Atarax) 25 mg Q6H PRN PO ITCHING; Start 06/25/16 at 11:30 Lactulose (Enulose) 30 gm BID PO Last administered on 06/30/16 08:15; Admin Dose 30 GM; Start 06/25/16 at 21:00 Metoprolol Tartrate (Lopressor) 25 mg BID PO Last administered on 06/30/16 08: 14; Admin Dose 25 MG; Start 06/25/16 at 21:00 Aspirin (Halfprin) 162 mg DAILY PO Last administered on 06/30/16 08:12; Admin Dose 162 MG; Start 06/26/16 at 09:00 Miscellaneous Information 1 ea NOTE XX ; Start 06/25/16 at 13:00 Glucose (Glutose) 15 gm Q15M PRN PO DECREASED GLUCOSE; Start 06/25/16 at 13:00 Glucose (Glutose) 22.5 gm Q15M PRN PO DECREASED GLUCOSE; Start 06/25/16 at 13: 00 Dextrose (D50w Syringe) 25 ml Q15M PRN IV DECREASED GLUCOSE; Start 06/25/16 at 13:00 Dextrose (D50w Syringe) 50 ml Q15M PRN IV DECREASED GLUCOSE; Start 06/25/16 at 13:00 Glucagon (Glucagen) 1 mg Q15M PRN IM DECREASED GLUCOSE; Start 06/25/16 at 13:00 Glucose (Glutose) 15 gm Q15M PRN BUCCAL DECREASED GLUCOSE; Start 06/25/16 at 13 :00 Hydralazine HCl (Apresoline) 50 mg Q12 PO Last administered on 06/30/16 08:13 ; Admin Dose 50 MG; Start 06/26/16 at 21:00 Losartan Potassium (Cozaar) 50 mg BID PO Last administered on 06/30/16 08:12; Admin Dose 50 MG; Start 06/26/16 at 21:00 Brimonidine Tartrate (Alphagan P 0.1%) 1 drop Q8 BOTH EYES Last administered on 06/30/16 05:53; Admin Dose 1 DROP; Start 06/26/16 at 14:00 Pantoprazole (Protonix Tab) 40 mg DAILY@06 PO Last administered on 06/30/16 05 :52; Admin Dose 40 MG; Start 06/27/16 at 06:00 Terbinafine HCl (Lamisil) 250 mg BID PO Last administered on 06/30/16 08:12; Admin Dose 250 MG; Start 06/26/16 at 13:30; Stop 07/03/16 at 13:29 Insulin Glargine 12 unit 12 unit QHS SC Last administered on 06/29/16 21:27; Admin Dose 12 UNIT; Start 06/27/16 at 21:00 Ceftriaxone Sodium (Rocephin) 50 ml @ 100 mls/hr Q24H IVPB Last administered on 06/29/16 21:32; Admin Dose 100 MLS/HR; Start 06/27/16 at 20:00 ROBERT MCNAIR Jun 30, 2016 14:35
--- NOTE | 2016-06-30 17:29 | PDOCDIS ---
Discharge Instructions DIAGNOSIS Discharge Diagnosis: 1. Chest pain 2. ESRD 3. Diabetes 4. Hypertension 5. Right pleural effusion CONDITION Patient Condition: Stable HOME CARE INSTRUCTIONS: Special Diet: RENAL/CARB CONTROLL FOLLOW UP/APPOINTMENTS Appointments 1. Follow-up with her dialysis center for your regular dialysis schedule 2. Follow-up with your sprinkling system installer within a week VERONICA BALLESTEROS Jun 30, 2016 17:29
--- NOTE | 2016-06-30 19:23 | CONS ---
Date/Time of Note Date/Time of Note DATE: 06/30/16 TIME: 19:22 Assessment/Plan Assessment/Plan Chief Complaint/Hosp Course - ESRD - CAD/CHF/ANGINA - ANEMIA - DM - Hx of PROTEINURIA - ARTHRITIS PLAN: Will continue with her Dialysis as planned Bedside dialysis today THANK YOU vBryce ONEAL Problems: Consultation Date/Type/Reason Admit Date/Time Jun 25, 2016 at 10:13 Initial Consult Date 06/25/16 Type of Consultation: NEPHROLOGY Reason for Consultation - ESRD on dialysis Referring Provider: YOCASTA CREWS MD 24 HR Interval Summary Constitutional: improved, no complaints Exam/Review of Systems Vital Signs Vitals Vital Signs Date Time Temp Pulse Resp B/P Pulse Ox O2 Delivery O2 Flow Rate FiO2 06/30/16 18:15 62 15 06/30/16 16:08 98.2 149/76 99 06/30/16 08:15 Nasal Cannula 2.0 Intake and Output 06/29/16 06/29/16 06/30/16 15:00 23:00 07:00 Intake Total 550 ml 250 ml Output Total 350 ml Balance 200 ml 250 ml Exam Constitutional: alert, oriented Respiratory: crackles/rales Cardiovascular: regular rate and rhythm, systolic murmur Gastrointestinal: soft Results Result Diagram: 06/30/16 0952 06/30/16 0952 Results 24 hrs Laboratory Tests Test 06/29/16 21:23 06/30/16 07:48 06/30/16 09:52 06/30/16 12:40 Bedside Glucose 228 H 98 79 White Blood Count 6.4 Red Blood Count 2.77 L Hemoglobin 8.3 L Hematocrit 26.9 L Mean Corpuscular Volume 97.1 Mean Corpuscular Hemoglobin 30.0 Mean Corpuscular Hemoglobin Concent 30.9 L Red Cell Distribution Width 12.6 Platelet Count 147 Mean Platelet Volume 9.8 Neutrophils % 70.2 Lymphocytes % 19.6 Monocytes % 8.2 Eosinophils % 1.6 Basophils % 0.2 Nucleated Red Blood Cells % 0.0 Neutrophils # 4.5 Lymphocytes # 1.3 Monocytes # 0.5 Eosinophils # 0.1 Basophils # 0.0 Nucleated Red Blood Cells # 0.0 Sodium Level 133 L Potassium Level 4.7 Chloride Level 96 L Carbon Dioxide Level 29 Anion Gap 13 Blood Urea Nitrogen 34 H Creatinine 5.45 H Glucose Level 108 Calcium Level 8.3 L Medications Medications Current Medications Ondansetron HCl (Zofran Inj) 4 mg Q6H PRN IV NAUSEA AND/OR VOMITING Last administered on 06/29/16 16:43; Admin Dose 4 MG; Start 06/25/16 at 11:30 Acetaminophen (Tylenol Tab) 650 mg Q6H PRN PO PAIN LEVEL 1-3 OR FEVER; Start at 11:30 Morphine Sulfate (morphine) 2 mg Q4H PRN IV SEVERE PAIN LEVEL 7-10 Last administered on 06/30/16 18:59; Admin Dose 2 MG; Start 06/25/16 at 11:30 Docusate Sodium (Colace) 100 mg Q12H PRN PO CONSTIPATION; Start 06/25/16 at 11: 30 Heparin Sodium (Porcine) (Heparin (5000 Units/0.5 ml)) 5,000 unit Q12 SC Last administered on 06/30/16 08:20; Admin Dose 5,000 UNIT; Start 06/25/16 at 21:00 Lorazepam (Ativan) 0.5 mg Q6H PRN IV ANXIETY; Start 06/25/16 at 11:30 Hydralazine HCl (Apresoline) 10 mg Q6H PRN IV ELEVATED BLOOD PRESSURE Last administered on 06/26/16 20:21; Admin Dose 10 MG; Start 06/25/16 at 11:30 Nitroglycerin (Nitroglycerin (Sl Tab) 0.4 Mg) 1 tab Q5M PRN SL ANGINA; Start at 11:30 Hydroxyzine HCl (Atarax) 25 mg Q6H PRN PO ITCHING; Start 06/25/16 at 11:30 Lactulose (Enulose) 30 gm BID PO Last administered on 06/30/16 08:15; Admin Dose 30 GM; Start 06/25/16 at 21:00 Metoprolol Tartrate (Lopressor) 25 mg BID PO Last administered on 06/30/16 08: 14; Admin Dose 25 MG; Start 06/25/16 at 21:00 Aspirin (Halfprin) 162 mg DAILY PO Last administered on 06/30/16 08:12; Admin Dose 162 MG; Start 06/26/16 at 09:00 Miscellaneous Information 1 ea NOTE XX ; Start 06/25/16 at 13:00 Glucose (Glutose) 15 gm Q15M PRN PO DECREASED GLUCOSE; Start 06/25/16 at 13:00 Glucose (Glutose) 22.5 gm Q15M PRN PO DECREASED GLUCOSE; Start 06/25/16 at 13: 00 Dextrose (D50w Syringe) 25 ml Q15M PRN IV DECREASED GLUCOSE; Start 06/25/16 at 13:00 Dextrose (D50w Syringe) 50 ml Q15M PRN IV DECREASED GLUCOSE; Start 06/25/16 at 13:00 Glucagon (Glucagen) 1 mg Q15M PRN IM DECREASED GLUCOSE; Start 06/25/16 at 13:00 Glucose (Glutose) 15 gm Q15M PRN BUCCAL DECREASED GLUCOSE; Start 06/25/16 at 13 :00 Hydralazine HCl (Apresoline) 50 mg Q12 PO Last administered on 06/30/16 08:13 ; Admin Dose 50 MG; Start 06/26/16 at 21:00 Losartan Potassium (Cozaar) 50 mg BID PO Last administered on 06/30/16 08:12; Admin Dose 50 MG; Start 06/26/16 at 21:00 Brimonidine Tartrate (Alphagan P 0.1%) 1 drop Q8 BOTH EYES Last administered on 06/30/16 14:42; Admin Dose 1 DROP; Start 06/26/16 at 14:00 Pantoprazole (Protonix Tab) 40 mg DAILY@06 PO Last administered on 06/30/16 05 :52; Admin Dose 40 MG; Start 06/27/16 at 06:00 Terbinafine HCl (Lamisil) 250 mg BID PO Last administered on 06/30/16 08:12; Admin Dose 250 MG; Start 06/26/16 at 13:30; Stop 07/03/16 at 13:29 Insulin Glargine 12 unit 12 unit QHS SC Last administered on 06/29/16 21:27; Admin Dose 12 UNIT; Start 06/27/16 at 21:00 Ceftriaxone Sodium (Rocephin) 50 ml @ 100 mls/hr Q24H IVPB Last administered on 06/29/16 21:32; Admin Dose 100 MLS/HR; Start 06/27/16 at 20:00 SAVANNA SCHWARTZ MD Jun 30, 2016 19:22
== END 2016-06-30 20:55 | disposition home or self-care (01) | DRG 264 ==
LOC: E/R 08:12 → TEL 10:13
PROVIDERS: ADMIT Family Medicine; ATTEND Family Medicine
PROC: 5A1D60Z (ICD-10-PCS; 2016-06-25)
PROC: 031809F Bypass Left Brachial Artery to Lower Arm Vein with Autologous Venous Tissue, Open Approach (ICD-10-PCS; principal; 2016-06-28 12:30)
DX: I13.2 Hypertensive heart and chronic kidney disease with heart failure and with stage 5 chronic kidney disease, or end stage renal disease (principal); N18.6 End stage renal disease; E11.22 Type 2 diabetes mellitus with diabetic chronic kidney disease; I50.33 Acute on chronic diastolic (congestive) heart failure; I16.0 Hypertensive urgency; I25.2 Old myocardial infarction; R07.9 Chest pain, unspecified; D63.8 Anemia in other chronic diseases classified elsewhere; Z99.2 Dependence on renal dialysis; E11.40 Type 2 diabetes mellitus with diabetic neuropathy, unspecified; Z79.4 Long term (current) use of insulin; E11.319 Type 2 diabetes mellitus with unspecified diabetic retinopathy without macular edema; E11.610 Type 2 diabetes mellitus with diabetic neuropathic arthropathy
CPT/HCPCS: 36415; 71010; 80048; 80053; 80061; 81001; 81003; 82550; 82553; 82962; 83036; 83690; 83735; 84100; 84439; 84443; 84484; 84703; 85025; 85610; 85730; 87086; 90935; 93005; 93923; 93970; 96374; 96375; J0330; J0360; J0696; J1644; J1815; J2060; J2250; J2270; J2370; J2405; J2765; J2795; J3010

== ENCOUNTER 2016-07-06 21:15 | Inpatient (IN) | payer BC ==
[~2016-07-06] VITALS: Ht 162.6 cm; Wt 74.0 kg
[~2016-07-06 21:15] MED LIST changes: +ASPI-664 PO; +BRIM15DR2 BOTH EYES; -CIPR500T4 PO; -INSU100I17 SQ; -LACT20SO12 PO; +Lactulose PO; +NOVO3I SC; +TERB250T9 PO
[2016-07-06] MEDS ORDERED: morphine 4 MG/ML VIAL IV STA (22:52)
[2016-07-06] MEDS ORDERED: ONDANSETRON 4 MG INJ IV STA (22:52)
[2016-07-06 23:15] LABS: ADD SCAN DIFF NO
[2016-07-06 23:16] LABS: BASOPHILS % 0.1 % (0.0-2.0); EOSINOPHILS # 0.1 10^3/ul (0.0-0.5); HEMATOCRIT 29.4 % (37.0-47.0); HEMOGLOBIN 9.9 g/dl (12.0-16.0); LYMPHOCYTES # 1.7 10^3/ul (0.8-2.9); LYMPHOCYTES % 24.1 % (15.0-51.0); MEAN CORPUSCULAR HEMOGLOBIN 30.9 pg (29.0-33.0); MEAN CORPUSCULAR HGB CONC 33.7 g/dl (32.0-37.0); MEAN CORPUSCULAR VOLUME 91.9 fl (82.0-101.0); MEAN PLATELET VOLUME 9.1 fl (7.4-10.4); MONOCYTE # 0.6 10^3/ul (0.3-0.9); MONOCYTES % 8.1 % (0.0-11.0); NEUTROPHIL # 4.5 10^3/ul (1.6-7.5); NEUTROPHILS % 65.3 % (39.0-77.0); PLATELET COUNT 210 10^3/UL (140-415); RED CELL DISTRIBUTION WIDTH 12.4 % (11.5-14.5); WHITE BLOOD COUNT 6.9 10^3/ul (4.8-10.8)
[2016-07-06] MEDS ORDERED: NOVO3I SC (23:31)
[2016-07-06 23:32] LABS: INR 0.83; PROTIME 11.4 Sec (12.2-14.2); PT RATIO 0.9
[2016-07-06] MEDS ORDERED: FER325 PO (23:32)
[2016-07-06 23:37] LABS: ALANINE AMINOTRANSFERASE 15 IU/L (13-69); ALBUMIN 3.9 g/dl (3.3-4.9); ALBUMIN/GLOBULIN RATIO 1.02; ALKALINE PHOSPHATASE 144 IU/L (42-121); ANION GAP 12 (8-16); ASPARTATE AMINO TRANSFERASE 28 IU/L (15-46); BILIRUBIN,INDIRECT 0.1 mg/dl (0-1.1); BILIRUBIN,TOTAL 0.1 mg/dl (0.2-1.3); BLOOD UREA NITROGEN 34 mg/dl (7-20); CALCIUM 9.1 mg/dl (8.4-10.2); CARBON DIOXIDE 27 mmol/L (21-31); CHLORIDE 95 mmol/L (97-110); CREATININE 3.49 mg/dl (0.44-1.00); GLUCOSE 237 mg/dl (70-220); POTASSIUM 4.6 mmol/L (3.5-5.1); SODIUM 129 mmol/L (135-144); TOTAL PROTEIN 7.7 g/dl (6.1-8.1)
[2016-07-06 23:49] LABS: B-TYPE NATRIURETIC PEPTIDE 10100 PG/ML (0-125)
[2016-07-06 23:51] LABS: TROPONIN-I < 0.012 ng/ml (0.00-0.12)
[2016-07-07] VITALS (16 sets, daily range): BP systolic 104–153; BP diastolic 54–74; PULSE 61–76; RESP 12–18; TEMP 96.3; Ht 162.6 cm; Wt 74.0 kg
--- NOTE | 2016-07-07 00:45 | RADRPT ---
PROCEDURE: XR Chest. CLINICAL INDICATION: Chest pain TECHNIQUE: Single AP portable chest COMPARISON: 03/22/2016 Chest x-ray FINDINGS: The cardiomediastinal silhouette is within normal limits of size. Right dialysis catheter in stable position. Atherosclerotic calcification of the aorta. The lungs are clear without pleural effusio n or focal consolidation. No pneumothorax. The osseous structures and soft tissues are unremarkable. IMPRESSION: 1. No evidence for active cardiopulmonary disease. RPTAT:AAJJ Jaiden Conklin Physician Date Time Electronically viewed and signed by Physician Austin on 07/07/2016 00:45 MICKY/
[2016-07-07] MEDS ORDERED: PANTOPRAZOLE IV 80 MG in SOD CHLORIDE 0.9% 100 ML IVPB STA (00:50)
[2016-07-07] MEDS ORDERED: PANTOPRAZOLE IV 80 MG in SOD CHLORIDE 0.9% 100 ML IV STA (00:50)
--- NOTE | 2016-07-07 00:53 | ERA ---
ER Documentation Chief Complaint Date/Time DATE: 07/07/16 TIME: 00:52 Chief Complaint abd pain,shortness of breath, back pain, hx esrd- dialysis pt HPI This is a 46-year-old female with abdominal pain shortness of breath patient states he vomited blood 2-3 times a day. No fevers no chills. No other current complaints. No other current issues. ROS All systems reviewed and are negative except as per history of present illness. Medications Home Meds Active Scripts Losartan Potassium* (Cozaar*) 50 Mg Tablet, 50 MG PO BID for 30 Days, TAB Prov:VERONICA BALLESTEROS 06/30/16 [Lactulose] 20 GM/30 ML SOLN No Conflict Check, 30 GM PO BID for 30 Days Prov:VERONICA BALLESTEROS 06/30/16 Insulin Glargine* (Lantus*) 100 Unit/Ml Soln, 12 UNIT SC QHS for 30 Days Prov:VERONICA BALLESTEROS 06/30/16 Hydralazine Hcl* (Hydralazine Hcl*) 25 Mg Tab, 50 MG PO Q12 for 30 Days, TAB Prov:VEROINCA BALLESTEROS 06/30/16 Terbinafine Hcl* (Terbinafine Hcl*) 250 Mg Tablet, 250 MG PO BID for 30 Days, TAB Prov:VERONICA BALLESTEROS 06/30/16 Brimonidine Tartrate* (Alphagan P*) 0.1%-15 Ml Opht Drops, 1 DROP BOTH EYES Q8, #1 BOTTLE Prov:VERONICA BALLESTEROS 06/30/16 Aspirin* (Aspirin* EC) 81 Mg Tablet.dr, 162 MG PO DAILY for 30 Days Prov:VERONICA BALLESTEROS 06/30/16 Metoprolol Tartrate* (Lopressor*) 25 Mg Tab, 25 MG PO BID, #60 TAB Prov:VERONICA BALLESTEROS 06/30/16 Oxycodone HCl/Acetaminophen (Percocet 5-325 mg Tablet) 1 Each Tablet, 1 EACH PO TID for PAIN, #9 TAB Prov:PAUL CLARK MD 03/18/16 Polyethylene Glycol* (Miralax*) 17 Gm Powd.pack, 2 TSP PO DAILY for CONSTIPATION , #1 BOTTLE Prov:PAUL CLARK MD 03/18/16 Reported Medications Ferrous Sulfate* (Ferrous Sulfate*) 325 Mg Tabec, 325 MG PO DAILY, TAB 07/06/16 Insulin Aspart* (Novolog Insulin Pen*) 100 Unit/Ml Soln, 12 UNIT SC WITH BREAKFAST for 30 Days, EA 07/06/16 Discontinued Reported Medications Insulin Glulisine (Apidra Solostar) 100 Unit/1 Ml Insuln.pen, 4 UNIT SQ BEFORE MEALS, #1 TUB 06/21/16 Insulin Glargine* (Lantus*) 100 Unit/Ml Soln, 10 UNIT SC QHS, #1 VIAL 06/21/16 Discontinued Scripts Insulin Aspart* (Novolog Insulin Pen*) 100 Unit/Ml Soln, 6 UNIT SC BEFORE MEALS for 30 Days Prov:VERONICA BALLESTEROS 06/30/16 Hydroxyzine Hcl* (Atarax*) 25 Mg Tab, 25 MG PO Q6H Y for ITCHING, #30 TAB Prov:VERONICA BALLESTEROS 06/30/16 Ciprofloxacin Hcl* (Ciprofloxacin Hcl*) 500 Mg Tablet, 500 MG PO BID for 10 Days , TAB Prov:JAVAD SHEPHERD DO 06/21/16 Lactulose* (Cephulac*) 20 Gm/30 Ml Soln, 30 GM PO BID for 30 Days Prov:VERONICA BALLESTEROS 03/27/16 Hydralazine Hcl* (Hydralazine Hcl*) 25 Mg Tab, 25 MG PO Q8 for 30 Days, TAB Prov:YAA KIRK MD 01/29/16 Losartan Potassium* (Cozaar*) 50 Mg Tablet, 50 MG PO DAILY for 30 Days, TAB Prov:YAA KIRK MD 01/29/16 Hydroxyzine Hcl* (Atarax*) 25 Mg Tab, 25 MG PO Q6H Y for ITCHING, #40 TAB Prov:YAA KIRK MD 01/29/16 Allergies Allergies: Coded Allergies: acetaminophen (Verified Allergy, Severe, UNABLE TO BREATH, 07/06/16) hydrocodone (Verified Allergy, Severe, UNABLE TO BREATH, 07/06/16) Penicillins (Verified Allergy, Unknown, 07/06/16) egg yolk (Verified Allergy, Unknown, 07/06/16) hydromorphone (Verified Allergy, Unknown, 07/06/16) ibuprofen (Verified Allergy, Unknown, 07/06/16) tramadol (Verified Allergy, Unknown, 07/06/16) PMhx/Soc History of Surgery: Yes (PERMACATH PLACEMENT, RIGHT FOOT, L AV FISTULA) Anesthesia Reaction: No Hx Neurological Disorder: No Hx Respiratory Disorders: No Hx Cardiac Disorders: Yes (HTN) Hx Psychiatric Problems: No Hx Miscellaneous Medical Probl: Yes (ESRD, DM, DIALYSIS) Hx Alcohol Use: No Hx Substance Use: No Hx Tobacco Use: No Smoking Status: Never smoker Physical Exam Vitals Vital Signs Date Time Temp Pulse Resp B/P Pulse Ox O2 Delivery O2 Flow Rate FiO2 07/06/16 22:55 98.5 78 20 182/90 98 Room Air 07/06/16 21:18 98.5 74 20 167/92 98 Physical Exam Const: [] Head: Atraumatic Eyes: Normal Conjunctiva ENT: Normal External Ears, Nose and Mouth. Neck: Full range of motion..~ No meningismus. Resp: Clear to auscultation bilaterally Cardio: Regular rate and rhythm, no murmurs Abd: Soft, non tender, non distended. Normal bowel sounds Skin: No petechiae or rashes Back: No midline or flank tenderness Ext: No cyanosis, or edema Neur: Awake and alert Psych: Normal Mood and Affect Result Diagram: 07/06/16 2300 07/06/16 2300 Results 24 hrs Laboratory Tests Test 07/06/16 21:26 07/06/16 23:00 Bedside Glucose 233mg/dL White Blood Count 6.910^3/ul Red Blood Count 3.2010^6/ul Hemoglobin 9.9g/dl Hematocrit 29.4% Mean Corpuscular Volume 91.9fl Mean Corpuscular Hemoglobin 30.9pg Mean Corpuscular Hemoglobin Concent 33.7g/dl Red Cell Distribution Width 12.4% Platelet Count 08990^3/UL Mean Platelet Volume 9.1fl Neutrophils % 65.3% Lymphocytes % 24.1% Monocytes % 8.1% Eosinophils % 2.0% Basophils % 0.1% Nucleated Red Blood Cells % 0.0/100WBC Neutrophils # 4.510^3/ul Lymphocytes # 1.710^3/ul Monocytes # 0.610^3/ul Eosinophils # 0.110^3/ul Basophils # 0.010^3/ul Nucleated Red Blood Cells # 0.010^3/ul Prothrombin Time 11.4Sec Prothrombin Time Ratio 0.9 INR International Normalized Ratio 0.83 Activated Partial Thromboplast Time 27.0Sec Sodium Level 129mmol/L Potassium Level 4.6mmol/L Chloride Level 95mmol/L Carbon Dioxide Level 27mmol/L Anion Gap 12 Blood Urea Nitrogen 34mg/dl Creatinine 3.49mg/dl Glucose Level 237mg/dl Calcium Level 9.1mg/dl Total Bilirubin 0.1mg/dl Direct Bilirubin 0.00mg/dl Indirect Bilirubin 0.1mg/dl Aspartate Amino Transf (AST/SGOT) 28IU/L Alanine Aminotransferase (ALT/SGPT) 15IU/L Alkaline Phosphatase 144IU/L Troponin I < 0.012ng/ml B-Type Natriuretic Peptide 58190CR/ML Total Protein 7.7g/dl Albumin 3.9g/dl Globulin 3.80g/dl Albumin/Globulin Ratio 1.02 Current Medications Medications (Trade) Dose Ordered Sig/Jacques Route PRN Reason Start Time Stop Time Status Last Admin Dose Admin Morphine Sulfate (morphine) 4 mg ONCE STAT IV 07/06/16 22:52 07/06/16 22:53 DC 07/06/16 23:00 Ondansetron HCl 4 mg 4 mg ONCE STAT IV 07/06/16 22:52 07/06/16 22:53 DC 07/06/16 23:00 Pantoprazole 80 mg/Sodium Chloride 100 ml @ 400 mls/hr ONCE STAT IVPB 07/07/16 00:50 07/07/16 01:04 Pantoprazole/ Sodium Chloride (Protonix Iv/NS) 100 ml @ 10 mls/hr ONCE STAT IV 07/07/16 00:50 07/07/16 10:49 Procedures/MDM EKG: Rate/Rhythm: Normal Sinus Rhythm QRS, ST, T-waves: No changes consistent w/ acute ischemia Impression: No evidence of ischemia or arrhythmia Chest X-ray 1V Interpreted by me: Soft Tissue: No acute abnormalities Bones: No acute abnormalities Mediastinum/Cardiac Silhouette/Lungs: [No acute abnormalities] Medical decision-makin-year-old female comes possible upper GI bleed. At this point clinically stable. Patient admitted to hospitalist. Departure Diagnosis: Primary Impression: Upper GI bleed Condition: Serious YAA AUSTIN July 07, 2016 00:53
[2016-07-07] MEDS ORDERED: morphine 4 MG/ML VIAL IV STA (04:37)
[2016-07-07 07:45] LABS: HEMATOCRIT 26.4 % (37.0-47.0); HEMOGLOBIN 8.7 g/dl (12.0-16.0)
[2016-07-07] MEDS ORDERED: DEXTROSE 50% 50 ML SYRINGE IV PRN ×2 (08:30)
[2016-07-07] MEDS ORDERED: GLUCAGON 1 MG INJ IM PRN (08:30)
[2016-07-07] MEDS ORDERED: NACL 0.9% 3 ML SYG IV SCH (08:30)
[2016-07-07] MEDS ORDERED: ONDANSETRON 4 MG INJ IV PRN (08:30)
[2016-07-07] MEDS ORDERED: GLUCOSE GEL 15 GRAM TUBE BUCCAL PRN (08:30)
[2016-07-07] MEDS ORDERED: GLUCOSE GEL 15 GRAM TUBE PO PRN ×2 (08:30)
--- NOTE | 2016-07-07 08:52 | HP ---
Date/Time of Note Date/Time of Note DATE: 07/07/16 TIME: 08:18 Assessment/Plan VTE Prophylaxis VTE Prophylaxis Intervention: SCD's Lines/Catheters IV [facility]ter Type (from [facility]): Peripheral IV Central line still needed: No Urinary Cath still in place: No Assessment/Plan Chief Complaint/Hosp Course This is a 46-year-old female being admitted to telemetry for: #1 upper GI bleed: Peptic ulcer disease versus other GI etiology. Patient n.p.o. Protonix drip. Serial serial H/H every 6 hours. Type and screen. Goal is to keep hemoglobin above 7. Patient was consented for blood and she is agreeable to receiving a blood transfusion if necessary. GI consulted. #2 ESRD: Consult nephrology for dialysis management, electrolyte adjustments. #3 Anemia : Secondary to #1 as well as anemia of chronic disease ,continue to monitor H&H every 6 hours, PRBC transfusion as necessary, consult GI, hold all oral iron for now. #4 Cardiopathy: BNP of 10,000 however patient right now appears to be compensated, chest x-ray appears normal. Continue to follow. Fluid management through dialysis. #5 hypertension, will hold oral hypertensives right now as patient is n.p.o. secondary to GI bleed. Will start as needed hydralazine 10 mg IV every 6 and titrate dose as needed. #6 diabetes mellitus: Continue home dose of Lantus, insulin sliding scale for patient being n.p.o. #7 eye disease: Glaucoma versus other etiology: Patient does not know exact etiology of her eye disease. We will continue ophthalmic brimonidine #8 DVT and GI prophylaxis: SCas chemical anticoagulation is contraindicated right now secondary to GI bleed, Protonix drip. Problems: HPI/ROS Admit Date/Time Admit Date/Time 07/07/2016 Hx of Present Illness This is a 46-year-old female who is a frequent flyer, past medical history of prior UTIs, history of opiate overdose, prior upper GI bleeding, urethral stone , gastritis, back pain, CHF, cardiomyopathy, kidney stones, hypertension, pyelonephritis, chronic kidney disease stage IV on dialysis, type 2 diabetes, diabetic nephropathy and neuropathy, degenerative joint disease of her ankle and foot, anemia of chronic disease, prior hyperglycemia, who comes in to the ER complaining of vomiting blood started last night. Patient states that she had approximately 4 bloody bouts of vomitus. She states that she also had abdominal pain starting in the epigastric area and going up. She does have a previous history of gastritis and an upper GI bleed. ALLERGIES: 1. PENICILLIN. 2. ACETAMINOPHEN. 3. EGG YOLK. 4. HYDROCODONE. 5. HYDROMORPHONE. 6. IBUPROFEN. 7. TRAMADOL. ROS Const: fatigue Eyes : No pain discharge or redness or change in visual acuity ENT: No pain, sore throat, congestion, congestion, dysphagia or discharge Respiratory: No shortness of breath, cough, sputum, wheezing, or pleuritic pain Cardiovascular: No chest pain, palpitation, PND, or edema GI : Abdominal pain, bloody vomitus Genitourinary: No dysuria, hematuria, flank pain , discharge or CVA tenderness Musculoskeletal: No joint pain, back pain, neck pain, restricted range of motion in neck or joints Skin: No rash, bruising or hives Neuro: No headache, dizziness, syncope, seizure, focal weakness Endocrine: No polyuria, polydipsia, temperature intolerance Psych: No hallucination, depression, anxiety or suicidal ideation PMH/Family/Social Past Medical History As stated in the HPI Past Surgical History Multiple right thoracocenteses in the past, right foot surgery in the past, cholecystectomy Past Surgical Hx: cholecystectomy, other Family History Significant Family History: no pertinent family hx Social History Lives [place] at home with family. No history of any smoking, drinking, or IV drug abuse Alcohol Use: none Smoking Status: Never smoker Drug Use: none Exam/Review of Systems Vital Signs Vitals Vital Signs Date Time Temp Pulse Resp B/P Pulse Ox O2 Delivery O2 Flow Rate FiO2 07/07/16 06:30 98.6 63 16 138/71 95 Room Air Intake and Output 07/06/16 07/06/16 07/07/16 15:00 23:00 07:00 Intake Total 100 ml Balance 100 ml Exam Exam PHYSICAL EXAMINATION: GENERAL: The patient is lying in bed in mild distress, vomiting blood in the vomit bag HEENT: Pupils equal, round, react to light. Extraocular muscles intact. NECK: Supple, no thyromegaly. LUNGS: Clear to auscultation bilaterally. CARDIOVASCULAR: S1, S2 heard. No rubs or gallops. ABDOMEN: Soft, tenderness to palpation at the epigastric region. MUSCULOSKELETAL: Trace lower extremity edema bilaterally. NEUROLOGIC: No focal deficits. Labs Result Diagram: 07/07/16 0619 07/06/16 2300 Medications Medications Current Medications Ondansetron HCl (Zofran Inj) 4 mg Q6H PRN IV NAUSEA AND/OR VOMITING; Start 07/07 at 08:30 Morphine Sulfate (morphine) 2 mg Q4H PRN IV PAIN LEVEL 7-10; Start 07/07/16 at 08:30 SIM LIMON July 07, 2016 08:29
[2016-07-07] MEDS: INSULIN ASPART [NOVOLOG] 3 ML PEN SC SCH ×5 (09:00→22:52)
[2016-07-07] MEDS: hydrALAzine 20 MG INJ IV SCH ×3 (10:44→17:30)
--- NOTE | 2016-07-07 11:06 | CONS ---
Date/Time of Note Date/Time of Note DATE: 07/07/16 TIME: 11:02 Assessment/Plan Assessment/Plan Chief Complaint/Hosp Course - ESRD on dialysis - CAD/CHF - DM - Hx of Proteinuria / nephrotic range - Chronic Anemia - Acute GI bleed PLAN: She is on HD MWF Will schedule dialysis for today Monitor electrolytes Hyponatremia secondary to volume overload & will be corrected with HD EPOGEN for anemia GI work up PPI THANK YOU Problems: Consultation Date/Type/Reason Admit Date/Time 07/07/2016 Date of Consultation: July 07, 2016 Type of Consultation: NEPHROLOGY Reason for Consultation ESRD on hemodialysis ENT: no complaints Respiratory: no complaints Skin: no complaints Past Medical History Medical History: congestive heart failure, coronary artery disease, diabetes, GERD, renal disease Past Surgical History Past Surgical Hx: cholecystectomy, other Family History Significant Family History: no pertinent family hx Social History Alcohol Use: none Smoking Status: Never smoker Drug Use: none Exam/Review of Systems Vital Signs Vitals Vital Signs Date Time Temp Pulse Resp B/P Pulse Ox O2 Delivery O2 Flow Rate FiO2 07/07/16 09:40 96.3 69 17 170/79 100 Room Air Intake and Output 07/06/16 07/06/16 07/07/16 15:00 23:00 07:00 Intake Total 100 ml Balance 100 ml Exam Constitutional: alert, oriented Respiratory: crackles/rales Cardiovascular: edema, regular rate and rhythm, systolic murmur Gastrointestinal: soft Results Result Diagram: 07/07/16 0619 07/06/16 2300 Results 24 hrs Laboratory Tests Test 07/06/16 21:26 07/06/16 23:00 07/07/16 06:19 07/07/16 09:52 Bedside Glucose 233 H 174 White Blood Count 6.9 Red Blood Count 3.20 L Hemoglobin 9.9 L 8.7 L Hematocrit 29.4 L 26.4 L Mean Corpuscular Volume 91.9 Mean Corpuscular Hemoglobin 30.9 Mean Corpuscular Hemoglobin Concent 33.7 Red Cell Distribution Width 12.4 Platelet Count 210 # Mean Platelet Volume 9.1 Neutrophils % 65.3 Lymphocytes % 24.1 Monocytes % 8.1 Eosinophils % 2.0 Basophils % 0.1 Nucleated Red Blood Cells % 0.0 Neutrophils # 4.5 Lymphocytes # 1.7 Monocytes # 0.6 Eosinophils # 0.1 Basophils # 0.0 Nucleated Red Blood Cells # 0.0 Prothrombin Time 11.4 L Prothrombin Time Ratio 0.9 INR International Normalized Ratio 0.83 Activated Partial Thromboplast Time 27.0 Sodium Level 129 L Potassium Level 4.6 Chloride Level 95 L Carbon Dioxide Level 27 Anion Gap 12 Blood Urea Nitrogen 34 H Creatinine 3.49 H Glucose Level 237 H Calcium Level 9.1 Total Bilirubin 0.1 L Direct Bilirubin 0.00 Indirect Bilirubin 0.1 Aspartate Amino Transf (AST/SGOT) 28 Alanine Aminotransferase (ALT/SGPT) 15 Alkaline Phosphatase 144 H Troponin I < 0.012 B-Type Natriuretic Peptide 06248 H Total Protein 7.7 Albumin 3.9 Globulin 3.80 H Albumin/Globulin Ratio 1.02 Medications Medications Current Medications Ondansetron HCl (Zofran Inj) 4 mg Q6H PRN IV NAUSEA AND/OR VOMITING; Start 07/07 at 08:30 Morphine Sulfate (morphine) 2 mg Q4H PRN IV PAIN LEVEL 7-10; Start 07/07/16 at 08:30 Brimonidine Tartrate (Alphagan P 0.1%) 1 drop Q8 BOTH EYES ; Start 07/07/16 at 14 :00 Insulin Glargine (Lantus) 12 unit QHS SC ; Start 07/07/16 at 21:00 Hydralazine HCl (Apresoline) 10 mg Q6 IV Last administered on 07/07/16t 10:44; Admin Dose 10 MG; Start 07/07/16 at 08:30 Insulin Aspart (Novolog Insulin Pen) NOVOLOG *MILD* ALGORI... Q4 SC ; Start 07/07 at 09:00 Miscellaneous Information 1 ea NOTE XX ; Start 07/07/16 at 08:30 Glucose (Glutose) 15 gm Q15M PRN PO DECREASED GLUCOSE; Start 07/07/16 at 08:30 Glucose (Glutose) 22.5 gm Q15M PRN PO DECREASED GLUCOSE; Start 07/07/16 at 08:30 Dextrose (D50w Syringe) 25 ml Q15M PRN IV DECREASED GLUCOSE; Start 07/07/16 at 08:30 Dextrose (D50w Syringe) 50 ml Q15M PRN IV DECREASED GLUCOSE; Start 07/07/16 at 08:30 Glucagon (Glucagen) 1 mg Q15M PRN IM DECREASED GLUCOSE; Start 07/07/16 at 08:30 Glucose (Glutose) 15 gm Q15M PRN BUCCAL DECREASED GLUCOSE; Start 07/07/16 at 08: 30 SAVANNA SCHWARTZ MD July 07, 2016 11:06
[2016-07-07] MEDS: PANTOPRAZOLE IV 80 MG in SOD CHLORIDE 0.9% 100 ML IV SCH ×3 (13:30→22:30)
--- NOTE | 2016-07-07 14:10 | CONS ---
Date/Time of Note Date/Time of Note DATE: 07/07/16 TIME: 13:51 Assessment/Plan Assessment/Plan Additional Assessment/Plan Assessment * Hematemesis * Anemia * Acute /chronic * ESRD on dialysis MWF management per nephrology * S/P AV fistula creation left arm * Diabetes mellitus * Hypertension * Plan * EGD risks and benefit explained to patient agrred with planned procedure * NPO * continue present management * monitor Hand H q 6 and transfuse 1 unit of PRBC if hgb less than 7.5,2 units of PRBC if hgb less than 7 * PPI Consultation Date/Type/Reason Admit Date/Time 07/07/2016 Date of Consultation: July 07, 2016 Type of Consultation: Gastroenterology Reason for Consultation Hematemesis Referring Provider: SIM LIMON Hx of Present Illness 46 year old female with past medical history of chronic kidney disease stage V on dialysis MWF,diabetes mellitus,.degenerative joint disease,anemia chronic disease,CAD,hypertension coming to emergency room with chief complaint of hematemesis.Condition stared 1 day prior to consult as hematemesis 1/4 glass per bout mixed with vomitus,with associated vague abdominal pain mild.Denies any fever,body malaise ,nor melena or hematochezia.Patient has been taking NSAIDs. Initial hemoglobin is 9.9 now 8.7,hyponatremia NA 129,BNP 416092..Presently ,no episode of hematemesis but patient feels weak Constitutional: improved, no complaints Eyes: no complaints ENT: no complaints Respiratory: no complaints Cardiovascular: no complaints Gastrointestinal: blood, flatus, nausea, pain, vomiting, No constipation Genitourinary: no complaints Musculoskeletal: no complaints Skin: no complaints Neurologic: no complaints Endocrine: no complaints Lymphatic: no complaints Psychological: nl mood/affect, no complaints Immunologic: no complaints Past Medical History Medical History: congestive heart failure, coronary artery disease, diabetes, GERD, renal disease Past Surgical History Past Surgical Hx: cholecystectomy, other (av fistula left arm/moo cathether lright subclavian) Family History Significant Family History: no pertinent family hx Social History Alcohol Use: none Smoking Status: Never smoker Drug Use: none Exam/Review of Systems Vital Signs Vitals Vital Signs Date Time Temp Pulse Resp B/P Pulse Ox O2 Delivery O2 Flow Rate FiO2 07/07/16 13:26 98.2 71 18 143/65 99 07/07/16 12:11 Room Air Intake and Output 07/06/16 07/06/16 07/07/16 15:00 23:00 07:00 Intake Total 100 ml Balance 100 ml Exam Constitutional: alert, oriented, well developed Psych: nl mood/affect, no complaints Head: atraumatic, normocephalic Eyes: PERRL, nl conjunctiva, nl sclera Neck: non-tender, supple Respiratory: clear to auscultation, normal air movement Cardiovascular: nl pulses, other (av fistula left arm/moo catheter right subclavian), regular rate and rhythm Gastrointestinal: bowel sounds, nl liver, spleen, non-tender, soft, No rebound or guarding Musculoskeletal: nl extremities to inspection, nl gait and stance Extremities: normal pulses Neurological: TENTER FEEDER II-XII intact, nl mental status, nl speech, nl strength Skin: nl turgor, No rash or lesions Lymph: nl lymph nodes Results Result Diagram: 07/07/16 0619 07/06/16 2300 Results 24 hrs Laboratory Tests Test 07/06/16 21:26 07/06/16 23:00 07/07/16 06:19 07/07/16 09:52 Bedside Glucose 233 H 174 White Blood Count 6.9 Red Blood Count 3.20 L Hemoglobin 9.9 L 8.7 L Hematocrit 29.4 L 26.4 L Mean Corpuscular Volume 91.9 Mean Corpuscular Hemoglobin 30.9 Mean Corpuscular Hemoglobin Concent 33.7 Red Cell Distribution Width 12.4 Platelet Count 210 # Mean Platelet Volume 9.1 Neutrophils % 65.3 Lymphocytes % 24.1 Monocytes % 8.1 Eosinophils % 2.0 Basophils % 0.1 Nucleated Red Blood Cells % 0.0 Neutrophils # 4.5 Lymphocytes # 1.7 Monocytes # 0.6 Eosinophils # 0.1 Basophils # 0.0 Nucleated Red Blood Cells # 0.0 Prothrombin Time 11.4 L Prothrombin Time Ratio 0.9 INR International Normalized Ratio 0.83 Activated Partial Thromboplast Time 27.0 Sodium Level 129 L Potassium Level 4.6 Chloride Level 95 L Carbon Dioxide Level 27 Anion Gap 12 Blood Urea Nitrogen 34 H Creatinine 3.49 H Glucose Level 237 H Calcium Level 9.1 Total Bilirubin 0.1 L Direct Bilirubin 0.00 Indirect Bilirubin 0.1 Aspartate Amino Transf (AST/SGOT) 28 Alanine Aminotransferase (ALT/SGPT) 15 Alkaline Phosphatase 144 H Troponin I < 0.012 B-Type Natriuretic Peptide 56571 H Total Protein 7.7 Albumin 3.9 Globulin 3.80 H Albumin/Globulin Ratio 1.02 Test 07/07/16 12:51 Bedside Glucose 185 Medications Medications Current Medications Ondansetron HCl (Zofran Inj) 4 mg Q6H PRN IV NAUSEA AND/OR VOMITING; Start 07/07 at 08:30 Morphine Sulfate (morphine) 2 mg Q4H PRN IV PAIN LEVEL 7-10; Start 07/07/16 at 08:30 Brimonidine Tartrate (Alphagan P 0.1%) 1 drop Q8 BOTH EYES ; Start 07/07/16 at 14 :00 Insulin Glargine (Lantus) 12 unit QHS SC ; Start 07/07/16 at 21:00 Hydralazine HCl (Apresoline) 10 mg Q6 IV Last administered on 07/07/16t 10:44; Admin Dose 10 MG; Start 07/07/16 at 08:30 Insulin Aspart (Novolog Insulin Pen) NOVOLOG *MILD* ALGORI... Q4 SC ; Start 07/07 at 09:00 Miscellaneous Information 1 ea NOTE XX ; Start 07/07/16 at 08:30 Glucose (Glutose) 15 gm Q15M PRN PO DECREASED GLUCOSE; Start 07/07/16 at 08:30 Glucose (Glutose) 22.5 gm Q15M PRN PO DECREASED GLUCOSE; Start 07/07/16 at 08:30 Dextrose (D50w Syringe) 25 ml Q15M PRN IV DECREASED GLUCOSE; Start 07/07/16 at 08:30 Dextrose (D50w Syringe) 50 ml Q15M PRN IV DECREASED GLUCOSE; Start 07/07/16 at 08:30 Glucagon (Glucagen) 1 mg Q15M PRN IM DECREASED GLUCOSE; Start 07/07/16 at 08:30 Glucose (Glutose) 15 gm Q15M PRN BUCCAL DECREASED GLUCOSE; Start 07/07/16 at 08: 30 Ferrous Sulfate (Ferrous Sulfate (Ec)) 325 mg DAILY PO ; Start 07/08/16 at 09:00 Hydralazine HCl (Apresoline) 50 mg Q12 PO ; Start 07/07/16 at 21:00 Losartan Potassium (Cozaar) 50 mg BID PO ; Start 07/07/16 at 21:00 Metoprolol Tartrate 25 mg 25 mg BID PO ; Start 07/07/16 at 21:00 Pantoprazole/ Sodium Chloride (Protonix Iv/NS) 100 ml @ 10 mls/hr Q10H IV ; Start 07/07/16 at 12:30 ANGELIKA BASS MD July 07, 2016 14:01
[2016-07-07 14:47] LABS: HEMATOCRIT 29.9 % (37.0-47.0)
[2016-07-07] MEDS: BRIMONIDINE 0.1% 5 ML OPH BOTH EYES SCH ×2 (15:34→22:48)
[2016-07-07] MEDS ORDERED: PROPOFOL 40 ML ONE (17:46)
[2016-07-07] MEDS ORDERED: LIDOCAINE 2% (SDV) 5 ML INJ ONE (17:46)
[2016-07-07] MEDS: METOCLOPRAMIDE 10 MG INJ IV SCH (18:46)
[2016-07-07] MEDS: SUCRALFATE (100 MG/ML) 10ML CUP PO SCH ×2 (18:46→22:48)
[2016-07-07] MEDS: morphine 2 MG INJ IV PRN (18:49)
[2016-07-07 18:52] LABS: HEMATOCRIT 30.5 % (37.0-47.0); HEMOGLOBIN 10.1 g/dl (12.0-16.0)
[2016-07-07] MEDS ORDERED: INSULIN ASPART [NOVOLOG] 3 ML PEN SC SCH (22:30)
[2016-07-07] MEDS: LOSARTAN 50 MG TAB PO SCH (22:50)
[2016-07-07] MEDS: METOPROLOL 25 MG TAB PO SCH (22:50)
[2016-07-07] MEDS: INSULIN GLARGINE [LANtus] 3 ML PEN SC SCH (22:55)
[2016-07-08 01:16] LABS: HEMATOCRIT 27.1 % (37.0-47.0); HEMOGLOBIN 8.6 g/dl (12.0-16.0)
[2016-07-08] MEDS: ACCU-CHEK XX SCH (02:00)
[2016-07-08] MEDS: METOCLOPRAMIDE 10 MG INJ IV SCH ×4 (02:02→16:38)
[2016-07-08] MEDS: PANTOPRAZOLE IV 80 MG in SOD CHLORIDE 0.9% 100 ML IV SCH ×3 (02:09→18:03)
[2016-07-08] MEDS: BRIMONIDINE 0.1% 5 ML OPH BOTH EYES SCH ×3 (06:15→20:32)
[2016-07-08] MEDS: hydrALAzine 20 MG INJ IV SCH ×4 (06:16→16:38)
[2016-07-08 07:00] LABS: ADD SCAN DIFF NO
[2016-07-08 07:07] LABS: BASOPHILS % 0.2 % (0.0-2.0); EOSINOPHILS # 0.1 10^3/ul (0.0-0.5); EOSINOPHILS % 2.8 % (0.0-7.0); HEMATOCRIT 28.8 % (37.0-47.0); HEMOGLOBIN 9.4 g/dl (12.0-16.0); MEAN CORPUSCULAR HEMOGLOBIN 30.5 pg (29.0-33.0); MEAN CORPUSCULAR HGB CONC 32.6 g/dl (32.0-37.0); MEAN CORPUSCULAR VOLUME 93.5 fl (82.0-101.0); MEAN PLATELET VOLUME 9.3 fl (7.4-10.4); MONOCYTE # 0.4 10^3/ul (0.3-0.9); MONOCYTES % 8.5 % (0.0-11.0); NEUTROPHIL # 2.7 10^3/ul (1.6-7.5); PLATELET COUNT 195 10^3/UL (140-415); RED BLOOD COUNT 3.08 10^6/ul (4.20-5.40); RED CELL DISTRIBUTION WIDTH 12.8 % (11.5-14.5); WHITE BLOOD COUNT 4.3 10^3/ul (4.8-10.8)
[2016-07-08 07:34] LABS: CHOL/HDL RATIO 2.4 RATIO; PHOSPHORUS 3.9 mg/dl (2.5-4.9)
[2016-07-08 07:36] LABS: CALCIUM 8.5 mg/dl (8.4-10.2); CREATININE 2.94 mg/dl (0.44-1.00)
[2016-07-08 07:37] VITALS: BP 107/52; RESP 16
[2016-07-08] MEDS: METOPROLOL 25 MG TAB PO SCH ×2 (07:56→20:32)
[2016-07-08] MEDS: SUCRALFATE (100 MG/ML) 10ML CUP PO SCH ×4 (07:56→20:31)
[2016-07-08] MEDS: LOSARTAN 50 MG TAB PO SCH ×2 (07:56→20:31)
[2016-07-08] MEDS: FERROUS SULFATE (EC) 325 MG TAB PO SCH (08:05)
[2016-07-08] MEDS: INSULIN ASPART [NOVOLOG] 3 ML PEN SC SCH ×3 (12:27→20:36)
[2016-07-08] MEDS: morphine 2 MG INJ IV PRN ×2 (16:38→22:19)
--- NOTE | 2016-07-08 16:58 | PN ---
Date/Time of Note Date/Time of Note DATE: 07/08/16 TIME: 16:51 Assessment/Plan VTE Prophylaxis VTE Prophylaxis Intervention: SCD's Lines/Catheters [facility] Peripheral IV Urinary Cath still in place: No Assessment/Plan Assessment/Plan ssessment * Hematemesis resolved * Anemia improved * EGD Erosive esophagitis Bile reflux gastritis * ESRD on dialysis MWF management per nephrology * S/P AV fistula creation left arm * Diabetes mellitus * Hypertension * Plan * * resume diet * continue present management * PPI Subjective 24 Hr Interval Summary Free Text/Dictation * course reviewed with RN * patient seen and examined * EGD 07/07/2016 * Erosive esophagitis * Bile reflux gastritis * Biopsy * Gastric body and antrum, biopsies: Gastric antral and gastric body type mucosa with no significant histopathological features. No H. pylori organisms are identified. Exam/Review of Systems Vital Signs Vitals Vital Signs Date Time Temp Pulse Resp B/P Pulse Ox O2 Delivery O2 Flow Rate FiO2 07/08/16 07:37 98.5 65 16 107/52 95 07/07/16 18:23 Room Air 07/07/16 18:14 2.0 Intake and Output 07/07/16 07/07/16 07/08/16 15:00 23:00 07:00 Intake Total 500 ml 130 ml Output Total 2500 ml Balance -2000 ml 130 ml Exam Constitutional: alert, oriented Head: normocephalic Neck: non-tender, supple Respiratory: clear to auscultation, normal air movement Cardiovascular: nl pulses, regular rate and rhythm Gastrointestinal: non-tender, soft Musculoskeletal: nl gait and stance Results Result Diagram: 07/08/16 0600 07/08/16 0600 Results 24 hrs Laboratory Tests Test 07/07/16 18:40 07/07/16 18:42 07/07/16 21:45 07/07/16 22:36 Hemoglobin 10.1 L Hematocrit 30.5 L Bedside Glucose 180 199 199 Test 07/08/16 00:48 07/08/16 01:59 07/08/16 06:00 07/08/16 07:55 Hemoglobin 8.6 L 9.4 L Hematocrit 27.1 L 28.8 L Bedside Glucose 144 134 White Blood Count 4.3 #L Red Blood Count 3.08 L Mean Corpuscular Volume 93.5 Mean Corpuscular Hemoglobin 30.5 Mean Corpuscular Hemoglobin Concent 32.6 Red Cell Distribution Width 12.8 Platelet Count 195 Mean Platelet Volume 9.3 Neutrophils % 64.0 Lymphocytes % 24.0 Monocytes % 8.5 Eosinophils % 2.8 Basophils % 0.2 Nucleated Red Blood Cells % 0.0 Neutrophils # 2.7 Lymphocytes # 1.0 Monocytes # 0.4 Eosinophils # 0.1 Basophils # 0.0 Nucleated Red Blood Cells # 0.0 Sodium Level 133 L Potassium Level 4.0 Chloride Level 101 Carbon Dioxide Level 29 Anion Gap 7 L Blood Urea Nitrogen 21 #H Creatinine 2.94 H Glucose Level 125 # Hemoglobin A1c 7.7 H Calcium Level 8.5 Phosphorus Level 3.9 Magnesium Level 2.0 Triglycerides Level 169 H Cholesterol Level 162 LDL Cholesterol, Calculated 61 HDL Cholesterol 67 Cholesterol/HDL Ratio 2.4 Test 07/08/16 12:09 07/08/16 16:37 Bedside Glucose 221 H 156 Medications Medications Current Medications Ondansetron HCl (Zofran Inj) 4 mg Q6H PRN IV NAUSEA AND/OR VOMITING; Start 07/07 at 08:30 Morphine Sulfate (morphine) 2 mg Q4H PRN IV PAIN LEVEL 7-10 Last administered on 07/07/16 18:49; Admin Dose 2 MG; Start 07/07/16 at 08:30 Brimonidine Tartrate (Alphagan P 0.1%) 1 drop Q8 BOTH EYES Last administered on 07/08/16 06:15; Admin Dose 1 DROP; Start 07/07/16 at 14:00 Insulin Glargine (Lantus) 12 unit QHS SC Last administered on 07/07/16 22:55; Admin Dose 12 UNIT; Start 07/07/16 at 21:00 Hydralazine HCl (Apresoline) 10 mg Q6 IV Last administered on 07/08/16 12:22; Admin Dose 10 MG; Start 07/07/16 at 08:30 Miscellaneous Information 1 ea NOTE XX ; Start 07/07/16 at 08:30 Glucose (Glutose) 15 gm Q15M PRN PO DECREASED GLUCOSE; Start 07/07/16 at 08:30 Glucose (Glutose) 22.5 gm Q15M PRN PO DECREASED GLUCOSE; Start 07/07/16 at 08:30 Dextrose (D50w Syringe) 25 ml Q15M PRN IV DECREASED GLUCOSE; Start 07/07/16 at 08:30 Dextrose (D50w Syringe) 50 ml Q15M PRN IV DECREASED GLUCOSE; Start 07/07/16 at 08:30 Glucagon (Glucagen) 1 mg Q15M PRN IM DECREASED GLUCOSE; Start 07/07/16 at 08:30 Glucose (Glutose) 15 gm Q15M PRN BUCCAL DECREASED GLUCOSE; Start 07/07/16 at 08: 30 Ferrous Sulfate (Ferrous Sulfate (Ec)) 325 mg DAILY PO Last administered on 07/08 08:05; Admin Dose 325 MG; Start 07/08/16 at 09:00 Hydralazine HCl (Apresoline) 50 mg Q12 PO Last administered on 07/07/16 22:49; Admin Dose 50 MG; Start 07/07/16 at 21:00 Losartan Potassium (Cozaar) 50 mg BID PO Last administered on 07/07/16 22:50; Admin Dose 50 MG; Start 07/07/16 at 21:00 Metoprolol Tartrate 25 mg 25 mg BID PO Last administered on 07/07/16 22:50; Admin Dose 25 MG; Start 07/07/16 at 21:00 Pantoprazole/ Sodium Chloride (Protonix Iv/NS) 100 ml @ 10 mls/hr Q10H IV Last administered on 07/08/16 14:51; Admin Dose 10 MLS/HR; Start 07/07/16 at 12: 30 Metoclopramide HCl (Reglan) 10 mg Q6 IV Last administered on 07/08/16 12:21; Admin Dose 10 MG; Start 07/07/16 at 18:30 Sucralfate (Carafate Susp) 1 gm QID PO Last administered on 07/08/16 12:22; Admin Dose 1 GM; Start 07/07/16 at 18:30 Diagnostic Test (Pha) (Accu-Chek) 1 ea 02 XX ; Start 07/08/16 at 02:00 ANGELIKA BASS MD July 08, 2016 16:58
--- NOTE | 2016-07-08 18:11 | PN ---
Date/Time of Note Date/Time of Note DATE: 07/08/16 TIME: 18:09 Assessment/Plan VTE Prophylaxis VTE Prophylaxis Intervention: SCD's Lines/Catheters IV Catheter Type (from [facility]): Peripheral IV Urinary Cath still in place: No Assessment/Plan Assessment/Plan #1 upper GI bleed:- S/p GI consutl, plan for EGD, IV protonix #2 ESRD on HD #3 Severe anemia due to GI bleeding #4 Hyponaremia and fluid overload #5 hypertension, will hold oral hypertensives right now as patient is n.p.o. secondary to GI bleed. Will start as needed hydralazine 10 mg IV every 6 and titrate dose as needed. #6 diabetes mellitus: Continue home dose of Lantus, insulin sliding scale for patient being n.p.o. #7 eye disease: Glaucoma versus other etiology: Patient does not know exact etiology of her eye disease. We will continue ophthalmic brimonidine #8 DVT and GI prophylaxis: SCas chemical anticoagulation is contraindicated right now secondary to GI bleed, Protonix drip. EGD today by GI HD as per Nephrology, pt regular schedule for HD is MWF Subjective 24 Hr Interval Summary Free Text/Dictation plan for EGD by GI, HD as per nephrology Exam/Review of Systems Vital Signs Vitals Vital Signs Date Time Temp Pulse Resp B/P Pulse Ox O2 Delivery O2 Flow Rate FiO2 07/08/16 07:37 98.5 65 16 107/52 95 07/07/16 18:23 Room Air 07/07/16 18:14 2.0 Intake and Output 07/07/16 07/07/16 07/08/16 15:00 23:00 07:00 Intake Total 500 ml 130 ml Output Total 2500 ml Balance -2000 ml 130 ml Results Result Diagram: 07/08/16 0600 07/08/16 0600 Results 24 hrs Laboratory Tests Test 07/07/16 18:40 07/07/16 18:42 07/07/16 21:45 07/07/16 22:36 Hemoglobin 10.1 L Hematocrit 30.5 L Bedside Glucose 180 199 199 Test 07/08/16 00:48 07/08/16 01:59 07/08/16 06:00 07/08/16 07:55 Hemoglobin 8.6 L 9.4 L Hematocrit 27.1 L 28.8 L Bedside Glucose 144 134 White Blood Count 4.3 #L Red Blood Count 3.08 L Mean Corpuscular Volume 93.5 Mean Corpuscular Hemoglobin 30.5 Mean Corpuscular Hemoglobin Concent 32.6 Red Cell Distribution Width 12.8 Platelet Count 195 Mean Platelet Volume 9.3 Neutrophils % 64.0 Lymphocytes % 24.0 Monocytes % 8.5 Eosinophils % 2.8 Basophils % 0.2 Nucleated Red Blood Cells % 0.0 Neutrophils # 2.7 Lymphocytes # 1.0 Monocytes # 0.4 Eosinophils # 0.1 Basophils # 0.0 Nucleated Red Blood Cells # 0.0 Sodium Level 133 L Potassium Level 4.0 Chloride Level 101 Carbon Dioxide Level 29 Anion Gap 7 L Blood Urea Nitrogen 21 #H Creatinine 2.94 H Glucose Level 125 # Hemoglobin A1c 7.7 H Calcium Level 8.5 Phosphorus Level 3.9 Magnesium Level 2.0 Triglycerides Level 169 H Cholesterol Level 162 LDL Cholesterol, Calculated 61 HDL Cholesterol 67 Cholesterol/HDL Ratio 2.4 Test 07/08/16 12:09 07/08/16 16:37 07/08/16 16:58 Bedside Glucose 221 H 156 159 Medications Medications Current Medications Ondansetron HCl (Zofran Inj) 4 mg Q6H PRN IV NAUSEA AND/OR VOMITING; Start 07/07 at 08:30 Morphine Sulfate (morphine) 2 mg Q4H PRN IV PAIN LEVEL 7-10 Last administered on 07/08/16 16:38; Admin Dose 2 MG; Start 07/07/16 at 08:30 Brimonidine Tartrate (Alphagan P 0.1%) 1 drop Q8 BOTH EYES Last administered on 07/08/16 06:15; Admin Dose 1 DROP; Start 07/07/16 at 14:00 Insulin Glargine (Lantus) 12 unit QHS SC Last administered on 07/07/16 22:55; Admin Dose 12 UNIT; Start 07/07/16 at 21:00 Hydralazine HCl (Apresoline) 10 mg Q6 IV Last administered on 07/08/16 16:38; Admin Dose 10 MG; Start 07/07/16 at 08:30 Miscellaneous Information 1 ea NOTE XX ; Start 07/07/16 at 08:30 Glucose (Glutose) 15 gm Q15M PRN PO DECREASED GLUCOSE; Start 07/07/16 at 08:30 Glucose (Glutose) 22.5 gm Q15M PRN PO DECREASED GLUCOSE; Start 07/07/16 at 08:30 Dextrose (D50w Syringe) 25 ml Q15M PRN IV DECREASED GLUCOSE; Start 07/07/16 at 08:30 Dextrose (D50w Syringe) 50 ml Q15M PRN IV DECREASED GLUCOSE; Start 07/07/16 at 08:30 Glucagon (Glucagen) 1 mg Q15M PRN IM DECREASED GLUCOSE; Start 07/07/16 at 08:30 Glucose (Glutose) 15 gm Q15M PRN BUCCAL DECREASED GLUCOSE; Start 07/07/16 at 08: 30 Ferrous Sulfate (Ferrous Sulfate (Ec)) 325 mg DAILY PO Last administered on 07/08 08:05; Admin Dose 325 MG; Start 07/08/16 at 09:00 Hydralazine HCl (Apresoline) 50 mg Q12 PO Last administered on 07/07/16 22:49; Admin Dose 50 MG; Start 07/07/16 at 21:00 Losartan Potassium (Cozaar) 50 mg BID PO Last administered on 07/07/16 22:50; Admin Dose 50 MG; Start 07/07/16 at 21:00 Metoprolol Tartrate 25 mg 25 mg BID PO Last administered on 07/07/16 22:50; Admin Dose 25 MG; Start 07/07/16 at 21:00 Pantoprazole/ Sodium Chloride (Protonix Iv/NS) 100 ml @ 10 mls/hr Q10H IV Last administered on 07/08/16 14:51; Admin Dose 10 MLS/HR; Start 07/07/16 at 12: 30 Metoclopramide HCl (Reglan) 10 mg Q6 IV Last administered on 07/08/16 16:38; Admin Dose 10 MG; Start 07/07/16 at 18:30 Sucralfate (Carafate Susp) 1 gm QID PO Last administered on 07/08/16 16:38; Admin Dose 1 GM; Start 07/07/16 at 18:30 Diagnostic Test (Pha) (Accu-Chek) 1 ea 02 XX ; Start 07/08/16 at 02:00 HIMANSHU NORWOOD MD July 08, 2016 18:11
[2016-07-08 20:01] VITALS: BP 177/81; RESP 18
[2016-07-08] MEDS: INSULIN GLARGINE [LANtus] 3 ML PEN SC SCH (20:35)
[2016-07-09] VITALS (13 sets, daily range): BP systolic 117–146; BP diastolic 53–71; PULSE 8–78; RESP 16–18
[2016-07-09] MEDS: PANTOPRAZOLE IV 80 MG in SOD CHLORIDE 0.9% 100 ML IV SCH ×2 (00:44→17:26)
[2016-07-09] MEDS: METOCLOPRAMIDE 10 MG INJ IV SCH ×4 (00:45→18:18)
[2016-07-09] MEDS: hydrALAzine 20 MG INJ IV SCH ×4 (00:45→18:20)
[2016-07-09] MEDS: ACCU-CHEK XX SCH (02:00)
[2016-07-09] MEDS: BRIMONIDINE 0.1% 5 ML OPH BOTH EYES SCH ×3 (06:05→21:12)
[2016-07-09 06:23] LABS: ADD SCAN DIFF NO
[2016-07-09 06:34] LABS: BASOPHILS % 0.2 % (0.0-2.0); EOSINOPHILS # 0.1 10^3/ul (0.0-0.5); EOSINOPHILS % 2.9 % (0.0-7.0); HEMATOCRIT 27.4 % (37.0-47.0); HEMOGLOBIN 8.8 g/dl (12.0-16.0); LYMPHOCYTES # 1.5 10^3/ul (0.8-2.9); LYMPHOCYTES % 30.8 % (15.0-51.0); MEAN CORPUSCULAR HEMOGLOBIN 30.2 pg (29.0-33.0); MEAN CORPUSCULAR HGB CONC 32.1 g/dl (32.0-37.0); MEAN CORPUSCULAR VOLUME 94.2 fl (82.0-101.0); MEAN PLATELET VOLUME 9.4 fl (7.4-10.4); MONOCYTE # 0.5 10^3/ul (0.3-0.9); MONOCYTES % 10.1 % (0.0-11.0); NEUTROPHIL # 2.7 10^3/ul (1.6-7.5); NEUTROPHILS % 55.8 % (39.0-77.0); PLATELET COUNT 175 10^3/UL (140-415); RED BLOOD COUNT 2.91 10^6/ul (4.20-5.40); WHITE BLOOD COUNT 4.8 10^3/ul (4.8-10.8)
[2016-07-09 07:19] LABS: INR 0.96; PROTIME 12.8 Sec (12.2-14.2)
[2016-07-09 07:45] LABS: CALCIUM 8.4 mg/dl (8.4-10.2); CREATININE 4.3 mg/dl (0.44-1.00)
[2016-07-09] MEDS: INSULIN ASPART [NOVOLOG] 3 ML PEN SC SCH ×4 (08:15→20:30)
[2016-07-09] MEDS: LOSARTAN 50 MG TAB PO SCH ×2 (08:17→20:28)
[2016-07-09] MEDS: METOPROLOL 25 MG TAB PO SCH ×2 (08:17→20:27)
[2016-07-09] MEDS: FERROUS SULFATE (EC) 325 MG TAB PO SCH (08:38)
[2016-07-09] MEDS: SUCRALFATE (100 MG/ML) 10ML CUP PO SCH ×4 (08:38→20:27)
--- NOTE | 2016-07-09 09:50 | CONS ---
Date/Time of Note Date/Time of Note DATE: 07/09/16 TIME: 09:45 Assessment/Plan Assessment/Plan Additional Assessment/Plan Anemia Likely secondary to hematemesis, improved Status post EGD: 1. Erosive esophagitis 2. Bile reflux gastritis 3. Biopsies: gastric body and antrum, biopsies: Gastric antral and gastric body type mucosa with no significant histopathological features. No H. pylori organisms are identified. ESRD on dialysis MWF management per nephrology * S/P AV fistula creation left arm Diabetes mellitus Hypertension Plan: Advance diet as tolerated Continue PPI twice daily Further recommendations depend on clinical course Patient seen in collaboration with Dr. Lujan Consultation Date/Type/Reason Admit Date/Time July 07, 2016 at 03:51 Initial Consult Date 07/07/16 Type of Consultation: Gastroenterology Referring Provider: SIM LIMON 24 HR Interval Summary Free Text/Dictation Tolerating diet Hemodialysis in process Hemoglobin stable but dropped Patient not in range for transfusion Exam/Review of Systems Vital Signs Vitals Vital Signs Date Time Temp Pulse Resp B/P Pulse Ox O2 Delivery O2 Flow Rate FiO2 07/09/16 07:40 98.8 69 18 135/56 97 07/07/16 18:23 Room Air 07/07/16 18:14 2.0 Intake and Output 07/08/16 07/08/16 07/09/16 15:00 23:00 07:00 Intake Total 70 ml 1100 ml 610 ml Balance 70 ml 1100 ml 610 ml Exam Constitutional: alert, oriented, well developed Psych: nl mood/affect Head: normocephalic Eyes: EOMI, nl conjunctiva, nl lids ENMT: nl external ears & nose, nl lips & teeth, nl nasal mucosa & septum Respiratory: clear to auscultation, normal air movement Cardiovascular: regular rate and rhythm Gastrointestinal: soft, soft tender Musculoskeletal: nl extremities to inspection Neurological: INTERIOR DECORATOR PAINTING II-XII intact Results Result Diagram: 07/09/16 0504 07/09/16 0504 Results 24 hrs Laboratory Tests Test 07/08/16 12:09 07/08/16 16:37 07/08/16 16:58 07/08/16 20:29 Bedside Glucose 221 H 156 159 190 Test 07/09/16 01:59 07/09/16 05:04 07/09/16 08:12 Bedside Glucose 154 111 White Blood Count 4.8 Red Blood Count 2.91 L Hemoglobin 8.8 L Hematocrit 27.4 L Mean Corpuscular Volume 94.2 Mean Corpuscular Hemoglobin 30.2 Mean Corpuscular Hemoglobin Concent 32.1 Red Cell Distribution Width 13.0 Platelet Count 175 Mean Platelet Volume 9.4 Neutrophils % 55.8 Lymphocytes % 30.8 Monocytes % 10.1 Eosinophils % 2.9 Basophils % 0.2 Nucleated Red Blood Cells % 0.0 Neutrophils # 2.7 Lymphocytes # 1.5 Monocytes # 0.5 Eosinophils # 0.1 Basophils # 0.0 Nucleated Red Blood Cells # 0.0 Prothrombin Time 12.8 Prothrombin Time Ratio 1.0 INR International Normalized Ratio 0.96 Activated Partial Thromboplast Time 28.0 Sodium Level 132 L Potassium Level 4.0 Chloride Level 101 Carbon Dioxide Level 27 Anion Gap 8 Blood Urea Nitrogen 29 H Creatinine 4.30 #H Glucose Level 121 Calcium Level 8.4 Medications Medications Current Medications Ondansetron HCl (Zofran Inj) 4 mg Q6H PRN IV NAUSEA AND/OR VOMITING; Start 07/07 at 08:30 Morphine Sulfate (morphine) 2 mg Q4H PRN IV PAIN LEVEL 7-10 Last administered on 07/08/16 22:19; Admin Dose 2 MG; Start 07/07/16 at 08:30 Brimonidine Tartrate (Alphagan P 0.1%) 1 drop Q8 BOTH EYES Last administered on 07/09/16 06:05; Admin Dose 1 DROP; Start 07/07/16 at 14:00 Insulin Glargine (Lantus) 12 unit QHS SC Last administered on 07/08/16 20:35; Admin Dose 12 UNIT; Start 07/07/16 at 21:00 Hydralazine HCl (Apresoline) 10 mg Q6 IV Last administered on 07/09/16 06:05; Admin Dose 10 MG; Start 07/07/16 at 08:30 Miscellaneous Information 1 ea NOTE XX ; Start 07/07/16 at 08:30 Glucose (Glutose) 15 gm Q15M PRN PO DECREASED GLUCOSE; Start 07/07/16 at 08:30 Glucose (Glutose) 22.5 gm Q15M PRN PO DECREASED GLUCOSE; Start 07/07/16 at 08:30 Dextrose (D50w Syringe) 25 ml Q15M PRN IV DECREASED GLUCOSE; Start 07/07/16 at 08:30 Dextrose (D50w Syringe) 50 ml Q15M PRN IV DECREASED GLUCOSE; Start 07/07/16 at 08:30 Glucagon (Glucagen) 1 mg Q15M PRN IM DECREASED GLUCOSE; Start 07/07/16 at 08:30 Glucose (Glutose) 15 gm Q15M PRN BUCCAL DECREASED GLUCOSE; Start 07/07/16 at 08: 30 Ferrous Sulfate (Ferrous Sulfate (Ec)) 325 mg DAILY PO Last administered on 07/09 08:38; Admin Dose 325 MG; Start 07/08/16 at 09:00 Hydralazine HCl (Apresoline) 50 mg Q12 PO Last administered on 07/08/16 20:31; Admin Dose 50 MG; Start 07/07/16 at 21:00 Losartan Potassium (Cozaar) 50 mg BID PO Last administered on 07/08/16 20:31; Admin Dose 50 MG; Start 07/07/16 at 21:00 Metoprolol Tartrate 25 mg 25 mg BID PO Last administered on 07/08/16 20:32; Admin Dose 25 MG; Start 07/07/16 at 21:00 Pantoprazole/ Sodium Chloride (Protonix Iv/NS) 100 ml @ 10 mls/hr Q10H IV Last administered on 07/09/16 00:44; Admin Dose 10 MLS/HR; Start 07/07/16 at 12: 30 Metoclopramide HCl (Reglan) 10 mg Q6 IV Last administered on 07/09/16 06:05; Admin Dose 10 MG; Start 07/07/16 at 18:30 Sucralfate (Carafate Susp) 1 gm QID PO Last administered on 07/09/16 08:38; Admin Dose 1 GM; Start 07/07/16 at 18:30 Diagnostic Test (Pha) (Accu-Chek) 1 ea 02 XX ; Start 07/08/16 at 02:00 GUY SMITH July 09, 2016 09:49
[2016-07-09] MEDS ORDERED: HEPARIN 1000 UNITS/ML 10 ML INJ CATHETER ONE ×2 (11:30→12:00)
[2016-07-09] MEDS: morphine 2 MG INJ IV PRN ×2 (12:24→21:13)
[2016-07-09] MEDS ORDERED: LORAZEPAM 2 MG INJ IV PRN ×2 (12:30→18:00)
--- NOTE | 2016-07-09 14:45 | CONS ---
Date/Time of Note Date/Time of Note DATE: 07/09/16 TIME: 14:43 Assessment/Plan Assessment/Plan Chief Complaint/Hosp Course - ESRD on dialysis - CAD/CHF - DM - Hx of Proteinuria / nephrotic range - Chronic Anemia - Acute GI bleed PLAN: She is on HD MWF Will schedule dialysis for today Had some chills on HD, will follow up with culture results Monitor electrolytes EPOGEN for anemia GI work up PPI Problems: Consultation Date/Type/Reason Admit Date/Time July 07, 2016 at 03:51 Initial Consult Date 07/07/16 Type of Consultation: NEPHROLOGY Reason for Consultation ESRD Referring Provider: SIM LIMON 24 HR Interval Summary Constitutional: improved, no complaints Exam/Review of Systems Vital Signs Vitals Vital Signs Date Time Temp Pulse Resp B/P Pulse Ox O2 Delivery O2 Flow Rate FiO2 07/09/16 12:00 78 07/09/16 12:00 20 07/09/16 07:40 98.8 135/56 97 07/07/16 18:23 Room Air 07/07/16 18:14 2.0 Intake and Output 07/08/16 07/08/16 07/09/16 15:00 23:00 07:00 Intake Total 70 ml 1100 ml 610 ml Balance 70 ml 1100 ml 610 ml Exam Constitutional: alert, oriented Respiratory: crackles/rales Cardiovascular: regular rate and rhythm, systolic murmur Gastrointestinal: soft Results Result Diagram: 07/09/16 0504 07/09/16 0504 Results 24 hrs Laboratory Tests Test 07/08/16 16:37 07/08/16 16:58 07/08/16 20:29 07/09/16 01:59 Bedside Glucose 156 159 190 154 Test 07/09/16 05:04 07/09/16 08:12 07/09/16 12:14 07/09/16 13:06 White Blood Count 4.8 Red Blood Count 2.91 L Hemoglobin 8.8 L Hematocrit 27.4 L Mean Corpuscular Volume 94.2 Mean Corpuscular Hemoglobin 30.2 Mean Corpuscular Hemoglobin Concent 32.1 Red Cell Distribution Width 13.0 Platelet Count 175 Mean Platelet Volume 9.4 Neutrophils % 55.8 Lymphocytes % 30.8 Monocytes % 10.1 Eosinophils % 2.9 Basophils % 0.2 Nucleated Red Blood Cells % 0.0 Neutrophils # 2.7 Lymphocytes # 1.5 Monocytes # 0.5 Eosinophils # 0.1 Basophils # 0.0 Nucleated Red Blood Cells # 0.0 Prothrombin Time 12.8 Prothrombin Time Ratio 1.0 INR International Normalized Ratio 0.96 Activated Partial Thromboplast Time 28.0 Sodium Level 132 L Potassium Level 4.0 Chloride Level 101 Carbon Dioxide Level 27 Anion Gap 8 Blood Urea Nitrogen 29 H Creatinine 4.30 #H Glucose Level 121 Calcium Level 8.4 Bedside Glucose 111 245 H 251 H Medications Medications Current Medications Ondansetron HCl (Zofran Inj) 4 mg Q6H PRN IV NAUSEA AND/OR VOMITING; Start 07/07 at 08:30 Morphine Sulfate (morphine) 2 mg Q4H PRN IV PAIN LEVEL 7-10 Last administered on 07/09/16 12:24; Admin Dose 2 MG; Start 07/07/16 at 08:30 Brimonidine Tartrate (Alphagan P 0.1%) 1 drop Q8 BOTH EYES Last administered on 07/09/16 06:05; Admin Dose 1 DROP; Start 07/07/16 at 14:00 Insulin Glargine (Lantus) 12 unit QHS SC Last administered on 07/08/16 20:35; Admin Dose 12 UNIT; Start 07/07/16 at 21:00 Hydralazine HCl (Apresoline) 10 mg Q6 IV Last administered on 07/09/16 06:05; Admin Dose 10 MG; Start 07/07/16 at 08:30 Miscellaneous Information 1 ea NOTE XX ; Start 07/07/16 at 08:30 Glucose (Glutose) 15 gm Q15M PRN PO DECREASED GLUCOSE; Start 07/07/16 at 08:30 Glucose (Glutose) 22.5 gm Q15M PRN PO DECREASED GLUCOSE; Start 07/07/16 at 08:30 Dextrose (D50w Syringe) 25 ml Q15M PRN IV DECREASED GLUCOSE; Start 07/07/16 at 08:30 Dextrose (D50w Syringe) 50 ml Q15M PRN IV DECREASED GLUCOSE; Start 07/07/16 at 08:30 Glucagon (Glucagen) 1 mg Q15M PRN IM DECREASED GLUCOSE; Start 07/07/16 at 08:30 Glucose (Glutose) 15 gm Q15M PRN BUCCAL DECREASED GLUCOSE; Start 07/07/16 at 08: 30 Ferrous Sulfate (Ferrous Sulfate (Ec)) 325 mg DAILY PO Last administered on 07/09 08:38; Admin Dose 325 MG; Start 07/08/16 at 09:00 Hydralazine HCl (Apresoline) 50 mg Q12 PO Last administered on 07/08/16 20:31; Admin Dose 50 MG; Start 07/07/16 at 21:00 Losartan Potassium (Cozaar) 50 mg BID PO Last administered on 07/08/16 20:31; Admin Dose 50 MG; Start 07/07/16 at 21:00 Metoprolol Tartrate 25 mg 25 mg BID PO Last administered on 07/08/16 20:32; Admin Dose 25 MG; Start 07/07/16 at 21:00 Pantoprazole/ Sodium Chloride (Protonix Iv/NS) 100 ml @ 10 mls/hr Q10H IV Last administered on 07/09/16 00:44; Admin Dose 10 MLS/HR; Start 07/07/16 at 12: 30 Metoclopramide HCl (Reglan) 10 mg Q6 IV Last administered on 07/09/16 06:05; Admin Dose 10 MG; Start 07/07/16 at 18:30 Sucralfate (Carafate Susp) 1 gm QID PO Last administered on 07/09/16 08:38; Admin Dose 1 GM; Start 07/07/16 at 18:30 Diagnostic Test (Pha) (Accu-Chek) 1 ea 02 XX ; Start 07/08/16 at 02:00 Lorazepam (Ativan) 1 mg Q4H PRN IV seizures ; Start 07/09/16 at 12:30 SAVANNA SCHWARTZ MD July 09, 2016 14:45
--- NOTE | 2016-07-09 16:22 | GILP ---
DATE OF PROCEDURE: 07/07/2016 NAME OF PROCEDURE: Esophagogastroduodenoscopy with biopsies. SURGEON: Angelika Lujan MD. PREMEDICATION: Monitored anesthesia care by anesthesiologist. INSTRUMENT USED: Olympus panendoscope. TECHNIQUE: After informed consent, with the patient/relatives understanding the procedure, its indic ations, potential risks and complications, including but not limited to: allergic reaction, bleeding , perforation or infection, and after all pertinent questions were answered to the patients satisfac tion, the patient/relatives signed witnessed informed consent. Following this, premedication was administered slowly IV push under careful cardiovascular and respi ratory monitoring with pulse oximetry, automatic blood pressure and handle lathe operator. Once the sedative effect was achieved the patient was place in the left lateral decubitus, the panen doscope was introduced and advanced under visual control. Careful examination of the upper gastrointestinal tract, both on insertion as well as withdrawal of the instrument disclosed the following findings: ESOPHAGUS: The distal esophagus showed significant erythema and edema and superficial erosion of the mucosa. STOMACH: Upon entrance to the stomach air was insufflated, the gastric segura distended normally. The re was erythema and edema of the mucosa of a moderate degree. A significant amount of bile was also encountered in the stomach and stains to segura. Biopsies were obtained to rule out H. pylori infec tion. PYLORUS: The pylorus appears patent and within normal limits, with no evidence of gastric outlet obs truction. DUODENUM: The duodenal mucosa was carefully examined in the duodenal bulb as well as the second port ion of the duodenum and appears unremarkable with no evidence of duodenitis, ulcer or neoplasm. The instrument was then withdrawn, the patient tolerated the procedure well and was transfer out of the endoscopy suite awake, and in good condition to continue recovery under observation IMPRESSION: 1. Erosive esophagitis. 2. Bile reflux gastritis. Rule out Helicobacter pylori infection. Biopsies obtained. RECOMMENDATIONS: The patient will be treated with PPIs and Carafate, and further recommendations wi ll depend on the clinical course as well as review of biopsies. Dictated By: ANGELIKA LUJAN MS/DARRIAN Conf#: [id number] DID#: [id number] CC: ANGELIKA LUJAN;*EndCC*
--- NOTE | 2016-07-09 17:42 | PN ---
Date/Time of Note Date/Time of Note DATE: 07/09/16 TIME: 17:37 Assessment/Plan VTE Prophylaxis VTE Prophylaxis Intervention: SCD's Lines/Catheters IV C[facility]ter Type (from [facility] Peripheral IV Urinary Cath still in place: No Assessment/Plan Assessment/Plan #1 upper GI bleed:- on protonix gtt, s/p EGD showed Esophagitis and Bile reflux gastritis- Hb 8.8 today #2 ESRD on HD #3 Severe anemia due to GI bleeding #4 Hyponaremia and fluid overload #5 hypertension, resume oral BP meds, IV hydralazine prn #6 diabetes mellitus: Continue home dose of Lantus, insulin sliding scale for patient being n.p.o. #7 eye disease: Glaucoma versus other etiology: Patient does not know exact etiology of her eye disease. We will continue ophthalmic brimonidine #8 DVT and GI prophylaxis: SCas chemical anticoagulation is contraindicated right now secondary to GI bleed, Protonix drip. after HD pt had a episode of Seizure like activity- it is unclear about whether it was a seizure or something else - will transfer to telemetry floor, IV ativan prn< CT head w/o contrast HD as per Nephrology, pt regular schedule for HD is MWF Subjective 24 Hr Interval Summary Free Text/Dictation S/p EGD which showed Erosive esophagitis and Bile reflux gastritis.Hb still low , S/p HD today - after HD pt had a episode of Seizure like activity- it is unclear about whether it was a seizure or something else Exam/Review of Systems Vital Signs Vitals Vital Signs Date Time Temp Pulse Resp B/P Pulse Ox O2 Delivery O2 Flow Rate FiO2 07/09/16 16:04 97.6 89 18 143/67 99 07/09/16 14:30 Nasal Cannula 2.0 Intake and Output 07/08/16 07/08/16 07/09/16 15:00 23:00 07:00 Intake Total 70 ml 1100 ml 610 ml Balance 70 ml 1100 ml 610 ml Results Result Diagram: 07/09/16 0504 07/09/16 0504 Results 24 hrs Laboratory Tests Test 07/08/16 20:29 07/09/16 01:59 07/09/16 05:04 07/09/16 08:12 Bedside Glucose 190 154 111 White Blood Count 4.8 Red Blood Count 2.91 L Hemoglobin 8.8 L Hematocrit 27.4 L Mean Corpuscular Volume 94.2 Mean Corpuscular Hemoglobin 30.2 Mean Corpuscular Hemoglobin Concent 32.1 Red Cell Distribution Width 13.0 Platelet Count 175 Mean Platelet Volume 9.4 Neutrophils % 55.8 Lymphocytes % 30.8 Monocytes % 10.1 Eosinophils % 2.9 Basophils % 0.2 Nucleated Red Blood Cells % 0.0 Neutrophils # 2.7 Lymphocytes # 1.5 Monocytes # 0.5 Eosinophils # 0.1 Basophils # 0.0 Nucleated Red Blood Cells # 0.0 Prothrombin Time 12.8 Prothrombin Time Ratio 1.0 INR International Normalized Ratio 0.96 Activated Partial Thromboplast Time 28.0 Sodium Level 132 L Potassium Level 4.0 Chloride Level 101 Carbon Dioxide Level 27 Anion Gap 8 Blood Urea Nitrogen 29 H Creatinine 4.30 #H Glucose Level 121 Calcium Level 8.4 Test 07/09/16 12:14 07/09/16 13:06 Bedside Glucose 245 H 251 H Medications Medications Current Medications Ondansetron HCl (Zofran Inj) 4 mg Q6H PRN IV NAUSEA AND/OR VOMITING; Start 07/07 at 08:30 Morphine Sulfate (morphine) 2 mg Q4H PRN IV PAIN LEVEL 7-10 Last administered on 07/09/16 12:24; Admin Dose 2 MG; Start 07/07/16 at 08:30 Brimonidine Tartrate (Alphagan P 0.1%) 1 drop Q8 BOTH EYES Last administered on 07/09/16 17:26; Admin Dose 1 DROP; Start 07/07/16 at 14:00 Insulin Glargine (Lantus) 12 unit QHS SC Last administered on 07/08/16 20:35; Admin Dose 12 UNIT; Start 07/07/16 at 21:00 Hydralazine HCl (Apresoline) 10 mg Q6 IV Last administered on 07/09/16 06:05; Admin Dose 10 MG; Start 07/07/16 at 08:30 Miscellaneous Information 1 ea NOTE XX ; Start 07/07/16 at 08:30 Glucose (Glutose) 15 gm Q15M PRN PO DECREASED GLUCOSE; Start 07/07/16 at 08:30 Glucose (Glutose) 22.5 gm Q15M PRN PO DECREASED GLUCOSE; Start 07/07/16 at 08:30 Dextrose (D50w Syringe) 25 ml Q15M PRN IV DECREASED GLUCOSE; Start 07/07/16 at 08:30 Dextrose (D50w Syringe) 50 ml Q15M PRN IV DECREASED GLUCOSE; Start 07/07/16 at 08:30 Glucagon (Glucagen) 1 mg Q15M PRN IM DECREASED GLUCOSE; Start 07/07/16 at 08:30 Glucose (Glutose) 15 gm Q15M PRN BUCCAL DECREASED GLUCOSE; Start 07/07/16 at 08: 30 Ferrous Sulfate (Ferrous Sulfate (Ec)) 325 mg DAILY PO Last administered on 07/09 08:38; Admin Dose 325 MG; Start 07/08/16 at 09:00 Hydralazine HCl (Apresoline) 50 mg Q12 PO Last administered on 07/08/16 20:31; Admin Dose 50 MG; Start 07/07/16 at 21:00 Losartan Potassium (Cozaar) 50 mg BID PO Last administered on 07/08/16 20:31; Admin Dose 50 MG; Start 07/07/16 at 21:00 Metoprolol Tartrate 25 mg 25 mg BID PO Last administered on 07/08/16 20:32; Admin Dose 25 MG; Start 07/07/16 at 21:00 Pantoprazole/ Sodium Chloride (Protonix Iv/NS) 100 ml @ 10 mls/hr Q10H IV Last administered on 07/09/16 17:26; Admin Dose 10 MLS/HR; Start 07/07/16 at 12: 30 Metoclopramide HCl (Reglan) 10 mg Q6 IV Last administered on 07/09/16 06:05; Admin Dose 10 MG; Start 07/07/16 at 18:30 Sucralfate (Carafate Susp) 1 gm QID PO Last administered on 07/09/16 17:33; Admin Dose 1 GM; Start 07/07/16 at 18:30 Diagnostic Test (Pha) (Accu-Chek) 1 ea 02 XX ; Start 07/08/16 at 02:00 Lorazepam (Ativan) 1 mg Q4H PRN IV seizures ; Start 07/09/16 at 12:30 HIMANSHU NORWOOD MD July 09, 2016 17:41
[2016-07-09] MEDS: PANTOPRAZOLE 40 MG INJ IV SCH (18:18)
--- NOTE | 2016-07-09 18:58 | RADRPT ---
PROCEDURE: CT Brain without contrast. CLINICAL INDICATION: Seizures after hemodialysis.. TECHNIQUE: A CT of the brain was performed on a multislice detector CT scanner utilizing axial sec tions from the skull base through the vertex without contrast. Images were reviewed on a [facility] PACS workstation. Exam CTDlvol = 44 mGy and DLP = 720 mGy-cm. One of the following 3 dose red uction techniques were used: Automated exposure control; adjustment of the mA and/or kV according to patient size; or use of iterative reconstruction technique. COMPARISON: 10/13/2015 FINDINGS: There is moderate generalized central and peripheral atrophy. There is no midline shift. There is a mild degree of supratentorial periventricular and subcortical white matter hypodensities. There i s no definite acute stroke. There is no mass lesion. There is no intracranial hemorrhage or abnorm al extra-axial fluid collection. Visualized paranasal sinuses are clear. IMPRESSION: 1. No acute intracranial abnormality. 2. Generalized atrophy. 3. Nonspecific white matter changes most commonly seen with microvascular ischemic disease. RPTAT: HMVK .Ronald Reyes MD, Date Time Electronically viewed and signed by .Ronald Reyes MD, on 07/09/2016 18:58 .K/
[2016-07-09] MEDS: INSULIN GLARGINE [LANtus] 3 ML PEN SC SCH (20:29)
[2016-07-10] VITALS (12 sets, daily range): BP systolic 123–153; BP diastolic 59–67; PULSE 63–72; RESP 16–20
[2016-07-10] MEDS: METOCLOPRAMIDE 10 MG INJ IV SCH ×4 (00:06→17:48)
[2016-07-10] MEDS: ACCU-CHEK XX SCH (02:00)
[2016-07-10] MEDS: hydrALAzine 20 MG INJ IV SCH ×4 (05:28→17:49)
[2016-07-10] MEDS: PANTOPRAZOLE 40 MG INJ IV SCH ×2 (05:28→17:48)
[2016-07-10] MEDS: BRIMONIDINE 0.1% 5 ML OPH BOTH EYES SCH ×3 (05:29→22:11)
[2016-07-10 08:03] LABS: POTASSIUM 3.6 mmol/L (3.5-5.1)
[2016-07-10 08:05] LABS: CREATININE 3.55 mg/dl (0.44-1.00)
[2016-07-10 08:06] LABS: CALCIUM 8.4 mg/dl (8.4-10.2)
[2016-07-10] MEDS: INSULIN ASPART [NOVOLOG] 3 ML PEN SC SCH ×4 (08:08→21:17)
[2016-07-10] MEDS: LOSARTAN 50 MG TAB PO SCH ×2 (08:31→21:15)
[2016-07-10] MEDS: SUCRALFATE (100 MG/ML) 10ML CUP PO SCH ×4 (08:31→21:14)
[2016-07-10] MEDS: METOPROLOL 25 MG TAB PO SCH ×2 (08:32→21:15)
[2016-07-10] MEDS: FERROUS SULFATE (EC) 325 MG TAB PO SCH (08:32)
--- NOTE | 2016-07-10 10:34 | CONS ---
Date/Time of Note Date/Time of Note DATE: 07/10/16 TIME: 10:32 Assessment/Plan Assessment/Plan Additional Assessment/Plan Anemia * Likely secondary to hematemesis, improved * Status post EGD: 1. Erosive esophagitis 2. Bile reflux gastritis 3. Biopsies : gastric body and antrum, biopsies: Gastric antral and gastric body type mucosa with no significant histopathological features. No H. pylori organisms are identified. ESRD on dialysis MWF management per nephrology * S/P AV fistula creation left arm Diabetes mellitus Hypertension Plan: Advance diet as tolerated Continue PPI twice daily Further recommendations depend on clinical course Patient seen in collaboration with Dr. Lujan Consultation Date/Type/Reason Admit Date/Time July 07, 2016 at 03:51 Initial Consult Date 07/07/16 Type of Consultation: Gastroenterology Referring Provider: SIM LIMON 24 HR Interval Summary Free Text/Dictation Patient tolerating diet Denies abdominal pain, nausea, vomiting Patient stable from GI standpoint Exam/Review of Systems Vital Signs Vitals Vital Signs Date Time Temp Pulse Resp B/P Pulse Ox O2 Delivery O2 Flow Rate FiO2 07/10/16 08:23 72 07/10/16 07:33 98.0 20 153/67 96 07/09/16 20:00 Nasal Cannula 2.0 Intake and Output 07/09/16 07/09/16 07/10/16 15:00 23:00 07:00 Intake Total 860 ml 700 ml 300 ml Output Total 2500 ml Balance -1640 ml 700 ml 300 ml Exam Constitutional: alert, oriented, well developed Psych: nl mood/affect Head: normocephalic Eyes: EOMI, nl conjunctiva, nl lids ENMT: nl external ears & nose, nl lips & teeth, nl nasal mucosa & septum Respiratory: clear to auscultation, normal air movement Cardiovascular: regular rate and rhythm Gastrointestinal: soft, soft tender Musculoskeletal: nl extremities to inspection Neurological: HEAVY TRUCK DRIVER II-XII intact Results Result Diagram: 07/09/16 0504 07/10/16 0620 Results 24 hrs Laboratory Tests Test 07/09/16 12:14 07/09/16 13:06 07/09/16 17:34 07/09/16 20:21 Bedside Glucose 245 H 251 H 163 166 Test 07/10/16 03:19 07/10/16 06:20 07/10/16 08:07 Bedside Glucose 194 162 Sodium Level 136 Potassium Level 3.6 Chloride Level 98 Carbon Dioxide Level 28 Anion Gap 14 Blood Urea Nitrogen 20 Creatinine 3.55 H Glucose Level 159 Calcium Level 8.4 Medications Medications Current Medications Ondansetron HCl (Zofran Inj) 4 mg Q6H PRN IV NAUSEA AND/OR VOMITING; Start 07/07 at 08:30 Morphine Sulfate (morphine) 2 mg Q4H PRN IV PAIN LEVEL 7-10 Last administered on 07/09/16 21:13; Admin Dose 2 MG; Start 07/07/16 at 08:30 Brimonidine Tartrate (Alphagan P 0.1%) 1 drop Q8 BOTH EYES Last administered on 07/10/16 05:29; Admin Dose 1 DROP; Start 07/07/16 at 14:00 Insulin Glargine (Lantus) 12 unit QHS SC Last administered on 07/09/16 20:29; Admin Dose 12 UNIT; Start 07/07/16 at 21:00 Hydralazine HCl (Apresoline) 10 mg Q6 IV Last administered on 07/10/16 05:28; Admin Dose 10 MG; Start 07/07/16 at 08:30 Miscellaneous Information 1 ea NOTE XX ; Start 07/07/16 at 08:30 Glucose (Glutose) 15 gm Q15M PRN PO DECREASED GLUCOSE; Start 07/07/16 at 08:30 Glucose (Glutose) 22.5 gm Q15M PRN PO DECREASED GLUCOSE; Start 07/07/16 at 08:30 Dextrose (D50w Syringe) 25 ml Q15M PRN IV DECREASED GLUCOSE; Start 07/07/16 at 08:30 Dextrose (D50w Syringe) 50 ml Q15M PRN IV DECREASED GLUCOSE; Start 07/07/16 at 08:30 Glucagon (Glucagen) 1 mg Q15M PRN IM DECREASED GLUCOSE; Start 07/07/16 at 08:30 Glucose (Glutose) 15 gm Q15M PRN BUCCAL DECREASED GLUCOSE; Start 07/07/16 at 08: 30 Ferrous Sulfate (Ferrous Sulfate (Ec)) 325 mg DAILY PO Last administered on 07/10 08:32; Admin Dose 325 MG; Start 07/08/16 at 09:00 Hydralazine HCl (Apresoline) 50 mg Q12 PO Last administered on 07/10/16 08:32; Admin Dose 50 MG; Start 07/07/16 at 21:00 Losartan Potassium (Cozaar) 50 mg BID PO Last administered on 07/10/16 08:31; Admin Dose 50 MG; Start 07/07/16 at 21:00 Metoprolol Tartrate (Lopressor) 25 mg BID PO Last administered on 07/10/16 08: 32; Admin Dose 25 MG; Start 07/07/16 at 21:00 Metoclopramide HCl (Reglan) 10 mg Q6 IV Last administered on 07/10/16 05:27; Admin Dose 10 MG; Start 07/07/16 at 18:30 Sucralfate (Carafate Susp) 1 gm QID PO Last administered on 07/10/16 08:31; Admin Dose 1 GM; Start 07/07/16 at 18:30 Diagnostic Test (Pha) (Accu-Chek) 1 ea 02 XX ; Start 07/08/16 at 02:00 Lorazepam (Ativan) 1 mg Q4H PRN IV seizures ; Start 07/09/16 at 12:30 Pantoprazole (Protonix Iv) 40 mg BID@06,18 IV Last administered on 07/10/16 05: 28; Admin Dose 40 MG; Start 07/09/16 at 18:00 GUY SMITH July 10, 2016 10:34
[2016-07-10] MEDS: morphine 2 MG INJ IV PRN (12:32)
[2016-07-10] MEDS ORDERED: BACITRACIN 50000 UNITS INJ ONE (13:43)
--- NOTE | 2016-07-10 14:09 | PN ---
Date/Time of Note Date/Time of Note DATE: 07/10/16 TIME: 14:07 Assessment/Plan VTE Prophylaxis VTE Prophylaxis Intervention: SCD's Lines/Catheters [facility] Saline Lock Urinary Cath still in place: No Assessment/Plan Assessment/Plan #1 upper GI bleed:- on protonix gtt, s/p EGD showed Esophagitis and Bile reflux gastritis- Hb 8.8 today #2 ESRD on HD #3 Severe anemia due to GI bleeding #4 Hyponaremia and fluid overload #5 hypertension, resume oral BP meds, IV hydralazine prn #6 diabetes mellitus: Continue home dose of Lantus, insulin sliding scale for patient being n.p.o. #7 eye disease: Glaucoma versus other etiology: Patient does not know exact etiology of her eye disease. We will continue ophthalmic brimonidine #8 DVT and GI prophylaxis: SCas chemical anticoagulation is contraindicated right now secondary to GI bleed, Protonix drip. after HD pt had a episode of Seizure like activity- it is unclear about whether it was a seizure or something else - Transferred to telemetry floor, IV ativan prn< CT head w/o contrast negative HD as per Nephrology, pt regular schedule for HD is MWF Subjective 24 Hr Interval Summary Free Text/Dictation ? seizure yesterday after HD, transferred to telem on IV ativan Exam/Review of Systems Vital Signs Vitals Vital Signs Date Time Temp Pulse Resp B/P Pulse Ox O2 Delivery O2 Flow Rate FiO2 07/10/16 12:44 66 07/10/16 11:21 98.2 19 131/59 100 07/09/16 20:00 Nasal Cannula 2.0 Intake and Output 07/09/16 07/09/16 07/10/16 15:00 23:00 07:00 Intake Total 860 ml 700 ml 300 ml Output Total 2500 ml Balance -1640 ml 700 ml 300 ml Exam GENERAL: The patient is lying in bed in mild distress, vomiting blood in the vomit bag HEENT: Pupils equal, round, react to light. Extraocular muscles intact. NECK: Supple, no thyromegaly. LUNGS: Clear to auscultation bilaterally. CARDIOVASCULAR: S1, S2 heard. No rubs or gallops. ABDOMEN: Soft, tenderness to palpation at the epigastric region. MUSCULOSKELETAL: Trace lower extremity edema bilaterally. NEUROLOGIC: No focal deficits. Results Result Diagram: 07/09/16 0504 07/10/16 0620 Results 24 hrs Laboratory Tests Test 07/09/16 17:34 07/09/16 20:21 07/10/16 03:19 07/10/16 06:20 Bedside Glucose 163 166 194 Sodium Level 136 Potassium Level 3.6 Chloride Level 98 Carbon Dioxide Level 28 Anion Gap 14 Blood Urea Nitrogen 20 Creatinine 3.55 H Glucose Level 159 Calcium Level 8.4 Test 07/10/16 08:07 07/10/16 12:18 Bedside Glucose 162 278 H Medications Medications Current Medications Ondansetron HCl (Zofran Inj) 4 mg Q6H PRN IV NAUSEA AND/OR VOMITING; Start 07/07 at 08:30 Morphine Sulfate (morphine) 2 mg Q4H PRN IV PAIN LEVEL 7-10 Last administered on 07/10/16 12:32; Admin Dose 2 MG; Start 07/07/16 at 08:30 Brimonidine Tartrate (Alphagan P 0.1%) 1 drop Q8 BOTH EYES Last administered on 07/10/16 05:29; Admin Dose 1 DROP; Start 07/07/16 at 14:00 Insulin Glargine (Lantus) 12 unit QHS SC Last administered on 07/09/16 20:29; Admin Dose 12 UNIT; Start 07/07/16 at 21:00 Hydralazine HCl (Apresoline) 10 mg Q6 IV Last administered on 07/10/16 12:33; Admin Dose 10 MG; Start 07/07/16 at 08:30 Miscellaneous Information 1 ea NOTE XX ; Start 07/07/16 at 08:30 Glucose (Glutose) 15 gm Q15M PRN PO DECREASED GLUCOSE; Start 07/07/16 at 08:30 Glucose (Glutose) 22.5 gm Q15M PRN PO DECREASED GLUCOSE; Start 07/07/16 at 08:30 Dextrose (D50w Syringe) 25 ml Q15M PRN IV DECREASED GLUCOSE; Start 07/07/16 at 08:30 Dextrose (D50w Syringe) 50 ml Q15M PRN IV DECREASED GLUCOSE; Start 07/07/16 at 08:30 Glucagon (Glucagen) 1 mg Q15M PRN IM DECREASED GLUCOSE; Start 07/07/16 at 08:30 Glucose (Glutose) 15 gm Q15M PRN BUCCAL DECREASED GLUCOSE; Start 07/07/16 at 08: 30 Ferrous Sulfate (Ferrous Sulfate (Ec)) 325 mg DAILY PO Last administered on 07/10 08:32; Admin Dose 325 MG; Start 07/08/16 at 09:00 Hydralazine HCl (Apresoline) 50 mg Q12 PO Last administered on 07/10/16 08:32; Admin Dose 50 MG; Start 07/07/16 at 21:00 Losartan Potassium (Cozaar) 50 mg BID PO Last administered on 07/10/16 08:31; Admin Dose 50 MG; Start 07/07/16 at 21:00 Metoprolol Tartrate (Lopressor) 25 mg BID PO Last administered on 07/10/16 08: 32; Admin Dose 25 MG; Start 07/07/16 at 21:00 Metoclopramide HCl (Reglan) 10 mg Q6 IV Last administered on 07/10/16 12:32; Admin Dose 10 MG; Start 07/07/16 at 18:30 Sucralfate (Carafate Susp) 1 gm QID PO Last administered on 07/10/16 12:32; Admin Dose 1 GM; Start 07/07/16 at 18:30 Diagnostic Test (Pha) (Accu-Chek) 1 ea 02 XX ; Start 07/08/16 at 02:00 Lorazepam (Ativan) 1 mg Q4H PRN IV seizures ; Start 07/09/16 at 12:30 Pantoprazole (Protonix Iv) 40 mg BID@18 IV Last administered on 07/10/16 05: 28; Admin Dose 40 MG; Start 07/09/16 at 18:00 HIMANSHU NORWOOD MD July 10, 2016 14:09
[2016-07-10] MEDS: INSULIN GLARGINE [LANtus] 3 ML PEN SC SCH (21:18)
[2016-07-11] VITALS (7 sets, daily range): BP systolic 101–172; BP diastolic 54–80; PULSE 66–72; RESP 16–20
[2016-07-11] MEDS: METOCLOPRAMIDE 10 MG INJ IV SCH ×3 (00:06→12:36)
[2016-07-11] MEDS: hydrALAzine 20 MG INJ IV SCH ×3 (00:06→12:37)
[2016-07-11] MEDS: ACCU-CHEK XX SCH (02:00)
[2016-07-11] MEDS: PANTOPRAZOLE 40 MG INJ IV SCH (05:41)
[2016-07-11] MEDS: BRIMONIDINE 0.1% 5 ML OPH BOTH EYES SCH (05:42)
[2016-07-11] MEDS: INSULIN ASPART [NOVOLOG] 3 ML PEN SC SCH ×2 (07:46→11:35)
[2016-07-11] MEDS: METOPROLOL 25 MG TAB PO SCH ×2 (09:00→12:38)
[2016-07-11] MEDS: LOSARTAN 50 MG TAB PO SCH (09:00)
[2016-07-11] MEDS: SUCRALFATE (100 MG/ML) 10ML CUP PO SCH ×2 (09:33→12:36)
[2016-07-11] MEDS: FERROUS SULFATE (EC) 325 MG TAB PO SCH (09:33)
[2016-07-11] MEDS: morphine 2 MG INJ IV PRN (11:13)
--- NOTE | 2016-07-11 11:16 | CONS ---
Date/Time of Note Date/Time of Note DATE: 07/11/16 TIME: 11:14 Assessment/Plan Assessment/Plan Additional Assessment/Plan Anemia * Likely secondary to hematemesis, improved * Status post EGD: 1. Erosive esophagitis 2. Bile reflux gastritis 3. Biopsies : gastric body and antrum, biopsies: Gastric antral and gastric body type mucosa with no significant histopathological features. No H. pylori organisms are identified. ESRD on dialysis MWF management per nephrology * S/P AV fistula creation left arm Diabetes mellitus Hypertension Plan: Advance diet as tolerated Continue PPI twice daily Further recommendations depend on clinical course Patient seen in collaboration with Dr. Lujan Consultation Date/Type/Reason Admit Date/Time July 07, 2016 at 03:51 Initial Consult Date 07/07/16 Type of Consultation: Gastroenterology Referring Provider: SIM LIMON 24 HR Interval Summary Free Text/Dictation Tolerating diet Denies abdominal pain, nausea, vomiting Hemoglobin stable Exam/Review of Systems Vital Signs Vitals Vital Signs Date Time Temp Pulse Resp B/P Pulse Ox O2 Delivery O2 Flow Rate FiO2 07/11/16 08:18 66 07/11/16 07:42 97.9 20 101/54 100 07/10/16 20:21 Nasal Cannula 2.0 Intake and Output 07/10/16 07/10/16 07/11/16 15:00 23:00 07:00 Intake Total 450 ml 300 ml Balance 450 ml 300 ml Exam Constitutional: alert, oriented, well developed Psych: nl mood/affect Head: normocephalic Eyes: EOMI, nl conjunctiva, nl lids ENMT: nl external ears & nose, nl lips & teeth, nl nasal mucosa & septum Respiratory: clear to auscultation, normal air movement Cardiovascular: regular rate and rhythm Gastrointestinal: soft, soft tender Musculoskeletal: nl extremities to inspection Neurological: WELLNESS PROGRAM ADMINISTRATOR II-XII intact Results Result Diagram: 07/09/16 0504 07/10/16 0620 Results 24 hrs Laboratory Tests Test 07/10/16 12:18 07/10/16 17:44 07/10/16 20:24 07/11/16 02:15 Bedside Glucose 278 H 152 218 82 Test 07/11/16 07:45 Bedside Glucose 103 Medications Medications Current Medications Ondansetron HCl (Zofran Inj) 4 mg Q6H PRN IV NAUSEA AND/OR VOMITING; Start 07/07 at 08:30 Morphine Sulfate (morphine) 2 mg Q4H PRN IV PAIN LEVEL 7-10 Last administered on 07/10/16 12:32; Admin Dose 2 MG; Start 07/07/16 at 08:30 Brimonidine Tartrate (Alphagan P 0.1%) 1 drop Q8 BOTH EYES Last administered on 07/11/16 05:42; Admin Dose 1 DROP; Start 07/07/16 at 14:00 Insulin Glargine (Lantus) 12 unit QHS SC Last administered on 07/10/16 21:18; Admin Dose 12 UNIT; Start 07/07/16 at 21:00 Hydralazine HCl (Apresoline) 10 mg Q6 IV Last administered on 07/11/16 00:06; Admin Dose 10 MG; Start 07/07/16 at 08:30 Miscellaneous Information 1 ea NOTE XX ; Start 07/07/16 at 08:30 Glucose (Glutose) 15 gm Q15M PRN PO DECREASED GLUCOSE; Start 07/07/16 at 08:30 Glucose (Glutose) 22.5 gm Q15M PRN PO DECREASED GLUCOSE; Start 07/07/16 at 08:30 Dextrose (D50w Syringe) 25 ml Q15M PRN IV DECREASED GLUCOSE; Start 07/07/16 at 08:30 Dextrose (D50w Syringe) 50 ml Q15M PRN IV DECREASED GLUCOSE; Start 07/07/16 at 08:30 Glucagon (Glucagen) 1 mg Q15M PRN IM DECREASED GLUCOSE; Start 07/07/16 at 08:30 Glucose (Glutose) 15 gm Q15M PRN BUCCAL DECREASED GLUCOSE; Start 07/07/16 at 08: 30 Ferrous Sulfate (Ferrous Sulfate (Ec)) 325 mg DAILY PO Last administered on 07/11 09:33; Admin Dose 325 MG; Start 07/08/16 at 09:00 Hydralazine HCl (Apresoline) 50 mg Q12 PO Last administered on 07/10/16 21:14; Admin Dose 50 MG; Start 07/07/16 at 21:00 Losartan Potassium (Cozaar) 50 mg BID PO Last administered on 07/10/16 21:15; Admin Dose 50 MG; Start 07/07/16 at 21:00 Metoprolol Tartrate (Lopressor) 25 mg BID PO Last administered on 07/10/16 21: 15; Admin Dose 25 MG; Start 07/07/16 at 21:00 Metoclopramide HCl (Reglan) 10 mg Q6 IV Last administered on 07/11/16 05:41; Admin Dose 10 MG; Start 07/07/16 at 18:30 Sucralfate (Carafate Susp) 1 gm QID PO Last administered on 07/11/16 09:33; Admin Dose 1 GM; Start 07/07/16 at 18:30 Diagnostic Test (Pha) (Accu-Chek) 1 ea 02 XX ; Start 07/08/16 at 02:00 Lorazepam (Ativan) 1 mg Q4H PRN IV seizures ; Start 07/09/16 at 12:30 Pantoprazole (Protonix Iv) 40 mg BID@06,18 IV Last administered on 07/11/16 05: 41; Admin Dose 40 MG; Start 07/09/16 at 18:00 GUY SMITH July 11, 2016 11:16
--- NOTE | 2016-07-11 12:35 | PN ---
Date/Time of Note Date/Time of Note DATE: 07/11/16 TIME: 12:35 Assessment/Plan VTE Prophylaxis VTE Prophylaxis Intervention: SCD's Lines/Catheters [facility] Type [facility] Saline Lock Urinary Cath still in place: No Assessment/Plan Assessment/Plan #1 upper GI bleed:- on protonix gtt, s/p EGD showed Esophagitis and Bile reflux gastritis- Hb 8.8 today #2 ESRD on HD #3 Severe anemia due to GI bleeding #4 Hyponaremia and fluid overload #5 hypertension, resume oral BP meds, IV hydralazine prn #6 diabetes mellitus: Continue home dose of Lantus, insulin sliding scale for patient being n.p.o. #7 eye disease: Glaucoma versus other etiology: Patient does not know exact etiology of her eye disease. We will continue ophthalmic brimonidine #8 DVT and GI prophylaxis: SCas chemical anticoagulation is contraindicated right now secondary to GI bleed, Protonix drip. after HD pt had a episode of Seizure like activity- it is unclear about whether it was a seizure or something else - Transferred to telemetry floor, IV ativan prn< CT head w/o contrast negative HD as per Nephrology, pt regular schedule for HD is MWF Subjective 24 Hr Interval Summary Free Text/Dictation doing ok, BP stable,a febrile, no seizures Exam/Review of Systems Vital Signs Vitals Vital Signs Date Time Temp Pulse Resp B/P Pulse Ox O2 Delivery O2 Flow Rate FiO2 07/11/16 12:26 72 07/11/16 12:20 Nasal Cannula 2.0 07/11/16 11:10 98.2 18 172/80 99 Intake and Output 07/10/16 07/10/16 07/11/16 15:00 23:00 07:00 Intake Total 450 ml 300 ml Balance 450 ml 300 ml Exam GENERAL: The patient is lying in bed in mild distress, vomiting blood in the vomit bag HEENT: Pupils equal, round, react to light. Extraocular muscles intact. NECK: Supple, no thyromegaly. LUNGS: Clear to auscultation bilaterally. CARDIOVASCULAR: S1, S2 heard. No rubs or gallops. ABDOMEN: Soft, tenderness to palpation at the epigastric region. MUSCULOSKELETAL: Trace lower extremity edema bilaterally. NEUROLOGIC: No focal deficits. Results Result Diagram: 07/09/16 0504 07/10/16 0620 Results 24 hrs Laboratory Tests Test 07/10/16 17:44 07/10/16 20:24 07/11/16 02:15 07/11/16 07:45 Bedside Glucose 152 218 82 103 Test 07/11/16 11:32 Bedside Glucose 201 Medications Medications Current Medications Ondansetron HCl (Zofran Inj) 4 mg Q6H PRN IV NAUSEA AND/OR VOMITING; Start 07/07 at 08:30 Morphine Sulfate (morphine) 2 mg Q4H PRN IV PAIN LEVEL 7-10 Last administered on 07/11/16 11:13; Admin Dose 2 MG; Start 07/07/16 at 08:30 Brimonidine Tartrate (Alphagan P 0.1%) 1 drop Q8 BOTH EYES Last administered on 07/11/16 05:42; Admin Dose 1 DROP; Start 07/07/16 at 14:00 Insulin Glargine (Lantus) 12 unit QHS SC Last administered on 07/10/16 21:18; Admin Dose 12 UNIT; Start 07/07/16 at 21:00 Hydralazine HCl (Apresoline) 10 mg Q6 IV Last administered on 07/11/16 00:06; Admin Dose 10 MG; Start 07/07/16 at 08:30 Miscellaneous Information 1 ea NOTE XX ; Start 07/07/16 at 08:30 Glucose (Glutose) 15 gm Q15M PRN PO DECREASED GLUCOSE; Start 07/07/16 at 08:30 Glucose (Glutose) 22.5 gm Q15M PRN PO DECREASED GLUCOSE; Start 07/07/16 at 08:30 Dextrose (D50w Syringe) 25 ml Q15M PRN IV DECREASED GLUCOSE; Start 07/07/16 at 08:30 Dextrose (D50w Syringe) 50 ml Q15M PRN IV DECREASED GLUCOSE; Start 07/07/16 at 08:30 Glucagon (Glucagen) 1 mg Q15M PRN IM DECREASED GLUCOSE; Start 07/07/16 at 08:30 Glucose (Glutose) 15 gm Q15M PRN BUCCAL DECREASED GLUCOSE; Start 07/07/16 at 08: 30 Ferrous Sulfate (Ferrous Sulfate (Ec)) 325 mg DAILY PO Last administered on 07/11 09:33; Admin Dose 325 MG; Start 07/08/16 at 09:00 Hydralazine HCl (Apresoline) 50 mg Q12 PO Last administered on 07/10/16 21:14; Admin Dose 50 MG; Start 07/07/16 at 21:00 Losartan Potassium (Cozaar) 50 mg BID PO Last administered on 07/10/16 21:15; Admin Dose 50 MG; Start 07/07/16 at 21:00 Metoprolol Tartrate (Lopressor) 25 mg BID PO Last administered on 07/10/16 21: 15; Admin Dose 25 MG; Start 07/07/16 at 21:00 Metoclopramide HCl (Reglan) 10 mg Q6 IV Last administered on 07/11/16 05:41; Admin Dose 10 MG; Start 07/07/16 at 18:30 Sucralfate (Carafate Susp) 1 gm QID PO Last administered on 07/11/16 09:33; Admin Dose 1 GM; Start 07/07/16 at 18:30 Diagnostic Test (Pha) (Accu-Chek) 1 ea 02 XX ; Start 07/08/16 at 02:00 Lorazepam (Ativan) 1 mg Q4H PRN IV seizures ; Start 07/09/16 at 12:30 Pantoprazole (Protonix Iv) 40 mg BID@06,18 IV Last administered on 07/11/16 05: 41; Admin Dose 40 MG; Start 07/09/16 at 18:00 HIMANSHU NORWOOD MD July 11, 2016 12:35
--- NOTE | 2016-07-11 12:36 | PDOCDIS ---
Discharge Instructions CONDITION Patient Condition: Good HOME CARE INSTRUCTIONS: Special Diet: 1800 ADA 2 gm Na ACTIVITY: Activity Restrictions: Slowly Increase Activity Rest between Activity Avoid heavy lifting Avoid Heavy Housework FOLLOW UP/APPOINTMENTS Appointments Follow up with her own PMD through HMO insurance in 1-2 week. Follow up at HD unit for scheduled HD on Tuesday,tuesday and Tuesday HIMANSHU NORWOOD MD July 11, 2016 12:36
[2016-07-11] MEDS ORDERED: PANT20TA2 PO (12:37)
[2016-07-11] MEDS ORDERED: METO10TA92 PO (12:37)
--- NOTE | 2016-07-12 23:31 | DS ---
DATE OF ADMISSION: 07/07/2016 DATE OF DISCHARGE: 07/11/2016 FINAL DISCHARGE DIAGNOSES: 1. Lower gastrointestinal bleeding, status post esophagogastroduodenoscopy, showed esophagitis and bile reflux gastritis. 2. Severe anemia secondary to gastrointestinal bleeding. 3. End-stage renal disease on hemodialysis Tuesday, , and Tuesday. 4. History of hypertension. 5. History of diabetes mellitus. 6. History of glaucoma. 6. Questionable seizures during this hospitalization, but no clear evidence of seizures. HOSPITAL COURSE: This is a 46-year-old female with a past medical history of hypertension, hyperlip idemia, end-stage renal disease on hemodialysis, diabetes mellitus, history of glaucoma who presente d with a complaint of hematemesis and melenotic stools. The patient was admitted for possible veronica rn about upper GI bleeding. She was evaluated by Nephrology, ____, and also by GI, Dr. Lujan. The patient remained hemodynamically stable. She underwent esophagogastroduodenoscopy, which revea led esophagitis. She had esophagitis and bile reflux gastritis. The patient's hemoglobin remained stable. She got her scheduled hemodialysis while being in the hospital, but on Tuesday, the patient had a questionable episode of seizure-like activity after the hemodialysis. She was transferred to the telemetry floor where she was kept on the telemetry floor for 1 day and monitored on the telemet ry floor. She did not have any further episodes of any seizure-like activity, so it was very unclea r history if she really had any seizures while being in the hospital. She was discharged home with a prescription of Protonix and Reglan and she is advised to follow up at the dialysis unit for sched uled dialysis on Tuesday, , and Tuesday. DISPOSITION: To home. DISCHARGE CONDITION: Stable and improved compared to admission. DISCHARGE ACTIVITIES: As tolerated, slowly resume to the normal baseline activity. DISCHARGE DIET: Renal diet. DISCHARGE MEDICATIONS: She is given prescriptions of: 1. Protonix 20 mg p.o. daily. 2. Reglan 10 mg p.o. q.6h. p.r.n. nausea, vomiting. 3. She is continued on all of her other home medications. 4. She was resumed on aspirin to 162 mg p.o. daily upon discharge. DISCHARGE FOLLOWUP AND INSTRUCTIONS: 1. The patient is to follow up with her own primary care doctor through her HMO insurance 1 to 2 we eks after discharge. 2. The patient is to follow up with her scheduled hemodialysis on Tuesday, , and Tuesday a t the dialysis unit. She has been explained about the discharge plan and followup instructions. Sh e understood and verbalized understanding. Dictated By: HIMANSHU NORWOOD MD, KP/DARRIAN Conf#: [id number] DID#: [id number] CC: Wil Leonard;*EndCC*
== END 2016-07-11 14:58 | disposition home or self-care (01) | DRG 391 ==
LOC: E/R 21:15 → MS2 07-07 03:51 → TEL 07-09 14:15
PROVIDERS: ADMIT Family Medicine; ATTEND Family Medicine
PROC: 5A1D00Z (ICD-10-PCS; 2016-07-07)
PROC: 0DB68ZX Excision of Stomach, Via Natural or Artificial Opening Endoscopic, Diagnostic (ICD-10-PCS; principal; 2016-07-07 20:00)
DX: K22.8 Other specified diseases of esophagus (principal); N18.6 End stage renal disease; I12.0 Hypertensive chronic kidney disease with stage 5 chronic kidney disease or end stage renal disease; I42.9 Cardiomyopathy, unspecified; E11.22 Type 2 diabetes mellitus with diabetic chronic kidney disease; K92.0 Hematemesis; D62 Acute posthemorrhagic anemia; E87.1 Hypo-osmolality and hyponatremia; E78.5 Hyperlipidemia, unspecified; D63.1 Anemia in chronic kidney disease; D63.8 Anemia in other chronic diseases classified elsewhere; H40.9 Unspecified glaucoma; E11.42 Type 2 diabetes mellitus with diabetic polyneuropathy; I25.10 Atherosclerotic heart disease of native coronary artery without angina pectoris; K21.0 Gastro-esophageal reflux disease with esophagitis; K29.70 Gastritis, unspecified, without bleeding; E87.70 Fluid overload, unspecified; Z99.2 Dependence on renal dialysis; Z79.4 Long term (current) use of insulin; Z87.442 Personal history of urinary calculi
CPT/HCPCS: 36415; 70450; 71010; 80048; 80053; 80061; 82962; 83036; 83735; 83880; 84100; 84484; 85014; 85018; 85025; 85610; 85730; 86850; 86900; 86901; 87081; 88305; 90935; 93005; 96365; 96375; 96376; C9113; J0360; J1644; J1815; J2270; J2405; J2765

== ENCOUNTER 2016-07-15 15:18 | Outpatient (CLI) | payer BC ==
[~2016-07-15 15:18] MED LIST changes: +FER325 PO; -HYDR-842 PO; +METO10TA92 PO; +PANT20TA2 PO
[2016-07-15 15:26] VITALS: BP 132/63; PULSE 69; RESP 18
--- NOTE | 2016-07-15 16:17 | PN ---
Date/Time of Note Date/Time of Note DATE: 07/15/16 TIME: 16:11 Outpatient Progress Note Chief Complaint Renal failure/PUD/anemia/cardiomyopathy/hypertension/diabetes/impaired vision HPI Renal failure/patient has renal failure, no nausea or vomiting, patient has a pruritus, patient also has excess on the right side of the chest wall, patient also has a shunt on the left arm, PUD/no nausea or vomiting, no hematemesis or melena, Anemia/hematemesis or melena, ecchymoses bruises or bleeding, Cardiomyopathy/patient has a cardiomyopathy, patient to follow with a physical plant employee, no chest pain at present, no PND orthopnea or ankle edema, Hypertension/no headache or dizziness or lightheadedness, Diabetes/no pleuritic supple due to hypoglycemia, no gastroparesis, Impaired vision/patient has impaired vision, patient has glaucoma, Review of Systems Const: No Fever, no chills, no Wt. loss, no Fatigue, normal appetite, no diaphoresis. Eyes: No pain, no discharge, no redness, no visual change, no foreign body. ENT: No pain, no bleeding, no congestion, no sore throat, no dysphagia, no discharge or rhinitis. Lymph: No adenopathy, no tender nodes, no lymphedema. Resp: No SOB, no cough, no sputum, no wheezing, no chest pain. CV: No chest pain, no palpitaions, no BOOGIE, no PND, no edema. GI: Normal appetite, no pain, no nausea, no vomiting, no diarrhea, no blood, no constipation. : No frequency, no urgency, no dysuria, no hematuria, no flank pain, no discharge, no bleeding. Musc: Slight back pain, no neck pain, no knee pain, no restricted ROM.patient also has a slight pain at the operative site she has a shunt in her left arm, and dialysis exit the right side of the chest,, Skin: No rash, no skin lesions, no erythema, no laceration, no bruising, no pruritus. Neuro: No ANDREWS, no dizziness, no syncope, no seizure, no focal-weakness. Endo: No polyuria, no polydypsia, no dry-skin, no temp-intolerance. Psych: No hallucinations, no depression, no anxiety, no suicidal ideation. Ext: No edema, no pain, no ulcer, no weakness. Physical Exam Vital Signs Date Time Temp Pulse Resp B/P Pulse Ox O2 Delivery O2 Flow Rate FiO2 07/15/16 15:26 98.8 69 18 132/63 97 Room Air General Appearance: A 46 year-old female] who appears well-developed, well- nourished, in no acute distress. HEENT: Head normocephalic, atraumatic. Pupils equal, round, reactive to light and accommodate. Sclerae are no jaundice. Nasal turbinates pink without erythema or nasal discharge. Mucous membranes pink and moist without lesions. Oropharynx clear without any exudate or discharge. NECK: Supple. Trachea midline, No thyromegaly, No cervical lymphadenopathy, No mass, No carotid bruits, No JVD, Carotid pulses 2+ bilaterally. PULMONARY: Clear to auscultaion bilaterally, No retractions, Chest expansion symmetric bilaterally, no rales, no ronchi, no dulness on percussion. CARDIAC: Normal SI and S2, Regular rate and rythm, no murmur, gallop, or rub. GASTROINTESTINAL: Abdomen is soft, non-tender, Non Rigid, No distention, Positive bowel sounds x4 quadrants, Liver normal. SKIN: Warm, dry, no rash, no bruise, no echmosis. Patient has dialysis access on the right side of her chest wall, and left arm AV shunt, healing, no redness or bleeding or discharge, EXTREMITIES: Bilateral lower extremities normal, no edema, no phlabitus, pulse palpable, no contracture. Slight pain at operative site on her left arm, MUSCULOSKELETAL: Spine Normal, Non-tender, Normal range of motion, No swelling, no deformity, no clubbing, or cyanosis, the patient has no edema to bilateral lower extremities, dorsalis pedis pulses palpable bilaterally. NEUROLOGIC: The patient is awake, alert, oriented, responding to yes/no questions appropriately, moving all extremities, cranial nerve intact, normal strenght, normal power, normal coordination, normal gait. Allergies Coded Allergies: acetaminophen (Verified Allergy, Severe, UNABLE TO BREATH, 07/06/16) hydrocodone (Verified Allergy, Severe, UNABLE TO BREATH, 07/06/16) Penicillins (Verified Allergy, Unknown, 07/06/16) egg yolk (Verified Allergy, Unknown, 07/06/16) hydromorphone (Verified Allergy, Unknown, 07/06/16) ibuprofen (Verified Allergy, Unknown, 07/06/16) tramadol (Verified Allergy, Unknown, 07/06/16) PMH Renal failure/PUD/anemia/audio myopathy/hypertension/diabetes/impaired vision Social Hx No smoking no drinking, Family Hx Noncontributory Patient History: Cardiac disorder 31 MOTHER Endocrine and metabolic disease FHx: diabetes mellitus 32 MOTHER G8 SIBLING G8 SIBLING Hypertension Assessment/Plan Impression Renal failure/PUD/GI bleed/anemia/cardiomyopathy/hypertension/diabetes/glaucoma Plan Continue hemodialysis, patient to follow with vascular surgery, patient has all the medications supportive care, Patient does not like insulin what she has a patient like NovoLog, which she got in the hospital, and she will pay out of pocket, patient will use the same sliding scale, NovoLog pen ordered Patient to follow with the primary care physician, and product sales representative, Medications Home Meds Active Scripts Metoclopramide* (Reglan*) 10 Mg Tablet, 10 MG PO Q6H Y for NAUSEA AND OR VOMITING, #30 TAB Prov:HIMANSHU NORWOOD MD 07/11/16 Pantoprazole* (Protonix*) 20 Mg Tablet., 20 MG PO DAILY, #90 TAB Prov:HIMANSHU NORWOOD MD 07/11/16 Losartan Potassium* (Cozaar*) 50 Mg Tablet, 50 MG PO BID for 30 Days, TAB Prov:VERONICA BALLESTEROS 06/30/16 [Lactulose] 20 GM/30 ML SOLN No Conflict Check, 30 GM PO BID for 30 Days Prov:VERONICA BALLESTEROS 06/30/16 Insulin Glargine* (Lantus*) 100 Unit/Ml Soln, 12 UNIT SC QHS for 30 Days Prov:VERONICA BALLESTEROS 06/30/16 Hydralazine Hcl* (Hydralazine Hcl*) 25 Mg Tab, 50 MG PO Q12 for 30 Days, TAB Prov:VERONICA BALLESTEROS 06/30/16 Terbinafine Hcl* (Terbinafine Hcl*) 250 Mg Tablet, 250 MG PO BID for 30 Days, TAB Prov:VERONICA BALLESTEROS 06/30/16 Brimonidine Tartrate* (Alphagan P*) 0.1%-15 Ml Opht Drops, 1 DROP BOTH EYES Q8, #1 BOTTLE Prov:REGALEJANDROR,VERONICA 06/30/16 Aspirin* (Aspirin* EC) 81 Mg Tablet.dr, 162 MG PO DAILY for 30 Days Prov:VERONICA BALLESTEROS 06/30/16 Metoprolol Tartrate* (Lopressor*) 25 Mg Tab, 25 MG PO BID, #60 TAB Prov:VERONICA BALLESTEROS 06/30/16 Oxycodone HCl/Acetaminophen (Percocet 5-325 mg Tablet) 1 Each Tablet, 1 EACH PO TID for PAIN, #9 TAB Prov:PAUL CLARK MD 03/18/16 Polyethylene Glycol* (Miralax*) 17 Gm Powd.pack, 2 TSP PO DAILY for CONSTIPATION , #1 BOTTLE Prov:PAUL CLARK MD 03/18/16 Reported Medications Ferrous Sulfate* (Ferrous Sulfate*) 325 Mg Tabec, 325 MG PO DAILY, TAB 07/06/16 Insulin Aspart* (Novolog Insulin Pen*) 100 Unit/Ml Soln, 12 UNIT SC WITH BREAKFAST for 30 Days, EA 07/06/16 BEV NORWOOD MD July 15, 2016 16:17
== END 2016-07-15 16:41 | disposition home or self-care (01) ==
LOC: DCC 15:18
PROVIDERS: ATTEND Internal Medicine
DX: I12.0 Hypertensive chronic kidney disease with stage 5 chronic kidney disease or end stage renal disease (principal); E11.22 Type 2 diabetes mellitus with diabetic chronic kidney disease; N18.6 End stage renal disease; Z99.2 Dependence on renal dialysis; H40.9 Unspecified glaucoma; H54.7 Unspecified visual loss; I42.9 Cardiomyopathy, unspecified; K27.9 Peptic ulcer, site unspecified, unspecified as acute or chronic, without hemorrhage or perforation; Z79.4 Long term (current) use of insulin

== ENCOUNTER 2016-08-06 09:39 | Emergency (ER) | payer MEDICARE, BC ==
[~2016-08-06] VITALS: Ht 154.9 cm; Wt 71.5 kg
[2016-08-06 09:41] VITALS: Ht 154.9 cm; Wt 71.5 kg
[2016-08-06] MEDS ORDERED: SOD CHLORIDE 0.9% 500 ML IV STA (09:47)
[2016-08-06] MEDS ORDERED: ONDANSETRON 4 MG INJ IV STA (09:47)
[2016-08-06] MEDS ORDERED: morphine 4 MG/ML VIAL IV STA ×2 (10:18→13:21)
[2016-08-06 10:29] LABS: URINE BLOOD (Dip) POC 2+ (NEGATIVE)
[2016-08-06 10:49] LABS: ADD UMIC YES; URINE BILIRUBIN (Dip) NEGATIVE (NEGATIVE); URINE BLOOD (Dip) 2+ (NEGATIVE); URINE COLOR LT. YELLOW (YELLOW); URINE GLUCOSE (Dip) >=1000 % (NEGATIVE); URINE KETONES (Dip) NEGATIVE (NEGATIVE); URINE LEUKOCYTE ESTERASE (Dip) NEGATIVE (NEGATIVE); URINE NITRITE (Dip) NEGATIVE (NEGATIVE); URINE TOTAL PROTEIN (Dip) 4+ (NEGATIVE); URINE UROBILINOGEN (Dip) 0.2 E.U./dL (0.1-1.0)
[2016-08-06 10:54] LABS: ADD SCAN DIFF NO
[2016-08-06 10:58] LABS: BASOPHILS % 0.2 % (0.0-2.0); EOSINOPHILS # 0.1 10^3/ul (0.0-0.5); EOSINOPHILS % 1.5 % (0.0-7.0); HEMATOCRIT 34.6 % (37.0-47.0); HEMOGLOBIN 11.6 g/dl (12.0-16.0); LYMPHOCYTES # 1.2 10^3/ul (0.8-2.9); LYMPHOCYTES % 24.7 % (15.0-51.0); MEAN CORPUSCULAR HEMOGLOBIN 30.7 pg (29.0-33.0); MEAN CORPUSCULAR HGB CONC 33.5 g/dl (32.0-37.0); MEAN CORPUSCULAR VOLUME 91.5 fl (82.0-101.0); MEAN PLATELET VOLUME 10.3 fl (7.4-10.4); MONOCYTE # 0.3 10^3/ul (0.3-0.9); MONOCYTES % 6.8 % (0.0-11.0); NEUTROPHIL # 3.2 10^3/ul (1.6-7.5); NEUTROPHILS % 66.4 % (39.0-77.0); PLATELET COUNT 160 10^3/UL (140-415); RED BLOOD COUNT 3.78 10^6/ul (4.20-5.40); WHITE BLOOD COUNT 4.7 10^3/ul (4.8-10.8)
[2016-08-06 11:08] LABS: BACTERIA,URINE FEW
[2016-08-06 11:13] LABS: INR 0.82; PROTIME 11.3 Sec (12.2-14.2); PT RATIO 0.9
[2016-08-06 11:14] LABS: PARTIAL THROMBOPLASTIN TIME 27.4 Sec (25.0-35.0)
[2016-08-06 11:18] LABS: ALBUMIN 4.4 g/dl (3.3-4.9); ALBUMIN/GLOBULIN RATIO 1.57; BILIRUBIN,INDIRECT 0.4 mg/dl (0-1.1); BILIRUBIN,TOTAL 0.4 mg/dl (0.2-1.3); CALCIUM 9.2 mg/dl (8.4-10.2); CREATININE 3.48 mg/dl (0.44-1.00); POTASSIUM 4.3 mmol/L (3.5-5.1); TOTAL PROTEIN 7.2 g/dl (6.1-8.1)
[2016-08-06 11:28] LABS: TROPONIN-I 0.063 ng/ml (0.00-0.12)
[2016-08-06] MEDS ORDERED: MORP15TA92 PO (12:49)
[2016-08-06] MEDS ORDERED: ONDA4TAB14 PO (12:49)
[2016-08-06] MEDS ORDERED: METH500T PO (12:51)
[2016-08-06] MEDS ORDERED: DIAZEPAM 5 MG/ML SYG IV ONE (13:30)
[2016-08-06 13:39] VITALS: BP 166/87; PULSE 86; RESP 16; TEMP 98.3
--- NOTE | 2016-08-06 15:36 | ERD ---
ER Documentation Chief Complaint Date/Time DATE: 08/06/16 TIME: 15:27 Chief Complaint LOWER BACK PAIN,NUASEA STARTED TODAY,DIALYSIS Pt HPI This 46-year-old female presented for bilateral lower back pain that began today. She also complains of some nausea but states the back pain is the worse and that she needs pain medication, she denies chest pain shortness of breath, fever and chills. She has not vomited. She states that usually she is on MS Contin at home and has run out of this recently. She does still make urine and denies dysuria. ROS All systems reviewed and are negative except as per history of present illness. Medications Home Meds Active Scripts Methocarbamol* (Robaxin*) 500 Mg Tab, 500 MG PO Q8 for MUSCLE SPASMS, #14 TAB Prov:ROSMERY MORRIS DO 08/06/16 Ondansetron (Ondansetron Odt) 4 Mg Tab.rapdis, 4 MG PO Q6H Y for NAUSEA AND/OR VOMITING, #10 TAB Prov:ROSMERY MORRIS DO 08/06/16 Morphine Sulfate* (Ms Contin*) 15 Mg Tablet.sa, 15 MG PO Q12, #10 TAB Prov:ROSMERY MORRIS DO 08/06/16 Metoclopramide* (Reglan*) 10 Mg Tablet, 10 MG PO Q6H Y for NAUSEA AND OR VOMITING, #30 TAB Prov:HIMANSHU NORWOOD MD 07/11/16 Pantoprazole* (Protonix*) 20 Mg Tablet.dr, 20 MG PO DAILY, #90 TAB Prov:HIMANSHU NORWOOD MD 07/11/16 Losartan Potassium* (Cozaar*) 50 Mg Tablet, 50 MG PO BID for 30 Days, TAB Prov:VERONICA BALLESTEROS 06/30/16 [Lactulose] 20 GM/30 ML SOLN No Conflict Check, 30 GM PO BID for 30 Days Prov:VERONICA BALLESTEROS 06/30/16 Insulin Glargine* (Lantus*) 100 Unit/Ml Soln, 12 UNIT SC QHS for 30 Days Prov:VERONICA BALLESTEROS 06/30/16 Hydralazine Hcl* (Hydralazine Hcl*) 25 Mg Tab, 50 MG PO Q12 for 30 Days, TAB Prov:VERONICA BALLESTEROS 06/30/16 Terbinafine Hcl* (Terbinafine Hcl*) 250 Mg Tablet, 250 MG PO BID for 30 Days, TAB Prov:LEAVERONICA PINTO 06/30/16 Brimonidine Tartrate* (Alphagan P*) 0.1%-15 Ml Opht Drops, 1 DROP BOTH EYES Q8, #1 BOTTLE Prov:LEAALEJANDROWalterVERONICA 06/30/16 Aspirin* (Aspirin* EC) 81 Mg Tablet.dr, 162 MG PO DAILY for 30 Days Prov:VERONICA BALLESTEROS 06/30/16 Metoprolol Tartrate* (Lopressor*) 25 Mg Tab, 25 MG PO BID, #60 TAB Prov:VERONICA BALLESTEROS 06/30/16 Oxycodone HCl/Acetaminophen (Percocet 5-325 mg Tablet) 1 Each Tablet, 1 EACH PO TID for PAIN, #9 TAB Prov:PAUL CLARK MD 03/18/16 Polyethylene Glycol* (Miralax*) 17 Gm Powd.pack, 2 TSP PO DAILY for CONSTIPATION , #1 BOTTLE Prov:PAUL CLARK MD 03/18/16 Reported Medications Ferrous Sulfate* (Ferrous Sulfate*) 325 Mg Tabec, 325 MG PO DAILY, TAB 07/06/16 Insulin Aspart* (Novolog Insulin Pen*) 100 Unit/Ml Soln, 12 UNIT SC WITH BREAKFAST for 30 Days, EA 07/06/16 Allergies Allergies: Coded Allergies: acetaminophen (Verified Allergy, Severe, UNABLE TO BREATH, 07/06/16) hydrocodone (Verified Allergy, Severe, UNABLE TO BREATH, 07/06/16) Penicillins (Verified Allergy, Unknown, 07/06/16) egg yolk (Verified Allergy, Unknown, 07/06/16) hydromorphone (Verified Allergy, Unknown, 07/06/16) ibuprofen (Verified Allergy, Unknown, 07/06/16) tramadol (Verified Allergy, Unknown, 07/06/16) PMhx/Soc History of Surgery: Yes (Jeremiah catheter, Fistula on L arm) Anesthesia Reaction: No Hx Neurological Disorder: No Hx Respiratory Disorders: No Hx Cardiac Disorders: No (HTN) Hx Psychiatric Problems: No Hx Miscellaneous Medical Probl: No Hx Alcohol Use: No Hx Substance Use: No Hx Tobacco Use: No Smoking Status: Never smoker Physical Exam Vitals Vital Signs Date Time Temp Pulse Resp B/P Pulse Ox O2 Delivery O2 Flow Rate FiO2 08/06/16 13:39 98.3 86 16 166/87 95 Room Air 08/06/16 11:31 98.3 81 16 148/78 93 Room Air 08/06/16 09:41 98.2 91 18 145/73 98 Physical Exam Const: [] No distress Head: Atraumatic Eyes: Normal Conjunctiva ENT: Normal External Ears, Nose and Mouth. Neck: Full range of motion..~ No meningismus. Resp: Clear to auscultation bilaterally, no rales Cardio: Regular rate and rhythm, no murmurs Abd: Soft, non tender, non distended. Normal bowel sounds Skin: No petechiae or rashes Back: No midline or flank tenderness, bilateral lumbar paraspinal muscle spasm with mild tenderness, no hale or deformity Ext: No cyanosis, or edema Neur: Awake and alert and oriented 3, no cranial nerves II through XII intact, no cerebellar deficits, normal gait Psych: Normal Mood and Affect Result Diagram: 08/06/16 [facility] 08/06/16 0947 Results 24 hrs Laboratory Tests Test 08/06/16 09:47 08/06/16 10:25 08/06/16 10:32 08/06/16 10:37 Sodium Level 135mmol/L Potassium Level 4.3mmol/L Chloride Level 99mmol/L Carbon Dioxide Level 25mmol/L Anion Gap 15 Blood Urea Nitrogen 40mg/dl Creatinine 3.48mg/dl Glucose Level 318mg/dl Calcium Level 9.2mg/dl Total Bilirubin 0.4mg/dl Direct Bilirubin 0.00mg/dl Indirect Bilirubin 0.4mg/dl Aspartate Amino Transf (AST/SGOT) 25IU/L Alanine Aminotransferase (ALT/SGPT) 20IU/L Alkaline Phosphatase 158IU/L Troponin I 0.063ng/ml Total Protein 7.2g/dl Albumin 4.4g/dl Globulin 2.80g/dl Albumin/Globulin Ratio 1.57 Lipase 197U/L Urine Color LT. YELLOW Urine Clarity CLEAR Urine pH 7.0 Urine Specific [place] 1.015 Urine Ketones NEGATIVE Urine Nitrite NEGATIVE Urine Bilirubin NEGATIVE Urine Urobilinogen 0.2 E.U./dL Urine Leukocyte Esterase NEGATIVE Urine Microscopic RBC 5-10/HPF Urine Microscopic WBC 2-5/HPF Urine Epithelial Cells FEW Urine Bacteria FEW Urine Hemoglobin 2+ Urine Glucose >=1000% Urine Total Protein 4+ Bedside Urine pH (LAB) 7.0 Bedside Urine Protein (LAB) 3+ Bedside Urine Glucose (UA) 0.50% Bedside Urine Ketones (LAB) Negative Bedside Urine Blood 2+ Bedside Urine Nitrite (LAB) Negative Bedside Urine Leukocyte Esterase (L Negative White Blood Count 4.710^3/ul Red Blood Count 3.7810^6/ul Hemoglobin 11.6g/dl Hematocrit 34.6% Mean Corpuscular Volume 91.5fl Mean Corpuscular Hemoglobin 30.7pg Mean Corpuscular Hemoglobin Concent 33.5g/dl Red Cell Distribution Width 13.0% Platelet Count 20383^3/UL Mean Platelet Volume 10.3fl Neutrophils % 66.4% Lymphocytes % 24.7% Monocytes % 6.8% Eosinophils % 1.5% Basophils % 0.2% Nucleated Red Blood Cells % 0.0/100WBC Neutrophils # 3.210^3/ul Lymphocytes # 1.210^3/ul Monocytes # 0.310^3/ul Eosinophils # 0.110^3/ul Basophils # 0.010^3/ul Nucleated Red Blood Cells # 0.010^3/ul Prothrombin Time 11.3Sec Prothrombin Time Ratio 0.9 INR International Normalized Ratio 0.82 Activated Partial Thromboplast Time 27.4Sec Current Medications Medications (Trade) Dose Ordered Sig/Jacques Route PRN Reason Start Time Stop Time Status Last Admin Dose Admin Sodium Chloride (NS) 500 ml @ 500 mls/hr Q1H STAT IV 08/06/16 09:47 08/06/16 10:46 DC 08/06/16 10:33 Ondansetron HCl (Zofran Inj) 4 mg ONCE STAT IV 08/06/16 09:47 08/06/16 09:49 DC 08/06/16 10:32 Morphine Sulfate (morphine) 4 mg ONCE STAT IV 08/06/16 10:18 08/06/16 10:19 DC 08/06/16 10:32 Morphine Sulfate (morphine) 4 mg ONCE STAT IV 08/06/16 13:21 08/06/16 13:22 DC 08/06/16 13:27 Diazepam (Valium) 5 mg ONCE ONCE IV 08/06/16 13:30 08/06/16 13:31 DC 6/2/17 13:27 Procedures/MDM Acute on chronic back pain. No signs of urinary infection. Urinalysis negative for leukocyte esterase and was a dirty catch and therefore had a few epithelial cells and bacteria. Patient has recently run out of narcotics and responded well to narcotic pain medication. Nausea is possibly secondary to withdrawal. Full workup was performed to look for other causes and none were found. She was treated with morphine and Valium for the muscle spasm she was feeling much better. She does have hyperglycemia but intends to take her own medication when she returns home. Giving her primary care follow-up in 2-3 days and she intends to have dialysis finished today. I told her return the emergency room for any acute changes or any concerns at all. EKG interpretation: Normal sinus rhythm rate of 89, normal axis no ST or T-wave changes concerning for acute ischemia, normal intervals. Normal EKG Departure Diagnosis: Primary Impression: Nausea Additional Impression: Back pain Condition: Stable Patient Instructions: Back Pain (Acute Or Chronic), Back Spasm, No Trauma Additional Instructions: Call your primary care doctor TOMORROW for a SAME-DAY APPOINTMENT.Tell the paralegal secretary that you were referred from this facility.Call again if your condition worsens before your appointment time. ROSMERY MORRIS DO Aug 06, 2016 15:36
== END 2016-08-06 13:41 | disposition home or self-care (01) ==
LOC: E/R 09:39
DX: R11.0 Nausea (principal); I10 Essential (primary) hypertension; E11.9 Type 2 diabetes mellitus without complications; R10.9 Unspecified abdominal pain; Z79.4 Long term (current) use of insulin; Z79.82 Long term (current) use of aspirin
CPT/HCPCS: 80053; 81001; 81003; 83690; 84484; 85025; 85610; 85730; J2270; J2405; J3360; J7040; 36415; 93005; 96361; 96374; 96375; 96376

== ENCOUNTER 2016-09-02 10:34 | Emergency (ER) | payer MEDICARE, BC ==
[~2016-09-02] VITALS: Ht 165.1 cm; Wt 70.0 kg
[~2016-09-02 10:34] MED LIST changes: +METH500T PO; +MORP15TA92 PO; +ONDA4TAB14 PO
[2016-09-02 10:44] VITALS: Ht 165.1 cm; Wt 70.0 kg
--- NOTE | 2016-09-02 11:36 | RADRPT ---
PROCEDURE: XR Chest. CLINICAL INDICATION: Chest pain TECHNIQUE: A single AP view of the chest was obtained. COMPARISON: Chest x-ray dated 07/06/2016 FINDINGS: Is a right chest Perma-Cath with tip near the cavoatrial junction. No focal airspace opacification, pleural effusion or pneumothorax is seen. The cardiomediastinal si lhouette is mildly enlarged. The osseous structures are unremarkable. IMPRESSION: 1. No radiographic evidence of acute cardiopulmonary disease. 2. Right chest Perma-Cath with tip near the cavoatrial junction. 3. Mild cardiomegaly. RPTAT: HH .Barbie Grossman MD, MD Date Time Electronically viewed and signed by .Barbie Grossman MD, on 09/02/2016 11:36 .G/
[2016-09-02] MEDS ORDERED: ONDANSETRON 4 MG INJ IV STA (11:42)
[2016-09-02] MEDS ORDERED: morphine 4 MG/ML VIAL IV STA (11:42)
[2016-09-02 11:51] LABS: ADD SCAN DIFF NO
[2016-09-02 11:52] LABS: BASOPHILS % 0.2 % (0.0-2.0); EOSINOPHILS # 0.1 10^3/ul (0.0-0.5); EOSINOPHILS % 1.2 % (0.0-7.0); HEMATOCRIT 36.2 % (37.0-47.0); HEMOGLOBIN 12.1 g/dl (12.0-16.0); LYMPHOCYTES # 1.2 10^3/ul (0.8-2.9); LYMPHOCYTES % 28.7 % (15.0-51.0); MEAN CORPUSCULAR HEMOGLOBIN 30.6 pg (29.0-33.0); MEAN CORPUSCULAR HGB CONC 33.4 g/dl (32.0-37.0); MEAN CORPUSCULAR VOLUME 91.4 fl (82.0-101.0); MEAN PLATELET VOLUME 9.5 fl (7.4-10.4); MONOCYTE # 0.4 10^3/ul (0.3-0.9); MONOCYTES % 10.8 % (0.0-11.0); NEUTROPHIL # 2.4 10^3/ul (1.6-7.5); NEUTROPHILS % 58.9 % (39.0-77.0); PLATELET COUNT 183 10^3/UL (140-415); RED BLOOD COUNT 3.96 10^6/ul (4.20-5.40); WHITE BLOOD COUNT 4.1 10^3/ul (4.8-10.8)
[2016-09-02 12:10] LABS: ANION GAP 14 (8-16); BLOOD UREA NITROGEN 34 mg/dl (7-20); CALCIUM 9.3 mg/dl (8.4-10.2); CARBON DIOXIDE 26 mmol/L (21-31); CHLORIDE 97 mmol/L (97-110); CREATININE 3.66 mg/dl (0.44-1.00); GLUCOSE 294 mg/dl (70-220); POTASSIUM 4.7 mmol/L (3.5-5.1); SODIUM 132 mmol/L (135-144)
[2016-09-02 12:26] LABS: TROPONIN-I < 0.012 ng/ml (0.00-0.12)
[2016-09-02 12:27] LABS: INR 0.77; PROTIME 10.7 Sec (12.2-14.2); PT RATIO 0.8
[2016-09-02 12:28] LABS: PARTIAL THROMBOPLASTIN TIME 28.1 Sec (25.0-35.0)
--- NOTE | 2016-09-02 12:31 | ERD ---
ER Documentation Chief Complaint Date/Time DATE: 09/02/16 TIME: 12:28 Chief Complaint Complains of chest and back pain Hx of Dialysis HPI This is a 46-year-old female with a history of hypertension, diabetes, end- stage renal disease who completed dialysis yesterday who presents to the emergency room for evaluation of chest pain. The patient states that she has had chest pain for 3 days duration and has been constant. The patient states her chest pain as a sharp pain localized in the midportion of the chest which is worse with deep inspiration. She denies any cough or fever associated with this and came to the ER today for evaluation. ROS All systems reviewed and are negative except as per history of present illness. Medications Home Meds Active Scripts Methocarbamol* (Robaxin*) 500 Mg Tab, 500 MG PO Q8 for MUSCLE SPASMS, #14 TAB Prov:ROSMERY MORRIS DO 08/06/16 Ondansetron (Ondansetron Odt) 4 Mg Tab.rapdis, 4 MG PO Q6H Y for NAUSEA AND/OR VOMITING, #10 TAB Prov:ROSMERY MORRIS DO 08/06/16 Morphine Sulfate* (Ms Contin*) 15 Mg Tablet.sa, 15 MG PO Q12, #10 TAB Prov:ROSMERY MORRIS DO 08/06/16 Metoclopramide* (Reglan*) 10 Mg Tablet, 10 MG PO Q6H Y for NAUSEA AND OR VOMITING, #30 TAB Prov:HIMANSHU NORWOOD MD 07/11/16 Pantoprazole* (Protonix*) 20 Mg Tablet.dr, 20 MG PO DAILY, #90 TAB Prov:HIMANSHU NORWOOD MD 07/11/16 Losartan Potassium* (Cozaar*) 50 Mg Tablet, 50 MG PO BID for 30 Days, TAB Prov:VERONICA BALLESTEROS 06/30/16 [Lactulose] 20 GM/30 ML SOLN No Conflict Check, 30 GM PO BID for 30 Days Prov:VERONICA BALLESTEROS 06/30/16 Insulin Glargine* (Lantus*) 100 Unit/Ml Soln, 12 UNIT SC QHS for 30 Days Prov:VERONICA BALLESTEROS 06/30/16 Hydralazine Hcl* (Hydralazine Hcl*) 25 Mg Tab, 50 MG PO Q12 for 30 Days, TAB Prov:VERONICA BALLESTEROS 06/30/16 Terbinafine Hcl* (Terbinafine Hcl*) 250 Mg Tablet, 250 MG PO BID for 30 Days, TAB Prov:VERONICA BALLESTEROS 06/30/16 Brimonidine Tartrate* (Alphagan P*) 0.1%-15 Ml Opht Drops, 1 DROP BOTH EYES Q8, #1 BOTTLE Prov:VERONICA BALLESTEROS 06/30/16 Aspirin* (Aspirin* EC) 81 Mg Tablet.dr, 162 MG PO DAILY for 30 Days Prov:VERONICA BALLESTEROS 06/30/16 Metoprolol Tartrate* (Lopressor*) 25 Mg Tab, 25 MG PO BID, #60 TAB Prov:VERONICA BALLESTEROS 06/30/16 Oxycodone HCl/Acetaminophen (Percocet 5-325 mg Tablet) 1 Each Tablet, 1 EACH PO TID for PAIN, #9 TAB Prov:PAUL CLARK MD 03/18/16 Polyethylene Glycol* (Miralax*) 17 Gm Powd.pack, 2 TSP PO DAILY for CONSTIPATION , #1 BOTTLE Prov:PAUL CLARK MD 03/18/16 Reported Medications Ferrous Sulfate* (Ferrous Sulfate*) 325 Mg Tabec, 325 MG PO DAILY, TAB 07/06/16 Insulin Aspart* (Novolog Insulin Pen*) 100 Unit/Ml Soln, 12 UNIT SC WITH BREAKFAST for 30 Days, EA 07/06/16 Allergies Allergies: Coded Allergies: acetaminophen (Verified Allergy, Severe, UNABLE TO BREATH, 07/06/16) hydrocodone (Verified Allergy, Severe, UNABLE TO BREATH, 07/06/16) Penicillins (Verified Allergy, Unknown, 07/06/16) egg yolk (Verified Allergy, Unknown, 07/06/16) hydromorphone (Verified Allergy, Unknown, 07/06/16) ibuprofen (Verified Allergy, Unknown, 07/06/16) tramadol (Verified Allergy, Unknown, 07/06/16) PMhx/Soc History of Surgery: Yes (Jreemiah catheter, Fistula on L arm) Anesthesia Reaction: No Hx Neurological Disorder: No Hx Respiratory Disorders: No Hx Cardiac Disorders: No (HTN) Hx Psychiatric Problems: No Hx Miscellaneous Medical Probl: No Hx Alcohol Use: No Hx Substance Use: No Hx Tobacco Use: No Physical Exam Vitals Vital Signs Date Time Temp Pulse Resp B/P Pulse Ox O2 Delivery O2 Flow Rate FiO2 09/02/16 10:44 98.3 69 20 205/100 99 Physical Exam INITIAL VITAL SIGNS: Reviewed by me GENERAL: The patient is well developed and appropriate for usual state of health in no apparent distress HEENT: Pupils equal, round, and reactive to light. EOMI. There is no scleral icterus. NECK: C-spine is soft and supple, there is no meningismus. There is no cervical lymphadenopathy. LUNGS: Clear to auscultation bilaterally. There are no rales, wheezes or rhonchi. HEART: Regular rate and rhythm, no murmurs, clicks, rubs or gallops. ABDOMEN: Soft, non-tender, non-distended. There are bowel sounds in all four quadrants. No rebound or guarding. EXTREMITIES: There is no peripheral cyanosis or edema. No focal swelling or erythema. NEUROLOGICAL: The patient moves all four extremities with 5/5 strength. Cranial nerves II - XII are intact. Normal gait. Alert and oriented SKIN: Permacath in right anterior chest wall there is no apparent rash or petechiae. Musculoskeletal: Tenderness to palpation of anterior chest wall HEME/LYMPHATIC: There is no evidence of excessive bruising or lymphedema. PSYCHIATRIC: The patient does not appear anxious or depressed. Result Diagram: 09/02/16 1137 09/02/16 1137 Results 24 hrs Laboratory Tests Test 09/02/16 11:37 White Blood Count 4.110^3/ul Red Blood Count 3.9610^6/ul Hemoglobin 12.1g/dl Hematocrit 36.2% Mean Corpuscular Volume 91.4fl Mean Corpuscular Hemoglobin 30.6pg Mean Corpuscular Hemoglobin Concent 33.4g/dl Red Cell Distribution Width 12.0% Platelet Count 01656^3/UL Mean Platelet Volume 9.5fl Neutrophils % 58.9% Lymphocytes % 28.7% Monocytes % 10.8% Eosinophils % 1.2% Basophils % 0.2% Nucleated Red Blood Cells % 0.0/100WBC Neutrophils # 2.410^3/ul Lymphocytes # 1.210^3/ul Monocytes # 0.410^3/ul Eosinophils # 0.110^3/ul Basophils # 0.010^3/ul Nucleated Red Blood Cells # 0.010^3/ul Prothrombin Time 10.7Sec Prothrombin Time Ratio 0.8 INR International Normalized Ratio 0.77 Activated Partial Thromboplast Time Pending Sodium Level 132mmol/L Potassium Level 4.7mmol/L Chloride Level 97mmol/L Carbon Dioxide Level 26mmol/L Anion Gap 14 Blood Urea Nitrogen 34mg/dl Creatinine 3.66mg/dl Glucose Level 294mg/dl Calcium Level 9.3mg/dl Troponin I < 0.012ng/ml Current Medications Medications (Trade) Dose Ordered Sig/Jacques Route PRN Reason Start Time Stop Time Status Last Admin Dose Admin Morphine Sulfate (morphine) 4 mg ONCE STAT IV 09/02/16 11:42 09/02/16 11:46 DC 09/02/16 12:23 Ondansetron HCl (Zofran Inj) 4 mg ONCE STAT IV 09/02/16 11:42 09/02/16 11:46 DC Procedures/MDM EKG: Rate/Rhythm: [Normal Sinus Rhythm] QRS, ST, T-waves: [No changes consistent w/ acute ischemia] Impression: [No evidence of ischemia or arrhythmia] Chest X-ray 1V Interpreted by me: Soft Tissue: No acute abnormalities Bones: No acute abnormalities Mediastinum/Cardiac Silhouette/Lungs: [No acute abnormalities] This 46-year-old female presents to the emergency room for evaluation of chest pain. This patient does state that her chest pain was reproducible with palpation of the anterior chest wall. EKG is nonischemic. Chest x-ray is clear and troponin is negative. This patient is hemodynamically stable at this time, she is not hypoxic and I do feel that she is suffering from costochondritis. The patient is allergic to ibuprofen, and Tylenol. I advised her that costochondritis is a self-limiting process. She was given morphine in the emergency room and states she is feeling much better at this time. She will be discharged home at this time. Differential diagnoses entertained was broad with potential high acuity. Patient has been evaluated for acute myocardial infarction, unstable angina, aortic dissection, pulmonary embolism, other intrathoracic and cardiac concerns. Ultimately the patient's evaluation is nondiagnostic. Based on the patient's lack of risk factors, as well as the patient's clinical, laboratory, and imaging data, the patient appears to be low risk for these high risk causes of chest pain. Departure Diagnosis: Primary Impression: Chest pain Additional Impression: End stage renal disease on dialysis due to type 1 diabetes mellitus Condition: Stable JAVAD SHEPHERD DO Sep 02, 2016 12:31
[2016-09-02 12:35] VITALS: BP 195/80; PULSE 68; RESP 19; TEMP 98.6
== END 2016-09-02 12:46 | disposition home or self-care (01) ==
LOC: E/R 10:34
DX: R07.89 Other chest pain (principal); E10.22 Type 1 diabetes mellitus with diabetic chronic kidney disease; N18.6 End stage renal disease; I12.0 Hypertensive chronic kidney disease with stage 5 chronic kidney disease or end stage renal disease; Z79.4 Long term (current) use of insulin; Z79.82 Long term (current) use of aspirin
CPT/HCPCS: 71010; 80048; 84484; 85025; 85610; 85730; 93005; J2270; J2405; 36415; 96374

== ENCOUNTER 2016-09-19 09:11 | Emergency (ER) | payer MEDICARE, BC ==
[~2016-09-19] VITALS: Ht 165.1 cm; Wt 70.0 kg
[2016-09-19 09:14] VITALS: Ht 165.1 cm; Wt 70.0 kg
[2016-09-19] MEDS ORDERED: morphine 4 MG/ML VIAL IV STA ×2 (09:40→12:21)
[2016-09-19] MEDS ORDERED: NITROGLYCERIN (SL) 0.4 MG TAB SL PRN (10:00)
[2016-09-19] MEDS ORDERED: hydrALAzine 20 MG INJ IV ONE (10:00)
--- NOTE | 2016-09-19 10:09 | RADRPT ---
PROCEDURE: Chest x-ray CLINICAL INDICATION: Chest pain TECHNIQUE: Chest single view COMPARISON: 09/02/2016 FINDINGS: As before there is right IJ dialysis catheter. Stable mild cardiomegaly seen. Is interval developm ent of mild interstitial CHF. The lungs are clear. The costophrenic angles are sharp. The visualiz ed bony thorax is unremarkable. IMPRESSION: 1. Right IJ dialysis catheter remains in place. 2. Cardiomegaly with interval development of mild interstitial CHF RPTAT: HH .Alejo Patel MD, MD Date Time Electronically viewed and signed by .Alejo Patel MD, MD on 09/19/2016 10:08 .W/
[2016-09-19 10:10] LABS: ADD SCAN DIFF NO
[2016-09-19 10:12] LABS: BASOPHILS % 0.2 % (0.0-2.0); HEMATOCRIT 38.5 % (37.0-47.0); HEMOGLOBIN 12.5 g/dl (12.0-16.0); LYMPHOCYTES # 1.1 10^3/ul (0.8-2.9); LYMPHOCYTES % 26.2 % (15.0-51.0); MEAN CORPUSCULAR HEMOGLOBIN 29.9 pg (29.0-33.0); MEAN CORPUSCULAR HGB CONC 32.5 g/dl (32.0-37.0); MEAN CORPUSCULAR VOLUME 92.1 fl (82.0-101.0); MEAN PLATELET VOLUME 10.2 fl (7.4-10.4); MONOCYTE # 0.3 10^3/ul (0.3-0.9); MONOCYTES % 7.3 % (0.0-11.0); NEUTROPHIL # 2.7 10^3/ul (1.6-7.5); NEUTROPHILS % 65.1 % (39.0-77.0); PLATELET COUNT 142 10^3/UL (140-415); RED BLOOD COUNT 4.18 10^6/ul (4.20-5.40); RED CELL DISTRIBUTION WIDTH 12.6 % (11.5-14.5); WHITE BLOOD COUNT 4.1 10^3/ul (4.8-10.8)
[2016-09-19 10:35] LABS: ANION GAP 20 (8-16); BLOOD UREA NITROGEN 37 mg/dl (7-20); CALCIUM 9.8 mg/dl (8.4-10.2); CARBON DIOXIDE 28 mmol/L (21-31); CHLORIDE 96 mmol/L (97-110); CREATININE 4.36 mg/dl (0.44-1.00); GLUCOSE 216 mg/dl (70-220); POTASSIUM 4.7 mmol/L (3.5-5.1); SODIUM 139 mmol/L (135-144)
[2016-09-19 10:39] LABS: INR 0.8; PARTIAL THROMBOPLASTIN TIME 27.5 Sec (25.0-35.0); PROTIME 11.1 Sec (12.2-14.2); PT RATIO 0.9
[2016-09-19 10:47] LABS: TROPONIN-I < 0.012 ng/ml (0.00-0.12)
--- NOTE | 2016-09-19 11:49 | ERD ---
ER Documentation Chief Complaint Date/Time DATE: 09/19/16 TIME: 11:46 Chief Complaint CHEST PAIN WITH HIGH BLOOD PRESSURE, DIALYSIS PATIENT HPI This is a 46-year-old female with a history of hypertension and end-stage renal disease who goes to dialysis Tuesday, Tuesday, Tuesday who presents to the emergency room for evaluation of chest pain and elevated blood pressure. The patient denies any shortness of breath or palpitations. She does state that she completed dialysis Tuesday and is scheduled to go to dialysis tomorrow September 20. ROS All systems reviewed and are negative except as per history of present illness. Medications Home Meds Active Scripts Methocarbamol* (Robaxin*) 500 Mg Tab, 500 MG PO Q8 for MUSCLE SPASMS, #14 TAB Prov:ROSMERY MORRIS DO 08/06/16 Ondansetron (Ondansetron Odt) 4 Mg Tab.rapdis, 4 MG PO Q6H Y for NAUSEA AND/OR VOMITING, #10 TAB Prov:ROSMERY MORRIS DO 08/06/16 Morphine Sulfate* (Ms Contin*) 15 Mg Tablet.sa, 15 MG PO Q12, #10 TAB Prov:ROSMERY MORRIS DO 08/06/16 Metoclopramide* (Reglan*) 10 Mg Tablet, 10 MG PO Q6H Y for NAUSEA AND OR VOMITING, #30 TAB Prov:HIMANSHU NORWOOD MD 07/11/16 Pantoprazole* (Protonix*) 20 Mg Tablet.dr, 20 MG PO DAILY, #90 TAB Prov:HIMANSHU NORWOOD MD 07/11/16 Losartan Potassium* (Cozaar*) 50 Mg Tablet, 50 MG PO BID for 30 Days, TAB Prov:VERONICA BALLESTEROS 06/30/16 [Lactulose] 20 GM/30 ML SOLN No Conflict Check, 30 GM PO BID for 30 Days Prov:VERONICA BALLESTEROS 06/30/16 Insulin Glargine* (Lantus*) 100 Unit/Ml Soln, 12 UNIT SC QHS for 30 Days Prov:VERONICA BALLESTEROS 06/30/16 Hydralazine Hcl* (Hydralazine Hcl*) 25 Mg Tab, 50 MG PO Q12 for 30 Days, TAB Prov:VERONICA BALLESTEROS 06/30/16 Terbinafine Hcl* (Terbinafine Hcl*) 250 Mg Tablet, 250 MG PO BID for 30 Days, TAB Prov:FAVIANVERONICA 06/30/16 Brimonidine Tartrate* (Alphagan P*) 0.1%-15 Ml Opht Drops, 1 DROP BOTH EYES Q8, #1 BOTTLE Prov:LEAALEJANDROWalterVERONICA 06/30/16 Aspirin* (Aspirin* EC) 81 Mg Tablet.dr, 162 MG PO DAILY for 30 Days Prov:VERONICA BALLESTEROS 06/30/16 Metoprolol Tartrate* (Lopressor*) 25 Mg Tab, 25 MG PO BID, #60 TAB Prov:VERONICA BALLESTEROS 06/30/16 Oxycodone HCl/Acetaminophen (Percocet 5-325 mg Tablet) 1 Each Tablet, 1 EACH PO TID for PAIN, #9 TAB Prov:PAUL CLARK MD 03/18/16 Polyethylene Glycol* (Miralax*) 17 Gm Powd.pack, 2 TSP PO DAILY for CONSTIPATION , #1 BOTTLE Prov:PAUL CLARK MD 03/18/16 Reported Medications Ferrous Sulfate* (Ferrous Sulfate*) 325 Mg Tabec, 325 MG PO DAILY, TAB 07/06/16 Insulin Aspart* (Novolog Insulin Pen*) 100 Unit/Ml Soln, 12 UNIT SC WITH BREAKFAST for 30 Days, EA 07/06/16 Allergies Allergies: Coded Allergies: acetaminophen (Verified Allergy, Severe, UNABLE TO BREATH, 07/06/16) hydrocodone (Verified Allergy, Severe, UNABLE TO BREATH, 07/06/16) Penicillins (Verified Allergy, Unknown, 07/06/16) egg yolk (Verified Allergy, Unknown, 07/06/16) hydromorphone (Verified Allergy, Unknown, 07/06/16) ibuprofen (Verified Allergy, Unknown, 07/06/16) tramadol (Verified Allergy, Unknown, 07/06/16) PMhx/Soc History of Surgery: Yes (Jeremiah catheter, Fistula on L arm) Anesthesia Reaction: No Hx Neurological Disorder: No Hx Respiratory Disorders: No Hx Cardiac Disorders: No (HTN) Hx Psychiatric Problems: No Hx Miscellaneous Medical Probl: No Hx Alcohol Use: No Hx Substance Use: No Hx Tobacco Use: No Smoking Status: Never smoker Physical Exam Vitals Vital Signs Date Time Temp Pulse Resp B/P Pulse Ox O2 Delivery O2 Flow Rate FiO2 7/16/17 10:10 66 12 166/83 99 Nasal Cannula 2.0 09/19/16 09:50 70 16 219/95 100 Nasal Cannula 2.0 09/19/16 09:50 Nasal Cannula 2 09/19/16 09:14 98.5 78 18 234/104 99 Physical Exam INITIAL VITAL SIGNS: Reviewed by me GENERAL: The patient is well developed and appropriate for usual state of health in no apparent distress HEENT: Pupils equal, round, and reactive to light. EOMI. There is no scleral icterus. NECK: C-spine is soft and supple, there is no meningismus. There is no cervical lymphadenopathy. LUNGS: Clear to auscultation bilaterally. There are no rales, wheezes or rhonchi. HEART: Regular rate and rhythm, no murmurs, clicks, rubs or gallops. ABDOMEN: Soft, non-tender, non-distended. There are bowel sounds in all four quadrants. No rebound or guarding. EXTREMITIES: There is no peripheral cyanosis or edema. No focal swelling or erythema. NEUROLOGICAL: The patient moves all four extremities with 5/5 strength. Cranial nerves II - XII are intact. Normal gait. Alert and oriented SKIN: Right IJ catheter, left AC fistula with palpable thrill per there is no apparent rash or petechiae. HEME/LYMPHATIC: There is no evidence of excessive bruising or lymphedema. PSYCHIATRIC: The patient does not appear anxious or depressed. Result Diagram: 09/19/16 1000 09/19/16 1000 Results 24 hrs Laboratory Tests Test 09/19/16 10:00 White Blood Count 4.110^3/ul Red Blood Count 4.1810^6/ul Hemoglobin 12.5g/dl Hematocrit 38.5% Mean Corpuscular Volume 92.1fl Mean Corpuscular Hemoglobin 29.9pg Mean Corpuscular Hemoglobin Concent 32.5g/dl Red Cell Distribution Width 12.6% Platelet Count 34210^3/UL Mean Platelet Volume 10.2fl Neutrophils % 65.1% Lymphocytes % 26.2% Monocytes % 7.3% Eosinophils % 1.0% Basophils % 0.2% Nucleated Red Blood Cells % 0.0/100WBC Neutrophils # 2.710^3/ul Lymphocytes # 1.110^3/ul Monocytes # 0.310^3/ul Eosinophils # 0.010^3/ul Basophils # 0.010^3/ul Nucleated Red Blood Cells # 0.010^3/ul Prothrombin Time 11.1Sec Prothrombin Time Ratio 0.9 INR International Normalized Ratio 0.80 Activated Partial Thromboplast Time 27.5Sec Sodium Level 139mmol/L Potassium Level 4.7mmol/L Chloride Level 96mmol/L Carbon Dioxide Level 28mmol/L Anion Gap 20 Blood Urea Nitrogen 37mg/dl Creatinine 4.36mg/dl Glucose Level 216mg/dl Calcium Level 9.8mg/dl Troponin I < 0.012ng/ml Current Medications Medications (Trade) Dose Ordered Sig/Jacques Route PRN Reason Start Time Stop Time Status Last Admin Dose Admin Nitroglycerin (Nitroglycerin (Sl Tab) 0.4 Mg) 1 tab Q5M UP TO 3 DOSES PRN SL CHEST PAIN 09/19/16 10:00 09/19/16 09:58 Morphine Sulfate (morphine) 4 mg ONCE STAT IV 09/19/16 09:40 09/19/16 09:42 DC 09/19/16 09:57 Hydralazine HCl (Apresoline) 10 mg ONCE ONCE IV 09/19/16 10:00 09/19/16 10:01 DC Procedures/MDM EKG: Rate/Rhythm: [Normal Sinus Rhythm] QRS, ST, T-waves: [No changes consistent w/ acute ischemia] Impression: [No evidence of ischemia or arrhythmia] Chest X-ray 1V Interpreted by me: Soft Tissue: No acute abnormalities Bones: No acute abnormalities Mediastinum/Cardiac Silhouette/Lungs: [No acute abnormalities] This 46-year-old female presents to the ER for evaluation of chest pain, and hypertension. I evaluated this patient she was hypertensive. She was not hypoxic and in no respiratory distress. Patient was given sublingual nitroglycerin patient was given 4 mg morphine. Lab work was obtained including a troponin which is negative. Her EKG is nonischemic. Chest x-ray does not show any pulmonary edema. Pulmonary evaluation after pain medications as patient's blood pressure is 196/63. She states that she is pain-free at this time and will be discharged with instructions to follow-up with her dialysis center tomorrow morning. Departure Diagnosis: Primary Impression: Chest pain Additional Impressions: End stage renal disease on dialysis due to type 1 diabetes mellitus Essential hypertension Condition: Stable JAVAD SHEPHERD DO Sep 19, 2016 11:48
[2016-09-19 12:26] VITALS: BP 195/89; PULSE 64; RESP 19; TEMP 97.9
== END 2016-09-19 12:41 | disposition home or self-care (01) ==
LOC: FTE 09:11 → E/R 12:41
DX: R07.9 Chest pain, unspecified (principal); I12.0 Hypertensive chronic kidney disease with stage 5 chronic kidney disease or end stage renal disease; N18.6 End stage renal disease; E10.22 Type 1 diabetes mellitus with diabetic chronic kidney disease; Z79.4 Long term (current) use of insulin; Z79.82 Long term (current) use of aspirin; Z99.2 Dependence on renal dialysis
CPT/HCPCS: 36415; 71010; 80048; 84484; 85025; 85610; 85730; 93005; 96374; 96375; 96376; 99285; J2270

== ENCOUNTER 2016-09-22 04:08 | Emergency (ER) | payer MEDICARE, BC ==
[~2016-09-22] VITALS: Ht 162.6 cm; Wt 70.0 kg
[2016-09-22 04:11] VITALS: Ht 162.6 cm; Wt 70.0 kg
[2016-09-22] MEDS ORDERED: HYDROmorphONE 1 MG/ML SYG IV ONE ×2 (04:31→05:12)
[2016-09-22] MEDS ORDERED: ONDANSETRON 4 MG INJ IV ONE (04:32)
[2016-09-22 04:46] LABS: ADD SCAN DIFF NO
[2016-09-22 04:51] LABS: BASOPHILS % 0.4 % (0.0-2.0); EOSINOPHILS # 0.1 10^3/ul (0.0-0.5); EOSINOPHILS % 1.7 % (0.0-7.0); HEMATOCRIT 38.3 % (37.0-47.0); HEMOGLOBIN 12.5 g/dl (12.0-16.0); LYMPHOCYTES # 1.3 10^3/ul (0.8-2.9); LYMPHOCYTES % 27.2 % (15.0-51.0); MEAN CORPUSCULAR HEMOGLOBIN 29.1 pg (29.0-33.0); MEAN CORPUSCULAR HGB CONC 32.6 g/dl (32.0-37.0); MEAN CORPUSCULAR VOLUME 89.3 fl (82.0-101.0); MEAN PLATELET VOLUME 9.8 fl (7.4-10.4); MONOCYTE # 0.4 10^3/ul (0.3-0.9); MONOCYTES % 7.6 % (0.0-11.0); NEUTROPHIL # 2.9 10^3/ul (1.6-7.5); NEUTROPHILS % 62.9 % (39.0-77.0); PLATELET COUNT 148 10^3/UL (140-415); RED BLOOD COUNT 4.29 10^6/ul (4.20-5.40); RED CELL DISTRIBUTION WIDTH 12.4 % (11.5-14.5); WHITE BLOOD COUNT 4.6 10^3/ul (4.8-10.8)
[2016-09-22 05:13] LABS: ANION GAP 20 (8-16); BLOOD UREA NITROGEN 55 mg/dl (7-20); CALCIUM 9.7 mg/dl (8.4-10.2); CARBON DIOXIDE 27 mmol/L (21-31); CHLORIDE 96 mmol/L (97-110); CREATININE 4.94 mg/dl (0.44-1.00); GLUCOSE 254 mg/dl (70-220); POTASSIUM 4.4 mmol/L (3.5-5.1); SODIUM 139 mmol/L (135-144)
[2016-09-22 05:29] LABS: TROPONIN-I < 0.012 ng/ml (0.00-0.12)
[2016-09-22 05:54] LABS: PARTIAL THROMBOPLASTIN TIME 26.9 Sec (25.0-35.0)
--- NOTE | 2016-09-22 05:55 | RADRPT ---
PROCEDURE: XR Chest. CLINICAL INDICATION: Chest pain TECHNIQUE: An AP view of the chest was obtained. COMPARISON: Chest x-ray dated 09/19/2016 FINDINGS: There is a right chest Perma-Cath with tip near the cavoatrial junction. There is prominence of the interstitial and central pulmonary vascular markings with small right pl eural effusion. No focal airspace opacification or pneumothorax is seen. The cardiomediastinal si lhouette is mildly enlarged . Calcifications are seen within the aortic arch. The osseous structur es demonstrate senescent changes. IMPRESSION: 1. Findings suggestive of pulmonary vascular congestion with small right pleural effusion. No sign ificant interval change. 2. Mild cardiomegaly and aortic atherosclerosis. 3. Right chest Perma-Cath with tip near the cavoatrial junction. RPTAT: HH .Barbie Grossman MD, Date Time Electronically viewed and signed by .Barbie Grossman MD, on 09/22/2016 05:55 .G/
[2016-09-22] MEDS ORDERED: MULTI PO (05:58)
[2016-09-22 06:08] LABS: INR 0.8; PROTIME 11.1 Sec (12.2-14.2); PT RATIO 0.9
[2016-09-22 06:49] VITALS: BP 186/84; PULSE 78; RESP 20
--- NOTE | 2016-09-22 06:55 | ERD ---
ER Documentation Chief Complaint Date/Time DATE: 09/22/16 TIME: 06:50 Chief Complaint chest pain, back pain x 3 days,vomiting, dialysis pt HPI 46-year-old woman complains of sharp nonexertional nonradiating chest pain similar to previous episodes. She also has low back pain. She has had multiple similar episodes in the past. She uses opioid analgesics for chronic pain control. She denies shortness of breath, no fevers or chills, no calf or leg swelling. Patient states she has had these symptoms for the last 3 days. She has end-stage kidney disease on hemodialysis and received her last hemodialysis 2 days ago and is due later today. ROS All systems reviewed and are negative except as per history of present illness. Medications Home Meds Active Scripts Morphine Sulfate* (Ms Contin*) 15 Mg Tablet.sa, 15 MG PO Q12, #10 TAB Prov:ROSMERY MORRIS DO 08/06/16 Metoclopramide* (Reglan*) 10 Mg Tablet, 10 MG PO Q6H Y for NAUSEA AND OR VOMITING, #30 TAB Prov:HIMANSHU NORWOOD MD 07/11/16 Pantoprazole* (Protonix*) 20 Mg Tablet.dr, 20 MG PO DAILY, #90 TAB Prov:HIMANSHU NORWOOD MD 07/11/16 Losartan Potassium* (Cozaar*) 50 Mg Tablet, 50 MG PO BID for 30 Days, TAB Prov:VERONICA BALLESTEROS 06/30/16 [Lactulose] 20 GM/30 ML SOLN No Conflict Check, 30 GM PO BID for 30 Days Prov:VERONICA BALLESTEROS 06/30/16 Insulin Glargine* (Lantus*) 100 Unit/Ml Soln, 12 UNIT SC QHS for 30 Days Prov:VERONICA BALLESTEROS 06/30/16 Hydralazine Hcl* (Hydralazine Hcl*) 25 Mg Tab, 50 MG PO Q12 for 30 Days, TAB Prov:VERONICA BALLESTEROS 06/30/16 Terbinafine Hcl* (Terbinafine Hcl*) 250 Mg Tablet, 250 MG PO BID for 30 Days, TAB Prov:VERONICA BALLESTEROS 06/30/16 Brimonidine Tartrate* (Alphagan P*) 0.1%-15 Ml Opht Drops, 1 DROP BOTH EYES Q8, #1 BOTTLE Prov:LEAALEJANDROBUDDY WatsonVERONICA 06/30/16 Aspirin* (Aspirin* EC) 81 Mg Tablet.dr, 162 MG PO DAILY for 30 Days Prov:LEAALEJANDROWalterVERONICA 06/30/16 Metoprolol Tartrate* (Lopressor*) 25 Mg Tab, 25 MG PO BID, #60 TAB Prov:LEAALEJANDROWalterVERONICA 06/30/16 Polyethylene Glycol* (Miralax*) 17 Gm Powd.pack, 2 TSP PO DAILY for CONSTIPATION , #1 BOTTLE Prov:PAUL CLARK MD 03/18/16 Reported Medications Multivitamins* (Theragran*) 1 Tab Tab, 1 TAB PO DAILY, TAB 09/22/16 Ferrous Sulfate* (Ferrous Sulfate*) 325 Mg Tabec, 325 MG PO DAILY, TAB 07/06/16 Insulin Aspart* (Novolog Insulin Pen*) 100 Unit/Ml Soln, 12 UNIT SC WITH BREAKFAST for 30 Days, EA 07/06/16 Discontinued Scripts Methocarbamol* (Robaxin*) 500 Mg Tab, 500 MG PO Q8 for MUSCLE SPASMS, #14 TAB Prov:ROSMERY MORRIS DO 08/06/16 Ondansetron (Ondansetron Odt) 4 Mg Tab.rapdis, 4 MG PO Q6H Y for NAUSEA AND/OR VOMITING, #10 TAB Prov:ROSMERY MORRIS DO 08/06/16 Oxycodone HCl/Acetaminophen (Percocet 5-325 mg Tablet) 1 Each Tablet, 1 EACH PO TID for PAIN, #9 TAB Prov:PAUL CLARK MD 03/18/16 Allergies Allergies: Coded Allergies: acetaminophen (Unverified Allergy, Severe, UNABLE TO BREATH, 09/22/16) hydrocodone (Unverified Allergy, Severe, UNABLE TO BREATH, 09/22/16) Penicillins (Unverified Allergy, Unknown, 09/22/16) egg yolk (Unverified Allergy, Unknown, 09/22/16) ibuprofen (Unverified Allergy, Unknown, 09/22/16) tramadol (Unverified Allergy, Unknown, 09/22/16) PMhx/Soc Gastritis, anemia, previous upper gastrointestinal bleed, chronic pain syndrome , opioid dependence, end-stage renal disease on hemodialysis, hypertension, diabetes mellitus History of Surgery: Yes (Jeremiah catheter, Fistula on L arm) Anesthesia Reaction: No Hx Neurological Disorder: No Hx Respiratory Disorders: No Hx Cardiac Disorders: No (HTN) Hx Psychiatric Problems: No Hx Miscellaneous Medical Probl: No Hx Alcohol Use: No Hx Substance Use: No Hx Tobacco Use: No Smoking Status: Never smoker FmHx Family History: No diabetes Physical Exam Vitals Vital Signs Date Time Temp Pulse Resp B/P Pulse Ox O2 Delivery O2 Flow Rate FiO2 09/22/16 06:11 74 20 141/79 100 Room Air 09/22/16 04:11 97.8 96 20 247/118 98 Physical Exam GENERAL: Well-developed, well-nourished, appears opioid intoxicated HEENT: Moist mucous membranes, pink conjunctiva, no cervical spine tenderness or step-off deformities, no goiter, no jaundice or icterus, extraocular movements intact without pain. No submandibular induration, and no pharyngeal erythema NEURO: Alert and oriented 3, cranial nerves II through XII intact bilaterally, pupils equal round reactive to light, no focal deficits or facial asymmetry, sensation intact distally Strength 5/5 in upper and lower extremities bilaterally CARDIAC: Regular rate and rhythm, no murmurs rubs or gallops LUNGS: Clear bilaterally no wheezing crackles or stridor ABDOMEN: Soft nontender, no guarding, no rigidity, no rebound, no psoas sign no obturator sign. Normoactive bowel sounds SKIN: Warm and dry to touch, no abrasions, contusions, or hematomas, no lacerations, no ecchymosis, no target lesions, and without ulcers EXTREMITIES: No clubbing cyanosis or edema, calves are bilaterally symmetrical, no Homans sign, no popliteal cord sign. Distal pulses equal and bilateral PSYCH: Normal affect without agitation or irritability Result Diagram: 09/22/1643909/22/16439 Results 24 hrs Laboratory Tests Test 09/22/16 04:40 White Blood Count 4.610^3/ul Red Blood Count 4.2910^6/ul Hemoglobin 12.5g/dl Hematocrit 38.3% Mean Corpuscular Volume 89.3fl Mean Corpuscular Hemoglobin 29.1pg Mean Corpuscular Hemoglobin Concent 32.6g/dl Red Cell Distribution Width 12.4% Platelet Count 75492^3/UL Mean Platelet Volume 9.8fl Neutrophils % 62.9% Lymphocytes % 27.2% Monocytes % 7.6% Eosinophils % 1.7% Basophils % 0.4% Nucleated Red Blood Cells % 0.0/100WBC Neutrophils # 2.910^3/ul Lymphocytes # 1.310^3/ul Monocytes # 0.410^3/ul Eosinophils # 0.110^3/ul Basophils # 0.010^3/ul Nucleated Red Blood Cells # 0.010^3/ul Prothrombin Time 11.1Sec Prothrombin Time Ratio 0.9 INR International Normalized Ratio 0.80 Activated Partial Thromboplast Time 26.9Sec Sodium Level 139mmol/L Potassium Level 4.4mmol/L Chloride Level 96mmol/L Carbon Dioxide Level 27mmol/L Anion Gap 20 Blood Urea Nitrogen 55mg/dl Creatinine 4.94mg/dl Glucose Level 254mg/dl Calcium Level 9.7mg/dl Troponin I < 0.012ng/ml Current Medications Medications (Trade) Dose Ordered Sig/Jacques Route PRN Reason Start Time Stop Time Status Last Admin Dose Admin Hydromorphone HCl (Dilaudid) 1 mg ONCE ONCE IV 09/22/16 04:31 09/22/16 04:32 DC 09/22/16 04:34 Ondansetron HCl (Zofran Inj) 4 mg ONCE ONCE IV 09/22/16 04:32 09/22/16 04:33 DC 09/22/16 04:33 Hydromorphone HCl (Dilaudid) 1 mg ONCE ONCE IV 09/22/16 05:12 09/22/16 05:13 DC 09/22/16 05:27 Procedures/MDM IV line was established patient was placed on registered nurse cardiac telemetry rhythm strip revealed a sinus rhythm at about 80 bpm with upright P and T waves. Patient was afebrile. Chest X-ray 1V Interpreted by me: Soft Tissue: No acute abnormalities Bones: No acute abnormalities Mediastinum/Cardiac Silhouette/Lungs: No acute abnormalities EKG performed, read by me: 85 bpm, normal sinus rhythm, first-degree atrial ventricular block with CA interval 202 ms, normal axis, no acute ST segment changes, narrow QRS complex, with good R-wave progression in precordial leads. CBC was unremarkable, electrolytes revealed end-stage kidney disease, potassium normal, troponin negative I cannot administer any opioid analgesics as it seems patient has used too much although she is able to speak fully without difficulty and ambulate without any issues. I recommended she follow-up with her PMD and to undergo hemodialysis today as scheduled. Differential diagnoses considered, included but not limited to acute coronary syndrome, pulmonary embolism, aortic dissection, abdominal aortic aneurysm, sepsis, stroke, meningitis, encephalitis, pneumonia, appendicitis, cholecystitis , bowel obstruction, pyelonephritis, nephrolithiasis, cystitis, as well as metabolic, hematologic, and electrolyte abnormalities. As well as abscess, cellulitis, fractures, and dislocations. Patient feels much better at this time, and vital signs are normal, symptoms have improved. I did give strict instructions to return to the ED if symptoms continue or worsen, patient will otherwise follow-up with primary care physician. Patient understood instructions and agreed to plan. Disclaimer: Inadvertent spelling and grammatical errors are likely due to EHR/ dictation software use and do not reflect on the overall quality of patient care. Also, please note that the electronic time recorded on this note does not necessarily reflect the actual time of the patient encounter. Departure Diagnosis: Primary Impression: Chest pain Chest pain type: unspecified Qualified Code: R07.9 - Chest pain, unspecified type Additional Impressions: End stage kidney disease Hypertension Hypertension type: essential hypertension Qualified Code: I10 - Essential hypertension Condition: Good Patient Instructions: Chest Pain, Uncertain Cause Referrals: PAUL THOMPSON (PCP) PAUL CLARK MD Sep 22, 2016 06:55
[2016-09-22] MEDS ORDERED: KETOROLAC 15 MG INJ IV STA (07:10)
== END 2016-09-22 07:27 | disposition home or self-care (01) ==
LOC: E/R 04:08
DX: R07.9 Chest pain, unspecified (principal); I12.0 Hypertensive chronic kidney disease with stage 5 chronic kidney disease or end stage renal disease; N18.6 End stage renal disease; E11.22 Type 2 diabetes mellitus with diabetic chronic kidney disease; Z79.4 Long term (current) use of insulin; Z79.82 Long term (current) use of aspirin
CPT/HCPCS: 71010; 80048; 84484; 85025; 85610; 85730; 93005; J1170; J1885; J2405; 36415; 96374; 96375; 96376

== ENCOUNTER 2016-11-16 09:39 | Emergency (ER) | payer MEDICARE, BC ==
[~2016-11-16] VITALS: Ht 165.1 cm; Wt 68.0 kg
[~2016-11-16 09:39] MED LIST changes: -METH500T PO; +MULTI PO; -ONDA4TAB14 PO; -OXYC-279 PO
[2016-11-16 09:55] VITALS: Ht 165.1 cm; Wt 68.0 kg
[2016-11-16] MEDS ORDERED: ONDANSETRON (ODT) 4 MG TAB ODT STA (10:56)
[2016-11-16] MEDS ORDERED: OXYCODONE/ACETAMINOPHEN (10/325) TAB PO ONE (12:00)
[2016-11-16 12:12] LABS: BASOPHILS % 0.4 % (0.0-2.0); EOSINOPHILS % 0.7 % (0.0-7.0); HEMATOCRIT 38.2 % (37.0-47.0); HEMOGLOBIN 12.4 g/dl (12.0-16.0); LYMPHOCYTES # 1.3 10^3/ul (0.8-2.9); LYMPHOCYTES % 22.8 % (15.0-51.0); MEAN CORPUSCULAR HEMOGLOBIN 30.5 pg (29.0-33.0); MEAN CORPUSCULAR HGB CONC 32.5 g/dl (32.0-37.0); MEAN CORPUSCULAR VOLUME 94.1 fl (82.0-101.0); MEAN PLATELET VOLUME 10.1 fl (7.4-10.4); MONOCYTE # 0.4 10^3/ul (0.3-0.9); MONOCYTES % 7.3 % (0.0-11.0); NEUTROPHILS % 68.6 % (39.0-77.0); PLATELET COUNT 158 10^3/UL (140-415); RED BLOOD COUNT 4.06 10^6/ul (4.20-5.40); RED CELL DISTRIBUTION WIDTH 13.1 % (11.5-14.5); WHITE BLOOD COUNT 5.5 10^3/ul (4.8-10.8)
--- NOTE | 2016-11-16 12:15 | RADRPT ---
PROCEDURE: XR Chest. CLINICAL INDICATION: chest pain, abdominal pain TECHNIQUE: Single frontal view of the chest was obtained COMPARISON: CR CHEST 10/07/2016 FINDINGS: The heart and mediastinum are within normal limits. There is a right-sided Perma-Cath in place. The lungs are clear. There is no pleural effusion or pneumothorax. RPTAT: AA IMPRESSION: No acute disease. .Jose Rafael Williamson MD, MD Date Time Electronically viewed and signed by .Jose Rafael Williamson MD, on 11/16/2016 12:14 .S/
[2016-11-16 12:19] LABS: ADD UMIC YES; UR ASCORBIC ACID NEGATIVE (NEGATIVE); UR BILIRUBIN (Dip) NEGATIVE (NEGATIVE); UR BLOOD (Dip) 3+ mg/dL (NEGATIVE); UR CLARITY CLEAR (CLEAR); UR COLOR YELLOW (YELLOW); UR GLUCOSE (Dip) 3+ mg/dL (NEGATIVE); UR KETONES (Dip) NEGATIVE (NEGATIVE); UR LEUKOCYTE ESTERASE (Dip) NEGATIVE Leu/ul (NEGATIVE); UR NITRITE (Dip) NEGATIVE (NEGATIVE); UR RBC > 182 /HPF (0-5); UR SPECIFIC GRAVITY (Dip) 1.014 (1.003-1.030); UR SQUAMOUS EPITHELIAL CELL FEW /HPF (FEW); UR TOTAL PROTEIN (Dip) 3+ mg/dl (NEGATIVE); UR UROBILINOGEN (Dip) NEGATIVE (NEGATIVE)
[2016-11-16 12:32] LABS: BILIRUBIN,INDIRECT 0.2 mg/dl (0-1.1); BILIRUBIN,TOTAL 0.2 mg/dl (0.2-1.3); CALCIUM 9.2 mg/dl (8.4-10.2); CREATININE 5.13 mg/dl (0.44-1.00); POTASSIUM 4.7 mmol/L (3.5-5.1)
[2016-11-16 12:33] LABS: ALBUMIN 4.2 g/dl (3.3-4.9); ALBUMIN/GLOBULIN RATIO 1.07; TOTAL PROTEIN 8.1 g/dl (6.1-8.1)
[2016-11-16] MEDS ORDERED: NICARDipine HCL 30 MG CAPSULE PO ONE (13:00)
--- NOTE | 2016-11-16 13:03 | ERD ---
ER Documentation Chief Complaint Date/Time DATE: 11/16/16 TIME: 12:58 Chief Complaint bilat flank, pelvic pain, urinating blood; symptoms staring yesterday HPI Patient is a 46-year-old female with dialysis and diabetes who presents with abdominal pain and vaginal bleeding. She said the symptoms started at 4 AM. She has bilateral lower back pain as well. She says that she is not . She said the pain is been sharp and constant. She has had no treatment as of yet. She takes a baby aspirin but no other blood thinning medications. She makes urine and did have dialysis yesterday. Upon review of old medical records the patient has multiple visits to the ER for various complaints. Review of the emergency department information exchange system shows visits to 4 separate emergency departments and review of the [employer] database shows multiple narcotic prescriptions. ROS All systems reviewed and are negative except as per history of present illness. Medications Home Meds Active Scripts Morphine Sulfate* (Ms Contin*) 15 Mg Tablet.sa, 15 MG PO Q12, #10 TAB Prov:ROSMERY MORRIS DO 08/06/16 Metoclopramide* (Reglan*) 10 Mg Tablet, 10 MG PO Q6H Y for NAUSEA AND OR VOMITING, #30 TAB Prov:HIMANSHU NORWOOD MD 07/11/16 Pantoprazole* (Protonix*) 20 Mg Tablet.dr, 20 MG PO DAILY, #90 TAB Prov:HIMANSHU NORWOOD MD 07/11/16 Losartan Potassium* (Cozaar*) 50 Mg Tablet, 50 MG PO BID for 30 Days, TAB Prov:VERONICA BALLESTEROS 06/30/16 [Lactulose] 20 GM/30 ML SOLN No Conflict Check, 30 GM PO BID for 30 Days Prov:VERONICA BALLESTEROS 06/30/16 Insulin Glargine* (Lantus*) 100 Unit/Ml Soln, 12 UNIT SC QHS for 30 Days Prov:VERONICA BALLESTEROS 06/30/16 Hydralazine Hcl* (Hydralazine Hcl*) 25 Mg Tab, 50 MG PO Q12 for 30 Days, TAB Prov:VERONICA BALLESTEROS 06/30/16 Terbinafine Hcl* (Terbinafine Hcl*) 250 Mg Tablet, 250 MG PO BID for 30 Days, TAB Prov:VERONICA BALLESTEROS 06/30/16 Brimonidine Tartrate* (Alphagan P*) 0.1%-15 Ml Opht Drops, 1 DROP BOTH EYES Q8, #1 BOTTLE Prov:VERONICA BALLESTEROS 06/30/16 Aspirin* (Aspirin* EC) 81 Mg Tablet.dr, 162 MG PO DAILY for 30 Days Prov:VERONICA BALLESTEROS 06/30/16 Metoprolol Tartrate* (Lopressor*) 25 Mg Tab, 25 MG PO BID, #60 TAB Prov:VERONICA BALLESTEROS 06/30/16 Polyethylene Glycol* (Miralax*) 17 Gm Powd.pack, 2 TSP PO DAILY for CONSTIPATION , #1 BOTTLE Prov:PAUL CLARK MD 03/18/16 Reported Medications Multivitamins* (Theragran*) 1 Tab Tab, 1 TAB PO DAILY, TAB 09/22/16 Ferrous Sulfate* (Ferrous Sulfate*) 325 Mg Tabec, 325 MG PO DAILY, TAB 07/06/16 Insulin Aspart* (Novolog Insulin Pen*) 100 Unit/Ml Soln, 12 UNIT SC WITH BREAKFAST for 30 Days, EA 07/06/16 Allergies Allergies: Coded Allergies: acetaminophen (Unverified Allergy, Severe, UNABLE TO BREATH, 09/22/16) hydrocodone (Unverified Allergy, Severe, UNABLE TO BREATH, 09/22/16) Penicillins (Unverified Allergy, Unknown, 09/22/16) egg yolk (Unverified Allergy, Unknown, 09/22/16) ibuprofen (Unverified Allergy, Unknown, 09/22/16) tramadol (Unverified Allergy, Unknown, 09/22/16) PMhx/Soc History of Surgery: Yes (Jeremiah catheter, Fistula on L arm) Anesthesia Reaction: No Hx Neurological Disorder: No Hx Respiratory Disorders: No Hx Cardiac Disorders: No (HTN) Hx Psychiatric Problems: No Hx Miscellaneous Medical Probl: No (esrd, dialysis ) Hx Alcohol Use: No Hx Substance Use: No Hx Tobacco Use: No Smoking Status: Current every day smoker FmHx Family History: diabetes Physical Exam Vitals Vital Signs Date Time Temp Pulse Resp B/P Pulse Ox O2 Delivery O2 Flow Rate FiO2 11/16/16 12:25 70 18 229/95 99 Room Air 11/16/16 09:55 97.9 75 18 181/86 98 Physical Exam Const: Moderate distress secondary to pain Head: Atraumatic Eyes: Normal Conjunctiva ENT: Normal External Ears, Nose and Mouth. Neck: Full range of motion..~ No meningismus. Resp: Clear to auscultation bilaterally Cardio: Regular rate and rhythm, no murmurs Abd: Soft, Diffuse tenderness to palpation without rebound or guarding Skin: No petechiae or rashes Back: No midline or flank tenderness Ext: No cyanosis, or edema Neur: Awake and alert Psych: Normal Mood and Affect Result Diagram: 11/16/16 1110 11/16/16 1110 Results 24 hrs Laboratory Tests Test 11/16/16 11:10 White Blood Count 5.510^3/ul Red Blood Count 4.0610^6/ul Hemoglobin 12.4g/dl Hematocrit 38.2% Mean Corpuscular Volume 94.1fl Mean Corpuscular Hemoglobin 30.5pg Mean Corpuscular Hemoglobin Concent 32.5g/dl Red Cell Distribution Width 13.1% Platelet Count 70280^3/UL Mean Platelet Volume 10.1fl Neutrophils % 68.6% Lymphocytes % 22.8% Monocytes % 7.3% Eosinophils % 0.7% Basophils % 0.4% Nucleated Red Blood Cells % 0.0/100WBC Neutrophils # (Manual) 3.810^3/ul Lymphocytes # 1.310^3/ul Monocytes # 0.410^3/ul Eosinophils # 0.010^3/ul Basophils # 0.010^3/ul Nucleated Red Blood Cells # 0.010^3/ul Urine Color YELLOW Urine Clarity CLEAR Urine pH 7.0 Urine Specific [place] 1.014 Urine Ketones NEGATIVEmg/dL Urine Nitrite NEGATIVEmg/dL Urine Bilirubin NEGATIVEmg/dL Urine Urobilinogen NEGATIVEmg/dL Urine Leukocyte Esterase NEGATIVELeu/ul Urine Microscopic RBC > 182/HPF Urine Microscopic WBC 9/HPF Urine Squamous Epithelial Cells FEW/HPF Urine Hemoglobin 3+mg/dL Urine Glucose 3+mg/dL Urine Total Protein 3+mg/dl Sodium Level 136mmol/L Potassium Level 4.7mmol/L Chloride Level 99mmol/L Carbon Dioxide Level 27mmol/L Anion Gap 15 Blood Urea Nitrogen 54mg/dl Creatinine 5.13mg/dl Glucose Level 250mg/dl Calcium Level 9.2mg/dl Total Bilirubin 0.2mg/dl Direct Bilirubin 0.00mg/dl Indirect Bilirubin 0.2mg/dl Aspartate Amino Transf (AST/SGOT) 29IU/L Alanine Aminotransferase (ALT/SGPT) 21IU/L Alkaline Phosphatase 134IU/L Total Protein 8.1g/dl Albumin 4.2g/dl Globulin 3.90g/dl Albumin/Globulin Ratio 1.07 Lipase 91U/L Current Medications Medications (Trade) Dose Ordered Sig/Jacques Route PRN Reason Start Time Stop Time Status Last Admin Dose Admin Ondansetron HCl (Zofran Odt) 4 mg ONCE STAT ODT 11/16/16 10:56 11/16/16 10:58 DC 11/16/16 10:56 Oxycodone/ Acetaminophen (Endocet (10/ 325)) 1 tab ONCE ONCE PO 11/16/16 12:00 11/16/16 12:01 DC 11/16/16 12:20 Nicardipine HCl (Cardene) 30 mg ONCE ONCE PO 11/16/16 13:00 11/16/16 13:01 Procedures/MDM Chest x-ray negative per radiology. Patient is a 46-year-old female with diabetes and dialysis who presents with abdominal pain and vaginal bleeding. Hemoglobin is normal. Laboratory studies are basically normal including liver function tests and lipase. Urinalysis shows hematuria but no sign of acute infection at this time. At this point I doubt appendicitis, cholecystitis, pancreatitis, or bowel obstruction. I doubt ectopic . I believe outpatient management is appropriate but the patient will need close follow-up with her primary doctor within 24 hours for reevaluation. I will also give her information for Dr. Saab from pain management as she does appear to have pain management issues as well. I would not give her any prescriptions for narcotic pain medicines here in the emergency department but she did get Percocet and Zofran in the emergency department and feels better. Departure Diagnosis: Primary Impression: Hypertension Hypertension type: essential hypertension Qualified Code: I10 - Essential hypertension Additional Impressions: Flank pain Abdominal pain Abdominal location: generalized Qualified Code: R10.84 - Generalized abdominal pain Hematuria Hematuria type: unspecified type Qualified Code: R31.9 - Hematuria, unspecified type Condition: Fair Patient Instructions: Abdominal Pain, High Blood Pressure (Hypertension), Flank Pain, Uncertain Cause Referrals: [facility] Additional Instructions: Specialist:Usted tiene lizzie condicin mdica que requiere que aye a un especialista dentro de los prximos 1-2 baird.POR FAVOR,CON [place]ALLACE SEGUIMIENTO DE PRIMARIA PHSICIAN refferal. SI USTED NO TIENE UN MDICO GENERAL Y / O USTED NO PUEDE PAGAR london a un mdico,los siguientes stoll RECURSOS sido suministrado a usted. ES WALLACE RESPONSABILIDAD PARA SER VISTOS POR EL ESPECIALISTA: ANTHONY CASTILLO MD Nov 16, 2016 13:03
[2016-11-16 13:46] VITALS: BP 210/105; PULSE 77; RESP 18
== END 2016-11-16 13:47 | disposition home or self-care (01) ==
LOC: E/R 09:39
DX: I12.0 Hypertensive chronic kidney disease with stage 5 chronic kidney disease or end stage renal disease (principal); R10.84 Generalized abdominal pain; R31.9 Hematuria, unspecified; N18.6 End stage renal disease; F17.210 Nicotine dependence, cigarettes, uncomplicated; E11.22 Type 2 diabetes mellitus with diabetic chronic kidney disease; Z79.4 Long term (current) use of insulin; Z99.2 Dependence on renal dialysis; Z79.82 Long term (current) use of aspirin
CPT/HCPCS: 36415; 71010; 80053; 81001; 83690; 84703; 85025

== ENCOUNTER 2016-12-14 11:14 | Day surgery (SDC) | payer MEDICARE, BC ==
[2016-12-14] MEDS ORDERED: CLON-379 PO (12:00)
[2016-12-14] MEDS ORDERED: HYDR-3671 PO (12:01)
[2016-12-14] MEDS ORDERED: METO-448 PO (12:02)
[2016-12-14] MEDS ORDERED: FURO-109 PO (12:02)
[2016-12-14] MEDS ORDERED: NOVO3I SC (12:02)
[2016-12-14] MEDS ORDERED: LINA5TAB PO (12:03)
--- NOTE | 2016-12-14 12:09 | RADRPT ---
PROCEDURE: XR Chest. CLINICAL INDICATION: Preoperative, renal failure TECHNIQUE: Single frontal view of the chest was obtained COMPARISON: 10/07/2016 FINDINGS: The heart and mediastinum are within normal limits. There is a right-sided Perma-Cath in place. The lungs are clear. There is no pleural effusion or pneumothorax. RPTAT: AA IMPRESSION: No acute disease. .Jose Rafael Williamson MD, MD Date Time Electronically viewed and signed by .Jose Rafael Williamson MD, on 12/14/2016 12:08 .S/
--- NOTE | 2016-12-17 15:57 | RADRPT ---
Vent Rate: 73 bpm RR Interval: 0 msec OH Interval: 162 msec QRS Duration: 78 msec QT Interval: 410 msec QTC Interval: 451 msec P-R-T [place]: 44 - 65 - 33 degrees Normal sinus rhythm Normal ECG Electronically Signed By: Galen Garcia [id number]
== END 2016-12-14 12:49 | disposition home or self-care (01) ==
LOC: SDS 11:14
PROVIDERS: ATTEND Student in an Organized Health Care Education/Training Program
DX: N18.6 End stage renal disease (principal)
CPT/HCPCS: 71010; 93005

== ENCOUNTER 2017-04-28 05:57 | Day surgery (SDC) | END 2017-04-28 10:24 | disposition home or self-care (01) ==

== ENCOUNTER 2017-07-18 08:32 | Emergency (ER) | END 2017-07-18 10:57 | disposition home or self-care (01) ==

== ENCOUNTER 2017-08-19 11:11 | Inpatient (IN) | END 2017-08-23 11:36 | disposition home or self-care (01) | DRG 252 ==

== ENCOUNTER 2017-11-04 10:53 | Inpatient (IN) | END 2017-11-07 12:25 | disposition home or self-care (01) | DRG 312 ==

== ENCOUNTER 2017-11-25 14:56 | Emergency (ER) | END 2017-11-25 21:25 | disposition home or self-care (01) ==

== ENCOUNTER 2017-12-03 10:31 | Emergency (ER) | END 2017-12-03 15:42 | disposition left against medical advice (07) ==

== ENCOUNTER 2017-12-07 09:40 | Emergency (ER) | END 2017-12-07 12:19 | disposition home or self-care (01) ==

== ENCOUNTER 2018-01-29 20:29 | Inpatient (IN) | END 2018-02-01 16:20 | disposition home or self-care (01) | DRG 690 ==

== ENCOUNTER 2018-03-17 14:35 | Emergency (ER) | payer MEDICARE, BC ==
[~2018-03-17] VITALS: Ht 160 cm; Wt 61.8 kg
[~2018-03-17 14:35] MED LIST changes: -ASPI-664 PO; +ASPI-903 PO; +ATOR40TA68 PO; -BRIM15DR2 BOTH EYES; -FER325 PO; +FURO40TA4 PO; +GEN20I IV; -HYDR-3671 PO; +HYDR-3672 PO; +INSU100I33 SC; -LANT3I SC; +LINA5TAB PO; +LOSA50TA14 PO; -LOSA50TA2 PO; -Lactulose PO; +METF100010 PO; -METO-448 PO; -METO10TA92 PO; -MORP15TA92 PO; -MULTI PO; +NIFE60TA18 PO; +NORT50CA PO; -NOVO3I SC; -PANT20TA2 PO; -POLY17PO6 PO; +SENOKOTS PO; +SEVE0.8P PO; -TERB250T9 PO
[2018-03-17 14:38] VITALS: Ht 160 cm; Wt 61.8 kg
[2018-03-17] MEDS ORDERED: NIFE60TA24 PO (15:05)
[2018-03-17] MEDS ORDERED: SEVE800T7 PO (15:10)
[2018-03-17] MEDS ORDERED: morphine 4 MG/ML VIAL IV STA (16:54)
[2018-03-17] MEDS ORDERED: SOD CHLORIDE 0.9% 500 ML IV STA (17:11)
[2018-03-17] MEDS ORDERED: SENNA TAB PO ONE (18:00)
[2018-03-17] MEDS ORDERED: METO10TA92 PO (18:45)
[2018-03-17] MEDS ORDERED: CEPH-443 PO (18:45)
[2018-03-17] MEDS ORDERED: SENN-120 PO (18:45)
[2018-03-17] MEDS ORDERED: NA P133E3 RC (18:45)
--- NOTE | 2018-03-17 18:54 | ERD ---
ER Documentation Chief Complaint Chief Complaint LEG PAIN AFTER FALL SUBDAY ALSO MISSED DIALYSIS HPI 47-year-old female with a history of hypertension, diabetes, and CKD on hemodialysis presenting with multiple complaints. She was admitted to [facility] over 1 week ago for nausea and vomiting, hypertension, and STEMI, and uncontrolled diabetes. She was discharged 03/12/17. The patient continues to have a lower abdominal pain and nausea with vomiting. Per the daughter, she was not given medications for home for her UTI or her vomiting. Patient also complains of left upper extremity and left leg pain. She states that she fell while at the other hospital but no imaging was done at that time. She has had continuous pain in her left entire arm and her left leg. The pain that radiates from her hip to her knee. She denies any fevers or chills. No diarrhea but is constipated. ROS All systems reviewed and are negative except as per history of present illness. Medications Home Meds Active Scripts Cephalexin* (Keflex*) 500 Mg Capsule, 500 MG PO BID for 7 Days, CAP Prov:PATRICIO VAZQUEZ MD 03/17/18 Metoclopramide* (Reglan*) 10 Mg Tablet, 10 MG PO Q6 PRN for NAUSEA AND/OR VOMITING, #10 TAB Prov:PATRICIO VAZQUEZ MD 03/17/18 Sennosides* (Senna Lax*) 8.6 Mg Tablet, 1 TAB PO Q12H PRN for CONSTIPATION, #10 TAB Prov:PATRICIO VAZQUEZ MD 03/17/18 Na Phos,M-B/Na Phos,Di-Ba (Enema) 133 Ml Enema, 133 ML RC DAILY PRN for CONSTIPATION, #2 ENEMA Prov:PATRICIO VAZQUEZ MD 03/17/18 Reported Medications Sevelamer Carbonate* (Renvela*) 800 Mg Tablet, 2.4 GM PO WITH MEALS, TAB 03/17/18 Nifedipine* (Afeditab CR*) 60 Mg Tablet.er, 60 MG PO DAILY, #30 TAB.SA 03/17/18 Metformin Hcl* (Metformin Hcl*) 1,000 Mg Tablet, 1000 MG PO WITH BREAKFAST DINNE, #60 TAB 01/29/18 Nortriptyline Hcl* (Nortriptyline Hcl*) 50 Mg Capsule, 50 MG PO BID, TAB 01/29/18 Insulin Glargine,Hum.rec.anlog (Basaglar Kwikpen U-100) 100 Unit/1 Ml Insuln.pen, 10 UNIT SC QHS, EA 01/29/18 Hydralazine Hcl* (Hydralazine Hcl*) 50 Mg Tab, 50 MG PO TID, #90 TAB 01/29/18 Furosemide* (Furosemide*) 40 Mg Tablet, 40 MG PO BID, TAB 01/29/18 Atorvastatin* (Atorvastatin*) 40 Mg Tablet, 40 MG PO QHS, #30 TAB 08/19/17 Aspirin* (Aspirin* Chew) 81 Mg Tab.chew, 81 MG PO DAILY, TAB.CHEW 08/19/17 Losartan Potassium* (Losartan Potassium*) 50 Mg Tablet, 50 MG PO DAILY, TAB 08/19/17 Discontinued Reported Medications Linagliptin (TRADJENTA) 5 Mg Tablet, 5 MG PO DAILY, TAB 01/29/18 Sevelamer Carbonate* (Renvela*) 0.8 Gm Powd.pack, 0.8 GM PO WITH MEALS, PACKET 08/19/17 Discontinued Scripts Gentamicin Sulfate* (Gentamicin Sulfate* Inj) 10 Mg/Ml Soln, 70 MG IV AFTER DIALYSIS, #6 DOSE Prov:KHUSHILLOYD 01/31/18 Nifedipine* (Nifedipine ER*) 60 Mg Tablet.sa, 60 MG PO BID, #60 TAB.SA Prov:LLOYD PURI 01/31/18 Sennosides/Docusate Sodium (Dok Plus Tablet) 1 Each Tablet, 2 TAB PO DAILY, #30 TAB 2 Refills Prov:LLOYD PURI 01/31/18 Allergies Allergies: Coded Allergies: acetaminophen (Unverified Allergy, Severe, UNABLE TO BREATH, 01/29/18) hydrocodone (Unverified Allergy, Severe, UNABLE TO BREATH, 01/29/18) hydromorphone (Verified Allergy, Severe, SHOCK, 01/29/18) Penicillins (Unverified Allergy, Unknown, 01/29/18) egg yolk (Unverified Allergy, Unknown, 01/29/18) ibuprofen (Unverified Allergy, Unknown, 01/29/18) tramadol (Unverified Allergy, Unknown, 01/29/18) PMhx/Soc History of Surgery: Yes (cholecystectomy ) Anesthesia Reaction: No Hx Neurological Disorder: No Hx Respiratory Disorders: No Hx Cardiac Disorders: Yes (HTN) Hx Psychiatric Problems: No Hx Miscellaneous Medical Probl: No Hx Alcohol Use: No Hx Substance Use: No Hx Tobacco Use: No Smoking Status: Never smoker FmHx Family History: No coronary disease Physical Exam Vitals Vital Signs Date Temp Pulse Resp B/P (MAP) Pulse Ox O2 O2 Flow FiO2 Time Delivery Rate 03/17/18 98.3 83 14 192/93 98 Room Air 18:00 (126) 03/17/18 98.3 84 18 173/81 98 14:38 (111) Physical Exam Const: No acute distress, nontoxic. 2+ distal pulses in all 4 extremities Head: Atraumatic Eyes: Normal Conjunctiva ENT: Normal External Ears, Nose and Mouth. Neck: Full range of motion. No meningismus. Resp: Clear to auscultation bilaterally Cardio: Regular rate and rhythm, no murmurs. Intact distal pulses in all 4 extremities Abd: Soft, lower abdominal tenderness to palpation with guarding but no rebound. No masses. Non distended. Normal bowel sounds Skin: No petechiae or rashes Back: No midline or flank tenderness Ext: No cyanosis, or edema. No deformities noted. No bruises noted. Left popliteal soft mass, mildly tender to palpation. No joint swelling. Full range of motion at all joints. Pelvis stable. Neur: Awake and alert, oriented, normal speech, no facial asymmetry, strength and sensations intact in all 4 extremities. Psych: Normal Mood and Affect Result Diagram: 03/17/18 1505 03/17/18 1505 Results 24 hrs Laboratory Tests Test 03/17/18 15:05 03/17/18 17:48 White Blood Count 4.0 10^3/ul Red Blood Count 3.57 10^6/ul Hemoglobin 10.7 g/dl Hematocrit 33.2 % Mean Corpuscular Volume 93.0 fl Mean Corpuscular Hemoglobin 30.0 pg Mean Corpuscular Hemoglobin Concent 32.2 g/dl Red Cell Distribution Width 12.3 % Platelet Count 143 10^3/UL Mean Platelet Volume 9.6 fl Immature Granulocytes % 0.300 % Neutrophils % 63.8 % Lymphocytes % 22.0 % Monocytes % 12.6 % Eosinophils % 1.0 % Basophils % 0.3 % Nucleated Red Blood Cells % 0.0 /100WBC Immature Granulocytes # 0.010 10^3/ul Neutrophils # 2.5 10^3/ul Lymphocytes # 0.9 10^3/ul Monocytes # 0.5 10^3/ul Eosinophils # 0.0 10^3/ul Basophils # 0.0 10^3/ul Nucleated Red Blood Cells # 0.0 10^3/ul Sodium Level 131 mmol/L Potassium Level 4.8 mmol/L Chloride Level 89 mmol/L Carbon Dioxide Level 31 mmol/L Anion Gap 11 Blood Urea Nitrogen 40 mg/dl Creatinine 6.48 mg/dl Est Glomerular Filtrat Rate mL/min 7 mL/min Glucose Level 291 mg/dl Calcium Level 9.5 mg/dl Serum HCG, Qualitative NEGATIVE Urine Color YELLOW Urine Clarity SLIGHTLY CLOUDY Urine pH 8.0 Urine Specific [place] 1.012 Urine Ketones NEGATIVE mg/dL Urine Nitrite NEGATIVE mg/dL Urine Bilirubin NEGATIVE mg/dL Urine Urobilinogen NEGATIVE mg/dL Urine Leukocyte Esterase TRACE Diane/ul Urine Microscopic RBC 7 /HPF Urine Microscopic WBC 39 /HPF Urine Squamous Epithelial Cells FEW /HPF Urine Hemoglobin NEGATIVE mg/dL Urine Glucose 3+ mg/dL Urine Total Protein 3+ mg/dl Current Medications Medications Dose Sig/Jacques Start Time Status Last (Trade) Ordered Route PRN Stop Time Admin Dose Reason Admin Morphine 4 mg ONCE STAT 03/17/18 DC 03/17/18 Sulfate IV 16:54 17:04 (morphine) 03/17/18 16:55 Sodium 500 ml @ Q1H STAT 03/17/18 DC 03/17/18 Chloride 500 mls/hr IV 17:11 17:54 03/17/18 18:10 Senna 1 tab ONCE ONCE 03/17/18 DC 03/17/18 (Senokot) PO 18:00 18:20 03/17/18 18:01 Procedures/MDM EMERGENT LABS AND DIAGNOSTIC STUDIES: Lab Results above were reviewed and interpreted by me. CBC: Mild anemia, mild leukopenia, chronic BMP: Elevated BUN and creatinine, consistent with CKD. Hyperglycemic without evidence of acidosis. No severe electrolyte abnormality. UA: Results consistent with possible infection Radiology Results as interpreted by Radiology below were reviewed by El Vazquez MD: CT abdomen and pelvis shows evidence of moderate stool in the colon with no other acute abnormalities Initial Nursing notes reviewed. Previous Medical Records requested via the Electronic Health Record. EMERGENCY DEPARTMENT COURSE / MEDICAL DECISION MAKING: Patient is presenting with complaints of abdominal pain, nausea and vomiting, and left-sided body pain. On arrival she was hemodynamically stable and afebrile. She was given IV fluids and medications for pain and nausea. Her CT did not show any significant abnormalities other than constipation. She was also noted to have hyperglycemia for which insulin was given. I doubt aortic dissection or ischemic bowel. Her urinalysis is consistent with UTI. I recommended treatment with Keflex. I also recommended treatment with senna and enema for her constipation at home. Follow-up with PCP was recommended. Return precautions were discussed. If any of her symptoms are to worsen, I instructed her to return to the ER immediately. Patient's blood pressure was elevated (>120/80) but appears stable without evidence of hypertensive emergency or urgency. The patient was counseled about the risks of hypertension and urged to pursue outpatient monitoring and therapy within a week with their primary care physician. Departure Diagnosis: Primary Impression: Urinary tract infection Urinary tract infection type: site unspecified Hematuria presence: without hematuria Qualified Codes: N39.0 - Urinary tract infection, site not specified Additional Impressions: Nausea Constipation Constipation type: unspecified constipation type Qualified Codes: K59.00 - Constipation, unspecified Injury of left leg Encounter type: initial encounter Qualified Codes: S89.92XA - Unspecified injury of left lower leg, initial encounter Condition: Stable Patient Instructions: Understanding Urinary Tract Infections (UTIs), Nausea, Constipation (Adult) PATRICIO VAZQUEZ MD Mar 17, 2018 18:54
[2018-03-17] MEDS ORDERED: INSULIN ASPART [NOVOLOG] 3 ML PEN SC ONE (19:00)
[2018-03-17 19:01] VITALS: BP 187/85; PULSE 78; RESP 16
[2018-04-17] MEDS ORDERED: SEVE0.8P PO (09:48)
[2018-04-18] MEDS ORDERED: ERYT250T55 PO (15:50)
== END 2018-03-17 19:51 | disposition home or self-care (01) ==
LOC: E/R 14:35
DX: S89.92XA Unspecified injury of left lower leg, initial encounter (principal); N39.0 Urinary tract infection, site not specified; K59.00 Constipation, unspecified; N18.9 Chronic kidney disease, unspecified; I12.9 Hypertensive chronic kidney disease with stage 1 through stage 4 chronic kidney disease, or unspecified chronic kidney disease; E11.22 Type 2 diabetes mellitus with diabetic chronic kidney disease; W19.XXXA Unspecified fall, initial encounter; Y92.9 Unspecified place or not applicable; Z79.82 Long term (current) use of aspirin; Z99.2 Dependence on renal dialysis; Z79.4 Long term (current) use of insulin
CPT/HCPCS: 36415; 73510; 73550; 74176; 80048; 81001; 82962; 84703; 85025; 93971; 96372; 96374; 99285; J1815; J2270; J7040; 73502; 73552